=== PATIENT | male | born 1960 | race Caucasian/White ===

== ENCOUNTER → 2017-02-14 | Outpatient (CLI) | payer BC ==
[~2017-02-14] MED LIST: CLON0.5T3 PO; FLUT220A INH; PRVHFAIN INH
== END | disposition home or self-care (01) ==
LOC: C.LABBFT 12:13
PROVIDERS: ATTEND Physician Assistant
DX: R59.0 Localized enlarged lymph nodes (principal)

== ENCOUNTER → 2017-03-09 | Outpatient (CLI) | payer BC ==
--- NOTE | 2017-03-10 17:58 | Procedure Note ---
Procedure Note Date of Service Mar 10, 2017. Procedure Note Spirometry: Within normal limits Lung volumes: Within normal limits Diffusion: Moderately decreased DLCO with DLCO/VA ratio 69% Interpretation: Airflow capacity within normal limits but moderately decreased oxygen diffusing capacity
== END | disposition home or self-care (01) ==
LOC: C.RC 08:54
PROVIDERS: ATTEND Physician Assistant
DX: J84.9 Interstitial pulmonary disease, unspecified (principal)

== ENCOUNTER → 2017-04-27 | Outpatient (CLI) | payer BC ==
--- NOTE | 2017-04-27 15:21 | DIAGNOSTIC IMAGING REPORT ---
TWO VIEW CHEST CLINICAL HISTORY: Bronchiectasis. Cough. FINDINGS: PA and lateral chest radiographs are compared to study dated 02/13/2009 and correlated with chest CT dated 01/26/2017. The heart is top normal for projection. The pulmonary vasculature is noncongested. There is diffuse interstitial thickening and subpleural reticulation. This is similar to 01/26/[address] scan and typical appearance for interstitial lung disease. Prominence of the israel likely corresponds to adenopathy when correlated with the recent chest CT. Foci of bronchiectasis are identified at the lung bases. There is no evidence of superimposed airspace consolidation or pleural effusion. There is no pneumothorax. The bony thorax appears intact. IMPRESSION: Findings of interstitial lung disease are similar to previous. There is no evidence of superimposed airspace consolidation or pleural effusion. Electronically signed by: Sam Harris M.D. 04/27/2017 3:20 PM Dictated Date/Time: 04/27/2017 3:18 PM
== END | disposition home or self-care (01) ==
LOC: C.LAB1850 12:46
PROVIDERS: ATTEND Physician Assistant
DX: J47.9 Bronchiectasis, uncomplicated (principal); R05 Cough

== ENCOUNTER → 2017-05-18 | Outpatient (CLI) | payer BC ==
[2017-05-22 11:03] LABS: QUANTIF TB AG-NIL <0.00 IU/ML; QUANTIFERON NIL 0.05 IU/ML
== END | disposition home or self-care (01) ==
LOC: C.LAB1850 17:10
PROVIDERS: ATTEND Internal Medicine Pulmonary Disease
DX: J84.9 Interstitial pulmonary disease, unspecified (principal); J30.9 Allergic rhinitis, unspecified

== ENCOUNTER 2017-12-19 16:10 | Inpatient (IN) | payer BC ==
[~2017-12-19] VITALS: Ht 175.3 cm; Wt 109.6 kg
[2017-12-19] MEDS ORDERED: DILTIAZEM BOLUS / DRIP IV STA (16:24)
[2017-12-19] MEDS ORDERED: SODIUM CHLORIDE 0.9% 1000ML 250 ML IV STA (16:24)
--- NOTE | 2017-12-19 16:43 | DIAGNOSTIC IMAGING REPORT ---
CHEST ONE VIEW PORTABLE HISTORY: 57 years-old Male CHEST PAIN acute atypical chest pain COMPARISON: Chest radiograph 04/27/2017, CT chest 01/26/2017 TECHNIQUE: Portable AP view the chest FINDINGS: Cardiac silhouette is again mildly enlarged. There is no pneumothorax or pleural effusion. Emphysema with chronic bilateral multilobar reticular opacities are redemonstrated. Cystic changes of the lungs and bronchiectasis are better aligned when on comparison chest CT. Additionally, there are new superimposed patchy alveolar opacities which are most pronounced within a perihilar and bibasilar predominant distribution. Bones of the chest appear grossly intact. IMPRESSION: 1. Emphysema with interstitial lung disease. 2. New patchy alveolar opacities, most pronounced within a perihilar and bibasilar predominant distribution suggest atelectasis or pneumonitis. 3. Cardiomegaly. The above report was generated using voice recognition software. It may contain grammatical, syntax or spelling errors. Electronically signed by: Macho Anne M.D. 12/19/2017 4:41 PM Dictated Date/Time: 12/19/2017 4:39 PM
[2017-12-19] MEDS ORDERED: DILTIAZEM HCL INJ 125 MG in DEXTROSE 5% 100ML IV PRN (16:45)
[2017-12-19] MEDS ORDERED: DILTIAZEM BOLUS FROM BAG IV ONE (16:45)
[2017-12-19 16:53] LABS: HEMATOCRIT 45.9 % (42-52); HEMOGLOBIN 16.2 g/dL (14.0-18.0); MEAN CELL VOLUME 91.6 fL (80-100); MEAN CORPUSCULAR HEMOGLOBIN 32.3 pg (25-34); MEAN CORPUSCULAR HGB CONC 35.3 g/dl (32-36); MEAN PLATELET VOLUME 8.8 fL (7.4-10.4); PLATELET COUNT 231 K/uL (130-400); RED CELL DISTRIBUTION WIDTH CV 13.8 % (11.5-14.5); RED CELL DISTRIBUTION WIDTH SD 46.1 fL (36.4-46.3); WHITE BLOOD COUNT 6.82 K/uL (4.8-10.8)
[2017-12-19 17:05] LABS: PTT PATIENT 24.6 SECONDS (21.0-31.0)
[2017-12-19] MEDS ORDERED: MULT-513 PO (17:08)
[2017-12-19] MEDS ORDERED: RANI150T85 PO (17:08)
[2017-12-19] MEDS ORDERED: [UNRECOGNIZED DRUG - OTHER] INJ (17:08)
[2017-12-19] MEDS ORDERED: ASPI81TA28 PO (17:08)
[2017-12-19] MEDS ORDERED: CLIN300C2 PO (17:08)
[2017-12-19 17:13] LABS: ALBUMIN 3.4 gm/dl (3.4-5.0); ALT/SGPT 32 U/L (12-78); AST/SGOT 26 U/L (15-37); BLOOD UREA NITROGEN 13 mg/dl (7-18); CARBON DIOXIDE 25 mmol/L (21-32); CREATININE 1.29 mg/dl (0.60-1.40); GLUCOSE 85 mg/dl (70-99); POTASSIUM 4.6 mmol/L (3.5-5.1); SODIUM 137 mmol/L (136-145)
[2017-12-19 17:24] LABS: ALKALINE PHOSPHATASE 156 U/L (45-117); TOTAL PROTEIN 7.6 gm/dl (6.4-8.2)
--- NOTE | 2017-12-19 18:51 | EMERGENCY ROOM VISIT NOTE ---
History Report prepared by Hilario: Isidoro Dick Under the Supervision of: Dr. Sam Hodgson M.D. First contact with patient: 16:18 Chief Complaint: CHEST PAIN Stated Complaint: CHEST PAIN History of Present Illness The patient is a 57 year old male who presents to the Emergency Room with complaints of resolved chest pressure that began at 0630. The patient states that he gets injections once a week by a nurse for his history of pulmonary fibrosis. He reports that last night his nurse checked his heart rate at 0100 and found that it was 66 bpm and irregular. The patient states that the nurse advised him to come to the ER, but he reports he went to bed instead. He reports that he woke up at 0630 and developed chest pressure and palpitations. The patient states he has had similar chest pressure in the past and he describes it like "gas or heart burn". He reports his pulse ox showed a rate of 137 later that day at 1300. He states that he has noticed his heart rate has been fluctuating like this for the past month and a half. The patient states the nurse told his doctor and his doctor called him. He reports his doctor told him he has atrial flutter and told him to report to the ER. He reports he drove to his doctors office and EMS took him to the ER from there. The patient reports that as soon as EMS arrived, his chest pressure was alleviated. The patient states he was then given 4 Aspirin and 20 mg of IV Cardizem. He reports he is not currently experiencing chest pressure but states he does have a headache. The patient states he is typically short of breath--this has not changed lately. He denies a history of irregular heart beats. The patient states that he had a stress test sixth months ago and reports there were no significant abnormalities. Source of History: patient Onset: 0630 Position: chest Quality: pressure Timing: resolved Modifying Factors (Relieving): other (Aspirin, Cardizem) Associated Symptoms: + headache, + SOB Note: Associated symptoms: palpitations Review of Systems See HPI for pertinent positives & negatives. A total of 10 systems reviewed and were otherwise negative. Past Medical & Surgical Medical Problems: (1) Pzupa-3-[id number] deficiency (2) Anxiety (3) Asthma (4) Back pain (5) Bronchitis (6) Cholelithiases (7) Collapsed lung (8) Degenerative joint disease (9) Depression (10) Dyslipidemia (11) Emphysema of lung (12) TIA (transient ischemic attack) Surgical Problems: (1) History of left hip replacement (2) History of left hip replacement (3) Hx of hernia repair Family History Diabetes mellitus Heart disease Social History Smoking Status: Former Smoker Alcohol Use: occasionally Marital Status: in relationship Occupation Status: employed Current/Historical Medications Scheduled Alpha1-Proteinase Inhibitor (H (Prolastin-C), 60 MG.per.KG IV WK Aspirin (Aspirin Ec), 81 MG PO DAILY Clindamycin Hcl (Cleocin), 300 MG PO BID Home O2 Therapy (Oxygen), 2 LITERS NA PRN Multivitamins/Minerals (Mvi With Minerals), 1 TAB PO DAILY Scheduled PRN Albuterol (Ventolin Hfa), 2 PUFFS INH Q4H PRN for SOB/Wheezing Allergies Coded Allergies: Amoxicillin (Unverified Allergy, Intermediate, itchy, 01/09/16) Physical Exam Vital Signs Date Time Temp Pulse Resp B/P (MAP) Pulse Ox O2 Delivery O2 Flow Rate FiO2 12/19/17 18:41 88 18 119/88 98 Nasal Cannula 2.0 12/19/17 17:47 85 16 125/94 97 Nasal Cannula 2.0 12/19/17 17:20 75 12/19/17 16:55 80 18 123/88 96 Nasal Cannula 2.0 12/19/17 16:29 99 Nasal Cannula 2.0 12/19/17 16:16 99 Nasal Cannula 2.0 12/19/17 16:16 99 Nasal Cannula 2.0 12/19/17 16:16 93 12 114/92 99 Nasal Cannula 2.0 Physical Exam GENERAL: Patient is in no acute distress. HEENT: No acute trauma, normocephalic atraumatic, mucous membranes moist, no nasal congestion, no scleral icterus. NECK: No stridor, no adenopathy, no meningismus, trachea is midline. LUNGS: Diffuse crackles throughout all lung leonard. Equal breath sounds. No respiratory distress. HEART: Irregular without any murmurs. There is a normal rate. ABDOMEN: Soft, nontender, bowel sounds positive, no hernias, no peritonitis. EXTREMITIES: No cyanosis or edema, full range of motion of all the joints without pain or difficulty, no signs for acute trauma. NEUROLOGIC: Oriented x 3, no acute motor or sensory deficits, no focal weakness. SKIN: No rash, no jaundice, no diaphoresis. Medical Decision & Procedures ER Provider Diagnostic Interpretation: X-ray results as stated below per interpretation by me and the radiologist: CHEST ONE VIEW PORTABLE HISTORY: 57 years-old Male CHEST PAIN acute atypical chest pain COMPARISON: Chest radiograph 04/27/2017, CT chest 01/26/2017 TECHNIQUE: Portable AP view the chest FINDINGS: Cardiac silhouette is again mildly enlarged. There is no pneumothorax or pleural effusion. Emphysema with chronic bilateral multilobar reticular opacities are redemonstrated. Cystic changes of the lungs and bronchiectasis are better aligned when on comparison chest CT. Additionally, there are new superimposed patchy alveolar opacities which are most pronounced within a perihilar and bibasilar predominant distribution. Bones of the chest appear grossly intact. IMPRESSION: 1. Emphysema with interstitial lung disease. 2. New patchy alveolar opacities, most pronounced within a perihilar and bibasilar predominant distribution suggest atelectasis or pneumonitis. 3. Cardiomegaly. The above report was generated using voice recognition software. It may contain grammatical, syntax or spelling errors. Electronically signed by: Macho Anne M.D. 12/19/2017 4:41 PM Dictated Date/Time: 12/19/2017 4:39 PM Laboratory Results 12/19/17 16:40 12/19/17 16:40 Test 12/19/17 16:40 Red Blood Count 5.01 M/uL (4.7-6.1) Mean Corpuscular Volume 91.6 fL (80-100) Mean Corpuscular Hemoglobin 32.3 pg (25-34) Mean Corpuscular Hemoglobin Concent 35.3 g/dl (32-36) RDW Standard Deviation 46.1 fL (36.4-46.3) RDW Coefficient of Variation 13.8 % (11.5-14.5) Mean Platelet Volume 8.8 fL (7.4-10.4) Prothrombin Time 11.0 SECONDS (9.0-12.0) Prothromb Time International Ratio 1.0 (0.9-1.1) Activated Partial Thromboplast Time 24.6 SECONDS (21.0-31.0) Partial Thromboplastin Ratio 0.9 Anion Gap 5.0 mmol/L (3-11) Est Creatinine Clear Calc Drug Dose 79.5 ml/min Estimated GFR () 70.9 Estimated GFR (Non- 61.1 BUN/Creatinine Ratio 10.3 (10-20) Calcium Level 10.0 mg/dl (8.5-10.1) Magnesium Level 2.5 mg/dl (1.8-2.4) Total Bilirubin 1.4 mg/dl (0.2-1) Aspartate Amino Transf (AST/SGOT) 26 U/L (15-37) Alanine Aminotransferase (ALT/SGPT) 32 U/L (12-78) Alkaline Phosphatase 156 U/L (45-117) Total Protein 7.6 gm/dl (6.4-8.2) Albumin 3.4 gm/dl (3.4-5.0) Globulin 4.2 gm/dl (2.5-4.0) Albumin/Globulin Ratio 0.8 (0.9-2) Thyroid Stimulating Hormone (TSH) 1.720 uIu/ml (0.300-4.500) Laboratory results reviewed by me. Medications Administered Medications (Trade) Dose Ordered Sig/Murtaza Route Start Time Stop Time Status Last Admin Dose Admin Sodium Chloride 250 ml @ 999 mls/hr Q16M STAT IV 12/19/17 16:24 12/19/17 16:39 DC 12/19/17 16:24 999 MLS/HR Diltiazem HCl (Cardizem Bolus From Bag) 5 mg ONE ONCE IV 12/19/17 16:45 12/19/17 16:46 DC 12/19/17 17:00 5 MG Diltiazem HCl 125 mg/Dextrose 125 ml @ 0 mls/hr Q0M PRN IV 12/19/17 16:45 01/18/18 16:44 12/19/17 16:59 5 MLS/HR ECG Per My Interpretation Indication: chest pain Rate (beats per minute): 90 Rhythm: atrial flutter Findings: nonspecific-ST abn, other (No ST elevation, No PVCs) ED Course 1622: The patient was evaluated in room C12. A complete history and physical exam was performed. 1624: Ordered Sodium Chloride 250 ml @ 999 mls/hr IV. 1645: Ordered Diltiazem HCl 125 mg/Dextrose 125 ml IV, Diltiazem HCl 5 mg IV. 1738: I reevaluated the patient and discussed the results. I discussed the treatment plan, which he agrees to. The patient will be further evaluated by a hospitalist. 1744: I discussed the patient's case with Demi Fragoso PA-C Hospitalist. She understands the patient's condition and agrees to accept the patient. The patient will be further evaluated. Medical Decision The patient is a 57 year old male who presents to the Emergency Room with complaints of resolved chest pressure that began at 0630. Differential diagnoses considered include atrial fibrillation or flutter, TN, electrolyte Imbalance, anemia, thyroid disorder, and SVT. There is no leukocytosis or concerning anemia. No significant electrolyte abnormality, kidney failure or hepatitis. The patient appears to be in a euthyroid state. EKG shows atrial flutter with a rate of 90, no acute ischemic change. Cardiac enzyme testing 1 is not consistent with acute cardiac injury. Chest x-ray does show pulmonary fibrosis and possibly atelectasis or pneumonia --I favor atelectasis as he has not had cough or increased shortness of breath or fever. The patient presents with chest pressure and palpitations. His heart rate was around 130 prior to receiving IV Cardizem in the ambulance in route to the hospital. The patient was given IV saline, he received an IV Cardizem bolus and then was placed on a Cardizem drip. His heart rate is now nicely controlled. A hospital stay is warranted, further workup is required. I did speak to the patient and case management. The on-call hospitalist was consulted. Medication Reconcilliation Current Medication List: was personally reviewed by me Blood Pressure Screening Patient's blood pressure: Normal blood pressure Consults Time Called: 1744 Consulting Physician: Demi Fragoso PA-C Hospitalist Returned Call: 1744 I discussed the patient's case with Demi Fragoso PA-C Hospitalist. She understands the patient's condition and agrees to accept the patient. The patient will be further evaluated. Impression Primary Impression: Precordial chest pain Additional Impression: Atrial flutter with rapid ventricular response Critical Care I have personally spent greater than 30 minutes of critical care time in the direct management of this patient. This includes bedside care, interpretation of diagnostic studies and testing, discussion with consultants, the patient, and family members, and other required patient management activities. This 30 minutes is in excess of all separately billable procedures. Scribe Attestation The scribe's documentation has been prepared under my direction and personally reviewed by me in its entirety. I confirm that the note above accurately reflects all work, treatment, procedures, and medical decision making performed by me. Departure Information Dispostion Being Evaluated By Hospitalist Referrals Daly Brasher M.D. (PCP) Patient Instructions My [facility] Problem Qualifiers
[2017-12-19] MEDS ORDERED: NITROGLYCERIN 0.4 MG SL PER TAB CHARGE SL PRN (19:45)
[2017-12-19] MEDS ORDERED: ACETAMINOPHEN 325 MG TAB PO PRN (19:45)
[2017-12-19] MEDS ORDERED: ONDANSETRON INJ 2 MG/ML 2 ML VIAL IV PRN (19:45)
[2017-12-19] MEDS ORDERED: MAGNESIUM HYDROXIDE SUSP 30 ML UDC PO PRN (19:45)
[2017-12-19] MEDS ORDERED: DILTIAZEM BOLUS / DRIP IV SCH (19:48)
[2017-12-19] MEDS ORDERED: [UNRECOGNIZED DRUG - CODE] IV (19:59)
[2017-12-19] MEDS ORDERED: OXGN (19:59)
[2017-12-19] MEDS ORDERED: LEVALBUTEROL 0.63MG/3 ML NEB INH PRN (20:00)
[2017-12-19] MEDS ORDERED: HEPARIN 25000 UNIT/500 ML D5W ONE (20:27)
--- NOTE | 2017-12-19 20:32 | History and Physical ---
History & Physical Date & Time of Service: Dec 19, 2017 at 20:02 Chief Complaint: Chest Pain Primary Care Physician: Daly Brasher M.D. History of Present Illness Source: patient, clinic records, hospital records Pt is 57 y/o M with PMH alpha-1 antitrypsin deficiency, pulmonary fibrosis, TIA , dyslipidemia-diet controlled, spontaneous pneumothorax presented to ER from PCP office for rapid heart rate chest pain. Patient was found to be in atrial flutter RVR. Patient reports yesterday was receiving his weekly Prolastin and reports that the nurse took his pulse and reported it was in the 60s however felt irregular and patient was urged to seek medical treatment at that point in time however patient denied. Patient states this morning he woke up he felt some midsternal chest pressure and increased shortness of breath and noticed that his pulse was 165 using his pulse oximeter. Patient reports that he noticed in the past that he would develop what he would describe as heartburn sensation of increased gas and increased burping and at that time he would use his pulse ox to check his pulse and rates it be as high as 160s. Patient states symptoms will last 1-8 hours and then resolved. He denies any associated dizziness or syncope with these episodes. He would sometimes use Pepto-Bismol. Patient reports has noticed when drinking milk he gets diarrhea and since discharge to be reporting that. Has been eating and drinking normally. Denies melena, hematochezia. Reports approximately 3 years ago was having some hematochezia and melena and had colonoscopy and he reports diverticular bleeding. Denies any symptoms since. Denies any abdominal pain, epistaxis. Patient denies any increase shortness of breath from baseline, uses O2 2 L with ambulation and at bedtime and as needed. Reports chronic cough productive clear sputum denies any increased cough or increased sputum production. Patient reports is [place] 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 denies any recent fevers or chills, diaphoresis, N/V, ALONZO, dizziness, syncope, vision changes, neck pain, orthopnea, palpitations, hemoptysis, sore throat, choking, otalgia, abdominal pain, paresthesias, extremity weakness, extremity edema, rashes, urinary symptoms, weight loss. History echo 02/2017: EF: 56% In route patient reported given aspirin and diltiazem. In ER EKG a flutter rate 90. Patient given Cardizem 5 mg bolus and now on Cardizem drip and rate controlled in the 80s-90s. Patient denies any current chest pain. Negative initial troponin Past Medical/Surgical History Medical Problems: (1) Nsoix-8-jitdluevywh deficiency Status: Chronic (2) Anxiety Status: Chronic (3) Asthma Status: Chronic (4) Back pain Status: Chronic (5) Bronchitis Status: Chronic (6) Cholelithiases Status: Resolved (7) Collapsed lung Status: Resolved (8) Degenerative joint disease Status: Chronic (9) Depression Status: Chronic (10) Dyslipidemia Status: Chronic (11) Emphysema of lung Status: Chronic (12) TIA (transient ischemic attack) Status: Resolved Surgical Problems: (1) History of left hip replacement Status: Resolved (2) History of left hip replacement Status: Resolved (3) Hx of hernia repair Status: Resolved Family History Diabetes mellitus Heart disease Social History Smoking Status: Former Smoker (amoked 1ppd x 30years) Smokeless Tobacco Use: No Alcohol Use: occasionally Drug Use: none Marital Status: in relationship Occupational Status: employed Immunizations History of Influenza Vaccine: No History of Tetanus Vaccine?: Yes History of Pneumococcal: No History of Hepatitis B Vaccine: No Allergies Coded Allergies: Amoxicillin (Unverified Allergy, Intermediate, itchy, 01/09/16) Home Medications Scheduled Alpha1-Proteinase Inhibitor (H (Prolastin-C), 60 MG.per.KG IV WK Aspirin (Aspirin Ec), 81 MG PO DAILY Clindamycin Hcl (Cleocin), 300 MG PO BID Home O2 Therapy (Oxygen), 2 LITERS NA PRN Multivitamins/Minerals (Mvi With Minerals), 1 TAB PO DAILY Scheduled PRN Albuterol (Ventolin Hfa), 2 PUFFS INH Q4H PRN for SOB/Wheezing Review of Systems See HPI for pertinent positives & negatives. All other systems reviewed and were otherwise negative Physical Exam Vital Signs Date Time Temp Pulse Resp B/P (MAP) Pulse Ox O2 Delivery O2 Flow Rate FiO2 12/19/17 19:41 85 18 117/93 98 Nasal Cannula 2.0 12/19/17 18:41 88 18 119/88 98 Nasal Cannula 2.0 12/19/17 17:47 85 16 125/94 97 Nasal Cannula 2.0 12/19/17 17:20 75 12/19/17 16:55 80 18 123/88 96 Nasal Cannula 2.0 12/19/17 16:29 99 Nasal Cannula 2.0 12/19/17 16:16 99 Nasal Cannula 2.0 12/19/17 16:16 99 Nasal Cannula 2.0 12/19/17 16:16 93 12 114/92 99 Nasal Cannula 2.0 General Appearance: WD/WN, no apparent distress Head: normocephalic, atraumatic Eyes: normal inspection, sclerae normal ENT: hearing grossly normal, pharynx normal, + pertinent finding (Mucous membranes moist) Neck: supple, trachea midline Respiratory/Chest: no respiratory distress, no accessory muscle use, + decreased breath sounds, + crackles (At bases bilaterally), + pertinent finding (Patient on 2 L O2 NC) Cardiovascular: no murmur, + irregularly irregular Abdomen/GI: normal bowel sounds, non tender, soft Extremities/Musculoskelatal: normal inspection, normal capillary refill, no pedal edema, non-tender Neurologic/Psych: alert, normal mood/affect, oriented x 3 Skin: normal color, warm/dry Diagnostics Laboratory Results Results Past 24 Hours Test 12/19/17 16:40 Range/Units White Blood Count 6.82 4.8-10.8 K/uL Red Blood Count 5.01 4.7-6.1 M/uL Hemoglobin 16.2 14.0-18.0 g/dL Hematocrit 45.9 42-52 % Mean Corpuscular Volume 91.6 80-100 fL Mean Corpuscular Hemoglobin 32.3 25-34 pg Mean Corpuscular Hemoglobin Concent 35.3 32-36 g/dl RDW Standard Deviation 46.1 36.4-46.3 fL RDW Coefficient of Variation 13.8 11.5-14.5 % Platelet Count 231 130-400 K/uL Mean Platelet Volume 8.8 7.4-10.4 fL Prothrombin Time 11.0 9.0-12.0 SECONDS Prothromb Time International Ratio 1.0 0.9-1.1 Activated Partial Thromboplast Time 24.6 21.0-31.0 SECONDS Partial Thromboplastin Ratio 0.9 Sodium Level 137 136-145 mmol/L Potassium Level 4.6 3.5-5.1 mmol/L Chloride Level 107 98-107 mmol/L Carbon Dioxide Level 25 21-32 mmol/L Anion Gap 5.0 3-11 mmol/L Blood Urea Nitrogen 13 7-18 mg/dl Creatinine 1.29 0.60-1.40 mg/dl Est Creatinine Clear Calc Drug Dose 79.5 ml/min Estimated GFR () 70.9 Estimated GFR (Non- 61.1 BUN/Creatinine Ratio 10.3 10-20 Random Glucose 85 70-99 mg/dl Calcium Level 10.0 8.5-10.1 mg/dl Magnesium Level 2.5 1.8-2.4 mg/dl Total Bilirubin 1.4 0.2-1 mg/dl Aspartate Amino Transf (AST/SGOT) 26 15-37 U/L Alanine Aminotransferase (ALT/SGPT) 32 12-78 U/L Alkaline Phosphatase 156 45-117 U/L Troponin I < 0.015 0-0.045 ng/ml Total Protein 7.6 6.4-8.2 gm/dl Albumin 3.4 3.4-5.0 gm/dl Globulin 4.2 2.5-4.0 gm/dl Albumin/Globulin Ratio 0.8 0.9-2 Thyroid Stimulating Hormone (TSH) 1.720 0.300-4.500 uIu/ml Diagnostic Radiology CXR: IMPRESSION: 1. Emphysema with interstitial lung disease. 2. New patchy alveolar opacities, most pronounced within a perihilar and bibasilar predominant distribution suggest atelectasis or pneumonitis. 3. Cardiomegaly. EKG EKG: Rate 90, atrial flutter Impression Assessment and Plan A FLUTTER RVR New-onset EKG a flutter. Initial troponin negative in ER. Patient received diltiazem and on diltiazem drip with heart rate controlled in the 80s-90s. No further chest pain. Patient received aspirin. Afebrile, no leukocytosis, TSH: 1.7. -Monitor Vitals -Repeat EKG in am -Will trend troponin -diltiazem drip -heparin IV -ASA -Echo -Cardiology consult - spoke with Dr Carranza -lipid panel, CBC, PRP, magnesium lab in am HISTORY OF PULMONARY FIBROSIS/ALPHA 1 ANTITRYPSIN DEFICIENCY Patient without increased cough or increased sputum production or fever. No leukocytosis. No fever. CXR: Emphysema with interstitial lung disease. New patchy alveolar opacities, most pronounced within a perihilar and bibasilar predominant distribution suggest atelectasis or pneumonitis. -We will hold on antibiotics at this time and continue to monitor -Continue supplemental oxygen -Xopenex neb as needed HISTORY DENTAL INFECTION Left upper tooth, patient started on clindamycin on 12/17/17 for 10 day course -We will continue clindamycin to complete 10 day course DYSLIPIDEMIA Diet-controlled -Lipid panel in a.m. DVT Prophylaxis -Heparin IV Disposition admit telemetry Full code Follows with Dr Brasher for routine care Pt was seen with Dr Gill. See addendum ADDENDUM: I have seen and examined the patient and agree with the assessment and plan as stated above. DO Jairo Resuscitation Status Full code VTE Prophylaxis Will order VTE Prophylaxis: Yes Additional Copies To Daly Brasher M.D.
[2017-12-19] MEDS ORDERED: HEPARIN SOD (PORCINE) 1000 UNIT/ML 10 ML VIAL ONE (20:36)
[2017-12-19] MEDS ORDERED: HEPARIN 25,000 UNIT/500ML D5W 500 ML IV SCH (21:15)
[2017-12-19] MEDS ORDERED: CLONAZEPAM 0.5 MG TAB PO ONE (21:20)
[2017-12-19 21:28] VITALS: BP 132/91; PULSE 96; TEMP 36.4; O2SAT 95; Ht 175.3 cm; Wt 109.6 kg
[2017-12-19] MEDS ORDERED: CLONAZEPAM 0.5 MG TAB PO PRN (21:30)
[2017-12-19] MEDS: CLINDAMYCIN HCL 150 MG CAP PO SCH (22:10)
[2017-12-19 23:38] VITALS: BP 117/81; PULSE 97; TEMP 36.7; O2SAT 93
[2017-12-20] VITALS (9 sets, daily range): BP systolic 93–145; BP diastolic 65–89; PULSE 85–105; TEMP 36.3–37; O2SAT 93–97
[2017-12-20 02:39] LABS: HEMATOCRIT 44.3 % (42-52); HEMOGLOBIN 15.2 g/dL (14.0-18.0); MEAN CELL VOLUME 91.7 fL (80-100); MEAN CORPUSCULAR HEMOGLOBIN 31.5 pg (25-34); MEAN CORPUSCULAR HGB CONC 34.3 g/dl (32-36); MEAN PLATELET VOLUME 8.7 fL (7.4-10.4); PLATELET COUNT 211 K/uL (130-400); RED CELL DISTRIBUTION WIDTH CV 13.6 % (11.5-14.5); RED CELL DISTRIBUTION WIDTH SD 45.2 fL (36.4-46.3); WHITE BLOOD COUNT 7.18 K/uL (4.8-10.8)
[2017-12-20 03:10] LABS: PTT PATIENT 54.4 SECONDS (21.0-31.0)
[2017-12-20 03:18] LABS: BLOOD UREA NITROGEN 14 mg/dl (7-18); CALCIUM 9.4 mg/dl (8.5-10.1); CARBON DIOXIDE 27 mmol/L (21-32); CHOLESTEROL 152 mg/dl (0-200); CREATININE 1.14 mg/dl (0.60-1.40); GLUCOSE 85 mg/dl (70-99); LDL CHOLESTEROL CALCULATED 93 mg/dl; POTASSIUM 3.8 mmol/L (3.5-5.1); SODIUM 137 mmol/L (136-145)
[2017-12-20] MEDS: ASPIRIN 81 MG ECTAB PO SCH (07:43)
[2017-12-20] MEDS: CEROVITE ADV FORMULA TAB PO SCH (07:43)
[2017-12-20] MEDS: CLINDAMYCIN HCL 150 MG CAP PO SCH ×2 (07:43→20:04)
[2017-12-20] MEDS ORDERED: RIVAROXABAN 20 MG TAB PO ONE (11:00)
[2017-12-20] MEDS ORDERED: METOPROLOL SUCC 25MG EXT REL TAB PO ONE (11:00)
--- NOTE | 2017-12-20 11:05 | ECHOCARDIOGRAM REPORT ---
*NOTICE TO RECEIVING LIBERTARIAN AGENCY This information is strictly Confidential and protected under [place] law. [place] law prohibits you from making any further disclosure of this information unless further disclosure is expressly permitted by the written consent of the person to whom it pertains or is authorized by law. A general authorization for the release of medical or other information is not sufficient for this purpose. Hospital accepts no responsibility if the information is made available to any other person, INCLUDING THE PATIENT. Interpretation Summary * Name: CHERELLE GOLDMAN Study Date: 12/20/2017 06:54 AM BP: 104/69 mmHg * Patient Location: C.2T\S\S240\S\2 HR: 100 * : 1960 (M/d/yyyy) Gender: Male Height: 69 in * Age: 57 yrs Ethnicity: [place] Weight: 256 lb * Ordering Physician: Majo Valadez * Referring Physician: Daly Brasher * Performed By: Alicia Lovell [facility] * * Reason For Study: A-FLUTTER * BSA: 2.3 m2 * -- Conclusions -- * 1. Normal LV size. Mild concentric LVH. * 2. Normal LV systolic function. LVEF 50-55 %. Abnormal septal motion consistent with conduction abnormality. * 3. Normal RV size and function. * 4. No significant valvular pathology. * 5. Normal estimated PA and RA pressures. * 6. No prior studies for comparison. Procedure Details * A complete two-dimensional transthoracic echocardiogram was performed (2D, M-mode, Doppler and color flow Doppler). Left Ventricle * The left ventricle is grossly normal size. * There is mild concentric left ventricular hypertrophy. * Ejection Fraction = 50-55%. * Septal motion is consistent with conduction abnormality. Right Ventricle * The right ventricle is grossly normal size. * The right ventricular systolic function is normal as assessed by tricuspid annular plane systolic excursion (TAPSE) (normal >1.5 cm). Atria * The left atrial size is normal. * The right atrium is borderline dilated. * No ASD detected; PFO is not assessed. Mitral Valve * The mitral valve is grossly normal. * There is no mitral valve stenosis. * Significant mitral regurgitation is absent. Tricuspid Valve * There is trace tricuspid regurgitation. Aortic Valve * The aortic valve opens well. * The aortic valve is trileaflet. * No hemodynamically significant valvular aortic stenosis. * Trace aortic regurgitation. Pulmonic Valve * The pulmonary valve is inadequately visualized, but the Doppler data is adequate for interpretation. * Pulmonic stenosis is absent. * There is no significant pulmonary regurgitation. Great Vessels * The aortic root and proximal ascending aorta are normal sized. Pericardium/Pleural * There is no pericardial effusion. Great Vessels * Normal inferior vena cava size and collapsability with sniff indicates a normal right atrial pressure of 3 mmHg MMode 2D Measurements and Calculations IVSd 1.3 cm IVSs 1.4 cm LVIDd 5.1 cm LVIDs 4.0 cm LVPWd 1.1 cm LVPWs 1.4 cm IVS/LVPW 1.2 FS 21.3 % EDV(Teich) 121.7 ml ESV(Teich) 69.4 ml EF(Teich) 43.0 % EDV(cubed) 129.7 ml ESV(cubed) 63.3 ml EF(cubed) 51.2 % % IVS thick 10.3 % % LVPW thick 33.3 % LV mass(C)d 235.1 grams LV mass(C)dI 102.5 grams/m\S\2 LV mass(C)s 216.0 grams LV mass(C)sI 94.1 grams/m\S\2 SV(Teich) 52.3 ml SI(Teich) 22.8 ml/m\S\2 SV(cubed) 66.4 ml SI(cubed) 28.9 ml/m\S\2 Ao root diam 3.5 cm Ao root area 9.9 cm\S\2 ACS 2.2 cm LA dimension 4.4 cm LA/Ao 1.2 LVOT diam 2.0 cm LVOT area 3.3 cm\S\2 LVAd ap4 39.3 cm\S\2 LVLd ap4 8.4 cm EDV(MOD-sp4) 150.8 ml EDV(sp4-el) 156.3 ml LVAs ap4 29.1 cm\S\2 LVLs ap4 7.4 cm ESV(MOD-sp4) 95.6 ml ESV(sp4-el) 96.9 ml EF(MOD-sp4) 36.6 % EF(sp4-el) 38.0 % LVAd ap2 31.9 cm\S\2 LVLd ap2 7.8 cm EDV(MOD-sp2) 111.1 ml EDV(sp2-el) 111.2 ml LVAs ap2 24.5 cm\S\2 LVLs ap2 7.2 cm ESV(MOD-sp2) 70.1 ml ESV(sp2-el) 71.0 ml EF(MOD-sp2) 36.9 % EF(sp2-el) 36.2 % LVLd %diff -8.07 % EDV(MOD-bp) 135.0 ml LVLs %diff -3.53 % ESV(MOD-bp) 84.1 ml EF(MOD-bp) 37.7 % SV(MOD-sp4) 55.2 ml SI(MOD-sp4) 24.1 ml/m\S\2 SV(MOD-sp2) 41.0 ml SI(MOD-sp2) 17.9 ml/m\S\2 SV(MOD-bp) 50.9 ml SI(MOD-bp) 22.2 ml/m\S\2 SV(sp4-el) 59.4 ml SI(sp4-el) 25.9 ml/m\S\2 SV(sp2-el) 40.2 ml SI(sp2-el) 17.5 ml/m\S\2 Doppler Measurements and Calculations MV E max donna 67.9 cm/sec MV P1/2t max donna 95.8 cm/sec MV P1/2t 88.4 msec MVA(P1/2t) 2.5 cm\S\2 MV dec slope 317.4 cm/sec\S\2 MV dec time 0.22 sec Ao V2 max 106.1 cm/sec Ao max PG 4.5 mmHg Ao max PG (full) 2.0 mmHg HONEY(V,A) 2.5 cm\S\2 HONEY(V,D) 2.5 cm\S\2 LV V1 max PG 2.5 mmHg LV V1 max 79.8 cm/sec PA V2 max 82.8 cm/sec PA max PG 2.7 mmHg
--- NOTE | 2017-12-20 12:03 | Progress Note ---
Subjective Date of Service: Dec 20, 2017. Subjective Pt evaluation today including: conversation w/ patient, physical exam, lab review, review of studies, review of inpatient medication list Saw/examined the patient in room 240 He's doing well; no palpitations no shortness of breath/breathing status at baseline had one episode of diarrhea this AM Problem List Medical Problems: (1) Atrial flutter with rapid ventricular response Status: Acute (2) Back pain Status: Acute (3) Precordial chest pain Status: Acute Review of Systems Constitutional: No fever, No chills Respiratory: No cough, No sputum, No shortness of breath (at baseline) Cardiac: No chest pain, No edema, No palpitations Medications Current Inpatient Medications Medications (Trade) Dose Ordered Sig/Murtaza Route Start Time Stop Time Status Last Admin Dose Admin Acetaminophen (Tylenol Tab) 650 mg Q4H PRN PO 12/19/17 19:45 01/18/18 19:44 12/20/17 06:18 650 MG Magnesium Hydroxide (Milk Of Magnesia Susp) 30 ml Q12H PRN PO 12/19/17 19:45 01/18/18 19:44 Ondansetron HCl (Zofran Inj) 4 mg Q6H PRN IV 12/19/17 19:45 01/18/18 19:44 Nitroglycerin (Nitrostat Tab) 0.4 mg UD PRN SL 12/19/17 19:45 01/18/18 19:44 Aspirin (Ecotrin Tab) 81 mg DAILY PO 12/20/17 09:00 01/19/18 08:59 12/20/17 07:43 81 MG Clindamycin HCl (Cleocin Cap) 300 mg BID PO 12/19/17 21:00 12/26/17 21:00 12/20/17 07:43 300 MG Multivitamins/ Minerals (Multivitamin W/ Minerals Tab) 1 tab DAILY PO 12/20/17 09:00 01/19/18 08:59 12/20/17 07:43 1 TAB Levalbuterol (Xopenex 0.63 Mg/ 3 Ml Neb) 0.63 mg Q6R PRN INH 12/19/17 20:00 01/18/18 19:59 Clonazepam (Klonopin Tab) 0.5 mg HS PRN PO 12/19/17 21:30 01/18/18 21:29 Rivaroxaban (Xarelto Tab) 20 mg QDD PO 12/21/17 16:45 01/20/18 16:44 Metoprolol Succinate (Toprol Xl Tab) 25 mg BID PO 12/20/17 21:00 01/19/18 20:59 Objective Vital Signs Date Time Temp Pulse Resp B/P (MAP) Pulse Ox O2 Delivery O2 Flow Rate FiO2 12/20/17 11:31 36.5 85 19 93/65 (74) 95 Nasal Cannula 2.0 12/20/17 08:10 36.5 96 19 115/78 (90) 96 Nasal Cannula 2.0 12/20/17 08:00 Nasal Cannula 2.0 12/20/17 04:00 93 Nasal Cannula 2.0 12/20/17 04:00 37.0 97 104/69 (81) 93 Nasal Cannula 2.0 12/20/17 00:00 93 Nasal Cannula 2.0 12/19/17 23:38 36.7 97 18 117/81 (93) 93 Nasal Cannula 2.0 12/19/17 21:28 36.4 96 20 132/91 95 Nasal Cannula 2.0 12/19/17 20:50 91 18 122/91 98 12/19/17 19:41 36.8 85 18 117/93 98 Nasal Cannula 2.0 12/19/17 18:41 88 18 119/88 98 Nasal Cannula 2.0 12/19/17 17:47 85 16 125/94 97 Nasal Cannula 2.0 12/19/17 17:20 75 12/19/17 16:55 80 18 123/88 96 Nasal Cannula 2.0 12/19/17 16:29 99 Nasal Cannula 2.0 12/19/17 16:16 99 Nasal Cannula 2.0 12/19/17 16:16 99 Nasal Cannula 2.0 12/19/17 16:16 93 12 114/92 99 Nasal Cannula 2.0 Physical Exam General Appearance: no apparent distress Respiratory/Chest: no respiratory distress, no accessory muscle use, + decreased breath sounds Cardiovascular: no edema, no murmur, + irregularly irregular Extremities: normal inspection, no pedal edema Neurologic/Psychiatric: no motor/sensory deficits, alert, normal mood/affect Laboratory Results Last 24 Hours Test 12/19/17 16:40 12/19/17 22:09 12/20/17 02:24 White Blood Count 6.82 K/uL 7.18 K/uL Red Blood Count 5.01 M/uL 4.83 M/uL Hemoglobin 16.2 g/dL 15.2 g/dL Hematocrit 45.9 % 44.3 % Mean Corpuscular Volume 91.6 fL 91.7 fL Mean Corpuscular Hemoglobin 32.3 pg 31.5 pg Mean Corpuscular Hemoglobin Concent 35.3 g/dl 34.3 g/dl RDW Standard Deviation 46.1 fL 45.2 fL RDW Coefficient of Variation 13.8 % 13.6 % Platelet Count 231 K/uL 211 K/uL Mean Platelet Volume 8.8 fL 8.7 fL Prothrombin Time 11.0 SECONDS Prothromb Time International Ratio 1.0 Activated Partial Thromboplast Time 24.6 SECONDS 54.4 SECONDS Partial Thromboplastin Ratio 0.9 2.1 Sodium Level 137 mmol/L 137 mmol/L Potassium Level 4.6 mmol/L 3.8 mmol/L Chloride Level 107 mmol/L 107 mmol/L Carbon Dioxide Level 25 mmol/L 27 mmol/L Anion Gap 5.0 mmol/L 3.0 mmol/L Blood Urea Nitrogen 13 mg/dl 14 mg/dl Creatinine 1.29 mg/dl 1.14 mg/dl Est Creatinine Clear Calc Drug Dose 79.5 ml/min 88.1 ml/min Estimated GFR () 70.9 82.3 Estimated GFR (Non- 61.1 71.0 BUN/Creatinine Ratio 10.3 12.7 Random Glucose 85 mg/dl 85 mg/dl Calcium Level 10.0 mg/dl 9.4 mg/dl Magnesium Level 2.5 mg/dl 2.4 mg/dl Total Bilirubin 1.4 mg/dl Aspartate Amino Transf (AST/SGOT) 26 U/L Alanine Aminotransferase (ALT/SGPT) 32 U/L Alkaline Phosphatase 156 U/L Troponin I < 0.015 ng/ml < 0.015 ng/ml < 0.015 ng/ml Total Protein 7.6 gm/dl Albumin 3.4 gm/dl Globulin 4.2 gm/dl Albumin/Globulin Ratio 0.8 Thyroid Stimulating Hormone (TSH) 1.720 uIu/ml Triglycerides Level 152 mg/dl Cholesterol Level 152 mg/dl HDL Cholesterol 29 mg/dl LDL Cholesterol, Calculated 93 mg/dl VLDL Cholesterol, Calculated 30 mg/dl Cholesterol/HDL Ratio 5.2 Hepatitis C Antibody Screen NEG Assessment and Plan This is a 57 year old male with a PMH of [id number] deficiency on weekly Prolastin injections, interstitial lung disease/pulmonary fibrosis on 2L of O2 with exertion, HLD - presents with elevated heart rates and found to have atrial fibrillation New Onset Atrial Fibrillation/Atrial Flutter with RVR - patient presented with atrial flutter on admission - currently on IV heparin and Cardizem drip - appreciate cardiology input - plan to start Xarelto; stop IV heparin - will give metoprolol, as patient wants to be off of all IV medications; will try to wean off Cardizem drip - echo - no valvular disease - cardiology - plan for cardioversion in AM Hx. of Pulmonary Fibrosis Alpha-1 Antitrypsin Deficiency - receives weekly Prolastin injections - continue O2 as needed (uses 2L with ambulation/exertion at baseline) - continue nebs as needed Dental Infection - currently on clindamycin for a dental infection - monitor for diarrhea episodes; follow-up with dentist as outpatient (will need to speak with them regarding anticoagulation as patient is now on Xarelto) DVT ppx - Eliquis FULL CODE
--- NOTE | 2017-12-20 13:42 | Cardiology Consultation ---
Cardiology Consultation Date of Consultation: Dec 20, 2017. Requesting Physician: Ar Reason for Consultation: Atrial flutter Pt evaluation today including: conversation w/ patient, conversation w/ family , physical exam, chart review, lab review, review of studies, review of inpatient medication list, conversation w/ attending History of Present Illness The patient is a 57-year-old gentleman without a known history of cardiac arrhythmia who has been reporting symptoms of palpitations for a few weeks. Patient states that he has noticed an irregularity in his pulse over the past few weeks. Occasionally he will notice some sense of palpitation or a strong heartbeat. He undergoes periodic infusions which requires a nurse evaluation. He has been noted on different occasions to have higher heart rates. Yesterday he was noticed to have a heart rate there was quite elevated in the contact his primary care physician who referred him to the emergency room. He was discovered to have atrial flutter. He has had chronic dyspnea. This is not appear to have worsened recently. He is severely limited in his activity due to dyspnea and can only perform mild and short periods of exertion before having to stop. He has not noticed any orthopnea or paroxysmal nocturnal dyspnea. He has had some mild chest pressure over the past few days as well. He has not had significant dizziness or lightheadedness. He has not suffered a syncopal episode. 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 No recent fevers or chills. Chronic cough. No lower extremity edema. No increasing abdominal girth. All Other Systems: Reviewed and Negative Allergies Coded Allergies: Amoxicillin (Unverified Allergy, Intermediate, itchy, 01/09/16) Medications Current Inpatient Medications Medications (Trade) Dose Ordered Sig/Murtaza Route Start Time Stop Time Status Last Admin Dose Admin Acetaminophen (Tylenol Tab) 650 mg Q4H PRN PO 12/19/17 19:45 01/18/18 19:44 12/20/17 06:18 650 MG Magnesium Hydroxide (Milk Of Magnesia Susp) 30 ml Q12H PRN PO 12/19/17 19:45 01/18/18 19:44 Ondansetron HCl (Zofran Inj) 4 mg Q6H PRN IV 12/19/17 19:45 01/18/18 19:44 Nitroglycerin (Nitrostat Tab) 0.4 mg UD PRN SL 12/19/17 19:45 01/18/18 19:44 Aspirin (Ecotrin Tab) 81 mg DAILY PO 12/20/17 09:00 01/19/18 08:59 12/20/17 07:43 81 MG Clindamycin HCl (Cleocin Cap) 300 mg BID PO 12/19/17 21:00 12/26/17 21:00 12/20/17 07:43 300 MG Multivitamins/ Minerals (Multivitamin W/ Minerals Tab) 1 tab DAILY PO 12/20/17 09:00 01/19/18 08:59 12/20/17 07:43 1 TAB Levalbuterol (Xopenex 0.63 Mg/ 3 Ml Neb) 0.63 mg Q6R PRN INH 12/19/17 20:00 01/18/18 19:59 Clonazepam (Klonopin Tab) 0.5 mg HS PRN PO 12/19/17 21:30 01/18/18 21:29 Rivaroxaban (Xarelto Tab) 20 mg QDD PO 12/21/17 16:45 01/20/18 16:44 Metoprolol Succinate (Toprol Xl Tab) 25 mg BID PO 12/20/17 21:00 01/19/18 20:59 Physical Exam Vital Signs Past 12 Hours Date Time Temp Pulse Resp B/P (MAP) Pulse Ox O2 Delivery O2 Flow Rate FiO2 12/20/17 12:10 Nasal Cannula 2.0 12/20/17 11:31 36.5 85 19 93/65 (74) 95 Nasal Cannula 2.0 12/20/17 08:10 36.5 96 19 115/78 (90) 96 Nasal Cannula 2.0 12/20/17 08:00 Nasal Cannula 2.0 12/20/17 04:00 93 Nasal Cannula 2.0 12/20/17 04:00 37.0 97 104/69 (81) 93 Nasal Cannula 2.0 The patient is alert and oriented. Mood and affect appeared normal. He answered all questions appropriately. HEENT: Pupils are equal and reactive to light and accommodation. Extraocular movements are intact. The sclerae are anicteric. Neuro: Cranial nerves intact Neck: Patient's neck is supple. He has palpable carotid pulses bilaterally without bruits on auscultation. There is no evidence of jugular venous distention. The thyroid is not enlarged. Lungs: Diffuse crackles throughout all lung leonard. He has good air movement without use of accessory muscles. Cardiac: Heart demonstrates an irregular rate and rhythm. Normal S1 and S2. No murmurs on examination. Pulses: The patient has palpable radial pulses bilaterally that are equal in intensity Extremities: There was no evidence of hypoperfusion. Positive clubbing bilaterally. There is no edema. Skin: I did not appreciate any rashes on examination today. Data Laboratory Results: Last 24 Hours Test 12/19/17 16:40 12/19/17 22:09 12/20/17 02:24 White Blood Count 6.82 K/uL 7.18 K/uL Red Blood Count 5.01 M/uL 4.83 M/uL Hemoglobin 16.2 g/dL 15.2 g/dL Hematocrit 45.9 % 44.3 % Mean Corpuscular Volume 91.6 fL 91.7 fL Mean Corpuscular Hemoglobin 32.3 pg 31.5 pg Mean Corpuscular Hemoglobin Concent 35.3 g/dl 34.3 g/dl RDW Standard Deviation 46.1 fL 45.2 fL RDW Coefficient of Variation 13.8 % 13.6 % Platelet Count 231 K/uL 211 K/uL Mean Platelet Volume 8.8 fL 8.7 fL Prothrombin Time 11.0 SECONDS Prothromb Time International Ratio 1.0 Activated Partial Thromboplast Time 24.6 SECONDS 54.4 SECONDS Partial Thromboplastin Ratio 0.9 2.1 Sodium Level 137 mmol/L 137 mmol/L Potassium Level 4.6 mmol/L 3.8 mmol/L Chloride Level 107 mmol/L 107 mmol/L Carbon Dioxide Level 25 mmol/L 27 mmol/L Anion Gap 5.0 mmol/L 3.0 mmol/L Blood Urea Nitrogen 13 mg/dl 14 mg/dl Creatinine 1.29 mg/dl 1.14 mg/dl Est Creatinine Clear Calc Drug Dose 79.5 ml/min 88.1 ml/min Estimated GFR () 70.9 82.3 Estimated GFR (Non- 61.1 71.0 BUN/Creatinine Ratio 10.3 12.7 Random Glucose 85 mg/dl 85 mg/dl Calcium Level 10.0 mg/dl 9.4 mg/dl Magnesium Level 2.5 mg/dl 2.4 mg/dl Total Bilirubin 1.4 mg/dl Aspartate Amino Transf (AST/SGOT) 26 U/L Alanine Aminotransferase (ALT/SGPT) 32 U/L Alkaline Phosphatase 156 U/L Troponin I < 0.015 ng/ml < 0.015 ng/ml < 0.015 ng/ml Total Protein 7.6 gm/dl Albumin 3.4 gm/dl Globulin 4.2 gm/dl Albumin/Globulin Ratio 0.8 Thyroid Stimulating Hormone (TSH) 1.720 uIu/ml Triglycerides Level 152 mg/dl Cholesterol Level 152 mg/dl HDL Cholesterol 29 mg/dl LDL Cholesterol, Calculated 93 mg/dl VLDL Cholesterol, Calculated 30 mg/dl Cholesterol/HDL Ratio 5.2 Hepatitis C Antibody Screen NEG Imaging: Chest x-ray demonstrated chronic interstitial changes EKG: Atrial flutter with variable ventricular response Telemetry reviewed: Reasonably controlled heart rates on diltiazem infusion Stress echocardiogram performed July 2017: Preserved LV systolic function without evidence of inducible ischemia Assessment & Plan 1. Atrial flutter: The patient's primary lung disease likely predispose him to this particular arrhythmia. He has been minimally symptomatic. He is severely limited with his primary lung disease but has not noticed any worsening dyspnea in the recent past. It is very likely that he has had this arrhythmia for several days if not several weeks. He has been appropriately anticoagulated. His rate control appears to be adequate. I think the most immediate intervention which would be a benefit is a cardioversion. Given the unknown duration of the arrhythmia will need to perform a AUGUSTIN 1st. My hope is this can be arranged for tomorrow morning. Afterwards there are several options. He will need to be on oral anticoagulation for several weeks after the cardioversion. At that time we could either continue a strategy of rate control and anticoagulation or perform catheter based ablation. I think the latter is favored given the success rate. This would also obviate the need for ongoing anticoagulation. In the absence of ablation he will undoubtedly have a recurrence and we may find ourselves in a similar circumstance. I discussed these options with the patient will plan on proceeding with cardioversion and AUGUSTIN tomorrow. I think he can be switched from heparin to oral anticoagulation tonight either with a novel oral anticoagulants or warfarin. We can continue his diltiazem infusion for now and monitor his heart rate after cardioversion tomorrow.
--- NOTE | 2017-12-20 17:24 | Anesthesiology Progress Note ---
Anesthesia Progress Note Date of Service Dec 20, 2017. Progress Notes Pt seen and evaluated. Acceptable risk for anesthesia tomorrow. consent signed.
[2017-12-20] MEDS ORDERED: ALBUTEROL HFA 8 GM INHALER INH PRN (19:30)
[2017-12-20] MEDS: METOPROLOL SUCC 25MG EXT REL TAB PO SCH (20:04)
[2017-12-20] MEDS ORDERED: FAMOTIDINE 20 MG TAB PO PRN (20:15)
[2017-12-21] VITALS (11 sets, daily range): BP systolic 76–127; BP diastolic 52–94; PULSE 84–131; TEMP 36.5–36.6; O2SAT 91–97
[2017-12-21 06:54] LABS: HEMATOCRIT 47.1 % (42-52); HEMOGLOBIN 16.5 g/dL (14.0-18.0); MEAN CELL VOLUME 91.6 fL (80-100); MEAN CORPUSCULAR HEMOGLOBIN 32.1 pg (25-34); MEAN PLATELET VOLUME 8.6 fL (7.4-10.4); PLATELET COUNT 220 K/uL (130-400); RED CELL DISTRIBUTION WIDTH CV 13.6 % (11.5-14.5); RED CELL DISTRIBUTION WIDTH SD 45.5 fL (36.4-46.3); WHITE BLOOD COUNT 8.13 K/uL (4.8-10.8)
[2017-12-21 07:03] LABS: PTT PATIENT 28.3 SECONDS (21.0-31.0)
[2017-12-21 07:23] LABS: BLOOD UREA NITROGEN 15 mg/dl (7-18); CALCIUM 9.9 mg/dl (8.5-10.1); CARBON DIOXIDE 23 mmol/L (21-32); CREATININE 1.17 mg/dl (0.60-1.40); GLUCOSE 99 mg/dl (70-99); SODIUM 137 mmol/L (136-145)
[2017-12-21] MEDS: CLINDAMYCIN HCL 150 MG CAP PO SCH (09:00)
[2017-12-21] MEDS: ASPIRIN 81 MG ECTAB PO SCH (09:00)
[2017-12-21] MEDS: METOPROLOL SUCC 25MG EXT REL TAB PO SCH (09:00)
[2017-12-21] MEDS: CEROVITE ADV FORMULA TAB PO SCH (09:00)
[2017-12-21] MEDS ORDERED: PROPOFOL IV EMULSION 10 MG/ML 20 ML VIAL IV ONE (09:18)
--- NOTE | 2017-12-21 09:51 | Cardiology Procedure Brief Nt ---
Preliminary Cardiology Note Procedure Date Dec 21, 2017. Pre-Procedure Diagnosis AFL Post-Procedure Diagnosis Same Procedure(s) Performed AUGUSTIN, cardioversion Drug Enforcement Administration Agent Amber Frame Stripper And Crusher(s) none Estimated Blood Loss none Medication(s) Propofol Preliminary Findings No LA thrombus. Successful return to sinus rhythm Recommendations continue Xarelto Specimens none Anesthesia propofol Complication(s) None Disposition PCU
--- NOTE | 2017-12-21 10:23 | Anesthesiology Progress Note ---
Anesthesia Post Op Note Date & Time Dec 21, 2017 at 10:22 Vital Signs Pain Intensity: 0.0 Vital Signs Past 12 Hours Date Time Temp Pulse Resp B/P (MAP) Pulse Ox O2 Delivery O2 Flow Rate FiO2 12/21/17 10:10 88 18 91/65 (74) 98 Room Air 12/21/17 10:00 85 16 83/60 (68) 90 Room Air 12/21/17 09:50 86 16 85/62 (70) 90 Room Air 12/21/17 09:50 86 18 76/56 97 Nasal Cannula 4 12/21/17 09:45 88 18 79/52 97 Nasal Cannula 6 12/21/17 09:40 126 18 85/56 97 Nasal Cannula 6 12/21/17 09:35 131 18 121/94 97 Nasal Cannula 6 12/21/17 09:30 104 18 118/88 97 Nasal Cannula 6 12/21/17 08:30 Nasal Cannula 2.0 12/21/17 07:23 36.6 104 20 127/92 (104) 94 Room Air 12/21/17 04:00 95 Nasal Cannula 2.0 12/21/17 03:30 36.5 97 20 116/84 (95) 93 Nasal Cannula 2.0 12/20/17 23:59 95 Nasal Cannula 2.0 12/20/17 23:43 36.4 105 20 145/89 (107) 95 Nasal Cannula 2.0 Notes Mental Status: alert / awake / arousable, participated in evaluation Pt Amnestic to Procedure: Yes Nausea / Vomiting: adequately controlled Pain: adequately controlled Airway Patency, RR, SpO2: stable & adequate BP & HR: stable & adequate Hydration State: stable & adequate Anesthetic Complications: no major complications apparent
[2017-12-21] MEDS ORDERED: ATROPINE SULFATE 0.1 MG/ML 5ML SYR IV PRN (10:30)
[2017-12-21] MEDS ORDERED: EpHEDrine SULFATE INJ 50 MG/ML AMP IV PRN (10:30)
--- NOTE | 2017-12-21 10:36 | [facility] Operative Report ---
Operative Report Date of Service Dec 21, 2017. Operative Report Procedure performed: Cardioversion Indication: Atrial flutter Staff plate molder: Moreno Clark MD Procedure in detail: The patient was informed of the risks benefits and alternatives to the intended procedure. He understood such which proceed. He was taken to the cardiac catheterization suite holding area. A general anesthetic was administered by the Anesthesiology Service. Once appropriately anesthetized, an initial attempt cardioversion at 30 joules failed. A 2nd attempt was performed and the patient was cardioverted using 360 joules delivered in a biphasic fashion. This returned the patient to sinus rhythm. The patient tolerated procedure well , there were no immediate complications. Patient was neurologically intact subsequent to the procedure. Impression: Successful cardioversion from atrial flutter to normal sinus rhythm I attest to the content of the Intraoperative Record and any orders documented therein. Any exceptions are noted below.
--- NOTE | 2017-12-21 12:30 | TEE ---
*NOTICE TO RECEIVING CONSTITUTION PARTY AGENCY This information is strictly Confidential and protected under [place] law. [place] law prohibits you from making any further disclosure of this information unless further disclosure is expressly permitted by the written consent of the person to whom it pertains or is authorized by law. A general authorization for the release of medical or other information is not sufficient for this purpose. Hospital accepts no responsibility if the information is made available to any other person, INCLUDING THE PATIENT. Interpretation Summary * Name: CHERELLE GOLDMAN Study Date: 12/21/2017 09:15 AM BP: 118/71 mmHg * Patient Location: C.2T\S\S240\S\2 HR: 108 * : 1960 (M/d/yyyy) Gender: Male Height: 69 in * Age: 57 yrs Ethnicity: CA Weight: 241 lb * Ordering Physician: Moreno Clark * Referring Physician: Daly Brasher * Performed By: Reina Ordoñez RDCS * * Reason For Study: AFLUTTER, CARDIOVERSION R/O CLOT * BSA: 2.2 m2 * TIME IN 9:35AM * TIME OUT 9:39AM * -- Conclusions -- * The right atrium is mildly dilated. * No thrombus is detected in the left atrial appendage. Procedure Details * AUGUSTIN Probe #1 utilized for procedure. * The study was performed in Cardiac Catheterization Lab. * Time out was conducted by the physician, nurse, and traffic analysis technician with positive identification of patient and procedure. * Informed consent for Transesophageal Echocardiogram was obtained prior to the procedure. * An intravenous line was placed. A topical anesthetic agent was used for oropharangeal anesthesia. A bite block was inserted. * Sedation performed by the anesthesia department. * The patient's vital signs, including blood pressure, heart rate, pulse oximetry and cardiac rhythm were monitored throughout the procedure . * A multifrequency, multiplane transesopheageal echocardiographic endoscope was inserted and manipulated in the standard fashion to achieve multiplane views. * The patient tolerated the procedure well without evidence of orophangeal or esophageal trauma. * 120 Propofol * There were no complications. * A 2D transesophageal echocardiogram with color flow Doppler was performed. Left Ventricle * The left ventricular ejection fraction is grossly normal. Atria * The left atrial size is normal. * No thrombus is detected in the left atrial appendage. * The right atrium is mildly dilated. Mitral Valve * The mitral valve is normal. * There is no mitral regurgitation noted. Tricuspid Valve * The tricuspid valve is not well visualized. Aortic Valve * The aortic valve is normal in structure and function. * The aortic valve is trileaflet. * There is no significant aortic regurgitation. Great Vessels * Ascending aorta of normal dimension Pericardium * There is no pericardial effusion.
--- NOTE | 2017-12-21 12:47 | Cardiology Follow-Up ---
Subjective Date of Service: Dec 21, 2017. Pt evaluation today including: conversation w/ patient, physical exam, chart review, lab review, review of studies, review of inpatient medication list, conversation w/ attending History of Present Illness Patient continues to have his baseline breathing difficulty. He is not reporting any symptoms of pain. He is anxious to his cardioversion today. No other specific complaints.. Social History Smoking Status: Former Smoker History of Alcohol Use: No Review of Systems Respiratory: No cough, No sputum, No shortness of breath (at baseline) Cardiac: No chest pain, No edema, No palpitations Per HPI. No recent fevers or chills. Chronic cough. No lower extremity edema. No increasing abdominal girth. Objective Vital Signs Past 12 Hours Date Time Temp Pulse Resp B/P (MAP) Pulse Ox O2 Delivery O2 Flow Rate FiO2 12/21/17 12:10 89 18 120/83 (95) 97 Nasal Cannula 2.0 12/21/17 12:00 Nasal Cannula 2.0 12/21/17 11:26 36.5 84 16 101/71 (81) 91 Room Air 12/21/17 10:10 88 18 91/65 (74) 98 Room Air 12/21/17 10:00 85 16 83/60 (68) 90 Room Air 12/21/17 09:50 86 16 85/62 (70) 90 Room Air 12/21/17 09:50 86 18 76/56 97 Nasal Cannula 4 12/21/17 09:45 88 18 79/52 97 Nasal Cannula 6 12/21/17 09:40 126 18 85/56 97 Nasal Cannula 6 12/21/17 09:35 131 18 121/94 97 Nasal Cannula 6 12/21/17 09:30 104 18 118/88 97 Nasal Cannula 6 12/21/17 08:30 Nasal Cannula 2.0 12/21/17 07:23 36.6 104 20 127/92 (104) 94 Room Air 12/21/17 04:00 95 Nasal Cannula 2.0 12/21/17 03:30 36.5 97 20 116/84 (95) 93 Nasal Cannula 2.0 Last Recorded Weight-Kilograms: 109.600 Physical Exam The patient is alert and oriented. Mood and affect appeared normal. He answered all questions appropriately. HEENT: Pupils are equal and reactive to light and accommodation. Extraocular movements are intact. The sclerae are anicteric. Neuro: Cranial nerves intact Neck: Patient's neck is supple. He has palpable carotid pulses bilaterally without bruits on auscultation. There is no evidence of jugular venous distention. The thyroid is not enlarged. Lungs: Diffuse crackles throughout all lung leonard. He has good air movement without use of accessory muscles. Cardiac: Heart demonstrates an irregular rate and rhythm. Normal S1 and S2. No murmurs on examination. Pulses: The patient has palpable radial pulses bilaterally that are equal in intensity Extremities: There was no evidence of hypoperfusion. Positive clubbing bilaterally. There is no edema. Skin: I did not appreciate any rashes on examination today. Data Laboratory Results: Last 24 Hours Test 12/21/17 06:37 White Blood Count 8.13 K/uL Red Blood Count 5.14 M/uL Hemoglobin 16.5 g/dL Hematocrit 47.1 % Mean Corpuscular Volume 91.6 fL Mean Corpuscular Hemoglobin 32.1 pg Mean Corpuscular Hemoglobin Concent 35.0 g/dl RDW Standard Deviation 45.5 fL RDW Coefficient of Variation 13.6 % Platelet Count 220 K/uL Mean Platelet Volume 8.6 fL Activated Partial Thromboplast Time 28.3 SECONDS Partial Thromboplastin Ratio 1.1 Sodium Level 137 mmol/L Potassium Level 4.0 mmol/L Chloride Level 108 mmol/L Carbon Dioxide Level 23 mmol/L Anion Gap 6.0 mmol/L Blood Urea Nitrogen 15 mg/dl Creatinine 1.17 mg/dl Est Creatinine Clear Calc Drug Dose 85.0 ml/min Estimated GFR () 79.7 Estimated GFR (Non- 68.8 BUN/Creatinine Ratio 12.6 Random Glucose 99 mg/dl Calcium Level 9.9 mg/dl Troponin I < 0.015 ng/ml Telemetry reviewed: Persistent atrial flutter Assessment and Plan 1. Atrial flutter: Patient underwent successful cardioversion earlier today. A transesophageal echocardiogram did not demonstrate any thrombus in left atrial appendage. He appeared to recover well. At this point I think would be reasonable to discharge him on oral anticoagulation with follow-up in our clinic in 2-3 weeks. At that time we can have discussion regarding more definitive therapy for was likely a typical right atrial flutter. I do not think he benefits from rate control at this point. He is likely to have recurrence although the time frame which is is likely to occur is unclear. Rate control not prevent such an episode. He did not have significantly elevated rates even at the time of admission.
--- NOTE | 2017-12-21 14:13 | Progress Note ---
Subjective Date of Service: Dec 21, 2017. Subjective Pt evaluation today including: conversation w/ patient, physical exam, lab review, review of studies, review of inpatient medication list Saw/examined the patient in room 240 No problems/issues after the cardioversion He feels well - baseline chronic respiratory issues Denies diarrhea, no fevers/chills, no chest pain/palpitations Problem List Medical Problems: (1) Atrial flutter with rapid ventricular response Status: Acute (2) Back pain Status: Acute (3) Precordial chest pain Status: Acute Review of Systems Constitutional: No fever, No chills, No weakness Respiratory: + shortness of breath (baseline, chronic), No cough, No sputum, No wheezing, No dyspnea on exertion Cardiac: No chest pain, No edema, No palpitations Medications Current Inpatient Medications Medications (Trade) Dose Ordered Sig/Murtaza Route Start Time Stop Time Status Last Admin Dose Admin Acetaminophen (Tylenol Tab) 650 mg Q4H PRN PO 12/19/17 19:45 01/18/18 19:44 12/20/17 06:18 650 MG Magnesium Hydroxide (Milk Of Magnesia Susp) 30 ml Q12H PRN PO 12/19/17 19:45 01/18/18 19:44 Nitroglycerin (Nitrostat Tab) 0.4 mg UD PRN SL 12/19/17 19:45 01/18/18 19:44 Aspirin (Ecotrin Tab) 81 mg DAILY PO 12/20/17 09:00 01/19/18 08:59 12/20/17 07:43 81 MG Clindamycin HCl (Cleocin Cap) 300 mg BID PO 12/19/17 21:00 12/26/17 21:00 12/20/17 20:04 300 MG Multivitamins/ Minerals (Multivitamin W/ Minerals Tab) 1 tab DAILY PO 12/20/17 09:00 01/19/18 08:59 12/20/17 07:43 1 TAB Levalbuterol (Xopenex 0.63 Mg/ 3 Ml Neb) 0.63 mg Q6R PRN INH 12/19/17 20:00 01/18/18 19:59 Clonazepam (Klonopin Tab) 0.5 mg HS PRN PO 12/19/17 21:30 01/18/18 21:29 Rivaroxaban (Xarelto Tab) 20 mg QDD PO 12/21/17 16:45 01/20/18 16:44 Metoprolol Succinate (Toprol Xl Tab) 25 mg BID PO 12/20/17 21:00 01/19/18 20:59 12/20/17 20:04 25 MG Albuterol (Ventolin Hfa Inhaler) 2 puffs Q4H PRN INH 12/20/17 19:30 01/19/18 19:29 12/20/17 20:05 2 PUFFS Famotidine (Pepcid Tab) 20 mg BID PRN PO 12/20/17 20:15 01/19/18 20:14 12/20/17 20:53 20 MG Ephedrine Sulfate (EpHEDrine SULFATE INJ) 5 mg Q5M PRN IV 12/21/17 10:30 12/21/17 17:00 Atropine Sulfate (Atropine Sulfate 0.1mg/ml Inj) 0.5 mg Q1M PRN IV 12/21/17 10:30 12/21/17 17:00 Objective Vital Signs Date Time Temp Pulse Resp B/P (MAP) Pulse Ox O2 Delivery O2 Flow Rate FiO2 12/21/17 12:10 89 18 120/83 (95) 97 Nasal Cannula 2.0 12/21/17 12:00 Nasal Cannula 2.0 12/21/17 11:26 36.5 84 16 101/71 (81) 91 Room Air 12/21/17 10:10 88 18 91/65 (74) 98 Room Air 12/21/17 10:00 85 16 83/60 (68) 90 Room Air 12/21/17 09:50 86 16 85/62 (70) 90 Room Air 12/21/17 09:50 86 18 76/56 97 Nasal Cannula 4 12/21/17 09:45 88 18 79/52 97 Nasal Cannula 6 12/21/17 09:40 126 18 85/56 97 Nasal Cannula 6 12/21/17 09:35 131 18 121/94 97 Nasal Cannula 6 12/21/17 09:30 104 18 118/88 97 Nasal Cannula 6 12/21/17 08:30 Nasal Cannula 2.0 12/21/17 07:23 36.6 104 20 127/92 (104) 94 Room Air 12/21/17 04:00 95 Nasal Cannula 2.0 12/21/17 03:30 36.5 97 20 116/84 (95) 93 Nasal Cannula 2.0 12/20/17 23:59 95 Nasal Cannula 2.0 12/20/17 23:43 36.4 105 20 145/89 (107) 95 Nasal Cannula 2.0 12/20/17 20:26 36.3 105 16 133/81 (98) 94 Room Air 12/20/17 20:04 Nasal Cannula 2.0 12/20/17 16:05 36.6 97 18 118/78 (91) 97 12/20/17 16:00 95 Nasal Cannula 2.0 Physical Exam General Appearance: no apparent distress Respiratory/Chest: chest non-tender, lungs clear, normal breath sounds, no respiratory distress, no accessory muscle use Cardiovascular: regular rate, rhythm, no edema, no murmur Extremities: normal range of motion, non-tender, normal inspection, no pedal edema, no calf tenderness Neurologic/Psychiatric: no motor/sensory deficits, alert, normal mood/affect Laboratory Results Last 24 Hours Test 12/21/17 06:37 White Blood Count 8.13 K/uL Red Blood Count 5.14 M/uL Hemoglobin 16.5 g/dL Hematocrit 47.1 % Mean Corpuscular Volume 91.6 fL Mean Corpuscular Hemoglobin 32.1 pg Mean Corpuscular Hemoglobin Concent 35.0 g/dl RDW Standard Deviation 45.5 fL RDW Coefficient of Variation 13.6 % Platelet Count 220 K/uL Mean Platelet Volume 8.6 fL Activated Partial Thromboplast Time 28.3 SECONDS Partial Thromboplastin Ratio 1.1 Sodium Level 137 mmol/L Potassium Level 4.0 mmol/L Chloride Level 108 mmol/L Carbon Dioxide Level 23 mmol/L Anion Gap 6.0 mmol/L Blood Urea Nitrogen 15 mg/dl Creatinine 1.17 mg/dl Est Creatinine Clear Calc Drug Dose 85.0 ml/min Estimated GFR () 79.7 Estimated GFR (Non- 68.8 BUN/Creatinine Ratio 12.6 Random Glucose 99 mg/dl Calcium Level 9.9 mg/dl Troponin I < 0.015 ng/ml Assessment and Plan This is a 57 year old male with a PMH of [id number] deficiency on weekly Prolastin injections, interstitial lung disease/pulmonary fibrosis on 2L of O2 with exertion, HLD - presents with elevated heart rates and found to have atrial fibrillation New Onset Atrial Fibrillation/Atrial Flutter with RVR 12/21 - s/p cardioversion - successful - now in NSR - no rate control needed, appreciate cardiology input - will d/c with Xarelto 20mg daily x 30 days - follow-up with cardiology in 2-3 weeks - follow-up with PCP on December 26 at 11:05AM 12/20 - patient presented with atrial flutter on admission - currently on IV heparin and Cardizem drip - appreciate cardiology input - plan to start Xarelto; stop IV heparin - will give metoprolol, as patient wants to be off of all IV medications; will try to wean off Cardizem drip - echo - no valvular disease - cardiology - plan for cardioversion in AM Hx. of Pulmonary Fibrosis Alpha-1 Antitrypsin Deficiency - receives weekly Prolastin injections - continue O2 as needed (uses 2L with ambulation/exertion at baseline) - continue nebs as needed Dental Infection - currently on clindamycin for a dental infection - monitor for diarrhea episodes; follow-up with dentist as outpatient (will need to speak with them regarding anticoagulation as patient is now on Xarelto) DVT ppx - Eliquis FULL CODE
[2017-12-21] MEDS ORDERED: XRL20 PO ×2 (14:15→14:32)
--- NOTE | 2017-12-21 14:17 | Discharge Instructions ---
Discharge Instructions Date of Service Dec 21, 2017. Admission Reason for Admission: Atrial Flutter With Rvr Discharge Discharge Diagnosis / Problem: Atrial flutter (irregular heart rate) - resolved after cardioversion Discharge Goals Goal(s): Decrease discomfort, Improve function, Diagnostic testing, Therapeutic intervention Activity Recommendations Activity Limitations: resume your previous activity . Instructions / Follow-Up Instructions / Follow-Up Please follow-up with Dr. Daly Brasher on December 26 at 11:05AM Please follow-up with cardiology, Dr. Clark, in 2-3 weeks * You will be on Xarelto (blood thinner) for one month Current Hospital Diet Patient's current hospital diet: AHA Diet (Heart Healthy) Discharge Diet Recommended Diet: Regular Diet Pending Studies Studies pending at discharge: no Laboratory Results Lipid Panel Test 12/20/17 02:24 Range/Units Triglycerides Level 152 H 0-150 mg/dl Cholesterol Level 152 0-200 mg/dl HDL Cholesterol 29 mg/dl Cholesterol/HDL Ratio 5.2 LDL Cholesterol, Calculated 93 mg/dl Medical Emergencies . Who to Call and When: Medical Emergencies: If at any time you feel your situation is an emergency, please call 911 immediately. . Non-Emergent Contact Non-Emergency issues call your: Primary Care Provider, Traveling Operator . . "Provider Documentation" section prepared by Daria Joyner. .
--- NOTE | 2017-12-21 14:18 | Discharge Summary ---
Discharge Summary Date of Service Dec 21, 2017. Discharge Summary Admission Date: Dec 19, 2017 at 19:37 Discharge Date: Dec 21, 2017 Discharge Disposition: Home Principal Diagnosis: Atrial Flutter with RVR - s/p cardioversion Alpha-1 antitrypsin deficiency Medication Reconciliation New Medications: Rivaroxaban (Xarelto) 20 Mg Tab 20 MG PO QDD for 30 Days, #30 TAB Continued Medications: Albuterol (Ventolin Hfa) 60 Puffs/5400 Mcg Aers 2 PUFFS INH Q4H PRN for SOB/Wheezing Alpha1-Proteinase Inhibitor (H (Prolastin-C) 1,000 Mg Inj 60 MG.per.KG IV WK Aspirin (Aspirin Ec) 81 Mg Tab 81 MG PO DAILY Home O2 Therapy (Oxygen) Gas 2 LITERS NA PRN for Shortness of Breath uses with ambulation and HS and prn hypoxia/sob Multivitamins/Minerals (Mvi With Minerals) Tab 1 TAB PO DAILY, TAB Discontinued Medications: Clindamycin Hcl (Cleocin) 300 Mg Cap 300 MG PO BID for 10 Days, #20 CAP Admission Information HPI (per Admitting provider): Pt is 57 y/o M with PMH alpha-1 antitrypsin deficiency, pulmonary fibrosis, TIA , dyslipidemia-diet controlled, spontaneous pneumothorax presented to ER from PCP office for rapid heart rate chest pain. Patient was found to be in atrial flutter RVR. Patient reports yesterday was receiving his weekly Prolastin and reports that the nurse took his pulse and reported it was in the 60s however felt irregular and patient was urged to seek medical treatment at that point in time however patient denied. Patient states this morning he woke up he felt some midsternal chest pressure and increased shortness of breath and noticed that his pulse was 165 using his pulse oximeter. Patient reports that he noticed in the past that he would develop what he would describe as heartburn sensation of increased gas and increased burping and at that time he would use his pulse ox to check his pulse and rates it be as high as 160s. Patient states symptoms will last 1-8 hours and then resolved. He denies any associated dizziness or syncope with these episodes. He would sometimes use Pepto-Bismol. Patient reports has noticed when drinking milk he gets diarrhea and since discharge to be reporting that. Has been eating and drinking normally. Denies melena, hematochezia. Reports approximately 3 years ago was having some hematochezia and melena and had colonoscopy and he reports diverticular bleeding. Denies any symptoms since. Denies any abdominal pain, epistaxis. Patient denies any increase shortness of breath from baseline, uses O2 2 L with ambulation and at bedtime and as needed. Reports chronic cough productive clear sputum denies any increased cough or increased sputum production. Patient reports is followed with [facility] cardiology 5 months ago secondary to recommendation from his logistics lead and he reports normal stress test. denies any recent fevers or chills, diaphoresis, N/V, ALONZO, dizziness, syncope, vision changes, neck pain, orthopnea, palpitations, hemoptysis, sore throat, choking, otalgia, abdominal pain, paresthesias, extremity weakness, extremity edema, rashes, urinary symptoms, weight loss. History echo 02/2017: EF: 56% In route patient reported given aspirin and diltiazem. In ER EKG a flutter rate 90. Patient given Cardizem 5 mg bolus and now on Cardizem drip and rate controlled in the 80s-90s. Patient denies any current chest pain. Negative initial troponin Physical Exam (per Admitting): General Appearance: WD/WN, no apparent distress Head: normocephalic, atraumatic Eyes: normal inspection, sclerae normal ENT: hearing grossly normal, pharynx normal, + pertinent finding (Mucous membranes moist) Neck: supple, trachea midline Respiratory/Chest: no respiratory distress, no accessory muscle use, + decreased breath sounds, + crackles (At bases bilaterally), + pertinent finding (Patient on 2 L O2 NC) Cardiovascular: no murmur, + irregularly irregular Abdomen/GI: normal bowel sounds, non tender, soft Extremities/Musculoskelatal: normal inspection, normal capillary refill, no pedal edema, non-tender Neurologic/Psych: alert, normal mood/affect, oriented x 3 Skin: normal color, warm/dry Hospital Course This is a 57 year old male with a PMH of [id number] deficiency on weekly Prolastin injections, interstitial lung disease/pulmonary fibrosis on 2L of O2 with exertion, HLD - presents with elevated heart rates and found to have atrial fibrillation New Onset Atrial Fibrillation/Atrial Flutter with RVR 12/21 - s/p cardioversion - successful - now in NSR - no rate control needed, appreciate cardiology input - will d/c with Xarelto 20mg daily x 30 days - follow-up with cardiology in 2-3 weeks - follow-up with PCP on December 26 at 11:05AM 12/20 - patient presented with atrial flutter on admission - currently on IV heparin and Cardizem drip - appreciate cardiology input - plan to start Xarelto; stop IV heparin - will give metoprolol, as patient wants to be off of all IV medications; will try to wean off Cardizem drip - echo - no valvular disease - cardiology - plan for cardioversion in AM Hx. of Pulmonary Fibrosis Alpha-1 Antitrypsin Deficiency - receives weekly Prolastin injections - continue O2 as needed (uses 2L with ambulation/exertion at baseline) - continue nebs as needed Dental Infection - currently on clindamycin for a dental infection - monitor for diarrhea episodes; follow-up with dentist as outpatient (will need to speak with them regarding anticoagulation as patient is now on Xarelto) DVT ppx - Eliquis FULL CODE Total time spent on discharge = 40 minutes This includes examination of the patient, discharge planning, medication reconciliation, and communication with other providers. Discharge Instructions Please follow-up with Dr. Daly Brasher on December 26 at 11:05AM Please follow-up with cardiology, Dr. Clark, in 2-3 weeks * You will be on Xarelto (blood thinner) for one month
[2017-12-21] MEDS ORDERED: RIVAROXABAN 20 MG TAB PO SCH (16:45)
== END 2017-12-21 14:50 | disposition home health service (06) | DRG 310 ==
LOC: EDBD 16:10 → C.EDC 16:11 → C.2T 19:37 → ENRESERV 20:05
PROVIDERS: ADMIT Hospitalist; ATTEND Family Medicine
PROC: 5A2204Z Restoration of Cardiac Rhythm, Single (ICD-10-PCS; principal; 2017-12-21 07:30)
DX: I48.92 Unspecified atrial flutter (principal); I48.91 Unspecified atrial fibrillation; E78.5 Hyperlipidemia, unspecified; E88.01 Alpha-1-antitrypsin deficiency; K04.7 Periapical abscess without sinus; J84.10 Pulmonary fibrosis, unspecified; J45.909 Unspecified asthma, uncomplicated; Z79.2 Long term (current) use of antibiotics; Z79.82 Long term (current) use of aspirin; Z79.899 Other long term (current) drug therapy; Z86.73 Personal history of transient ischemic attack (TIA), and cerebral infarction without residual deficits; Z87.891 Personal history of nicotine dependence; Z88.1 Allergy status to other antibiotic agents

== ENCOUNTER → 2018-01-17 | Outpatient (CLI) | payer BC ==
[~2018-01-17] MED LIST changes: +ASPI81TA28 PO; -CLON0.5T3 PO; -FLUT220A INH; +MULT-513 PO; +OXGN; +RIVA1TAB4 PO; +[UNRECOGNIZED DRUG - CODE] IV
[2018-01-17 16:52] LABS: HEMATOCRIT 45.9 % (42-52); HEMOGLOBIN 15.9 g/dL (14.0-18.0); MEAN CORPUSCULAR HEMOGLOBIN 31.9 pg (25-34); MEAN CORPUSCULAR HGB CONC 34.6 g/dl (32-36); MEAN PLATELET VOLUME 8.9 fL (7.4-10.4); PLATELET COUNT 251 K/uL (130-400); RED CELL DISTRIBUTION WIDTH CV 14.2 % (11.5-14.5); RED CELL DISTRIBUTION WIDTH SD 47.3 fL (36.4-46.3); WHITE BLOOD COUNT 8.14 K/uL (4.8-10.8)
[2018-01-17 17:00] LABS: INR 1.1 (0.9-1.1); PTT PATIENT 29.4 SECONDS (21.0-31.0)
[2018-01-17 17:20] LABS: BLOOD UREA NITROGEN 15 mg/dl (7-18); CALCIUM 9.7 mg/dl (8.5-10.1); CARBON DIOXIDE 24 mmol/L (21-32); CREATININE 1.14 mg/dl (0.60-1.40); GLUCOSE 78 mg/dl (70-99); POTASSIUM 4.2 mmol/L (3.5-5.1); SODIUM 138 mmol/L (136-145)
== END | disposition home or self-care (01) ==
LOC: C.LAB1850 14:50
PROVIDERS: ATTEND Internal Medicine Clinical Cardiac Electrophysiology
DX: Z01.818 Encounter for other preprocedural examination (principal)

== ENCOUNTER 2018-01-18 07:52 | Observation (INO) | payer BC ==
[2018-01-16 12:53] VITALS: BMI 37.0
[2018-01-18] VITALS (8 sets, daily range): BP systolic 108–137; BP diastolic 71–84; PULSE 82–95; TEMP 36.6–37.2; O2SAT 91–96; Ht 175.3 cm; Wt 113.6 kg
[~2018-01-18] VITALS: Ht 175.3 cm; Wt 113.6 kg
[~2018-01-18 07:52] MED LIST changes: +FENTANYL CITRATE INJ 50 MCG/1 ML 2 ML VIAL ONE; +LACTATED RINGER'S 1000ML 1,000 ML IV SCH; +MIDAZOLAM HCL 1 MG/ML 2ML VIAL ONE
--- NOTE | 2018-01-18 09:00 | History & Physical Bridge Note ---
H&P Re-Evaluation Bridge Note: I have examined the patient, reviewed the History & Physical and in the interval since the performance of the History & Physical I have noted the following changes of clinical significance:Pulse irregular. EKG pending.
[2018-01-18] MEDS ORDERED: PROPOFOL IV EMULSION 10 MG/ML 100 ML VIAL ONE (09:24)
[2018-01-18] MEDS ORDERED: PROPOFOL IV EMULSION 10 MG/ML 20 ML VIAL ONE (11:06)
[2018-01-18] MEDS ORDERED: LIDOCAINE HCL 2% 2 ML VIAL (20MG/ML) ONE (11:06)
[2018-01-18] MEDS ORDERED: HEPARIN SOD (PORCINE) 1000 UNIT/ML 10 ML VIAL ONE (11:12)
[2018-01-18] MEDS ORDERED: MIDAZOLAM HCL 1 MG/ML 2ML VIAL ONE (11:13)
[2018-01-18] MEDS ORDERED: FENTANYL CITRATE INJ 50 MCG/1 ML 2 ML VIAL ONE (11:40)
[2018-01-18] MEDS ORDERED: ISOPROTERENOL 200 MCG / 50ML D5W ONE (11:59)
--- NOTE | 2018-01-18 12:29 | Cardiology Procedure Brief Nt ---
Preliminary Cardiology Note Procedure Date January 18, 2018. Pre-Procedure Diagnosis Atrial flutter Post-Procedure Diagnosis Typical right atrial flutter Procedure(s) Performed Electrophysiologic testing and caval tricuspid isthmus ablation with termination of atrial flutter Computer Analyst Amber Banana Ripening Room Supervisor(s) None Estimated Blood Loss 10 cc Medication(s) Per anesthesia Preliminary Findings Typical right atrial flutter with successful creation of bidirectional block through the caval tricuspid isthmus rendering tachycardia noninducible Normal baseline intracardiac intervals subsequent to ablation Recommendations Patient will remain flat with right leg straight for 4 hours at which point he can sit up and later ambulate Specimens None Complication(s) None Disposition PCU
[2018-01-18] MEDS ORDERED: OXYCODONE HCL IR 5 MG TAB (IMMEDIATE RELEASE) PO PRN (12:45)
--- NOTE | 2018-01-18 13:38 | Anesthesiology Progress Note ---
Anesthesia Post Op Note Date & Time January 18, 2018 at 13:37 Vital Signs Pain Intensity: 0 Vital Signs Past 12 Hours Date Time Temp Pulse Resp B/P (MAP) Pulse Ox O2 Delivery O2 Flow Rate FiO2 01/18/18 13:05 36.6 82 20 111/71 (84) 91 Nasal Cannula 2.0 01/18/18 12:55 81 14 119/78 (92) 92 Nasal Cannula 2 01/18/18 12:45 82 16 121/81 (94) 93 Nasal Cannula 2 01/18/18 12:35 80 16 139/99 (112) 92 Nasal Cannula 2 01/18/18 08:22 37.1 84 20 131/84 (100) 94 Nasal Cannula 2 Notes Mental Status: alert / awake / arousable, participated in evaluation Pt Amnestic to Procedure: Yes Nausea / Vomiting: adequately controlled Pain: adequately controlled Airway Patency, RR, SpO2: stable & adequate BP & HR: stable & adequate Hydration State: stable & adequate Anesthetic Complications: no major complications apparent
[2018-01-18] MEDS ORDERED: ATROPINE SULFATE 0.1 MG/ML 5ML SYR IV PRN (13:45)
[2018-01-18] MEDS ORDERED: IV FLUIDS COMPLETED PRN (13:45)
[2018-01-18] MEDS ORDERED: EpHEDrine SULFATE INJ 50 MG/ML AMP IV PRN (13:45)
[2018-01-18] MEDS ORDERED: ALBUT/IPRATROP 3MG/0.5MG NEB 3 ML VIAL INH PRN (14:00)
[2018-01-18] MEDS: ALBUT/IPRATROP 3MG/0.5MG NEB 3 ML VIAL INH SCH ×2 (15:31→18:44)
[2018-01-18] MEDS ORDERED: ZOLPIDEM TARTRATE 5 MG TAB PO PRN (20:45)
[2018-01-19 03:40] VITALS: BP 125/82; PULSE 76; TEMP 36.5; O2SAT 96
[2018-01-19 06:32] VITALS: BP 124/83; PULSE 78; TEMP 36.9; O2SAT 95
[2018-01-19 07:08] VITALS: PULSE 87; O2SAT 80
[2018-01-19] MEDS: ALBUT/IPRATROP 3MG/0.5MG NEB 3 ML VIAL INH SCH ×2 (07:08→11:10)
--- NOTE | 2018-01-19 07:35 | Anesthesiology Progress Note ---
Anesthesia Post Op Note Date & Time January 19, 2018 at 07:34 Vital Signs Pain Intensity: 0.0 Vital Signs Past 12 Hours Date Time Temp Pulse Resp B/P (MAP) Pulse Ox O2 Delivery O2 Flow Rate FiO2 01/19/18 07:08 87 16 80 Room Air 01/19/18 06:32 36.9 78 20 124/83 (97) 95 01/19/18 03:40 36.5 76 20 125/82 (96) 96 Nasal Cannula 2.0 01/19/18 00:00 Nasal Cannula 2.0 01/18/18 23:45 37.2 85 20 108/73 (85) 94 Nasal Cannula 2.0 01/18/18 20:00 Room Air 01/18/18 19:41 37.1 95 20 137/80 (99) 96 Nasal Cannula 2.0 Notes Mental Status: alert / awake / arousable, participated in evaluation Pt Amnestic to Procedure: Yes Nausea / Vomiting: adequately controlled Pain: adequately controlled Airway Patency, RR, SpO2: stable & adequate BP & HR: stable & adequate Hydration State: stable & adequate Anesthetic Complications: no major complications apparent
[2018-01-19 08:00] VITALS: BP 124/83; PULSE 78; TEMP 36.9; O2SAT 80
--- NOTE | 2018-01-19 10:23 | Discharge Instructions ---
Discharge Instructions Date of Service January 19, 2018. Admission Reason for Admission: Atrial Flutter Discharge Discharge Diagnosis / Problem: Atrial flutter Discharge Goals Goal(s): Improve disease control, Therapeutic intervention Activity Recommendations Activity Limitations: as noted below Lifting Limitations: no more than 10 pounds Exercise/Sports Limitations: until after follow-up appointment May Resume Sexual Activity: after one week Shower/Bathe: no limitations Driving or Machine Use: no limitations No lifting greater than 10# or straining for 7 days . Instructions / Follow-Up Instructions / Follow-Up f/u [facility] cardiology 1 month Current Hospital Diet Patient's current hospital diet: Regular Diet Discharge Diet Recommended Diet: Regular Diet Procedures Procedures Performed: EPS/ablation of atrial flutter Pending Studies Studies pending at discharge: no Laboratory Results Lipid Panel Test 12/20/17 02:24 Range/Units Triglycerides Level 152 H 0-150 mg/dl Cholesterol Level 152 0-200 mg/dl HDL Cholesterol 29 mg/dl Cholesterol/HDL Ratio 5.2 LDL Cholesterol, Calculated 93 mg/dl Medical Emergencies . Who to Call and When: Medical Emergencies: If at any time you feel your situation is an emergency, please call 911 immediately. . Non-Emergent Contact Non-Emergency issues call your: Decision Unit Rn . . "Provider Documentation" section prepared by Gui Clark. .
[2018-01-19 11:10] VITALS: PULSE 78; O2SAT 94
[2018-01-19 11:43] VITALS: BP 111/71; PULSE 84; TEMP 36.8; O2SAT 99
--- NOTE | 2018-01-19 18:02 | Discharge Summary ---
Discharge Summary Admission Date: January 18, 2018 at 13:03 Discharge Date: January 19, 2018 Discharge Disposition: Home Primary Diagnosis: Atrial flutter Secondary Diagnoses/Problems: Medical Problems: (1) Atrial flutter with rapid ventricular response Status: Acute (2) Back pain Status: Acute (3) Precordial chest pain Status: Acute Surgical Problems: (1) History of left hip replacement Status: Resolved (2) History of left hip replacement Status: Resolved (3) Hx of hernia repair Status: Resolved Procedures: EPS and ablation typical right atrial isthmus dependent flutter Discharge Instructions Last Recorded Wt (Kilograms): 113.600 Activity Recommendations: limitations Return to School/Work: limitations Diet At Discharge: resume previous diet Allergies: Coded Allergies: Amoxicillin (Unverified Allergy, Intermediate, itchy, 01/18/18) Trazodone (Verified Allergy, Mild, RASH, 01/18/18) Home Health Services: none Referral Agency Additional Instructions: No lifting greater than 10 pounds or straining for 1 week Special Care: Call your doctor if: * Temperature above 101 degrees * Pain not relieved by pain medicine ordered * There is increased drainage or redness from any incision * You have any unanswered questions or concerns. Avoid all tobacco products. If you need help to stop smoking, call [place] FREE QUITLINE at . This is a free call. Admission HPI Patient has severe lung disease and presented to the clinic with recurrent atrial flutter and a rapid ventricular rate. He was scheduled for ablation. On the day of admission the patient underwent EPS and ablation of typical right atrial isthmus dependent flutter. He did well subsequent to the procedure. There were no immediate complications. He stayed overnight and was discharged without incident the following morning. Admission Physical Exam No hematoma at the access site. No bleeding. Hospital Course Per [facility] Total time spent on discharge = This includes examination of the patient, discharge planning, medication reconciliation, and communication with other providers.
== END 2018-01-19 11:59 | disposition home or self-care (01) ==
LOC: C.ACU 07:52 → ENRESERV 12:06 → C.2T 13:03
PROVIDERS: ADMIT Internal Medicine Clinical Cardiac Electrophysiology; ATTEND Internal Medicine Clinical Cardiac Electrophysiology
DX: I48.92 Unspecified atrial flutter (principal); E88.01 Alpha-1-antitrypsin deficiency; J44.9 Chronic obstructive pulmonary disease, unspecified; F32.9 Major depressive disorder, single episode, unspecified; E66.9 Obesity, unspecified; E78.5 Hyperlipidemia, unspecified; J84.112 Idiopathic pulmonary fibrosis; Z83.3 Family history of diabetes mellitus; Z82.49 Family history of ischemic heart disease and other diseases of the circulatory system; F17.200 Nicotine dependence, unspecified, uncomplicated; Z79.01 Long term (current) use of anticoagulants; Z79.82 Long term (current) use of aspirin; Z79.899 Other long term (current) drug therapy; Z99.81 Dependence on supplemental oxygen; Z86.73 Personal history of transient ischemic attack (TIA), and cerebral infarction without residual deficits

== ENCOUNTER → 2018-04-23 | Outpatient (CLI) | payer BC ==
[~2018-04-23] MED LIST changes: -ASPI81TA28 PO; -FENTANYL CITRATE INJ 50 MCG/1 ML 2 ML VIAL ONE; -LACTATED RINGER'S 1000ML 1,000 ML IV SCH; -MIDAZOLAM HCL 1 MG/ML 2ML VIAL ONE; +OPTIRAY 320 IV PRN; -PRVHFAIN INH
--- NOTE | 2018-04-23 09:05 | DIAGNOSTIC IMAGING REPORT ---
CT SCAN OF THE CHEST WITH IV CONTRAST CLINICAL HISTORY: Bronchiectasis. COPD. COMPARISON STUDY: Chest x-ray dated 12/19/2017. Chest CT dated 01/26/2017 and 08/06/2013. TECHNIQUE: Following the IV administration of 95 cc of Optiray 320, CT scan of the thorax was performed from the thoracic inlet to the upper abdomen. Images are reviewed in the axial, sagittal, and coronal planes. IV contrast was administered without complication. A dose lowering technique was utilized adhering to the principles of ALARA. CT DOSE: 718.04 mGy.cm FINDINGS: Thyroid: Imaged portions of the thyroid gland are normal in size and attenuation. Thoracic aorta: The thoracic aorta is normal in caliber and demonstrates standard 3-vessel arch anatomy. No dissection is seen. Pulmonary vasculature: The pulmonary trunk is dilated, measuring 3.8 cm in diameter. This indicates pulmonary artery hypertension. There are no filling defects identified in the central pulmonary vessels to indicate pulmonary embolus. Note that this examination was not protocoled for evaluation of the pulmonary arteries. Heart: There is mild right-sided cardiac enlargement. No pericardial effusion is identified. There are scattered coronary artery calcifications. Lungs and pleural spaces: Advanced emphysematous change is identified. Postoperative change is seen at the right apex. There is diffuse subpleural reticulation with a lower lobe predominance. Early changes of honeycombing are suggested the lung bases. Groundglass change is seen throughout. There is mild diffuse traction bronchiectasis as well as diffuse peribronchial thickening. There is no focal airspace consolidation or pleural effusion. The trachea and central airways are clear. Foci of pleural-based nodularity in the right lower lobe lung the major fissure have been present dating back to 2012 and are of doubtful significance. Mediastinum: There is mediastinal lymphadenopathy. A right paratracheal node on image #111 measures 2.9 x 1.6 cm. Prevascular nodes measure up to 1.3 cm in short axis. Gill: There is bilateral hilar adenopathy. Hilar nodes measure up to 1.8 cm in short axis. Axillae: There is no axillary lymphadenopathy. Upper abdomen: Diverticula are noted in the partially imaged left colon. Partially visualized upper abdominal viscera is otherwise within normal limits. Skeletal structures: There is anterior wedging of T12. No lytic or blastic bony lesions are seen. IMPRESSION: 1. There is advanced emphysema with evidence of superimposed chronic interstitial lung disease as detailed above. These findings appear modestly progressed from 01/26/2017. 2. There is no evidence of superimposed airspace consolidation or pleural effusion. 3. Mediastinal and hilar adenopathy are unchanged and likely related to chronic lung disease. 4. Right-sided cardiac enlargement with evidence of pulmonary artery hypertension. Electronically signed by: Sam Harris M.D. 04/23/2018 9:04 AM Dictated Date/Time: 04/23/2018 8:48 AM
== END | disposition home or self-care (01) ==
LOC: C.CTS 08:26
PROVIDERS: ATTEND Internal Medicine Pulmonary Disease
DX: J44.9 Chronic obstructive pulmonary disease, unspecified (principal); J47.9 Bronchiectasis, uncomplicated

== ENCOUNTER 2018-10-14 19:50 | Inpatient (IN) ==
[2018-10-14] MEDS ORDERED: SODIUM CHLORIDE 0.9% 1000ML 250 ML IV ONE (20:14)
[2018-10-14] MEDS ORDERED: SODIUM CHLORIDE 0.9% 1000ML 1,000 ML IV SCH (20:15)
[2018-10-14 20:18] LABS: Basophils # (auto) 0.03 K/uL (0-0.2); Basophils % (auto) 0.3 %; Eosinophils # (auto) 0.18 K/uL (0-0.5); Eosinophils % (auto) 1.6 %; Hematocrit (blood only) 49.8 % (42-52); Hemoglobin 16.8 g/dL (14.0-18.0); Immature Granulocytes # (auto) 0.04 K/uL (0.00-0.02); Immature Granulocytes % (auto) 0.4 %; Lymphocytes % (auto) 15.8 %; Mean Corpuscular Hgb Conc 33.7 g/dL (32-36); Mean Corpuscular Volume 95.4 fL (80-100); Mean Platelet Volume 8.9 fL (7.4-10.4); Monocytes # (auto) 1.33 K/uL (0.11-0.59); Monocytes % (auto) 11.7 %; Neutrophils # (auto) 8.03 K/uL (1.4-6.5); Neutrophils % (auto) 70.2 %; Platelet Count 243 K/uL (130-400); RDW Standard Deviation 48.8 fL (36.4-46.3); Red Blood Count 5.22 M/uL (4.7-6.1); White Blood Count 11.41 K/uL (4.8-10.8)
--- NOTE | 2018-10-14 20:28 | XRay Report ---
XR chest 1V portable CLINICAL HISTORY: a fib dyspnea COMPARISON STUDY: 09/05/2018 FINDINGS: Mild increase in cardiac size. Moderately progressive pulmonary vasculature and interstitia l lung change. The appearance consistent of congestive heart failure superimposed upon baseline inter stitial change. IMPRESSION: Congestive heart failure superimposed upon chronic interstitial change. The above report was generated using voice recognition software. It may contain grammatical, syntax or spelling errors. Electronically signed by: Matthew Chavarria M.D. 10/14/2018 8:27 PM
[2018-10-14 20:32] LABS: Albumin Level 2.9 gm/dl (3.4-5.0); BUN Creatinine Ratio 21.9 (10-20); Calcium 9.6 mg/dl (8.5-10.1); Creatinine Clr Calc Pharmacy 71.9 ml/min; Est GFR (African American) 66.6; Est GFR (Non-African American) 57.5; Magnesium 2.2 mg/dl (1.8-2.4); Potassium 4.1 mmol/L (3.5-5.1)
[2018-10-14 20:43] LABS: Albumin Globulin Ratio 0.7 (0.9-2); Bilirubin,Total 2.7 mg/dl (0.2-1); Total Protein 6.9 gm/dl (6.4-8.2); Troponin I 0.016 ng/ml (0-0.045)
[2018-10-14] MEDS: METOPROLOL TARTRATE 1 MG/ML VIAL IV, SCH ×2 (20:48→21:36)
[2018-10-14 21:16] LABS: Influenza A virus by PCR Neg for Influ A (Neg); Influenza B virus by PCR Neg for Influ B (Neg)
--- NOTE | 2018-10-14 21:48 | Emergency Department Note ---
Entered by Gilberto Adamson acting as a scribe for Gloria Carvajal MD History of Present Illness General Chief complaint: Shortness of Breath/Dyspnea Stated complaint: SOB, CHEST PAIN Time Seen by Provider: 10/14/18 19:51 Source: patient History of Present Illness Onset (ago): hour(s) (today) Location: chest Pain Consistency: + other (persistent) Quality: + other (palpitations, chest pain, shortness of breath) Associated symptoms: + cough (with blood), + loss of appetite (and decreased fluid intake) and + other (nausea) Treatments prior to arrival: other (Cardizem and four aspirin) The patient is a 58 year old male with a history of atrial fibrillation, COPD and IPF who presents to the Emergency Room with complaints of persistent palpitations and some chest pain beginning today. The patient reports that for the past five days he has been nauseous, staying in bed, and has had loss of appetite, decreased fluid intake, and diarrhea. He also reports chills and hot flashes but has not taken his temperature. He notes that his palpitations and chest pain did not start until today. He states that he also became short of breath today, and he currently feels dizzy and short of breath sitting up. He notes that he feels palpitations right now when lying down. He states that he has been coughing up blood with some clots every day, primarily in the mornings and worsening in the past week. He notes that four days ago, a nurse told him that his heart sounded irregular. He states that he received a cardiac ablation six months ago. He reports that he stopped taking his Xarelto and prednisone two days ago. He states that had been taking medication for about one month for rate control recently that he no longer takes. He notes that he was taking an antibiotic that was finished one month ago. The patient was given 324 mg aspirin and Cardizem 20 mg IV prior to arrival for afib RVR by my medic command. Pt states he is feeling better, but remains afib RVR. He states that he did not receive a flu shot. Home Medications Home Medications Medication Instructions Recorded Confirmed Type albuterol sulfate [Ventolin HFA] 2 puff INHALATION QID PRN 06/01/18 10/14/18 History alpha-1 proteinase inhib.(hum) 1 dose IV WK 06/01/18 10/14/18 History [Prolastin-C] fluticasone-vilanterol [Breo 1 inh INHALATION DAILY 06/01/18 10/14/18 History Ellipta] pirfenidone [Esbriet] 267 mg PO TID 06/01/18 10/14/18 History prednisone 10 mg PO UD 06/01/18 10/14/18 History rivaroxaban [Xarelto] 20 mg PO DAILY 06/01/18 10/14/18 History loperamide [Imodium A-D] 2 mg PO UD PRN 10/14/18 10/14/18 History tiotropium bromide [Spiriva 1 puff INHALATION DAILY 10/14/18 10/14/18 History Respimat] Allergies Allergy/AdvReac Type Severity Reaction Status Date / Time amoxicillin Allergy Intermediate itchy Unverified 10/14/18 20:40 trazodone Allergy Mild RASH Verified 10/14/18 20:40 Past Med/Surg History Medical History Atrial fibrillation COPD (chronic obstructive pulmonary disease) IPF (idiopathic pulmonary fibrosis) Family History Other Diabetes Heart disease Social History Current Living Situation: Alone current occupational status: employed Other Information That Helps Us Care for You: No Feels Safe at Home: Yes Safety Concerns: Feels Safe At This Time Smoking Status: Former smoker Hx Alcohol Use: Yes Alcohol type: beer, wine and hard liquor Alcohol Intake Frequency: a few times a month Hx Substance Use: No Beliefs That Will Affect Care: None Communication Ability: Effective Review of Systems See HPI for pertinent positives & negatives. and A total of 10 systems reviewed and were otherwise negative Physical Exam Vital Signs Vital Signs - 24 hr 10/17/18 07:00 10/17/18 07:49 10/17/18 11:30 Temperature 36.6 C 36.7 C Temperature Source Oral Oral Pulse Rate [Finger] 91 H 97 H 87 Respiratory Rate 18 24 Respiratory Effort / Characteristics Non-Labored Spontaneous Respiratory Depth Normal Respiratory Pattern Blood Pressure [Right Arm] 117/86 127/83 Blood Pressure Mean [Right Arm] 96 97 Blood Pressure Position [Right Arm] Sitting Sitting Pulse Oximetry 95 93 95 Pulse Oximetry [Forehead] Oxygen Delivery Method Oxymask Oxymask Oxymask Oxygen Delivery Method [Forehead] Oxygen Flow Rate 12 11 11.0 Oxygen Flow Rate [Forehead] 10/17/18 13:40 10/17/18 16:14 10/17/18 16:30 Temperature 36.6 C Temperature Source Oral Pulse Rate [Finger] 89 81 Respiratory Rate 18 18 Respiratory Effort / Characteristics Non-Labored Spontaneous Respiratory Depth Normal Respiratory Pattern Blood Pressure [Right Arm] 114/81 Blood Pressure Mean [Right Arm] 92 Blood Pressure Position [Right Arm] Lying Pulse Oximetry 97 92 Pulse Oximetry [Forehead] Oxygen Delivery Method Oxymask Oxymask Nasal Cannula Oxygen Delivery Method [Forehead] Oxygen Flow Rate 10 8 6 Oxygen Flow Rate [Forehead] 10/17/18 17:52 10/17/18 19:07 10/17/18 19:38 Temperature 36.5 C Temperature Source Oral Pulse Rate [Finger] 93 H 89 Respiratory Rate 22 22 Respiratory Effort / Characteristics Non-Labored Spontaneous Respiratory Depth Normal Respiratory Pattern Blood Pressure [Right Arm] 103/74 Blood Pressure Mean [Right Arm] 83 Blood Pressure Position [Right Arm] Sitting Pulse Oximetry 91 92 Pulse Oximetry [Forehead] 93 Oxygen Delivery Method Nasal Cannula Nasal Cannula Oxygen Delivery Method [Forehead] Nasal Cannula Oxygen Flow Rate 5 5 Oxygen Flow Rate [Forehead] 6 10/17/18 20:30 10/17/18 23:05 10/18/18 02:08 Temperature 36.5 C Temperature Source Oral Pulse Rate [Finger] 88 109 H Respiratory Rate 18 26 H Respiratory Effort / Characteristics Non-Labored Spontaneous SOB on Exertion Spontaneous Labored Respiratory Depth Normal Respiratory Pattern Regular Blood Pressure [Right Arm] 127/98 Blood Pressure Mean [Right Arm] 107 Blood Pressure Position [Right Arm] Pulse Oximetry 97 91 Pulse Oximetry [Forehead] 93 Oxygen Delivery Method Nasal Cannula Nasal Cannula Oxygen Delivery Method [Forehead] Nasal Cannula Oxygen Flow Rate 6 6 Oxygen Flow Rate [Forehead] 6 10/18/18 02:15 Temperature 36.5 C Temperature Source Oral Pulse Rate [Finger] 107 H Respiratory Rate 18 Respiratory Effort / Characteristics Respiratory Depth Respiratory Pattern Blood Pressure [Right Arm] 123/79 Blood Pressure Mean [Right Arm] 93 Blood Pressure Position [Right Arm] Pulse Oximetry 90 Pulse Oximetry [Forehead] Oxygen Delivery Method Oxygen Delivery Method [Forehead] Oxygen Flow Rate Oxygen Flow Rate [Forehead] Vital signs reviewed. General: Well-appearing male, in no significant distress, on nasal cannula O2. HEENT: No scleral icterus, PERRLA, neck supple. Atraumatic. Cardiovascular: Rapid rate and irregular rhythm, no extra sounds. Pulmonary: Coarse breath sounds bilaterally, slightly increased work of breathing. Abdomen: Soft, nontender, nondistended, positive bowel sounds. Musculoskeletal: Atraumatic, no peripheral edema. Neurologic: Patient awake alert and oriented x 3 Skin: Warm, dry, no rash Course 2005: Past medical records reviewed. The patient was evaluated in room C11B, and a complete history and physical examination were performed. Administered Medications Diltiazem HCl (Tiazac) 240 mg PO QAM ZARA Stop: 11/16/18 08:59 Last Admin: 10/17/18 10:15 Dose: 240 mg Docusate Sodium (Colace) 100 mg PO BID ZARA Stop: 11/16/18 11:59 Last Admin: 10/17/18 20:25 Dose: 100 mg Admin: 10/17/18 13:58 Dose: 100 mg Doxycycline Hyclate (Vibramycin) 100 mg PO BID ZARA Stop: 10/22/18 20:59 Last Admin: 10/17/18 20:25 Dose: 100 mg Admin: 10/17/18 10:12 Dose: 100 mg Admin: 10/16/18 20:56 Dose: 100 mg Admin: 10/16/18 08:31 Dose: 100 mg Admin: 10/15/18 22:30 Dose: 100 mg Fluticasone Propionate (Flonase) 1 sprays NA BID ZARA Stop: 11/15/18 11:59 Last Admin: 10/17/18 20:24 Dose: 1 sprays Admin: 10/17/18 10:15 Dose: 1 sprays Admin: 10/16/18 20:55 Dose: 1 sprays Admin: 10/16/18 14:36 Dose: 1 sprays Gabapentin (Neurontin) 100 mg PO HS ZARA Stop: 11/15/18 01:59 Last Admin: 10/17/18 20:25 Dose: 100 mg Admin: 10/16/18 20:56 Dose: 100 mg Admin: 10/16/18 02:19 Dose: 100 mg Ceftriaxone Sodium 1,000 mg/ (Dextrose) 60 mls @ 100 mls/hr IV Q24H ZARA Stop: 10/23/18 00:59 Last Infusion: 10/18/18 01:40 Dose: 0 mls/hr Admin: 10/18/18 00:34 Dose: 100 mls/hr Infusion: 10/17/18 02:30 Dose: 0 mls/hr Admin: 10/17/18 01:49 Dose: 100 mls/hr Infusion: 10/16/18 01:51 Dose: 0 mls/hr Admin: 10/16/18 01:15 Dose: 100 mls/hr Ipratropium [place] (Atrovent 0.02% 0.5mg/2.5ml) 0.5 mg INH Q6R ZARA Stop: 11/14/18 07:59 Last Admin: 10/18/18 02:07 Dose: 0.5 mg Admin: 10/17/18 19:36 Dose: 0.5 mg Admin: 10/17/18 13:40 Dose: 0.5 mg Admin: 10/17/18 06:58 Dose: 0.5 mg Admin: 10/17/18 01:34 Dose: 0.5 mg Admin: 10/16/18 19:31 Dose: 0.5 mg Admin: 10/16/18 14:19 Dose: 0.5 mg Admin: 10/16/18 07:00 Dose: 0.5 mg Admin: 10/16/18 01:56 Dose: 0.5 mg Admin: 10/15/18 19:08 Dose: 0.5 mg Admin: 10/15/18 13:54 Dose: 0.5 mg Admin: 10/15/18 07:01 Dose: 0.5 mg Levalbuterol HCl (Xopenex 1.25mg/0.5ml Neb) 1.25 mg INH Q6R ZARA Stop: 11/14/18 07:59 Last Admin: 10/18/18 02:06 Dose: 1.25 mg Admin: 10/17/18 19:37 Dose: 1.25 mg Admin: 10/17/18 13:40 Dose: 1.25 mg Admin: 10/17/18 06:59 Dose: 1.25 mg Admin: 10/17/18 01:34 Dose: 1.25 mg Admin: 10/16/18 19:31 Dose: 1.25 mg Admin: 10/16/18 14:20 Dose: 1.25 mg Admin: 10/16/18 07:00 Dose: 1.25 mg Admin: 10/16/18 01:58 Dose: 1.25 mg Admin: 10/15/18 19:08 Dose: 1.25 mg Admin: 10/15/18 13:54 Dose: 1.25 mg Admin: 10/15/18 07:02 Dose: 1.25 mg Rivaroxaban (Xarelto) 20 mg PO QDD [facility] [place] Stop: 11/16/18 11:59 Last Admin: 10/17/18 13:58 Dose: 20 mg Sennosides (Senokot) 8.6 mg PO QAM [facility] [place] Stop: 11/16/18 11:59 Last Admin: 10/17/18 13:58 Dose: 8.6 mg Discontinued Medications Digoxin (Lanoxin) Confirm Administered Dose 250 mcg IV .STK-MED ONE Stop: 10/14/18 22:40 Last Admin: 10/14/18 22:45 Dose: Not Given Diltiazem HCl (Cardizem Cd) 120 mg PO QAM [facility] [place] Stop: 11/14/18 00:44 Last Admin: 10/16/18 08:31 Dose: 120 mg Admin: 10/15/18 01:13 Dose: 120 mg Diltiazem HCl (Tiazac) 120 mg PO ONE ONE Stop: 10/17/18 13:30 Last Admin: 10/16/18 14:36 Dose: 120 mg Diphenhydramine HCl (Benadryl) 25 mg IV NOW STA Stop: 10/14/18 22:04 Last Admin: 10/14/18 22:10 Dose: 25 mg Sodium Chloride (Nss 1000ml) 250 mls @ 999 mls/hr IV .Q16M ONE Stop: 10/14/18 20:29 Last Infusion: 10/14/18 20:40 Dose: 0 mls/hr Admin: 10/14/18 20:34 Dose: 999 mls/hr Sodium Chloride (Nss 1000ml) 1,000 mls @ 125 mls/hr IV .Q8H ZARA Stop: 11/13/18 20:14 Last Infusion: 10/14/18 20:40 Dose: 0 mls/hr Admin: 10/14/18 20:35 Dose: 125 mls/hr Digoxin 250 mcg/ Syringe 10 mls @ 2 mls/min IV NOW STA Stop: 10/14/18 22:36 Last Admin: 10/14/18 22:45 Dose: 2 mls/min Sodium Chloride (Nss) 500 mls @ 500 mls/hr IV .Q1H ONE Stop: 10/15/18 00:05 Last Infusion: 10/15/18 00:10 Dose: 0 mls/hr Admin: 10/14/18 23:10 Dose: 500 mls/hr Methylprednisolone 40 mg/ (Syringe) 0.64 mls @ 1.5 mls/min IV Q12H ZARA Stop: 11/14/18 09:59 Last Admin: 10/17/18 10:13 Dose: 1.5 mls/min Admin: 10/16/18 20:56 Dose: 1.5 mls/min Admin: 10/16/18 08:32 Dose: 1.5 mls/min Admin: 10/15/18 22:31 Dose: 1.5 mls/min Admin: 10/15/18 11:23 Dose: 1.5 mls/min Potassium Chloride/Sodium Chloride (Normal Saline W/20 Meq Kcl) 20 meq in 1, 000 mls @ 60 mls/hr IV .[id number] ZARA Stop: 11/14/18 00:34 Last Admin: 10/15/18 18:44 Dose: Not Given Infusion: 10/15/18 18:43 Dose: 0 mls/hr Admin: 10/15/18 01:11 Dose: 60 mls/hr Ceftriaxone Sodium (Rocephin) 1,000 mg in 50 mls @ 100 mls/hr IV NOW STA Stop: 10/15/18 01:04 Last Infusion: 10/15/18 01:45 Dose: 0 mls/hr Admin: 10/15/18 01:12 Dose: 100 mls/hr Doxycycline Hyclate 100 mg/ (Dextrose) 110 mls @ 50 mls/hr IV NOW STA Stop: 10/15/18 02:46 Last Infusion: 10/15/18 03:25 Dose: 0 mls/hr Admin: 10/15/18 01:13 Dose: 50 mls/hr Digoxin 250 mcg/ Syringe 10 mls @ 2 mls/min IV NOW STA Stop: 10/15/18 00:39 Last Admin: 10/15/18 01:11 Dose: 2 mls/min Digoxin 250 mcg/ Syringe 10 mls @ 2 mls/min IV NOW STA Stop: 10/15/18 04:55 Last Admin: 10/15/18 05:05 Dose: 2 mls/min Ioversol (Optiray 320 125ml) 125 ml IV ONCE PRN PRN Reason: Interaction Checking Stop: 10/18/18 23:25 Last Admin: 10/14/18 23:26 Dose: 119 ml Ipratropium [place] (Atrovent 0.02% 0.5mg/2.5ml) 0.5 mg INH NOW STA Stop: 10/15/18 00:44 Last Admin: 10/15/18 01:07 Dose: Not Given Levalbuterol HCl (Xopenex 1.25mg/0.5ml Neb) 1.25 mg INH NOW STA Stop: 10/15/18 00:43 Last Admin: 10/15/18 01:07 Dose: Not Given Methylprednisolone (Solumedrol) 40 mg IV NOW STA Stop: 10/14/18 22:44 Last Admin: 10/14/18 23:07 Dose: 40 mg Metoprolol Tartrate (Lopressor) 5 mg IV, Q5M ZARA Stop: 11/13/18 20:14 Last Admin: 10/16/18 08:25 Dose: Not Given Admin: 10/16/18 08:25 Dose: Not Given Admin: 10/16/18 08:25 Dose: Not Given Admin: 10/16/18 08:25 Dose: Not Given Admin: 10/16/18 08:25 Dose: Not Given Admin: 10/16/18 08:25 Dose: Not Given Admin: 10/16/18 08:25 Dose: Not Given Admin: 10/16/18 08:25 Dose: Not Given Admin: 10/16/18 08:24 Dose: Not Given Admin: 10/16/18 08:24 Dose: Not Given Admin: 10/16/18 08:24 Dose: Not Given Admin: 10/16/18 08:24 Dose: Not Given Admin: 10/16/18 08:24 Dose: Not Given Admin: 10/16/18 08:24 Dose: Not Given Admin: 10/16/18 08:23 Dose: Not Given Admin: 10/16/18 08:23 Dose: Not Given Admin: 10/16/18 08:23 Dose: Not Given Admin: 10/16/18 08:23 Dose: Not Given Admin: 10/16/18 08:23 Dose: Not Given Admin: 10/16/18 08:23 Dose: Not Given Admin: 10/16/18 08:23 Dose: Not Given Admin: 10/16/18 08:23 Dose: Not Given Admin: 10/16/18 08:23 Dose: Not Given Admin: 10/16/18 08:22 Dose: Not Given Admin: 10/16/18 08:22 Dose: Not Given Admin: 10/16/18 08:22 Dose: Not Given Admin: 10/14/18 21:36 Dose: 5 mg Admin: 10/14/18 20:48 Dose: 5 mg Ondansetron HCl (Zofran) 4 mg IV NOW STA Stop: 10/14/18 22:04 Last Admin: 10/14/18 22:10 Dose: 4 mg Polyethylene Glycol (Miralax Powder Packet) 17 gm PO ONE ONE Stop: 10/16/18 17:46 Last Admin: 10/16/18 20:57 Dose: 17 gm Polyethylene Glycol (Miralax Powder Packet) Confirm Administered Dose 17 gm .ROUTE .STK-MED ONE Stop: 10/16/18 20:54 Last Admin: 10/16/18 20:57 Dose: Not Given Medical Decision Making Differential Diagnosis Differential diagnosis: Etiologies such as premature contractions, electrolyte abnormality, cardiac dysrhythmia, thyroid dysfunction, pulmonary embolism, infection, gastrointestinal, as well as others were entertained. Medical Records Attestation: I reviewed the patient's medical records. Home Medications Current Medication List: was personally reviewed by me Laboratory Data Attestation: I reviewed the patient's lab results. Result diagrams: 10/17/18 06:03 10/17/18 06:03 Lab Results 10/14/18 10/14/18 10/14/18 Range/Units 20:05 20:05 20:05 WBC 11.41 H (4.8-10.8) K/uL RBC 5.22 (4.7-6.1) M/uL Hgb 16.8 (14.0-18.0) g/dL Hct 49.8 (42-52) % MCV 95.4 (80-100) fL MCH 32.2 (25-34) pg MCHC 33.7 (32-36) g/dL RDW Std Deviation 48.8 H (36.4-46.3) fL RDW Coeff of Melinda 14.0 (11.5-14.5) % Plt Count 243 (130-400) K/uL MPV 8.9 (7.4-10.4) fL Immature Gran % (Auto) 0.4 % Neut % (Auto) 70.2 % Lymph % (Auto) 15.8 % [place] % (Auto) 11.7 % Eos % (Auto) 1.6 % Baso % (Auto) 0.3 % Immature Gran # (Auto) 0.04 H (0.00-0.02) K/uL Neut # (Auto) 8.03 H (1.4-6.5) K/uL Lymph # (Auto) 1.80 (1.2-3.4) K/uL [place] # (Auto) 1.33 H (0.11-0.59) K/uL Eos # (Auto) 0.18 (0-0.5) K/uL Baso # (Auto) 0.03 (0-0.2) K/uL APTT 27.0 (21.0-31.0) Seconds PTT Ratio 1.0 ABG pH (7.35-7.45) ABG pCO2 (35-46) mmHg ABG pO2 (80-95) mm/Hg ABG HCO3 (19-24) mmol/L ABG O2 Saturation (90-95) % ABG Base Excess (-9-1.8) mEq/L Ricco Test (Pos) Barometric Pressure mm/Hg Oxygen Given Sodium 136 (136-145) mmol/L Potassium 4.1 (3.5-5.1) mmol/L Chloride 104 (98-107) mmol/L Carbon Dioxide 18 L (21-32) mmol/L Anion Gap 13.0 H (3-11) BUN 30 H (7-18) mg/dl Creatinine 1.35 (0.6-1.4) mg/dl Est Cr Clr Drug Dosing 71.9 ml/min Est GFR ( Amer) 66.6 Est GFR (Non-Af Amer) 57.5 BUN/Creatinine Ratio 21.9 H (10-20) Glucose 82 (70-99) mg/dl Estimat Average Glucose mg/dl Hemoglobin A1c (4.5-5.6) % Lactate (0.4-2.0) mmol/L Calcium 9.6 (8.5-10.1) mg/dl Magnesium 2.2 (1.8-2.4) mg/dl Total Bilirubin 2.7 H (0.2-1) mg/dl AST 28 (15-37) U/L ALT 20 (12-78) U/L Alkaline Phosphatase 148 H (45-117) U/L Troponin I 0.016 (0-0.045) ng/ml NT-Pro-B Natriuret Pep 323 (0-900) pg/ml Total Protein 6.9 (6.4-8.2) gm/dl Albumin 2.9 L (3.4-5.0) gm/dl Globulin 4.0 (2.5-4.0) gm/dl Albumin/Globulin Ratio 0.7 L (0.9-2) Procalcitonin (0-0.5) ng/ml TSH 1.880 (0.300-4.500) uIu/ml Influenza Type A (PCR) (Neg) Influenza Type B (PCR) (Neg) Blood Type Antibody Screen 10/14/18 10/14/18 10/14/18 Range/Units 20:39 22:41 22:55 WBC (4.8-10.8) K/uL RBC (4.7-6.1) M/uL Hgb (14.0-18.0) g/dL Hct (42-52) % MCV (80-100) fL MCH (25-34) pg MCHC (32-36) g/dL RDW Std Deviation (36.4-46.3) fL RDW Coeff of Melinda (11.5-14.5) % Plt Count (130-400) K/uL MPV (7.4-10.4) fL Immature Gran % (Auto) % Neut % (Auto) % Lymph % (Auto) % [place] % (Auto) % Eos % (Auto) % Baso % (Auto) % Immature Gran # (Auto) (0.00-0.02) K/uL Neut # (Auto) (1.4-6.5) K/uL Lymph # (Auto) (1.2-3.4) K/uL [place] # (Auto) (0.11-0.59) K/uL Eos # (Auto) (0-0.5) K/uL Baso # (Auto) (0-0.2) K/uL APTT (21.0-31.0) Seconds PTT Ratio ABG pH (7.35-7.45) ABG pCO2 (35-46) mmHg ABG pO2 (80-95) mm/Hg ABG HCO3 (19-24) mmol/L ABG O2 Saturation (90-95) % ABG Base Excess (-9-1.8) mEq/L Ricco Test (Pos) Barometric Pressure mm/Hg Oxygen Given Sodium (136-145) mmol/L Potassium (3.5-5.1) mmol/L Chloride (98-107) mmol/L Carbon Dioxide (21-32) mmol/L Anion Gap (3-11) BUN (7-18) mg/dl Creatinine (0.6-1.4) mg/dl Est Cr Clr Drug Dosing ml/min Est GFR ( Amer) Est GFR (Non-Af Amer) BUN/Creatinine Ratio (10-20) Glucose (70-99) mg/dl Estimat Average Glucose mg/dl Hemoglobin A1c (4.5-5.6) % Lactate 1.3 (0.4-2.0) mmol/L Calcium (8.5-10.1) mg/dl Magnesium (1.8-2.4) mg/dl Total Bilirubin (0.2-1) mg/dl AST (15-37) U/L ALT (12-78) U/L Alkaline Phosphatase (45-117) U/L Troponin I (0-0.045) ng/ml NT-Pro-B Natriuret Pep (0-900) pg/ml Total Protein (6.4-8.2) gm/dl Albumin (3.4-5.0) gm/dl Globulin (2.5-4.0) gm/dl Albumin/Globulin Ratio (0.9-2) Procalcitonin (0-0.5) ng/ml TSH (0.300-4.500) uIu/ml Influenza Type A (PCR) Neg for Influ A (Neg) Influenza Type B (PCR) Neg for Influ B (Neg) Blood Type A Positive Antibody Screen NEGATIVE 10/14/18 10/15/18 10/15/18 Range/Units 22:55 00:06 05:31 WBC 6.33 (4.8-10.8) K/uL RBC 5.17 (4.7-6.1) M/uL Hgb 16.7 (14.0-18.0) g/dL Hct 49.3 (42-52) % MCV 95.4 (80-100) fL MCH 32.3 (25-34) pg MCHC 33.9 (32-36) g/dL RDW Std Deviation 49.5 H (36.4-46.3) fL RDW Coeff of Melinda 14.2 (11.5-14.5) % Plt Count 249 (130-400) K/uL MPV 8.7 (7.4-10.4) fL Immature Gran % (Auto) 0.3 % Neut % (Auto) 85.1 % Lymph % (Auto) 11.1 % [place] % (Auto) 3.0 % Eos % (Auto) 0.2 % Baso % (Auto) 0.3 % Immature Gran # (Auto) 0.02 (0.00-0.02) K/uL Neut # (Auto) 5.39 (1.4-6.5) K/uL Lymph # (Auto) 0.70 L (1.2-3.4) K/uL [place] # (Auto) 0.19 (0.11-0.59) K/uL Eos # (Auto) 0.01 (0-0.5) K/uL Baso # (Auto) 0.02 (0-0.2) K/uL APTT (21.0-31.0) Seconds PTT Ratio ABG pH 7.40 (7.35-7.45) ABG pCO2 34 L (35-46) mmHg ABG pO2 69 L (80-95) mm/Hg ABG HCO3 20 (19-24) mmol/L ABG O2 Saturation 94.0 (90-95) % ABG Base Excess -3.4 (-9-1.8) mEq/L Ricco Test POS (Pos) Barometric Pressure 733.3 mm/Hg Oxygen Given 5 L Sodium (136-145) mmol/L Potassium (3.5-5.1) mmol/L Chloride (98-107) mmol/L Carbon Dioxide (21-32) mmol/L Anion Gap (3-11) BUN (7-18) mg/dl Creatinine (0.6-1.4) mg/dl Est Cr Clr Drug Dosing ml/min Est GFR ( Amer) Est GFR (Non-Af Amer) BUN/Creatinine Ratio (10-20) Glucose (70-99) mg/dl Estimat Average Glucose mg/dl Hemoglobin A1c (4.5-5.6) % Lactate (0.4-2.0) mmol/L Calcium (8.5-10.1) mg/dl Magnesium (1.8-2.4) mg/dl Total Bilirubin (0.2-1) mg/dl AST (15-37) U/L ALT (12-78) U/L Alkaline Phosphatase (45-117) U/L Troponin I (0-0.045) ng/ml NT-Pro-B Natriuret Pep (0-900) pg/ml Total Protein (6.4-8.2) gm/dl Albumin (3.4-5.0) gm/dl Globulin (2.5-4.0) gm/dl Albumin/Globulin Ratio (0.9-2) Procalcitonin 0.22 (0-0.5) ng/ml TSH (0.300-4.500) uIu/ml Influenza Type A (PCR) (Neg) Influenza Type B (PCR) (Neg) Blood Type Antibody Screen 10/15/18 10/15/18 10/15/18 Range/Units 05:31 05:31 05:31 WBC (4.8-10.8) K/uL RBC (4.7-6.1) M/uL Hgb (14.0-18.0) g/dL Hct (42-52) % MCV (80-100) fL MCH (25-34) pg MCHC (32-36) g/dL RDW Std Deviation (36.4-46.3) fL RDW Coeff of Melinda (11.5-14.5) % Plt Count (130-400) K/uL MPV (7.4-10.4) fL Immature Gran % (Auto) % Neut % (Auto) % Lymph % (Auto) % [place] % (Auto) % Eos % (Auto) % Baso % (Auto) % Immature Gran # (Auto) (0.00-0.02) K/uL Neut # (Auto) (1.4-6.5) K/uL Lymph # (Auto) (1.2-3.4) K/uL [place] # (Auto) (0.11-0.59) K/uL Eos # (Auto) (0-0.5) K/uL Baso # (Auto) (0-0.2) K/uL APTT 27.9 (21.0-31.0) Seconds PTT Ratio 1.1 ABG pH (7.35-7.45) ABG pCO2 (35-46) mmHg ABG pO2 (80-95) mm/Hg ABG HCO3 (19-24) mmol/L ABG O2 Saturation (90-95) % ABG Base Excess (-9-1.8) mEq/L Ricco Test (Pos) Barometric Pressure mm/Hg Oxygen Given Sodium 136 (136-145) mmol/L Potassium 4.8 D (3.5-5.1) mmol/L Chloride 105 (98-107) mmol/L Carbon Dioxide 20 L (21-32) mmol/L Anion Gap 11.0 (3-11) BUN 37 H (7-18) mg/dl Creatinine 1.34 (0.6-1.4) mg/dl Est Cr Clr Drug Dosing 72.6 ml/min Est GFR ( Amer) 67.2 Est GFR (Non-Af Amer) 58.0 BUN/Creatinine Ratio 27.2 H (10-20) Glucose 111 H (70-99) mg/dl Estimat Average Glucose 114 mg/dl Hemoglobin A1c 5.6 (4.5-5.6) % Lactate (0.4-2.0) mmol/L Calcium 9.4 (8.5-10.1) mg/dl Magnesium (1.8-2.4) mg/dl Total Bilirubin (0.2-1) mg/dl AST (15-37) U/L ALT (12-78) U/L Alkaline Phosphatase (45-117) U/L Troponin I (0-0.045) ng/ml NT-Pro-B Natriuret Pep (0-900) pg/ml Total Protein (6.4-8.2) gm/dl Albumin (3.4-5.0) gm/dl Globulin (2.5-4.0) gm/dl Albumin/Globulin Ratio (0.9-2) Procalcitonin (0-0.5) ng/ml TSH (0.300-4.500) uIu/ml Influenza Type A (PCR) (Neg) Influenza Type B (PCR) (Neg) Blood Type Antibody Screen 10/16/18 10/17/18 10/17/18 Range/Units 07:52 06:03 06:03 WBC 11.38 H 13.35 H (4.8-10.8) K/uL RBC 4.91 4.65 L (4.7-6.1) M/uL Hgb 15.8 15.2 (14.0-18.0) g/dL Hct 46.5 44.6 (42-52) % MCV 94.7 95.9 (80-100) fL MCH 32.2 32.7 (25-34) pg MCHC 34.0 34.1 (32-36) g/dL RDW Std Deviation 47.2 H 48.1 H (36.4-46.3) fL RDW Coeff of Melinda 13.7 13.8 (11.5-14.5) % Plt Count 258 256 (130-400) K/uL MPV 8.9 8.6 (7.4-10.4) fL Immature Gran % (Auto) % Neut % (Auto) % Lymph % (Auto) % [place] % (Auto) % Eos % (Auto) % Baso % (Auto) % Immature Gran # (Auto) (0.00-0.02) K/uL Neut # (Auto) (1.4-6.5) K/uL Lymph # (Auto) (1.2-3.4) K/uL [place] # (Auto) (0.11-0.59) K/uL Eos # (Auto) (0-0.5) K/uL Baso # (Auto) (0-0.2) K/uL APTT (21.0-31.0) Seconds PTT Ratio ABG pH (7.35-7.45) ABG pCO2 (35-46) mmHg ABG pO2 (80-95) mm/Hg ABG HCO3 (19-24) mmol/L ABG O2 Saturation (90-95) % ABG Base Excess (-9-1.8) mEq/L Ricco Test (Pos) Barometric Pressure mm/Hg Oxygen Given Sodium 139 (136-145) mmol/L Potassium 4.3 (3.5-5.1) mmol/L Chloride 106 (98-107) mmol/L Carbon Dioxide 26 (21-32) mmol/L Anion Gap 7.0 (3-11) BUN 23 H (7-18) mg/dl Creatinine 1.12 (0.6-1.4) mg/dl Est Cr Clr Drug Dosing 86.8 ml/min Est GFR ( Amer) 83.5 Est GFR (Non-Af Amer) 72.0 BUN/Creatinine Ratio 20.6 H (10-20) Glucose 128 H (70-99) mg/dl Estimat Average Glucose mg/dl Hemoglobin A1c (4.5-5.6) % Lactate (0.4-2.0) mmol/L Calcium 9.6 (8.5-10.1) mg/dl Magnesium (1.8-2.4) mg/dl Total Bilirubin (0.2-1) mg/dl AST (15-37) U/L ALT (12-78) U/L Alkaline Phosphatase (45-117) U/L Troponin I (0-0.045) ng/ml NT-Pro-B Natriuret Pep (0-900) pg/ml Total Protein (6.4-8.2) gm/dl Albumin (3.4-5.0) gm/dl Globulin (2.5-4.0) gm/dl Albumin/Globulin Ratio (0.9-2) Procalcitonin (0-0.5) ng/ml TSH (0.300-4.500) uIu/ml Influenza Type A (PCR) (Neg) Influenza Type B (PCR) (Neg) Blood Type Antibody Screen Imaging Data Radiologist's Impression: Radiology results as stated below per my review and the radiologist's interpretation: XR chest 1V portable CLINICAL HISTORY: a fib dyspnea COMPARISON STUDY: 09/05/2018 FINDINGS: Mild increase in cardiac size. Moderately progressive pulmonary vasculature and interstitial lung change. The appearance consistent of congestive heart failure superimposed upon baseline interstitial change. IMPRESSION: Congestive heart failure superimposed upon chronic interstitial change. The above report was generated using voice recognition software. It may contain grammatical, syntax or spelling errors. Electronically signed by: Matthew Chavarria M.D. 10/14/2018 8:27 PM ECG Data Attestation: I personally reviewed and interpreted this ECG as follows: Indication: palpitations Rate (beats per minute): 127 Rhythm: atrial fibrillation (rapid) Findings: + other (QTc is 459); no PAC, no PVC, no ST depression and no ST elevation Blood Pressure Blood Pressure Findings: Low blood pressure Blood Pressure Disposition: further management by hospitalist MDM Narrative This pt was evaluated and appeared to be in no distress. IV access was obtained by EMS, pt placed on cardiac rehab nurse and found to be in rapid atrial fibrillation. EKG confirms the findings. Pt was administered IV cardizem in route by my medical command, but little benefit seen. IV metoprolol 5 mg IV x 3 doses was given in the ED. Lab work reveals normal troponin, K of 4.1 and WBC of 11.4. CXR reveals congestive changes. Pt remained on n/c O2. Hypotension is noted and r/t rapid atrial fibrillation and medications administered. He did receive IVF boluses of 250 mL en route and in ED to assist. PE is felt unlikley d/t Xaralto therapy. Pt case was d/w the hospitalist, Dr Manzano for further management. Impression & Plan Atrial fibrillation with rapid ventricular response Critical Care Time The high probability of a clinically significant, sudden or life threatening deterioration of the cardiovascular system required my full and direct attention , intervention and personal management. The aggregate critical care time was 35 minutes. This time is in addition to time spent performing reported procedures but includes the following: [x] Data Review and interpretation [x] Patient assessment and monitoring of vital signs [x] Documentation [x] Medication orders and management Critical Care Time: Yes Total Critical Care Time: 35 Discharge Plan Visit Data *Final* Discharge Date/Time: 10/15/18 00:00 Chief Complaint: Shortness of Breath/Dyspnea Stated Complaint: SOB, CHEST PAIN ED Provider: Gloria Carvajal Discharge Problem: Atrial fibrillation with rapid ventricular response Patient Disposition: Admitted As Inpatient Discharge Instructions Interventions: ED Discharge Assessment Last Done: 10/15/18 00:00 The scribe's documentation has been prepared under my direction and personally reviewed by me in its entirety. I confirm that the note above accurately reflects all work, treatment, procedures, and medical decision making performed by me.
[2018-10-14] MEDS ORDERED: DiphenhydrAMINE HCL 50 MG/ML VIAL IV STA (22:03)
[2018-10-14] MEDS ORDERED: ONDANSETRON INJ 2 MG/ML 2 ML VIAL IV STA (22:03)
[2018-10-14] MEDS ORDERED: DIGOXIN 250 MCG in SYRINGE 9 ML IV STA (22:32)
[2018-10-14] MEDS ORDERED: DIGOXIN 500 MCG/2 ML AMP IV ONE (22:39)
[2018-10-14] MEDS ORDERED: SODIUM CHLORIDE 0.9% 500 ML IV ONE (23:06)
--- NOTE | 2018-10-14 23:09 | History & Physical Report ---
Date of Service October 14, 2018 Assessment & Plan (1) Respiratory failure, acute and chronic: Secondary to COPD/interstitial lung disease exacerbation, ongoing steroid Rx hx alpha 1 antitrypsin deficiency on weekly Prolastin infusion therapy Possible sepsis Hemoptysis secondary to above hemoglobin stable at baseline Recurrent A. fib secondary to respiratory illness hx A. fib status post cardioversion / hx SVT status post ablation Patient stopped Xarelto 3 days ago due to concerns about hemoptysis. 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 difficile past tobacco abuse. PCU Continue supplemental O2, may need BiPAP Baseline ABG CS, check lactic acid IV Ceftriaxone, Doxycycline for now Solu-Medrol, [facility] RTC Pulmonary consult in a.m. RE respiratory failure, hemoptysis Antitussives as needed for hemoptysis N.p.o. after midnight for potential need for bronchoscopy Cardizem for rate control, Digoxin as needed given borderline BP TTE, Cardiology consult RE recurrent A. fib Appropriate to continue to hold home Xarelto for now given hemoptysis Stool C. difficile DVT prophylaxis. SCDs RE hemoptysis Total critical care time was 50 minutes. History of Present Illness Chief Complaint: Hemoptysis, SOB Primary Care Provider: Daly Brasher MD History obtained from patient and records. Medical history significant for chronic respiratory failure secondary to COPD/ interstitial lung disease ongoing steroid Rx, alpha 1 antitrypsin deficiency on weekly Prolastin infusion therapy, A. fib status post cardioversion /SVT status post ablation, hyperlipidemia, history of TIA as per records, history of TB exposure status post rifampin, past tobacco abuse. Recent confinement last December 2017 for atrial flutter with RVR status post cardioversion. Patient discharged on Xarelto. Patient subsequently had outpatient ablation of SVT last January 2018. Patient has had chronic cough for months which he attributes chronic lung disease with occasional specks of blood. The last 2 weeks patient noted tahmina hemoptysis. No chest pain. No consultations done. 5 days ago patient noted nausea and nonbloody diarrhea symptoms without abdominal pain. No recent travel/antibiotic Rx/sick contacts. No fever, no chills. Patient decided to stop his Xarelto 3 days ago due to continued hemoptysis. Intermittent achy headaches and dizziness. Patient noted intermittent palpitations. Patient denies weight gain/fluid retention. Patient consulted ER for worsening symptoms. At the ER, patient was noted to be in rapid A. fib, cardiac rate 120s at the highest. IV Lopressor, IVF given in the ER. Medical History as above Surgical History : Hip surgery, repair, back surgery, lung surgery Family History : Diabetes, heart disease Personal/Social history : Past tobacco abuse, no EtOH intake, disabled Allergies Allergy/AdvReac Type Severity Reaction Status Date / Time amoxicillin Allergy Intermediate itchy Unverified 10/14/18 20:40 trazodone Allergy Mild RASH Verified 10/14/18 20:40 Home Medications Home Medications Medication Instructions Recorded Confirmed Type albuterol sulfate [Ventolin HFA] 2 puff INHALATION QID PRN 06/01/18 10/14/18 History alpha-1 proteinase inhib.(hum) 1 dose IV WK 06/01/18 10/14/18 History [Prolastin-C] fluticasone-vilanterol [Breo 1 inh INHALATION DAILY 06/01/18 10/14/18 History Ellipta] pirfenidone [Esbriet] 267 mg PO TID 06/01/18 10/14/18 History prednisone 10 mg PO UD 06/01/18 10/14/18 History rivaroxaban [Xarelto] 20 mg PO DAILY 06/01/18 10/14/18 History loperamide [Imodium A-D] 2 mg PO UD PRN 10/14/18 10/14/18 History tiotropium bromide [Spiriva 1 puff INHALATION DAILY 10/14/18 10/14/18 History Respimat] Past Med/Surg History Medical History Atrial fibrillation COPD (chronic obstructive pulmonary disease) IPF (idiopathic pulmonary fibrosis) Family History Other Diabetes Heart disease Social History Current Living Situation: Alone current occupational status: employed Other Information That Helps Us Care for You: No Feels Safe at Home: Yes Safety Concerns: Feels Safe At This Time Smoking Status: Former smoker Hx Alcohol Use: Yes Alcohol type: beer, wine and hard liquor Alcohol Intake Frequency: a few times a month Hx Substance Use: No Beliefs That Will Affect Care: None Preferred Language: Hebrew Communication Ability: Effective Client Partner Required: No Review of Systems As per HPI, all 10 systems reviewed, all other ROS negative Physical Exam 2 Vital Signs (Past 24 Hours): Last Vital Signs Temp 36.7 C 10/14/18 20:10 Pulse 122 H 10/14/18 22:58 Resp 18 10/14/18 22:58 BP 106/86 10/14/18 22:58 Pulse Ox 90 10/14/18 22:58 Physical Exam: GENERAL: Slightly uncomfortable, minimal respiratory distress, obese SKIN: Normal color, warm HEENT: Alopecia, pink palpebral conjunctivae, no ptosis, dry buccal mucosa, O2 mask in place NECK : Supple, short, no tenderness CHEST : Decreased breath sounds , no tenderness HEART : Tachycardic, irregular , no obvious murmurs ABDOMEN: Some distention, nontender EXTREMITIES : No LE swelling/tenderness, no other conspicuous deformities noted NEUROLOGIC : Coherent, no facial asymmetry, no other gross focality Results & Data Laboratory Results Laboratory Results WBC 11.41 K/uL (4.8-10.8) H 10/14/18 20:05 RBC 5.22 M/uL (4.7-6.1) 10/14/18 20:05 Hgb 16.8 g/dL (14.0-18.0) 10/14/18 20:05 Hct 49.8 % (42-52) 10/14/18 20:05 MCV 95.4 fL (80-100) 10/14/18 20:05 MCH 32.2 pg (25-34) 10/14/18 20:05 MCHC 33.7 g/dL (32-36) 10/14/18 20:05 RDW Std Deviation 48.8 fL (36.4-46.3) H 10/14/18 20:05 RDW Coeff of Melinda 14.0 % (11.5-14.5) 10/14/18 20:05 Plt Count 243 K/uL (130-400) 10/14/18 20:05 MPV 8.9 fL (7.4-10.4) 10/14/18 20:05 Immature Gran % (Auto) 0.4 % 10/14/18 20:05 Neut % (Auto) 70.2 % 10/14/18 20:05 Lymph % (Auto) 15.8 % 10/14/18 20:05 [place] % (Auto) 11.7 % 10/14/18 20:05 Eos % (Auto) 1.6 % 10/14/18 20:05 Baso % (Auto) 0.3 % 10/14/18 20:05 Immature Gran # (Auto) 0.04 K/uL (0.00-0.02) H 10/14/18 20:05 Neut # (Auto) 8.03 K/uL (1.4-6.5) H 10/14/18 20:05 Lymph # (Auto) 1.80 K/uL (1.2-3.4) 10/14/18 20:05 [place] # (Auto) 1.33 K/uL (0.11-0.59) H 10/14/18 20:05 Eos # (Auto) 0.18 K/uL (0-0.5) 10/14/18 20:05 Baso # (Auto) 0.03 K/uL (0-0.2) 10/14/18 20:05 APTT 27.0 Seconds (21.0-31.0) 10/14/18 20:05 PTT Ratio 1.0 10/14/18 20:05 Sodium 136 mmol/L (136-145) 10/14/18 20:05 Potassium 4.1 mmol/L (3.5-5.1) 10/14/18 20:05 Chloride 104 mmol/L (98-107) 10/14/18 20:05 Carbon Dioxide 18 mmol/L (21-32) L 10/14/18 20:05 Anion Gap 13.0 (3-11) H 10/14/18 20:05 BUN 30 mg/dl (7-18) H 10/14/18 20:05 Creatinine 1.35 mg/dl (0.6-1.4) 10/14/18 20:05 Est Cr Clr Drug Dosing 71.9 ml/min 10/14/18 20:05 Est GFR ( Amer) 66.6 10/14/18 20:05 Est GFR (Non-Af Amer) 57.5 10/14/18 20:05 BUN/Creatinine Ratio 21.9 (10-20) H 10/14/18 20:05 Glucose 82 mg/dl (70-99) 10/14/18 20:05 Calcium 9.6 mg/dl (8.5-10.1) 10/14/18 20:05 Magnesium 2.2 mg/dl (1.8-2.4) 10/14/18 20:05 Total Bilirubin 2.7 mg/dl (0.2-1) H 10/14/18 20:05 AST 28 U/L (15-37) 10/14/18 20:05 ALT 20 U/L (12-78) 10/14/18 20:05 Alkaline Phosphatase 148 U/L (45-117) H 10/14/18 20:05 Troponin I 0.016 ng/ml (0-0.045) 10/14/18 20:05 NT-Pro-B Natriuret Pep 323 pg/ml (0-900) 10/14/18 20:05 Total Protein 6.9 gm/dl (6.4-8.2) 10/14/18 20:05 Albumin 2.9 gm/dl (3.4-5.0) L 10/14/18 20:05 Globulin 4.0 gm/dl (2.5-4.0) 10/14/18 20:05 Albumin/Globulin Ratio 0.7 (0.9-2) L 10/14/18 20:05 TSH 1.880 uIu/ml (0.300-4.500) 10/14/18 20:05 Influenza Type A (PCR) Neg for Influ A (Neg) 10/14/18 20:39 Influenza Type B (PCR) Neg for Influ B (Neg) 10/14/18 20:[address] head initial read no acute pathology CT chest initial read: No PE. Bilateral hilar adenopathy. Cholelithiasis. Widespread groundglass opacity throughout the lungs not present on the prior scan possibly indicating alveolar edema or atypical infection hemorrhage or inflammation. Chronic cystic lung disease. EKG as per my interpretation: Rate 120, A. fib, incomplete right bundle branch block no ischemia
[2018-10-14 23:13] LABS: HCO3 ABG 20 mmol/L (19-24); PCO2 ABG 34 mmHg (35-46); PO2 ABG 69 mm/Hg (80-95)
[2018-10-14] MEDS ORDERED: OPTIRAY 320 125ml IV PRN (23:26)
[2018-10-14 23:32] LABS: Allen Test POS (Pos)
[2018-10-15] MEDS ORDERED: BENZONATATE 100 MG CAPSULE PO PRN (00:24)
[2018-10-15] MEDS ORDERED: cefTRIAXone SODIUM 1,000 MG/50 ML BAG IV STA (00:35)
[2018-10-15] MEDS ORDERED: ACETAMINOPHEN 325 MG TAB PO PRN (00:35)
[2018-10-15] MEDS ORDERED: TRAMADOL HCL 50 MG TABLET PO PRN (00:35)
[2018-10-15] MEDS ORDERED: PROCHLORPERAZINE 5 MG in SYRINGE 4 ML IV PRN (00:35)
[2018-10-15] MEDS ORDERED: DIGOXIN 250 MCG in SYRINGE 9 ML IV STA ×2 (00:35→04:51)
[2018-10-15] MEDS ORDERED: DOXYCYCLINE HYCLATE 100 MG in DEXTROSE 5% 100 ML IV STA (00:35)
[2018-10-15] MEDS ORDERED: MoRPHine SULFATE 4 MG/ML 1 ML CARP\\VIAL IV PRN (00:35)
[2018-10-15] MEDS ORDERED: LORazepam 0.25 MG/0.5 ML VIAL IV PRN (00:35)
[2018-10-15] MEDS ORDERED: XOPENEX/ATROVENT 1.25mg/0.5MG NEB COMBO NEB STA (00:36)
[2018-10-15] MEDS ORDERED: LEVALBUTEROL 1.25MG/0.5ML NEB INH STA (00:42)
[2018-10-15] MEDS ORDERED: IPRATROPIUM BROMIDE NEB SOLN 0.02% 2.5 ML VIAL INH STA (00:43)
[2018-10-15] MEDS: NSS + 20MEQ KCL 20 MEQ/1,000 ML BAG IV SCH ×2 (01:11→18:44)
[2018-10-15] MEDS: dilTIAZem HCL 120 MG CAPCR PO SCH (01:13)
[2018-10-15] MEDS ORDERED: XOPENEX/ATROVENT 1.25mg/0.5MG NEB COMBO NEB SCH (02:00)
[2018-10-15 05:50] LABS: Basophils # (auto) 0.02 K/uL (0-0.2); Basophils % (auto) 0.3 %; Eosinophils # (auto) 0.01 K/uL (0-0.5); Eosinophils % (auto) 0.2 %; Hematocrit (blood only) 49.3 % (42-52); Hemoglobin 16.7 g/dL (14.0-18.0); Immature Granulocytes # (auto) 0.02 K/uL (0.00-0.02); Immature Granulocytes % (auto) 0.3 %; Lymphocytes % (auto) 11.1 %; Mean Corpuscular Hgb Conc 33.9 g/dL (32-36); Mean Corpuscular Volume 95.4 fL (80-100); Mean Platelet Volume 8.7 fL (7.4-10.4); Monocytes # (auto) 0.19 K/uL (0.11-0.59); Neutrophils # (auto) 5.39 K/uL (1.4-6.5); Neutrophils % (auto) 85.1 %; Platelet Count 249 K/uL (130-400); RDW Coefficient of Variation 14.2 % (11.5-14.5); RDW Standard Deviation 49.5 fL (36.4-46.3); Red Blood Count 5.17 M/uL (4.7-6.1); White Blood Count 6.33 K/uL (4.8-10.8)
[2018-10-15 06:32] LABS: Partial Thromboplastin Ratio 1.1; Partial Thromboplastin Time 27.9 Seconds (21.0-31.0)
[2018-10-15 06:38] LABS: BUN Creatinine Ratio 27.2 (10-20); Calcium 9.4 mg/dl (8.5-10.1); Creatinine Clr Calc Pharmacy 72.6 ml/min; Est GFR (African American) 67.2; Potassium 4.8 mmol/L (3.5-5.1)
[2018-10-15] MEDS: IPRATROPIUM BROMIDE NEB SOLN 0.02% 2.5 ML VIAL INH SCH ×3 (07:01→19:08)
[2018-10-15] MEDS: LEVALBUTEROL 1.25MG/0.5ML NEB INH SCH ×3 (07:02→19:08)
--- NOTE | 2018-10-15 07:09 | CT Scan Report ---
CT head/brain wo con CLINICAL HISTORY: 58 years-old Male presenting with walker. TECHNIQUE: Multidetector CT imaging of the head was performed without the use of intravenous contrast . IV contrast: None. One or more dose lowering techniques were used consistent with the principles of ALARA (as low as reasonably achievable), including automatic exposure control, mA or kV adjustment t o individual patient size, and/or use of iterative reconstruction. COMPARISON: None. CT DOSE (mGy.cm): The estimated cumulative dose is 1219.10 mGy.cm. FINDINGS: Water Analyst topogram: Diffuse added density of the lungs with reticular lung markings and mildly low lung v olumes. Ventricles and sulci normal in size. No hemorrhage. Brain parenchyma normal in appearance with preser marcelo webb-white differentiation. No acute territorial infarct. No mass effect or midline shift. No ext ra-axial fluid collection. Paranasal sinuses and mastoid air cells clear. Calvarium intact. IMPRESSION: 1. No acute intracranial abnormality. Electronically signed by: Regan Winslow M.D. 10/15/2018 7:08 AM
--- NOTE | 2018-10-15 07:30 | CT Scan Report ---
CT ANGIOGRAPHY OF THE CHEST, PULMONARY EMBOLUS PROTOCOL CLINICAL HISTORY: PE, hemoptysis COMPARISON STUDY: Chest CT April 23, 2018 and chest radiograph October 14, 2018. TECHNIQUE: Following IV administration of 119 mL of Optiray-320, helical axial images of the chest we re obtained utilizing the pulmonary embolus protocol. Maximal intensity projections and sagittal and coronal reformats were viewed on an independent 3D workstation. IV contrast was administered withou t complication. Automated exposure control was utilized for the study. A dose lowering technique wa s utilized adhering to the principles of ALARA. FINDINGS: No pulmonary emboli are identified. Mild cardiomegaly is noted. Numerous mildly enlarged m ediastinal and bilateral hilar lymph nodes are similar to exam of April 23, 2018. Central airways ar e patent. Moderate emphysema is noted. There is also suspected superimposed interstitial lung disease which was shown on prior chest CT. Note is made of interval development of groundglass opacities wit hin the lungs since prior exam. There is no lobar consolidation. No suspicious osseous lesions are no josephine. Colonic diverticulosis is noted within visualized portions of the colon. There is cholelithiasis . IMPRESSION: 1. No pulmonary emboli identified. 2. Emphysema with superimposed interstitial lung disease which was shown on prior chest CT. 3. Interval development of groundglass opacities within the lungs which may reflect pneumonia, pulmon abi edema, hemorrhage or active alveolitis. 4. No change in mediastinal and bilateral hilar lymphadenopathy which is likely related to interstiti al lung disease. Electronically signed by: Delmar Miramontes M.D. 10/15/2018 7:29 AM
[2018-10-15] MEDS ORDERED: dilTIAZem HCL 120 MG CAPCR PO SCH (09:00)
[2018-10-15 10:01] LABS: Estimated Average Glucose 114 mg/dl
--- NOTE | 2018-10-15 10:26 | Cardiology Consultation ---
Date of Consultation October 15, 2018 Assessment & Plan (1) Atrial fibrillation with rapid ventricular response: His current rhythm appears most consistent with atrial fibrillation and associated high ventricular rates. In the past he had what appeared to be in atrial flutter and actually underwent catheter based therapy for typical right atrial flutter. Patients with atrial flutter are known to have a high incidence of atrial fibrillation as well, and I think this is characteristic of his current arrhythmia. The duration of this arrhythmia is unclear. He was reported to have an irregular heart rate previously on an outpatient basis. He was not noted to have high heart rates. He may have more chronic atrial fibrillation with high heart rates recently due to an exacerbation of his underlying lung disease or even dehydration. Currently his rates are better. He did receive both digoxin and a dose of diltiazem. I think going forward use of diltiazem will be our primary therapy. I think a rate control strategy is optimal. I think the long-term likelihood of maintaining sinus rhythm is poor and he will likely tolerate the arrhythmia quite well. He has been on systemic anticoagulation for some time and should continue on the Xarelto once any concerns regarding pulmonary hemorrhage have been addressed. I do not think there is a current role for cardioversion or return to sinus rhythm. We will monitor his hemodynamics closely and we can continue to administer diltiazem as tolerated. Alternatively, we could employ digoxin or possibly even beta- blockade. Present on Admission?: Yes History of Present Illness Reason for Consultation: Atrial fibrillation Requesting Physician: Neeraj Attending Physician: Mal Pickard MD History of Present Illness The patient is a 58-year-old gentleman with a history of alpha-1 antitrypsin deficiency and associated pulmonary disease who has a history of atrial flutter. The patient presented last year with atrial flutter and underwent cardioversion. He subsequently had a recurrence of the atrial flutter and underwent catheter based therapy in November 2017. Since that time, the patient is not known to have had any recurrence of atrial arrhythmia. He states that over the past week he has had some worsening breathing difficulty. He states that he was experiencing hypoxia as well as symptoms of gastrointestinal illness. The patient reports not eating or drinking well for several days leading up to his admission for worsening breathing trouble. He denied overt fevers or chills. He was aware of some irregularity in his pulse and is actually told by the nursing staff at his infusion center that he had an irregular pulse last week. Occasionally he is told that he has an irregular pulse but does not recall having high heart rates associated with this irregularity. He will describe some sense of palpitations that generally resolve with burping or deep breathing. He generally has an element of dizziness and lightheadedness associated with coughing. He has not suffered syncope recently. He has not had symptoms of chest pain. He has had some hemoptysis recently. This started as a very minimal hemoptysis but he felt that it was progressive and discontinued his Xarelto approximately 3 days ago as a result. In general he is very limited with respect to activity. He can ambulate around his house with an element of dyspnea but generally does not go outdoors in poor weather. He denies overt orthopnea or paroxysmal nocturnal dyspnea. He has not noticed any swelling in his lower extremities. Currently he is feeling better. He still has an element of dyspnea but this is improved from admission. Allergies Allergy/AdvReac Type Severity Reaction Status Date / Time amoxicillin Allergy Intermediate itchy Unverified 10/14/18 20:40 trazodone Allergy Mild RASH Verified 10/14/18 20:40 Home Medications Home Medications Medication Instructions Recorded Confirmed Type albuterol sulfate [Ventolin HFA] 2 puff INHALATION QID PRN 06/01/18 10/14/18 History alpha-1 proteinase inhib.(hum) 1 dose IV WK 06/01/18 10/14/18 History [Prolastin-C] fluticasone-vilanterol [Breo 1 inh INHALATION DAILY 06/01/18 10/14/18 History Ellipta] pirfenidone [Esbriet] 267 mg PO TID 06/01/18 10/14/18 History prednisone 10 mg PO UD 06/01/18 10/14/18 History rivaroxaban [Xarelto] 20 mg PO DAILY 06/01/18 10/14/18 History loperamide [Imodium A-D] 2 mg PO UD PRN 10/14/18 10/14/18 History tiotropium bromide [Spiriva 1 puff INHALATION DAILY 10/14/18 10/14/18 History Respimat] Patient History Medical History Atrial fibrillation COPD (chronic obstructive pulmonary disease) IPF (idiopathic pulmonary fibrosis) Family History Other Diabetes Heart disease Social History Current Living Situation: Alone current occupational status: employed Other Information That Helps Us Care for You: No Feels Safe at Home: Yes Safety Concerns: Feels Safe At This Time Smoking Status: Former smoker Hx Alcohol Use: Yes Alcohol type: beer, wine and hard liquor Alcohol Intake Frequency: a few times a month Hx Substance Use: No Beliefs That Will Affect Care: None Preferred Language: Georgian Communication Ability: Effective Crop Roller Required: No Review of Systems Complete. Pertinent positives none history of present illness. He did have both vomiting and diarrhea. Physical Exam 2 Vital Signs (Past 24 Hours): Last Vital Signs Temp 36.4 C L 10/15/18 08:08 Pulse 94 H 10/15/18 08:08 Resp 16 10/15/18 08:08 BP 107/74 10/15/18 08:08 Pulse Ox 91 10/15/18 08:08 Physical Exam: The patient is alert and oriented. Mood and affect appeared normal. He answered all questions appropriately. HEENT: Pupils are equal and reactive to light and accommodation. Extraocular movements are intact. The sclerae are anicteric. Neuro: Cranial nerves intact Neck: Patient's neck is supple. He has palpable carotid pulses bilaterally without bruits on auscultation. There is no evidence of jugular venous distention. The thyroid is not enlarged. Lungs: Clear to auscultation bilaterally. He has good air movement without use of accessory muscles. No rales wheezes or rhonchi. Cardiac: Heart demonstrates an irregular rate and rhythm. Normal S1 and S2. No murmurs on examination. Pulses: The patient has palpable radial pulses bilaterally that are equal in intensity Extremities: There was no evidence of hypoperfusion. There is no cyanosis but he does have prominent clubbing bilaterally. There is no edema. Skin: I did not appreciate any rashes on examination today. Results & Data Laboratory Results Abnormal Lab Results 10/14/18 10/14/18 10/14/18 20:05 20:05 20:05 WBC 11.41 H RBC 5.22 Hgb 16.8 Hct 49.8 MCV 95.4 MCH 32.2 MCHC 33.7 RDW Std Deviation 48.8 H RDW Coeff of Melinda 14.0 Plt Count 243 MPV 8.9 Immature Gran % (Auto) 0.4 Neut % (Auto) 70.2 Lymph % (Auto) 15.8 Smyth % (Auto) 11.7 Eos % (Auto) 1.6 Baso % (Auto) 0.3 Immature Gran # (Auto) 0.04 H Neut # (Auto) 8.03 H Lymph # (Auto) 1.80 Smyth # (Auto) 1.33 H Eos # (Auto) 0.18 Baso # (Auto) 0.03 APTT 27.0 PTT Ratio 1.0 ABG pH ABG pCO2 ABG pO2 ABG HCO3 ABG O2 Saturation ABG Base Excess Ricco Test Barometric Pressure Oxygen Given Sodium 136 Potassium 4.1 Chloride 104 Carbon Dioxide 18 L Anion Gap 13.0 H BUN 30 H Creatinine 1.35 Est Cr Clr Drug Dosing 71.9 Est GFR ( Amer) 66.6 Est GFR (Non-Af Amer) 57.5 BUN/Creatinine Ratio 21.9 H Glucose 82 Estimat Average Glucose Hemoglobin A1c Lactate Calcium 9.6 Magnesium 2.2 Total Bilirubin 2.7 H AST 28 ALT 20 Alkaline Phosphatase 148 H Troponin I 0.016 NT-Pro-B Natriuret Pep 323 Total Protein 6.9 Albumin 2.9 L Globulin 4.0 Albumin/Globulin Ratio 0.7 L Procalcitonin TSH 1.880 Influenza Type A (PCR) Influenza Type B (PCR) Blood Type Antibody Screen 10/14/18 10/14/18 10/14/18 20:39 22:41 22:55 WBC RBC Hgb Hct MCV MCH MCHC RDW Std Deviation RDW Coeff of Melinda Plt Count MPV Immature Gran % (Auto) Neut % (Auto) Lymph % (Auto) Smyth % (Auto) Eos % (Auto) Baso % (Auto) Immature Gran # (Auto) Neut # (Auto) Lymph # (Auto) Smyth # (Auto) Eos # (Auto) Baso # (Auto) APTT PTT Ratio ABG pH ABG pCO2 ABG pO2 ABG HCO3 ABG O2 Saturation ABG Base Excess Ricco Test Barometric Pressure Oxygen Given Sodium Potassium Chloride Carbon Dioxide Anion Gap BUN Creatinine Est Cr Clr Drug Dosing Est GFR ( Amer) Est GFR (Non-Af Amer) BUN/Creatinine Ratio Glucose Estimat Average Glucose Hemoglobin A1c Lactate 1.3 Calcium Magnesium Total Bilirubin AST ALT Alkaline Phosphatase Troponin I NT-Pro-B Natriuret Pep Total Protein Albumin Globulin Albumin/Globulin Ratio Procalcitonin TSH Influenza Type A (PCR) Neg for Influ A Influenza Type B (PCR) Neg for Influ B Blood Type A Positive Antibody Screen NEGATIVE 10/14/18 10/15/18 10/15/18 22:55 00:06 05:31 WBC 6.33 RBC 5.17 Hgb 16.7 Hct 49.3 MCV 95.4 MCH 32.3 MCHC 33.9 RDW Std Deviation 49.5 H RDW Coeff of Melinda 14.2 Plt Count 249 MPV 8.7 Immature Gran % (Auto) 0.3 Neut % (Auto) 85.1 Lymph % (Auto) 11.1 Smyth % (Auto) 3.0 Eos % (Auto) 0.2 Baso % (Auto) 0.3 Immature Gran # (Auto) 0.02 Neut # (Auto) 5.39 Lymph # (Auto) 0.70 L Smyth # (Auto) 0.19 Eos # (Auto) 0.01 Baso # (Auto) 0.02 APTT PTT Ratio ABG pH 7.40 ABG pCO2 34 L ABG pO2 69 L ABG HCO3 20 ABG O2 Saturation 94.0 ABG Base Excess -3.4 Ricco Test POS Barometric Pressure 733.3 Oxygen Given 5 L Sodium Potassium Chloride Carbon Dioxide Anion Gap BUN Creatinine Est Cr Clr Drug Dosing Est GFR ( Amer) Est GFR (Non-Af Amer) BUN/Creatinine Ratio Glucose Estimat Average Glucose Hemoglobin A1c Lactate Calcium Magnesium Total Bilirubin AST ALT Alkaline Phosphatase Troponin I NT-Pro-B Natriuret Pep Total Protein Albumin Globulin Albumin/Globulin Ratio Procalcitonin 0.22 TSH Influenza Type A (PCR) Influenza Type B (PCR) Blood Type Antibody Screen 10/15/18 10/15/18 10/15/18 05:31 05:31 05:31 WBC RBC Hgb Hct MCV MCH MCHC RDW Std Deviation RDW Coeff of Melinda Plt Count MPV Immature Gran % (Auto) Neut % (Auto) Lymph % (Auto) Smyth % (Auto) Eos % (Auto) Baso % (Auto) Immature Gran # (Auto) Neut # (Auto) Lymph # (Auto) Smyth # (Auto) Eos # (Auto) Baso # (Auto) APTT 27.9 PTT Ratio 1.1 ABG pH ABG pCO2 ABG pO2 ABG HCO3 ABG O2 Saturation ABG Base Excess Ricco Test Barometric Pressure Oxygen Given Sodium 136 Potassium 4.8 D Chloride 105 Carbon Dioxide 20 L Anion Gap 11.0 BUN 37 H Creatinine 1.34 Est Cr Clr Drug Dosing 72.6 Est GFR ( Amer) 67.2 Est GFR (Non-Af Amer) 58.0 BUN/Creatinine Ratio 27.2 H Glucose 111 H Estimat Average Glucose 114 Hemoglobin A1c 5.6 Lactate Calcium 9.4 Magnesium Total Bilirubin AST ALT Alkaline Phosphatase Troponin I NT-Pro-B Natriuret Pep Total Protein Albumin Globulin Albumin/Globulin Ratio Procalcitonin TSH Influenza Type A (PCR) Influenza Type B (PCR) Blood Type Antibody Screen Diagnostic Findings Chest CTA revealed chronic findings and suggestion of acute alveolitis. Chest x-ray obtained at the time of admission was suggestive of pulmonary edema superimposed upon his chronic lung disease. Head CT performed for headache did not reveal any acute intracranial abnormality ECG Additional Comments: Atrial fibrillation rapid ventricular response
--- NOTE | 2018-10-15 11:13 | Hospitalist Progress Note ---
Date of Service October 15, 2018 Assessment & Plan (1) Acute respiratory failure with hypoxia: (2) Hemoptysis: Present on admission with difficulty to breath associated with cough and hemoptysis Oxygen saturation on admission was below 88% CT chest on admission showed interval development of groundglass opacities within the lungs. No pulmonary emboli CXR showed Congestive heart failure superimposed upon chronic interstitial change. ON IV Rocephine, Doxycycline and solumedrol Continue oxygen supplement and neb treatment Sputum cx and blood cx pending Pulmonology on board recommended to continue hold the Xarelto for now No plan to bronch due to risk of bronch complication since pt had episodes hemoptysis Continue Benzonatate for the cough hemoglobin stable Continue monitor closely (3) Atrial fibrillation with rapid ventricular response: Present to the ER between the 120 -130's Hx Recurrence atrial flutter and underwent catheter based therapy in November 2017. Received IV cardizem and Digoxin Cardiology on board Case discussed with cardiology recommended medical management with cardizem oral for rate control No plan for cardioversion Hold Xarelto for now due to episode of hemoptysis Echo pending Continue monitor in tele (4) [id number] deficiency: On weekly Prolastin infusion therapy DVT px on SCDs due to hemoptysis CODE STATUS FULL CODE DISPOSITION Continue monitor in tele Subjective Pt was seen and examined Lying in bed with no distress Pt said that his breathing slightly improves he said that he is coughing less Denies any chest pain, palpitation, fever and dizziness Physical Exam 2 Vital Signs (Past 24 Hours): Last Vital Signs Temp 36.4 C L 10/15/18 08:08 Pulse 94 H 10/15/18 08:08 Resp 16 10/15/18 08:08 BP 107/74 10/15/18 08:08 Pulse Ox 91 10/15/18 08:08 Physical Exam: General- No acute distress Head- atraumatic Eyes- PERRL, EOMI, ENT- oropharynx clear Neck- supple, no JVD Lungs- Decrease BS Heart- irregular rhythm and tachycardia Abdomen- normal bowel sounds, soft, nontender Extremities- no calf tenderness Neuro- alert, oriented x 3; PERRL, EOMI; no facial palsy; no dysarthria Skin- warm & dry
[2018-10-15] MEDS: methylPREDNISolone 40 MG in SYRINGE 0 ML IV SCH ×2 (11:23→22:31)
[2018-10-15] MEDS: DOXYCYCLINE HYCLATE 100 MG CAP PO SCH (22:30)
--- NOTE | 2018-10-16 01:08 | Consultation Report ---
DATE OF CONSULTATION: 10/15/2018 TYPE OF CONSULTATION: Pulmonary. CONSULTATION REQUESTED BY: Dr. Angel Calzada. REASON FOR CONSULTATION: Increasing shortness of breath as well as hemoptysis. HISTORY OF PRESENT ILLNESS: This is a 58-year-old male who has extensive past medical history significant for idiopathic pulmonary fibrosis and follows with his pulmonary physician, Dr. Guevara Norman. The patient also has a history of alpha 1 antitrypsin deficiency, and he has been on weekly Prolastin infusion therapy. He was brought into the hospital with increasing shortness of breath, cough, and tightness in his chest as well as hemoptysis. Patient also has a history of atrial fibrillation, he was cardioverted in the past and also was ablated, and he was on Xarelto for anticoagulation, which he stopped about 3 days ago because of persistent hemoptysis. According to the patient, he has been having this cough for about a month, and he has been bringing up on and off maybe blood tinged sputum, but last week he had more blood when he was coughing quite a lot, and he stopped his Xarelto about 3 days ago, and he feels that his coughing seems to be stabilizing and his hemoptysis is also going down. Currently, he is also on BiPAP, and he is on OxyMask at about 10 L and oxygenating around 97%-98%. He is on home O2 of 2 L via nasal cannula. He denies having any fever, chills, or chest pain. He gets very short of breath with any kind of activities or exertion. 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 He had some nausea but did not have any abdominal pain, diarrhea, or blood in the stool. He also denies having any hematemesis. Patient denies any recent travel history or exposure to anybody who has tuberculosis or influenza. He did not take his flu shots or pneumonia shots. Currently, he is also followed by a car construction superintendent, and he is on IV Lopressor, and his heart rate seems to be under control. REVIEW OF SYSTEMS: As mentioned above. He denies having any headache, dizziness, or syncopal episode. He also denies having any neck pain or swollen glands. He does not have any chest pain or palpitations. Currently, he does not have any nausea, vomiting, or abdominal pain. He does not have any blood in the stool or urine or painful micturition. He also denies having any swollen extremities. ALLERGIES: HE IS ALLERGIC TO AMOXICILLIN WELL TRAZODONE. PAST MEDICAL HISTORY: Significant for COPD, interstitial lung disease, alpha 1 antitrypsin deficiency, he has been on weekly Prolastin infusion therapy, also atrial fibrillation, status post ablation as well as cardioversion in the past, history of hyperlipidemia, history of TIA, and tobacco abuse in the past. He was also admitted in the past with SVT, and ablation was performed in 01/2018. PAST SURGICAL HISTORY: Hip surgery repair, back surgery, and also lung surgery. FAMILY HISTORY: Consistent with diabetes as well as heart disease. PERSONAL/SOCIAL HISTORY: History of tobacco abuse in the past, at least 2 packs of cigarettes a day, which he quit a few years ago. Denies any alcohol abuse, and currently, he uses oxygen at home. CURRENT MEDICATIONS: As per the chart. He is also on ceftriaxone as well as doxycycline, and he is on IV Solu-Medrol since he is on prednisone 10 mg p.o. daily. He was also on Xarelto 20 mg p.o. daily, he has been on albuterol Ventolin HFA 2 puffs up to 4 times a day as needed, alpha 1 antitrypsin or Prolastin once a week IV, and also Spiriva 1 puff daily. PHYSICAL EXAMINATION: GENERAL: A middle-aged male, looks older than his age, not in any acute distress. VITAL SIGNS: His temperature is 36.4, blood pressure 107/74, pulse is 94, respiratory rate was 16, and his O2 saturation was 94% on his OxyMask. His input was 770, output was 400. HEENT: Pupils are reactive to light. There is no cervical or supraclavicular adenopathy, no jugular venous distention. Nasal passages are clear. Sinuses are nontender. CHEST: Bilateral air entry with fine crackles posteriorly, more so in the mid lungs and at the bases. No rhonchi heard. No wheezing heard. HEART: S1 and S2 heard, tachycardia, irregular at times. ABDOMEN: Soft, nontender, no hepatosplenomegaly. Bowel sounds are positive. EXTREMITIES: No clubbing, no edema. Nontender calf muscles. NEUROLOGIC: Limited study, which is grossly nonfocal. SKIN: No rash, no lesions. MUSCULOSKELETAL SYSTEM: Did not reveal any joint abnormalities. LABORATORY DATA: His WBC is 6.33, H and H 16.7/49, his platelets are 249, PTT 27.9. His ABG which was done yesterday revealed pH of 7.40, pCO2 of 34, pO2 of 69, bicarbonate is 20, O2 saturation was 94% that was on 5 L. His sodium is 136, potassium is 4.3, chloride 105, CO2 is 20, anion gap was 11, BUN 37, creatinine 1.34, glucose 111. Hemoglobin A1c was 5.6. Lactate was 1.3. Calcium was 9.4, magnesium 2.2, total bilirubin 2.7, AST 28, ALT 20, alkaline phosphatase 148. BNP was 323. Albumin 2.9. TSH 1.88. Influenza A and B were negative. IMAGING: CT of the chest revealed no pulmonary emboli identified, emphysema with superimposed interstitial lung disease, interval development of ground-glass opacities within the lungs, possibility of pneumonia, hemorrhage, or active alveolitis, no change in mediastinal or bilateral hilar lymphadenopathy, which is mostly related to interstitial lung disease. IMPRESSION AND PLAN: A 58-year-old male was admitted with hemoptysis and worsening shortness of breath. 1. Hemoptysis. At this stage, I feel that his hemoptysis could be related to his anticoagulation/Xarelto because of chronic cough which he has been having for 1 month. According to the patient, since he has stopped Xarelto about 3 days ago, his hemoptysis has significantly improved. CT scan also is consistent with possibility of some bleeding, which might be collected blood. He is still short of breath. At this stage, we are going to send the sputum for Gram stain and culture and sensitivity, but we are going to hold on bronchoscopy unless if he starts bleeding more, then will schedule him for bronchoscopy. We will discuss with the cardiology about starting him back on Xarelto. 2. Pneumonia/pulmonary infection. The CT scan also revealed some ground-glass opacities, which could be related to pulmonary infection, also could be related to alveolar bleeding. He is on ceftriaxone as well as doxycycline, which will be continued. We are also going to send the sputum for Gram stain as well as culture and sensitivity. I have discussed with the primary care physician and change his antibiotics accordingly. 3. Hypoxemia. He has been on home O2 secondary to his pulmonary fibrosis. Currently, he is on OxyMask, which will be continued. 4. Chronic obstructive pulmonary disease exacerbation. Patient is on inhalers, which will be continued. He is also going to be continued on antibiotics as well as nebulizer, and he is also on IV Solu-Medrol. He is on home prednisone from outpatient. The patient also has a history of exposure to tuberculosis in the past. At this stage, it is very unlikely that he has TB. He was treated with rifampin for prophylaxis. We are going to send the sputum for Gram stain, culture and sensitivity, and we will follow it up. He is also going to be followed with the car construction superintendent and will follow their recommendations. Will continue with all other management as prescribed. I have also discussed with Dr. Mal Pickard and discussed about the plan of care. I have spent greater than 55 minutes of the clinical time. Thank you very much for allowing me to participate in the care of your patient. If you have any further questions, please do not hesitate to contact me, and I will follow this case with you. LAURA
[2018-10-16] MEDS: cefTRIAXone SODIUM 1,000 MG in DEXTROSE 5% 50 ML IV SCH (01:15)
[2018-10-16] MEDS: IPRATROPIUM BROMIDE NEB SOLN 0.02% 2.5 ML VIAL INH SCH ×4 (01:56→19:31)
[2018-10-16] MEDS: LEVALBUTEROL 1.25MG/0.5ML NEB INH SCH ×4 (01:58→19:31)
--- NOTE | 2018-10-16 02:01 | Hospitalist Progress Note ---
Date of Service October 16, 2018 Subjective Patient requesting for medication for restless legs at night. Claims to take OTC herbal medication. Will initiate low-dose gabapentin at bedtime inpatient with hold parameters for sedation/confusion. Will relay to AM provider. Physical Exam 2 Vital Signs (Past 24 Hours): Last Vital Signs Temp 37.0 C 10/16/18 00:01 Pulse 107 H 10/16/18 01:58 Resp 20 10/16/18 01:58 BP 118/89 10/16/18 00:01 Pulse Ox 92 10/16/18 01:58
[2018-10-16] MEDS: GABAPENTIN 100 MG CAP PO SCH ×2 (02:19→20:56)
[2018-10-16 08:01] LABS: Hematocrit (blood only) 46.5 % (42-52); Hemoglobin 15.8 g/dL (14.0-18.0); Mean Corpuscular Volume 94.7 fL (80-100); Mean Platelet Volume 8.9 fL (7.4-10.4); Platelet Count 258 K/uL (130-400); RDW Coefficient of Variation 13.7 % (11.5-14.5); RDW Standard Deviation 47.2 fL (36.4-46.3); Red Blood Count 4.91 M/uL (4.7-6.1); White Blood Count 11.38 K/uL (4.8-10.8)
[2018-10-16] MEDS: METOPROLOL TARTRATE 1 MG/ML VIAL IV, SCH ×4 (08:22→08:25)
[2018-10-16] MEDS: dilTIAZem HCL 120 MG CAPCR PO SCH (08:31)
[2018-10-16] MEDS: DOXYCYCLINE HYCLATE 100 MG CAP PO SCH ×2 (08:31→20:56)
[2018-10-16] MEDS: methylPREDNISolone 40 MG in SYRINGE 0 ML IV SCH ×2 (08:32→20:56)
--- NOTE | 2018-10-16 13:32 | Cardiology Progress Note ---
Date of Service October 16, 2018 Assessment & Plan (1) Atrial fibrillation with rapid ventricular response: He continues to have slightly elevated ventricular rates. Yesterday overall rate control was adequate if not optimal. This morning his heart rates are slightly higher. I think he could tolerate more diltiazem. I will order him an extra dose this afternoon. Will continue titration of medication according to his heart rates and blood pressure. Once we are confident he is free of any pulmonary hemorrhage, I would advocate reinstitution of his Xarelto. Subjective This morning the patient claims to be feeling only mildly better. Still has an element of dyspnea even at rest. He has not noticed any hemoptysis. Physical Exam 2 Vital Signs (Past 24 Hours): Last Vital Signs Temp 36.5 C 10/16/18 10:47 Pulse 105 H 10/16/18 10:47 Resp 21 10/16/18 10:47 BP 126/82 10/16/18 10:47 Pulse Ox 94 10/16/18 10:47 Physical Exam: The patient is alert and oriented. Mood and affect appeared normal. He answered all questions appropriately. Using supplemental oxygen HEENT: Pupils are equal and reactive to light and accommodation. Extraocular movements are intact. The sclerae are anicteric. Neuro: Cranial nerves intact Neck: Patient's neck is supple. He has palpable carotid pulses bilaterally without bruits on auscultation. There is no evidence of jugular venous distention. The thyroid is not enlarged. Lungs: Tachypneic. Diffuse crackles throughout all lung leonard. Cardiac: Heart demonstrates an irregular rate and rhythm. Normal S1 and S2. No murmurs on examination. Pulses: The patient has palpable radial pulses bilaterally that are equal in intensity Extremities: There was no evidence of hypoperfusion. There is no cyanosis but he does have clubbing all digits. There is no edema. Skin: I did not appreciate any rashes on examination today. Results & Data Laboratory Results Abnormal Lab Results 10/16/18 07:52 WBC 11.38 H RBC 4.91 Hgb 15.8 Hct 46.5 MCV 94.7 MCH 32.2 MCHC 34.0 RDW Std Deviation 47.2 H RDW Coeff of Melinda 13.7 Plt Count 258 MPV 8.9
[2018-10-16] MEDS: FLUTICASONE PROPIONATE NA SPR 16 GM BTL SCH ×2 (14:36→20:55)
--- NOTE | 2018-10-16 16:51 | Hospitalist Progress Note ---
Date of Service October 16, 2018 Assessment & Plan (1) Acute respiratory failure with hypoxia: (2) Hemoptysis: Present on admission with difficulty to breath associated with cough and hemoptysis Oxygen saturation on admission was below 88% CT chest on admission showed interval development of groundglass opacities within the lungs. No pulmonary emboli CXR showed Congestive heart failure superimposed upon chronic interstitial change. Continue IV Rocephine, Doxycycline and solumedrol Continue oxygen supplement and neb treatment Pulmonology on board recommended to continue hold the Xarelto for now No plan to bronch due to risk of bronch complication since pt had episodes hemoptysis Continue Benzonatate for the cough hemoglobin stable Will restart xarelto in am if pt has no hemoptysis Sputum cx grow normal john Blood cx no growth and AFB pending Continue monitor closely (3) Atrial fibrillation with rapid ventricular response: Present to the ER between the 120 -130's Hx Recurrence atrial flutter and underwent catheter based therapy in November 2017. Received IV cardizem and Digoxin Cardiology on board Case discussed with cardiology recommended medical management with cardizem oral for rate control No plan for cardioversion Hold Xarelto for now due to episode of hemoptysis Echo showed LV systolic function is normal LV wall motion is normal with EF 55-60% Additional cardizem dose given today Resume Xarelto in am Continue monitor in tele (4) [id number] deficiency: On weekly Prolastin infusion therapy DVT px on SCDs due to hemoptysis Will resume xarelto in am CODE STATUS FULL CODE DISPOSITION Continue monitor in tele Subjective Pt was seen and examined Lying in bed with no distress Pt said that his breathing slightly improved He said that there is no blood from the sputum when coughing now He said that cough improves His heart rate was in the 130 this morning Denies any chest pain, palpitation dizziness and fever Physical Exam 2 Vital Signs (Past 24 Hours): Last Vital Signs Temp 36.5 C 10/16/18 14:58 Pulse 97 H 10/16/18 14:58 Resp 26 H 10/16/18 14:58 BP 117/89 10/16/18 14:58 Pulse Ox 94 10/16/18 14:58 Physical Exam: General- No acute distress Head- atraumatic Eyes- PERRL, EOMI, ENT- oropharynx clear Neck- supple, no JVD Lungs- Decrease BS Heart- irregular rhythm and tachycardia Abdomen- normal bowel sounds, soft, nontender Extremities- no calf tenderness Neuro- alert, oriented x 3; PERRL, EOMI; no facial palsy; no dysarthria Skin- warm & dry
[2018-10-16] MEDS ORDERED: POLYETHYLENE (MIRALAX) 17 GM PACK PO ONE (17:45)
--- NOTE | 2018-10-16 17:55 | Progress Note ---
DATE: 10/16/2018 PULMONARY PROGRESS NOTE SUBJECTIVE: A 58-year-old male who has past medical history significant for chronic atrial fibrillation, has been on Xarelto, was admitted with pneumonia as well as hemoptysis and Xarelto was stopped, and overall, he seems to be improving. He is still requiring some BiPAP. He is also having some nasal congestion as well as postnasal drip. The patient was started on Flonase with some improvement in his nasal congestion. His atrial fibrillation seems to be also rate controlled. He was started on diltiazem by cardiology. His hemoptysis seems to be under control. Denies having any chest pain or palpitations. PHYSICAL EXAMINATION: GENERAL: Middle-aged male, resting comfortably, not in any acute distress. VITAL SIGNS: His blood pressure is 117/89, pulse is 97, respiratory rate is 26. His temperature is 36.5 and oxygen saturation is 94% on 11 liters per minute OxyMask. His input was 1635, output was 1925. HEENT: Pupils are reactive to light. There is no cervical or supraclavicular adenopathy. No jugular venous distention. Nasal passages are filled with some mucoid secretions. Nontender sinuses. CHEST: Bilateral air entry with scattered rhonchi, also has some expiratory wheezes and crackles at the bases. HEART: S1, S2 heard, irregular at times, tachycardia, no murmur could be appreciated. ABDOMEN: Soft, nontender. Bowel sounds are positive. EXTREMITIES: No clubbing, no edema, nontender calf muscles. NEUROLOGIC: Limited study which is grossly nonfocal. He is moving all his extremities. SKIN: No rash, no lesions. Some ecchymotic changes. MUSCULOSKELETAL SYSTEM: Did not reveal any joint abnormalities. LABORATORY DATA: His WBC was 11.38, H and H 15.8/46.5, MCV is 94 and his platelets are 258. The patient had a CT of the head, which did not reveal any intracranial abnormalities. He also had a CT angiogram of the chest, which did not reveal any pulmonary emboli, emphysema with superimposed interstitial lung disease. Interval development of ground-glass opacities within the lungs which may reflect pneumonia/pulmonary edema/pulmonary hemorrhage or active alveolitis. No change in mediastinal and bilateral hilar lymphadenopathy, which is mostly related to his interstitial lung disease. IMPRESSION AND PLAN: A 58-year-old male admitted with hemoptysis/acute respiratory failure. 1. Hemoptysis. I believe it was mostly related to Xarelto and the patient is off the Xarelto. His hemoptysis seems to have improved and he is not bringing up any blood at this time. We will continue with current plan of care and follow the recommendation from the photo graphics librarian about starting him on Xarelto. 2. Respiratory failure secondary to hemoptysis as well as pneumonia, seems to be stabilizing. He is on broad spectrum antibiotics. The cultures are not yet back. We will continue with the current plan of care. 3. Acute respiratory failure. He is on and off on BiPAP, which will be also continued. 4. Chronic interstitial lung disease/chronic obstructive pulmonary disease with exacerbation. The patient is on steroids. The patient is on nebulizer treatment and he is also on oxygen with BIPAP at times intermittently with OxyMask and he seems to be tolerating it. We are going to continue with all other management as prescribed. The patient was also started on Flonase 1 squirt twice a day into each nostril. I have spent greater than 35 minutes of clinical time.
[2018-10-16] MEDS ORDERED: POLYETHYLENE (MIRALAX) 17 GM PACK ONE (20:53)
[2018-10-17] MEDS: LEVALBUTEROL 1.25MG/0.5ML NEB INH SCH ×4 (01:34→19:37)
[2018-10-17] MEDS: IPRATROPIUM BROMIDE NEB SOLN 0.02% 2.5 ML VIAL INH SCH ×4 (01:34→19:36)
[2018-10-17] MEDS: cefTRIAXone SODIUM 1,000 MG in DEXTROSE 5% 50 ML IV SCH (01:49)
[2018-10-17 06:27] LABS: Hematocrit (blood only) 44.6 % (42-52); Hemoglobin 15.2 g/dL (14.0-18.0); Mean Corpuscular Hgb Conc 34.1 g/dL (32-36); Mean Corpuscular Volume 95.9 fL (80-100); Mean Platelet Volume 8.6 fL (7.4-10.4); Platelet Count 256 K/uL (130-400); RDW Coefficient of Variation 13.8 % (11.5-14.5); RDW Standard Deviation 48.1 fL (36.4-46.3); Red Blood Count 4.65 M/uL (4.7-6.1); White Blood Count 13.35 K/uL (4.8-10.8)
[2018-10-17 07:15] LABS: BUN Creatinine Ratio 20.6 (10-20); Calcium 9.6 mg/dl (8.5-10.1); Creatinine Clr Calc Pharmacy 86.8 ml/min; Est GFR (African American) 83.5; Potassium 4.3 mmol/L (3.5-5.1)
--- NOTE | 2018-10-17 08:46 | Cardiology Progress Note ---
Date of Service October 17, 2018 Assessment & Plan (1) Atrial fibrillation with rapid ventricular response: His overall ventricular rates are relatively stable. I think we can increase his dose of long-acting diltiazem this morning 240 mg. We can watch his rates throughout the course of the day. His blood pressure is good and his heart rates remain elevated perhaps an additional dose of 120 mg this afternoon would be warranted. He seems to be tolerating therapy well. Overall I think we made some progress with respect to his heart rates. Without recent hemoptysis would seem reasonable to restart his Xarelto today. Subjective Overall his clinical condition appears to be stable. He denies any further hemoptysis. His breathing is minimally improved. He has had minimal ambulation around his room. Physical Exam 2 Vital Signs (Past 24 Hours): Last Vital Signs Temp 36.6 C 10/17/18 07:49 Pulse 97 H 10/17/18 07:49 Resp 18 10/17/18 07:00 BP 117/86 10/17/18 07:49 Pulse Ox 93 10/17/18 07:49 Physical Exam: The patient is alert and oriented. Mood and affect appeared normal. He answered all questions appropriately. HEENT: Pupils are equal and reactive to light and accommodation. Extraocular movements are intact. The sclerae are anicteric. Neuro: Cranial nerves intact Neck: Patient's neck is supple. He has palpable carotid pulses bilaterally without bruits on auscultation. There is no evidence of jugular venous distention. The thyroid is not enlarged. Lungs: Fine crackles throughout lung leonard. No expiratory wheezing. Cardiac: Heart demonstrates an irregular rate and rhythm. Normal S1 and S2. No murmurs on examination. Pulses: The patient has palpable radial pulses bilaterally that are equal in intensity Extremities: There was no evidence of hypoperfusion. There is no cyanosis but prominent clubbing all digits. There is no edema. Skin: I did not appreciate any rashes on examination today. Results & Data Laboratory Results Abnormal Lab Results 10/17/18 10/17/18 06:03 06:03 WBC 13.35 H RBC 4.65 L Hgb 15.2 Hct 44.6 MCV 95.9 MCH 32.7 MCHC 34.1 RDW Std Deviation 48.1 H RDW Coeff of Melinda 13.8 Plt Count 256 MPV 8.6 Sodium 139 Potassium 4.3 Chloride 106 Carbon Dioxide 26 Anion Gap 7.0 BUN 23 H Creatinine 1.12 Est Cr Clr Drug Dosing 86.8 Est GFR ( Amer) 83.5 Est GFR (Non-Af Amer) 72.0 BUN/Creatinine Ratio 20.6 H Glucose 128 H Calcium 9.6
[2018-10-17] MEDS: DOXYCYCLINE HYCLATE 100 MG CAP PO SCH ×2 (10:12→20:25)
[2018-10-17] MEDS: methylPREDNISolone 40 MG in SYRINGE 0 ML IV SCH (10:13)
[2018-10-17] MEDS: FLUTICASONE PROPIONATE NA SPR 16 GM BTL SCH ×2 (10:15→20:24)
[2018-10-17] MEDS: dilTIAZem ER 120 MG CAPCR PO SCH (10:15)
[2018-10-17] MEDS ORDERED: POLYETHYLENE (MIRALAX) 17 GM PACK PO PRN (11:53)
[2018-10-17] MEDS ORDERED: dilTIAZem ER 120 MG CAPCR PO ONE (13:29)
[2018-10-17] MEDS: SENNA 8.6 MG TAB PO SCH (13:58)
[2018-10-17] MEDS: DOCUSATE SODIUM 100 MG CAP PO SCH ×2 (13:58→20:25)
[2018-10-17] MEDS: RIVAROXABAN 20 MG TAB PO SCH (13:58)
--- NOTE | 2018-10-17 20:20 | Hospitalist Progress Note ---
Date of Service October 17, 2018 Assessment & Plan (1) Acute respiratory failure with hypoxia: (2) Hemoptysis: Present on admission with difficulty to breath associated with cough and hemoptysis Oxygen saturation on admission was below 88% CT chest on admission showed interval development of groundglass opacities within the lungs. No pulmonary emboli CXR showed Congestive heart failure superimposed upon chronic interstitial change. Continue IV Rocephine, Doxycycline down titrate solumedro from BID to dailyl Continue oxygen supplement and neb treatment Continue Benzonatate for the cough sputum cx grow normal john Blood cx no growth and AFB samples pending results hemoglobin stable resume Xarelto 20 mg daily as of 10/17/18 monitor for bleeding (3) Atrial fibrillation with rapid ventricular response: Present to the ER between the 120 -130's Hx Recurrence atrial flutter and underwent catheter based therapy in November 2017. Received IV cardizem and Digoxin Echo showed LV systolic function is normal LV wall motion is normal with EF 55-60% recently on oral cardizem alone and the dose has been increased to 240 mg daily starting 10/17/18 Resumed Xarelto heart rate is controlled, patient remains in atrial fibrillation Continue monitor in tele (4) [id number] deficiency: On weekly Prolastin infusion therapy DVT px resumed xarelto in am CODE STATUS FULL CODE DISPOSITION Continue monitor in tele Subjective Pt was seen and examined Denies hemoptysis Denies any chest pain, palpitation dizziness and fever Physical Exam 2 Vital Signs (Past 24 Hours): Last Vital Signs Temp 36.5 C 10/17/18 19:07 Pulse 89 10/17/18 19:38 Resp 22 10/17/18 19:38 BP 103/74 10/17/18 19:07 Pulse Ox 92 10/17/18 19:38 Physical Exam: General- No acute distress Head- atraumatic Eyes- PERRL, EOMI, ENT- oropharynx clear Neck- supple, no JVD Lungs- CTABL Heart- irregular rhythm Abdomen- normal bowel sounds, soft, nontender Extremities- no calf tenderness Neuro- alert, oriented x 3; PERRL, EOMI; no facial palsy; no dysarthria Skin- warm & dry
[2018-10-17] MEDS: GABAPENTIN 100 MG CAP PO SCH (20:25)
[2018-10-18] MEDS: cefTRIAXone SODIUM 1,000 MG in DEXTROSE 5% 50 ML IV SCH (00:34)
[2018-10-18] MEDS: LEVALBUTEROL 1.25MG/0.5ML NEB INH SCH ×2 (02:06→06:59)
[2018-10-18] MEDS: IPRATROPIUM BROMIDE NEB SOLN 0.02% 2.5 ML VIAL INH SCH ×2 (02:07→06:59)
[2018-10-18 05:59] LABS: Basophils # (auto) 0.01 K/uL (0-0.2); Basophils % (auto) 0.1 %; Eosinophils # (auto) 0.01 K/uL (0-0.5); Eosinophils % (auto) 0.1 %; Hematocrit (blood only) 46.4 % (42-52); Hemoglobin 15.4 g/dL (14.0-18.0); Immature Granulocytes # (auto) 0.06 K/uL (0.00-0.02); Immature Granulocytes % (auto) 0.4 %; Lymphocytes # (auto) 1.02 K/uL (1.2-3.4); Lymphocytes % (auto) 7.2 %; Mean Corpuscular Hgb Conc 33.2 g/dL (32-36); Mean Corpuscular Volume 95.7 fL (80-100); Mean Platelet Volume 9.2 fL (7.4-10.4); Monocytes # (auto) 0.68 K/uL (0.11-0.59); Monocytes % (auto) 4.8 %; Neutrophils % (auto) 87.4 %; Platelet Count 267 K/uL (130-400); RDW Standard Deviation 48.5 fL (36.4-46.3); Red Blood Count 4.85 M/uL (4.7-6.1); White Blood Count 14.08 K/uL (4.8-10.8)
[2018-10-18 06:28] LABS: BUN Creatinine Ratio 19.6 (10-20); Calcium 9.7 mg/dl (8.5-10.1); Creatinine Clr Calc Pharmacy 90.6 ml/min; Est GFR (African American) 87.2; Est GFR (Non-African American) 75.3
[2018-10-18] MEDS: FLUTICASONE PROPIONATE NA SPR 16 GM BTL SCH ×2 (07:31→21:08)
[2018-10-18] MEDS: DOCUSATE SODIUM 100 MG CAP PO SCH ×2 (07:32→21:09)
[2018-10-18] MEDS: SENNA 8.6 MG TAB PO SCH (07:32)
[2018-10-18] MEDS: dilTIAZem ER 120 MG CAPCR PO SCH (07:32)
[2018-10-18] MEDS: DOXYCYCLINE HYCLATE 100 MG CAP PO SCH ×2 (07:32→21:09)
[2018-10-18] MEDS ORDERED: IPRATROPIUM BROMIDE NEB SOLN 0.02% 2.5 ML VIAL INH PRN (08:59)
[2018-10-18] MEDS ORDERED: LEVALBUTEROL 1.25MG/0.5ML NEB INH PRN (08:59)
[2018-10-18] MEDS ORDERED: methylPREDNISolone 40 MG in SYRINGE 0 ML IV SCH (09:00)
--- NOTE | 2018-10-18 12:54 | Cardiology Progress Note ---
Date of Service October 18, 2018 Assessment & Plan (1) Atrial fibrillation with rapid ventricular response: I think he has fair rate control with respect to his atrial fibrillation. I do not believe he requires continued hospitalization simply to affect better rate control. I do not think he is very symptomatic from the associated high rates. His activity is limited primarily by his lung disease. His blood pressure appears to be quite good and I will give him another dose of diltiazem this afternoon. In the morning will increase his daily dose of 360 milligrams. If this appears to be in adequate we could try low-dose beta-sophie or digoxin. Digoxin may actually be a good choice given his relative inactivity. However, this could easily be titrated on an outpatient basis as well. I think if he is stable for discharge from a pulmonary standpoint, we can continue to monitor his rate control and affect medication changes in an outpatient setting. He has restarted Xarelto. He should continue Xarelto unless he has more significant hemoptysis. Subjective This morning the patient claims to be feeling okay. He states that his breathing has improved slightly since admission. He has not had any more hemoptysis. He continues to have an element of sputum production. He has ambulated very little but is dyspneic even getting up to the commode. No dizziness. Physical Exam 2 Vital Signs (Past 24 Hours): Last Vital Signs Temp 36.6 C 10/18/18 08:47 Pulse 112 H 10/18/18 08:47 Resp 18 10/18/18 08:47 BP 126/82 10/18/18 08:47 Pulse Ox 94 10/18/18 08:47 Physical Exam: The patient is alert and oriented. Mood and affect appeared normal. He answered all questions appropriately. Wearing supplemental oxygen HEENT: Pupils are equal and reactive to light and accommodation. Extraocular movements are intact. The sclerae are anicteric. Neuro: Cranial nerves intact Neck: Patient's neck is supple. Lungs: Fine crackles throughout all lung leonard. No expiratory wheezing. Cardiac: Heart demonstrates an irregular rate and rhythm. Normal S1 and S2. No murmurs on examination. Pulses: The patient has palpable radial pulses bilaterally that are equal in intensity Extremities: There was no evidence of hypoperfusion. There is no cyanosis or clubbing. There is no edema. Skin: I did not appreciate any rashes on examination today. Results & Data Laboratory Results Abnormal Lab Results 10/18/18 10/18/18 05:35 05:35 WBC 14.08 H RBC 4.85 Hgb 15.4 Hct 46.4 MCV 95.7 MCH 31.8 MCHC 33.2 RDW Std Deviation 48.5 H RDW Coeff of Melinda 14.0 Plt Count 267 MPV 9.2 Immature Gran % (Auto) 0.4 Neut % (Auto) 87.4 Lymph % (Auto) 7.2 [place] % (Auto) 4.8 Eos % (Auto) 0.1 Baso % (Auto) 0.1 Immature Gran # (Auto) 0.06 H Neut # (Auto) 12.30 H Lymph # (Auto) 1.02 L [place] # (Auto) 0.68 H Eos # (Auto) 0.01 Baso # (Auto) 0.01 Sodium 138 Potassium 4.0 Chloride 103 Carbon Dioxide 28 Anion Gap 7.0 BUN 21 H Creatinine 1.08 Est Cr Clr Drug Dosing 90.6 Est GFR ( Amer) 87.2 Est GFR (Non-Af Amer) 75.3 BUN/Creatinine Ratio 19.6 Glucose 110 H Calcium 9.7
[2018-10-18] MEDS ORDERED: dilTIAZem ER 120 MG CAPCR PO ONE (13:15)
[2018-10-18] MEDS: RIVAROXABAN 20 MG TAB PO SCH (16:41)
--- NOTE | 2018-10-18 17:15 | Hospitalist Progress Note ---
Date of Service October 18, 2018 Assessment & Plan (1) Acute respiratory failure with hypoxia: (2) Hemoptysis: Presented on admission with difficulty to breath associated with cough and hemoptysis Oxygen saturation on admission was below 88% CT chest on admission showed interval development of groundglass opacities within the lungs. No pulmonary emboli CXR showed Congestive heart failure superimposed upon chronic interstitial change. sputum cx grow normal john Blood cx no growth and AFB samples pending results Continue IV Rocephine, Doxycycline which were started on 10/15/18 Continue oxygen supplement nebulizer treatments changed to prn Continue Benzonatate prn for cough will transition from solumedrol to prednisone by 10/19/18 resume Xarelto 20 mg daily as of 10/17/18, continue hemoglobin stable (3) Atrial fibrillation with rapid ventricular response: Present to the ER between the 120 -130's Hx Recurrence atrial flutter and underwent catheter based therapy in November 2017. Received IV diltiazem and Digoxin Echo showed LV systolic function is normal LV wall motion is normal with EF 55-60% recently on oral diltiazem alone and the dose has been increased to 240 mg daily starting 10/17/18 as of 10/18/18 the patient received additional 120 mg diltiazem for total of 360 mg of diltiazem which has allowed better heart rate control will have diltiazem 360 mg daily starting on 10/19/18 Resumed Xarelto heart rate is controlled, patient remains in atrial fibrillation Continue monitor in tele (4) [id number] deficiency: On weekly Prolastin infusion therapy DVT px xarelto CODE STATUS FULL CODE DISPOSITION Continue monitor in telemetry Subjective Pt was seen and examined Denies hemoptysis Denies any chest pain, Heart rates are better controlled with increase diltiazem. Currently in atrial fibrillation denies palpitations denies dizziness Physical Exam 2 Vital Signs (Past 24 Hours): Last Vital Signs Temp 36.6 C 10/18/18 15:09 Pulse 91 H 10/18/18 15:09 Resp 18 10/18/18 15:09 BP 118/86 10/18/18 15:09 Pulse Ox 93 10/18/18 15:09 Constitutional: WD/WN, vitals as above Eyes: PERRL, conjunctivae normal, anicteric sclerae EOM intact bilaterally ENMT: external ear and nose normal, oropharynx normal Respiratory: normal respiratory effort (on oxymask) Cardiovascular: Rate/Rhythm: regular rate (atrial fibrillation) Gastrointestinal (Abdomen): normal bowel sounds, soft, nontender, no hepatosplenomegaly Musculoskeletal: no cyanosis or clubbing, extremities motor strength 5/5 Head/Neck/Chest: normocephalic and head atraumatic Neurologic: PERRL, EOMI, accommodation nl, no face palsy, no dysarthria CN' s II-XI intact bilaterally Psychiatric: A+Ox3, euthymic affect
[2018-10-18] MEDS: GABAPENTIN 100 MG CAP PO SCH (21:09)
[2018-10-19] MEDS: cefTRIAXone SODIUM 1,000 MG in DEXTROSE 5% 50 ML IV SCH (01:53)
[2018-10-19] MEDS: DOXYCYCLINE HYCLATE 100 MG CAP PO SCH (08:23)
[2018-10-19] MEDS: FLUTICASONE PROPIONATE NA SPR 16 GM BTL SCH (08:24)
[2018-10-19] MEDS: SENNA 8.6 MG TAB PO SCH (08:24)
[2018-10-19] MEDS: DOCUSATE SODIUM 100 MG CAP PO SCH (08:27)
[2018-10-19] MEDS ORDERED: predniSONE 20 MG TAB PO SCH (09:00)
[2018-10-19] MEDS ORDERED: dilTIAZem ER 180 MG CAPCR PO SCH (09:00)
[2018-10-19] MEDS ORDERED: ALBUTEROL 0.5% NEB SOLN 2.5 MG/0.5 ML VIAL NEB PRN (09:16)
--- NOTE | 2018-10-19 09:18 | Cardiology Progress Note ---
Date of Service October 19, 2018 Assessment & Plan (1) Atrial fibrillation with rapid ventricular response: I think his rate control is adequate. He does have some higher heart rates at times, likely with activity. I think this is reasonable control. He was started on a slightly higher dose of diltiazem this morning which he can continue on an outpatient basis. He will continue on his Xarelto. No evidence of my offices. He should follow-up in our clinic in a period of 1-2 weeks and I will arrange for this. Subjective This morning patient claims to be feeling well. He continues to have an element of dyspnea which appears to be at his baseline. He is ambulatory around the room with an element of dyspnea. He denies any sense of palpitation. He is not feeling dizzy. His appetite is good. He is coughing up some discolored sputum, but no definite blood. Physical Exam 2 Vital Signs (Past 24 Hours): Last Vital Signs Temp 36.6 C 10/19/18 06:49 Pulse 90 10/19/18 06:49 Resp 20 10/19/18 06:49 BP 130/79 10/19/18 06:49 Pulse Ox 95 10/19/18 06:49 Physical Exam: The patient is alert and oriented. Mood and affect appeared normal. He answered all questions appropriately. HEENT: Pupils are equal and reactive to light and accommodation. Extraocular movements are intact. The sclerae are anicteric. Neuro: Cranial nerves intact Lungs: Crackles in all lung leonard, no evidence of pulmonary edema. No expiratory wheeze Cardiac: Heart demonstrates an irregular rate and rhythm. Normal S1 and S2. No murmurs on examination. Pulses: The patient has palpable radial pulses bilaterally that are equal in intensity Extremities: There was no evidence of hypoperfusion. There is no cyanosis but he does have clubbing all digits. There is no edema. Skin: I did not appreciate any rashes on examination today.
--- NOTE | 2018-10-19 12:06 | Hospitalist Progress Note ---
Date of Service October 19, 2018 Assessment & Plan (1) Acute respiratory failure with hypoxia: Presented on admission with difficulty to breath associated with cough and hemoptysis Oxygen saturation on admission was below 88% CT chest on admission showed interval development of groundglass opacities within the lungs. No pulmonary emboli CXR showed Congestive heart failure superimposed upon chronic interstitial change. 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 Clark, cardiology reports that it is ok to continue Xarelto with Diltiazem despite drug interaction warnings on the electronic medical system patient will have outpatient follow up to primary care doctor for CBC recheck (3) Atrial fibrillation with rapid ventricular response: Present to the ER between the 120 -130's Hx Recurrence atrial flutter and underwent catheter based therapy in November 2017. Received IV diltiazem and Digoxin as inpatient Echo showed LV systolic function is normal LV wall motion is normal with EF 55-60% recently on oral diltiazem alone and the dose has been increased to 240 mg daily starting 10/17/18 as of 10/18/18 the patient received additional 120 mg diltiazem for total of 360 mg of diltiazem which has allowed better heart rate control will have diltiazem 360 mg daily starting on 10/19/18, continue diltiazem [address] Clark, cardiology reports that it is ok to continue Xarelto with Diltiazem despite drug interaction warnings on the electronic medical system resume Xarelto 20 mg daily as of 10/17/18, continue heart rate is controlled, patient remains in atrial fibrillation (4) [id number] deficiency: On weekly Prolastin infusion therapy DVT px xarelto CODE STATUS FULL CODE Discharge Diagnosis Acute respiratory failure with hypoxia, Atrial Fibrillation with Rapid Ventricular Response, Hemoptysis Discharge Instructions Oxygen prescription written for oxygen 4 liter/min at rest and 6 liters/min with activity Prescription written for nebulizer machine and patient can take nebulizer treatments every 6 hours as needed for shortness of breath or wheezing 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 Aparicio. [facility]. Patient should have CBC repeated when on combination with Xarelto and Diltizaem and with history of hemoptysis Follow up with strategic analyst in 1 to 2 weeks (patient to make appointment) Follow up with mechanical engineering technician in 2 to 4 weeks (patient to make appointment) Subjective Pt was seen and examined Denies any chest pain. denies palpitations. denies dizziness Heart rates are better controlled with increase diltiazem. Currently in atrial fibrillation reported some blood in sputum but no overt bleeding Dr. Clark, cardiology reports that it is ok to continue Xarelto with Diltiazem despite drug interaction warnings on the electronic medical system Patient had 2 step test that determined discharge oxygen requirements Physical Exam 2 Vital Signs (Past 24 Hours): Last Vital Signs Temp 36.5 C 10/19/18 10:58 Pulse 99 H 10/19/18 10:58 Resp 26 H 10/19/18 10:58 BP 143/97 H 10/19/18 10:58 Pulse Ox 91 10/19/18 10:58 Constitutional: WD/WN, vitals as above Eyes: PERRL, conjunctivae normal, anicteric sclerae EOM intact bilaterally ENMT: external ear and nose normal, oropharynx normal Respiratory: normal respiratory effort (on nasal cannula) and able to speak in complete sentences Auscultation: lungs clear to auscultation bilaterally Cardiovascular: Rate/Rhythm: regular rate (atrial fibrillation) Gastrointestinal (Abdomen): normal bowel sounds, soft, nontender, no hepatosplenomegaly Musculoskeletal: no cyanosis or clubbing, extremities motor strength 5/5 Head/Neck/Chest: normocephalic and head atraumatic Neurologic: PERRL, EOMI, accommodation nl, no face palsy, no dysarthria CN' s II-XI intact bilaterally Psychiatric: A+Ox3, euthymic affect
--- NOTE | 2018-10-19 12:21 | Discharge Summary ---
Date of Service October 19, 2018 Admission HPI Per Admitting Provider History obtained from patient and records. Medical history significant for chronic respiratory failure secondary to COPD/ interstitial lung disease ongoing steroid Rx, alpha 1 antitrypsin deficiency on weekly Prolastin infusion therapy, A. fib status post cardioversion /SVT status post ablation, hyperlipidemia, history of TIA as per records, history of TB exposure status post rifampin, past tobacco abuse. Recent confinement last December 2017 for atrial flutter with RVR status post cardioversion. Patient discharged on Xarelto. Patient subsequently had outpatient ablation of SVT last January 2018. Patient has had chronic cough for months which he attributes chronic lung disease with occasional specks of blood. The last 2 weeks patient noted tahmina hemoptysis. No chest pain. No consultations done. 5 days ago patient noted nausea and nonbloody diarrhea symptoms without abdominal pain. No recent travel/antibiotic Rx/sick contacts. No fever, no chills. Patient decided to stop his Xarelto 3 days ago due to continued hemoptysis. Intermittent achy headaches and dizziness. Patient noted intermittent palpitations. Patient denies weight gain/fluid retention. Patient consulted ER for worsening symptoms. At the ER, patient was noted to be in rapid A. fib, cardiac rate 120s at the highest. IV Lopressor, IVF given in the ER. Medical History as above Surgical History : Hip surgery, repair, back surgery, lung surgery Family History : Diabetes, heart disease Personal/Social history : Past tobacco abuse, no EtOH intake, disabled Admission Exam Per Admitting Provider GENERAL: Slightly uncomfortable, minimal respiratory distress, obese SKIN: Normal color, warm HEENT: Alopecia, pink palpebral conjunctivae, no ptosis, dry buccal mucosa, O2 mask in place NECK : Supple, short, no tenderness CHEST : Decreased breath sounds , no tenderness HEART : Tachycardic, irregular , no obvious murmurs ABDOMEN: Some distention, nontender EXTREMITIES : No LE swelling/tenderness, no other conspicuous deformities noted NEUROLOGIC : Coherent, no facial asymmetry, no other gross focality Principal Diagnosis Acute respiratory failure with hypoxia, Atrial Fibrillation with Rapid Ventricular Response, Hemoptysis Discharge Exam Constitutional WD/WN, vitals as above Eyes PERRL, conjunctivae normal, anicteric sclerae EOM intact bilaterally ENMT external ear and nose normal, oropharynx normal Respiratory normal respiratory effort (on nasal cannula) and able to speak in complete sentences Auscultation: lungs clear to auscultation bilaterally Cardiovascular Rate/Rhythm: regular rate (atrial fibrillation) Gastrointestinal (Abdomen) normal bowel sounds, soft, nontender, no hepatosplenomegaly Musculoskeletal no cyanosis or clubbing, extremities motor strength 5/5 Head/Neck/Chest: normocephalic and head atraumatic Neurologic PERRL, EOMI, accommodation nl, no face palsy, no dysarthria CN's II-XI intact bilaterally Psychiatric A+Ox3, euthymic affect Discharge Data Allergies Allergy/AdvReac Type Severity Reaction Status Date / Time amoxicillin Allergy Intermediate itchy Verified 10/18/18 07:31 trazodone Allergy Mild RASH Verified 10/14/18 20:40 Consultations 10/15/18 00:35 Consult Cardiology Routine Consult Pulmonology Routine Ordered Studies 10/14/18 23:03 CT angio chest PE protocol Urgent 10/14/18 23:04 CT head/brain wo con Urgent Hospital Course (1) Acute respiratory failure with hypoxia: Presented on admission with difficulty to breath associated with cough and hemoptysis Oxygen saturation on admission was below 88% CT chest on admission showed interval development of groundglass opacities within the lungs. No pulmonary emboli CXR showed Congestive heart failure superimposed upon chronic interstitial change. 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 Clark, cardiology reports that it is ok to continue Xarelto with Diltiazem despite drug interaction warnings on the electronic medical system patient will have outpatient follow up to primary care doctor for CBC recheck (3) Atrial fibrillation with rapid ventricular response: Present to the ER between the 120 -130's Hx Recurrence atrial flutter and underwent catheter based therapy in November 2017. Received IV diltiazem and Digoxin as inpatient Echo showed LV systolic function is normal LV wall motion is normal with EF 55-60% recently on oral diltiazem alone and the dose has been increased to 240 mg daily starting 10/17/18 as of 10/18/18 the patient received additional 120 mg diltiazem for total of 360 mg of diltiazem which has allowed better heart rate control will have diltiazem 360 mg daily starting on 10/19/18, continue diltiazem [address] Clark, cardiology reports that it is ok to continue Xarelto with Diltiazem despite drug interaction warnings on the electronic medical system resume Xarelto 20 mg daily as of 10/17/18, continue heart rate is controlled, patient remains in atrial fibrillation (4) [id number] deficiency: On weekly Prolastin infusion therapy DVT px xarelto CODE STATUS FULL CODE Discharge Diagnosis Acute respiratory failure with hypoxia, Atrial Fibrillation with Rapid Ventricular Response, Hemoptysis Discharge Instructions Oxygen prescription written for oxygen 4 liter/min at rest and 6 liters/min with activity Prescription written for nebulizer machine and patient can take nebulizer treatments every 6 hours as needed for shortness of breath or wheezing 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 Raj. Lizbeth Barrios. Patient should have CBC repeated when on combination with Xarelto and Diltizaem and with history of hemoptysis Follow up with supervisor pipe finishing in 1 to 2 weeks (patient to make appointment) Follow up with client care consultant in 2 to 4 weeks (patient to make appointment) Total Time Total Time Spent Total Time Spent (In Minutes): 40 minutes Total Time Includes: Examination of the Patient, Discharge Planning and Medication Reconciliation Discharge Plan Discharge Items Patient Disposition: Home - Self-Care Reason For Visit: RESP FAILURE Discharge Diagnosis: Acute respiratory failure with hypoxia, Atrial Fibrillation with Rapid Ventricular Response, Hemoptysis Condition: Good Discharge Goals: Improve disease control Activity: Resume your previous activity Non-emergency contact: Primary Care Provider and Photograph Printer Call non-emergency contact if: you have any medication questions Diet: Heart Healthy Addtl Provider Instructions: Discharge Instructions Oxygen prescription written for oxygen 4 liter/min at rest and 6 liters/min with activity Prescription written for nebulizer machine and patient can take nebulizer treatments every 6 hours as needed for shortness of breath or wheezing 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 Raj. Lizbeth Barrios. Patient should have CBC repeated when on combination with Xarelto and Diltizaem and with history of hemoptysis Follow up with supervisor pipe finishing in 1 to 2 weeks (patient to make appointment) Follow up with client care consultant in 2 to 4 weeks (patient to make appointment) Prescriptions: New doxycycline hyclate 100 mg Capsule 100 mg PO BID 3 Days Qty: 6 RF: 0 diltiazem HCl 360 mg tablet extended release 24 hr 360 mg PO DAILY 30 Days Qty: 30 RF: 0 prednisone 20 mg Tablet 40 mg PO DIRECTED 7 Days Qty: 14 RF: 0 albuterol sulfate 2.5 mg/0.5 mL Solution For Nebulization 2.5 mg NEB Q6R PRN (Reason: shortness of breath or wheezing) 30 Days Qty: 120 RF: 0 Continue albuterol sulfate [Ventolin HFA] 90 mcg/actuation HFA aerosol inhaler 2 puff Inhalation QID PRN (Reason: Shortness Of Breath Or Wheezing) RF: 0 alpha-1 proteinase inhib.(hum) [Prolastin-C] 1,000 mg Recon Soln 1 dose IV WK RF: 0 rivaroxaban [Xarelto] 20 mg tablet 20 mg PO DAILY RF: 0 fluticasone-vilanterol [Breo Ellipta] 200-25 mcg/dose Blister With Device 1 inh INHALATION DAILY RF: 0 pirfenidone [Esbriet] 267 mg tablet 267 mg PO TID RF: 0 tiotropium bromide [Spiriva Respimat] 2.5 mcg/actuation Mist 1 puff INHALATION DAILY RF: 0 loperamide [Imodium A-D] 2 mg Capsule 2 mg PO UD PRN (Reason: Diarrhea) RF: 0 Discontinued prednisone 10 mg tablet 10 mg PO UD RF: 0 Stand-Alone Forms: [facility] Discharge Orders: Discharge Order (Routine); Ordered 10/19/18 Ordered By: Eloy Lucas Admission Data Admit Date/Time: 10/14/18 23:36 Attending Provider: Eloy Lucas Admit Provider: Angel Drew Primary Care Provider: Daly Brasher Other Providers: Gui Clark ; Guevara Norman ; Robin Lovell ; Ailin Macedo ; Sam Awad Jessica L. ; Angel Anthony ; Naila Roman ; Beltran De La Torre ; Chantelle Wright ; Tammie Hernández ; Hnas Riggs ; Matthew Rodriguez Service: Telemetry
[2018-10-19] MEDS: RIVAROXABAN 20 MG TAB PO SCH (16:34)
--- NOTE | 2018-10-22 16:03 | Coding Query ---
CONGESTIVE HEART FAILURE To Promote full compliance with coding requirements relating to patient care, physician participation is requested in all cases of analytical technician uncertainty. Please assist us with the following questions. A diagnosis of Congestive Heart Failure is documented in the patient's medical record. To accurately code this diagnosis and to compare patient severity, we ask that you specify the type of heart failure by placing an X within the parenthesis (x).Thank you ! ROGE Naik [facility] SYSTOLIC HEART FAILURE ( ) Acute ( ) Chronic ( ) Acute on Chronic ( ) Rheumatic (x ) Unknown DIASTOLIC HEART FAILURE ( ) Acute ( ) Chronic ( ) Acute on Chronic ( ) Rheumatic ( x ) Unknown COMBINED SYSTOLIC AND DIASTOLIC HEART FAILURE ( ) Acute ( ) Chronic ( ) Acute on Chronic ( ) Rheumatic ( x ) Unknown Was the CHF Present On Admission? Please check the appropriate box: ( ) Present on Admission ( x) Not Present On Admission ( ) Clinically undetermined MTDD
--- NOTE | 2018-11-04 09:45 | Hospitalist Progress Note ---
Date of Service November 04, 2018 Subjective Update note: Was informed by microbiology lab that the sputum cultures from and 10/17/18 have speciated acid fast bacilli. Have called patient Matthew Douglas by telephone [phone] about these results. Have explained to patient that these results may reflect mycobacterium bacteria including mycobacterium tuberculosis but these results are not finalized yet. Patient reports that he has not seen primary care doctor since the 10/19/18 hospital discharge but he is scheduled to see [facility] pulmonary clinic soon on 11/07/18 as well as cardiology clinic at [facility] on the same day. Have inform the patient to follow up with pulmonary clinic to see with his lung doctors any further speciation from these abnormal test results and if needed any potential medication interventions Physical Exam 2 Vital Signs (Past 24 Hours): Last Vital Signs Temp 36.6 C 10/19/18 16:38 Pulse 87 10/19/18 16:38 Resp 22 10/19/18 16:38 BP 106/71 10/19/18 16:38 Pulse Ox 90 10/19/18 16:38
== END 2018-10-19 17:15 | disposition home health service (06) | DRG 189 ==
LOC: ED 19:50 → 2E 23:36 → SUATTDRO 23:36 → 2E 10-15

== ENCOUNTER 2018-11-30 05:37 | Inpatient (IN) ==
[2018-11-30] MEDS ORDERED: METOPROLOL TARTRATE 1 MG/ML VIAL IV PRN (06:25)
[2018-11-30] MEDS ORDERED: SODIUM CHLORIDE 0.9% 500 ML IV SCH (06:30)
[2018-11-30 06:35] LABS: Basophils # (auto) 0.01 K/uL (0-0.2); Basophils % (auto) 0.1 %; Eosinophils # (auto) 0.06 K/uL (0-0.5); Eosinophils % (auto) 0.5 %; Hematocrit (blood only) 41.1 % (42-52); Hemoglobin 13.9 g/dL (14.0-18.0); Immature Granulocytes # (auto) 0.04 K/uL (0.00-0.02); Immature Granulocytes % (auto) 0.3 %; Lymphocytes # (auto) 0.71 K/uL (1.2-3.4); Lymphocytes % (auto) 5.5 %; Mean Corpuscular Hgb Conc 33.8 g/dL (32-36); Mean Corpuscular Volume 94.3 fL (80-100); Mean Platelet Volume 8.8 fL (7.4-10.4); Monocytes # (auto) 1.01 K/uL (0.11-0.59); Monocytes % (auto) 7.8 %; Neutrophils # (auto) 11.13 K/uL (1.4-6.5); Neutrophils % (auto) 85.8 %; Platelet Count 218 K/uL (130-400); RDW Coefficient of Variation 14.8 % (11.5-14.5); RDW Standard Deviation 50.7 fL (36.4-46.3); Red Blood Count 4.36 M/uL (4.7-6.1); White Blood Count 12.96 K/uL (4.8-10.8)
--- NOTE | 2018-11-30 06:44 | XRay Report ---
XR chest 1V portable CLINICAL HISTORY: Dyspnea dyspnea COMPARISON STUDY: No previous studies for comparison. FINDINGS: Similar study compared to the prior exam. Mild cardiomegaly. Diffuse interstitial and alveo lar infiltrative changes bilaterally. This potentially is inflammatory versus pulmonary edema. It abdoul ws no change compared to the prior study. IMPRESSION: 1. Unchanged exam compared to the prior with evidence for either pulmonary edema versus mixed diffuse bilateral parenchymal infiltrative change. 2. Central catheter remains in the superior vena cava. The above report was generated using voice recognition software. It may contain grammatical, syntax or spelling errors. Electronically signed by: Matthew Chavarria M.D. 11/30/2018 6:43 AM
[2018-11-30 06:47] LABS: Albumin Level 2.7 gm/dl (3.4-5.0); BUN Creatinine Ratio 22.5 (10-20); Creatinine Clr Calc Pharmacy 80.4 ml/min; Est GFR (African American) 75.3; Est GFR (Non-African American) 64.9; Potassium 3.7 mmol/L (3.5-5.1)
[2018-11-30 06:48] LABS: INR 1.2 (0.9-1.1); Partial Thromboplastin Time 27.6 Seconds (21.0-31.0); Prothrombin Time 12.2 Seconds (9.0-12.0)
[2018-11-30] MEDS ORDERED: dilTIAZem HCl 5 MG/ML 5 ML VIAL IV STA (06:49)
[2018-11-30 06:50] LABS: Albumin Globulin Ratio 0.8 (0.9-2); Bilirubin,Total 3.3 mg/dl (0.2-1); Globulin 3.3 gm/dl (2.5-4.0)
[2018-11-30] MEDS ORDERED: DOXYCYCLINE HYCLATE 100 MG CAP PO STA (07:11)
[2018-11-30 07:38] LABS: Influenza A virus by PCR Neg for Influ A (Neg); Influenza B virus by PCR Neg for Influ B (Neg)
--- NOTE | 2018-11-30 07:40 | Emergency Department Note ---
Entered by [id number] acting as a scribe for Gloria Carvajal MD History of Present Illness General Chief complaint: Shortness of Breath/Dyspnea Time Seen by Provider: 11/30/18 06:12 Source: patient History of Present Illness Onset (ago): day(s) (a few days ago) Location: chest Pain Consistency: + intermittent Quality: + other (shortness of breath) Associated symptoms: + cough, + fever/chills (fever), + weakness and + other (diarrhea, rapid heart beat); no nausea/vomiting (vomiting) The patient is a 58 year old male who presents to the Emergency Room with compla ints of intermittent shortness of breath starting a few days ago. The patient states that he has had diarrhea for 3 days. He states that along with the diarrhea he has had weakness and intermittent shortness of breath. He states that it has been getting worse as he has been too weak to get out of bed to take nebulizer or any of his medications. The patient complains of cough, rapid heart rate, and a fever of 101.1. The patient denies vomiting. He notes that he is on 4L nasal cannula at all times. Pt was given IVF bolus en route and IV cardizem 20 mg for rapid atrial fib my my medical command. Home Medications Home Medications Medication Instructions Recorded Confirmed Type Breo Ellipta 1 inh INHALATION DAILY 06/01/18 11/30/18 History Esbriet 267 mg PO TID 06/01/18 11/30/18 History Prolastin-C 1 dose IV WK 06/01/18 11/30/18 History Xarelto 20 mg PO DAILY 06/01/18 11/30/18 History albuterol sulfate [Ventolin HFA] 2 puff INHALATION QID PRN 06/01/18 11/30/18 History Spiriva Respimat 1 puff INHALATION DAILY 10/14/18 11/30/18 History loperamide [Imodium A-D] 2 mg PO UD PRN 10/14/18 11/30/18 History diltiazem HCl [Cardizem CD] 360 mg PO HS 11/20/18 11/30/18 History fluticasone propionate [Flonase 1 spray INTRANASAL BID 11/20/18 11/30/18 History Allergy Relief] prednisone 10 mg PO QAM 11/20/18 11/30/18 History hydrocodone-acetaminophen [Luck] 1 - 2 tab PO Q4H PRN #7 tab 11/22/18 11/30/18 Rx albuterol sulfate 2.5 mg INHALATION QID PRN 11/30/18 11/30/18 History Allergies Allergy/AdvReac Type Severity Reaction Status Date / Time amoxicillin Allergy Intermediate itchy Verified 11/30/18 06:05 trazodone Allergy Mild RASH Verified 11/30/18 06:05 Past Med/Surg History Medical History Xjhhq-3-ozafadwhvpt deficiency Anxiety Asthma Atrial fibrillation ON XARELTO Atrial flutter COPD (chronic obstructive pulmonary disease) Chronic back pain Chronic neck pain Depression History of pneumothorax VATS WITH BLEB RESECTION S/P SPONTANEOUS PNEUMOTHORAX (2010) IPF (idiopathic pulmonary fibrosis) ON CHRONIC STEROIDS 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 and A total of 10 systems reviewed and were otherwise negative Physical Exam Vital Signs Vital Signs - 24 hr 12/02/18 08:00 12/02/18 10:58 12/02/18 11:28 Temperature 36.5 C Temperature Source Oral Pulse Rate - Sitting 114 H Pulse Rate Pulse Rate [Finger] Pulse Rate [Radial] 104 H Respiratory Rate 18 Respiratory Effort / Characteristics Spontaneous Labored Short of Breath Respiratory Depth Shallow Respiratory Pattern Regular Blood Pressure [Left Arm] 120/77 Blood Pressure [Right Arm] Blood Pressure Mean [Left Arm] 91 Blood Pressure Mean [Right Arm] Blood Pressure Position [Left Arm] Lying Blood Pressure Position [Right Arm] Pulse Oximetry 96 Pulse Oximetry [Middle Finger] Oxygen Delivery Method Oxymask Oxymask Oxygen Delivery Method [Middle Finger] Oxygen Flow Rate 13 13 Oxygen Flow Rate [Middle Finger] 12/02/18 13:07 12/02/18 13:53 12/02/18 15:18 Temperature 36.4 C L Temperature Source Oral Pulse Rate - Sitting Pulse Rate Pulse Rate [Finger] 101 H Pulse Rate [Radial] 106 H Respiratory Rate 20 23 Respiratory Effort / Characteristics Spontaneous Short of Breath Respiratory Depth Respiratory Pattern Blood Pressure [Left Arm] 127/80 Blood Pressure [Right Arm] Blood Pressure Mean [Left Arm] 95 Blood Pressure Mean [Right Arm] Blood Pressure Position [Left Arm] Sitting Blood Pressure Position [Right Arm] Pulse Oximetry 93 97 Pulse Oximetry [Middle Finger] 96 Oxygen Delivery Method Oxymask Oxymask Oxygen Delivery Method [Middle Finger] Oxymask Oxygen Flow Rate 13 13.0 Oxygen Flow Rate [Middle Finger] 13 12/02/18 15:53 12/02/18 19:07 12/02/18 19:28 Temperature 36.5 C Temperature Source Oral Pulse Rate - Sitting Pulse Rate Pulse Rate [Finger] 111 H 109 H Pulse Rate [Radial] Respiratory Rate 24 23 Respiratory Effort / Characteristics Short of Breath Respiratory Depth Respiratory Pattern Blood Pressure [Left Arm] 130/79 Blood Pressure [Right Arm] Blood Pressure Mean [Left Arm] 96 Blood Pressure Mean [Right Arm] Blood Pressure Position [Left Arm] Lying Blood Pressure Position [Right Arm] Pulse Oximetry 95 90 Pulse Oximetry [Middle Finger] Oxygen Delivery Method Oxymask Oxymask Oxymask Oxygen Delivery Method [Middle Finger] Oxygen Flow Rate 11 11 11.0 Oxygen Flow Rate [Middle Finger] 12/02/18 20:00 12/02/18 23:25 12/03/18 00:44 Temperature 36.6 C Temperature Source Oral Pulse Rate - Sitting Pulse Rate 117 H Pulse Rate [Finger] 94 H Pulse Rate [Radial] Respiratory Rate 20 Respiratory Effort / Characteristics Spontaneous Labored SOB on Exertion Respiratory Depth Normal Respiratory Pattern Regular Blood Pressure [Left Arm] Blood Pressure [Right Arm] 116/79 Blood Pressure Mean [Left Arm] Blood Pressure Mean [Right Arm] 91 Blood Pressure Position [Left Arm] Blood Pressure Position [Right Arm] Lying Pulse Oximetry 92 Pulse Oximetry [Middle Finger] Oxygen Delivery Method Oxymask Oxymask Oxygen Delivery Method [Middle Finger] Oxygen Flow Rate 11 11 Oxygen Flow Rate [Middle Finger] 12/03/18 03:24 12/03/18 04:13 12/03/18 07:01 Temperature 36.5 C Temperature Source Oral Pulse Rate - Sitting Pulse Rate Pulse Rate [Finger] 120 H 104 H 98 H Pulse Rate [Radial] Respiratory Rate 20 24 16 Respiratory Effort / Characteristics Spontaneous Short of Breath Spontaneous Respiratory Depth Respiratory Pattern Blood Pressure [Left Arm] 111/68 Blood Pressure [Right Arm] Blood Pressure Mean [Left Arm] 82 Blood Pressure Mean [Right Arm] Blood Pressure Position [Left Arm] Lying Blood Pressure Position [Right Arm] Pulse Oximetry 93 92 97 Pulse Oximetry [Middle Finger] Oxygen Delivery Method Oxymask Oxymask Oxymask Oxygen Delivery Method [Middle Finger] Oxygen Flow Rate 11 11 11 Oxygen Flow Rate [Middle Finger] Vital signs reviewed. General: Chronically ill-appearing, in no significant distress. On a nonrebreather. HEENT: No scleral icterus, PERRLA, neck supple. Pale conjunctiva. Atraumatic. Cardiovascular: Rapid rate and irregular rhythm, no extra sounds. Pulmonary: Crackles diffusely throughout, increased work of breathing. Desaturates when switched to n/c at 6 L Abdomen: Soft, nontender, nondistended, positive bowel sounds. Musculoskeletal: Atraumatic, no peripheral edema. Neurologic: Patient awake alert and oriented x 3, full strength in all 4 extremities. Cranial nerves 2 through 12 grossly intact. Skin: Warm, dry, no rash Course 0621: Past medical records reviewed. The patient was evaluated in room C10, and a complete history and physical examination were performed. 0706: I reviewed the patient's case with Dr. Dimas Hospitalist. He will evaluate the patient for further management. 0716: I reevaluated the patient and updated him on his test results. I discussed the treatment plan with him. He verbally agrees and understands. Consultations Consultation #1: I [facility] the [facility] He will evaluate the patient for further management. Time: 07:06 Administered Medications Benzonatate (Tessalon Perle) 100 mg PO TID PRN PRN Reason: Cough Stop: 12/30/18 12:05 Last Admin: 12/01/18 13:35 Dose: 100 mg Documented by: [id number] Admin: 12/01/18 10:22 Dose: 100 mg Documented by: [id number] Admin: 12/01/18 04:26 Dose: 100 mg Documented by: [id number] Gabapentin (Neurontin) 300 mg PO QAM [facility] Stop: 12/31/18 20:59 Last Admin: 12/02/18 09:24 Dose: 300 mg Documented by: [id number] Admin: 12/01/18 20:26 Dose: 300 mg Documented by: [id number] Guaifenesin/Codeine Phosphate (Robitussin-Ac Sugar Free) 5 ml PO Q6H PRN PRN Reason: Cough Stop: 12/30/18 12:05 Last Admin: 12/01/18 12:42 Dose: 5 ml Documented by: [id number] Admin: 12/01/18 04:28 Dose: 5 ml Documented by: [id number] Admin: 11/30/18 19:59 Dose: 5 ml Documented by: [id number] Admin: 11/30/18 12:55 Dose: 5 ml Documented by: [id number] Levalbuterol HCl (Xopenex 1.25mg/3ml Neb) 1.25 mg NEB Q6R [facility] Stop: 12/30/18 09:29 Last Admin: 12/03/18 07:01 Dose: 1.25 mg Documented by: [id number] Admin: 12/03/18 02:15 Dose: 1.25 mg Documented by: [id number] Lorazepam (Ativan) 0.5 mg PO Q6H PRN PRN Reason: Anxiety Stop: 12/31/18 17:00 Last Admin: 12/01/18 19:58 Dose: 0.5 mg Documented by: [id number] Metoprolol Tartrate (Lopressor) 25 mg PO TID [facility] Stop: 12/31/18 20:59 Last Admin: 12/02/18 21:04 Dose: 25 mg Documented by: [id number] Admin: 12/02/18 12:42 Dose: 25 mg Documented by: [id number] Admin: 12/02/18 09:23 Dose: 25 mg Documented by: [id number] Admin: 12/01/18 20:27 Dose: 25 mg Documented by: [id number] Miscellaneous (Order Awaiting Action) 1 ea N/A QS [facility] Stop: 12/30/18 15:59 Last Admin: 12/03/18 06:55 Dose: Not Given Documented by: [id number] Admin: 12/03/18 06:55 Dose: Not Given Documented by: [id number] Admin: 12/03/18 06:53 Dose: Not Given Documented by: [id number] Admin: 12/02/18 00:23 Dose: Not Given Documented by: [id number] Admin: 12/01/18 18:24 Dose: Not Given Documented by: [id number] Admin: 12/01/18 08:19 Dose: Not Given Documented by: [id number] Admin: 11/30/18 23:10 Dose: Not Given Documented by: [id number] Admin: 11/30/18 19:54 Dose: Not Given Documented by: [id number] Rivaroxaban (Xarelto) 20 mg PO DAILY [facility] Stop: 12/30/18 09:29 Last Admin: 12/02/18 09:23 Dose: 20 mg Documented by: [id number] Admin: 12/01/18 08:20 Dose: 20 mg Documented by: [id number] Admin: 11/30/18 11:14 Dose: 20 mg Documented by: [id number] Discontinued Medications Diltiazem HCl (Cardizem) 20 mg IV NOW STA Stop: 11/30/18 06:50 Last Admin: 11/30/18 07:27 Dose: 20 mg Documented by: [id number] Cosigned by: [id number] Diltiazem HCl (Dilacor Xr) 180 mg PO QAM [facility] Stop: 12/31/18 08:59 Last Admin: 12/01/18 08:22 Dose: 180 mg Documented by: [id number] Diltiazem HCl (Dilacor Xr) 180 mg PO NOW ONE Stop: 11/30/18 08:16 Last Admin: 11/30/18 08:44 Dose: 180 mg Documented by: [id number] Diphenhydramine HCl (Benadryl) 50 mg IV NOW STA Stop: 12/02/18 20:21 Last Admin: 12/02/18 20:20 Dose: Not Given Documented by: [id number] Doxycycline Hyclate (Vibramycin) 100 mg PO NOW STA Stop: 11/30/18 07:12 Last Admin: 11/30/18 07:31 Dose: 100 mg Documented by: [id number] Doxycycline Hyclate (Vibramycin) 100 mg PO BID [facility]; Protocol Stop: 12/02/18 20:59 Last Admin: 12/02/18 09:23 Dose: 100 mg Documented by: [id number] Admin: 12/01/18 20:27 Dose: 100 mg Documented by: [id number] Admin: 12/01/18 08:22 Dose: 100 mg Documented by: [id number] Admin: 11/30/18 19:59 Dose: 100 mg Documented by: [id number] Sodium Chloride (Nss) 500 mls @ 999 mls/hr IV .Q31M [facility] Stop: 11/30/18 07:00 Last Infusion: 11/30/18 08:49 Dose: 0 mls/hr Documented by: [id number] Admin: 11/30/18 07:32 Dose: 999 mls/hr Documented by: [id number] Ceftriaxone Sodium (Rocephin) 1,000 mg in 50 mls @ 100 mls/hr IV NOW STA Stop: 11/30/18 09:05 Last Infusion: 12/01/18 09:43 Dose: 0 mls/hr Documented by: [id number] Admin: 11/30/18 08:45 Dose: 100 mls/hr Documented by: [id number] Sodium Chloride (Nss 1000ml) 1,000 mls @ 80 mls/hr IV .[id number] [facility] Stop: 12/30/18 09:44 Last Admin: 12/03/18 06:54 Dose: Not Given Documented by: [id number] Infusion: 12/03/18 06:54 Dose: 0 mls/hr Documented by: [id number] Admin: 12/02/18 05:14 Dose: 80 mls/hr Documented by: [id number] Infusion: 12/02/18 05:14 Dose: 80 mls/hr Documented by: [id number] Admin: 12/01/18 16:54 Dose: 80 mls/hr Documented by: [id number] Infusion: 12/01/18 16:54 Dose: 80 mls/hr Documented by: [id number] Admin: 12/01/18 04:25 Dose: 80 mls/hr Documented by: [id number] Infusion: 12/01/18 04:25 Dose: 80 mls/hr Documented by: [id number] Admin: 11/30/18 15:55 Dose: 80 mls/hr Documented by: [id number] Infusion: 11/30/18 15:55 Dose: 80 mls/hr Documented by: [id number] Admin: 11/30/18 11:15 Dose: 80 mls/hr Documented by: [id number] Methylprednisolone 40 mg/ (Syringe) 0.64 mls @ 1.5 mls/min IV Q8H [facility] Stop: 12/02/18 23:59 Last Admin: 12/02/18 16:31 Dose: 1.5 mls/min Documented by: [id number] Admin: 12/02/18 09:21 Dose: 1.5 mls/min Documented by: [id number] Admin: 12/02/18 02:24 Dose: 1.5 mls/min Documented by: [id number] Admin: 12/01/18 18:23 Dose: 1.5 mls/min Documented by: [id number] Admin: 12/01/18 10:11 Dose: 1.5 mls/min Documented by: [id number] Admin: 12/01/18 01:54 Dose: 1.5 mls/min Documented by: [id number] Admin: 11/30/18 17:22 Dose: 1.5 mls/min Documented by: [id number] Admin: 11/30/18 11:16 Dose: 1.5 mls/min Documented by: [id number] Ceftriaxone Sodium 1,000 mg/ (Dextrose) 60 mls @ 100 mls/hr IV DAILY [facility]; Protocol Stop: 12/02/18 08:59 Last Infusion: 12/01/18 09:41 Dose: 0 mls/hr Documented by: [id number] Admin: 12/01/18 08:24 Dose: 100 mls/hr Documented by: [id number] Furosemide 40 mg/ Syringe 4 mls @ 4 mls/min IV ONE ONE Stop: 12/02/18 12:16 Last Admin: 12/02/18 12:41 Dose: 4 mls/min Documented by: [id number] Levalbuterol HCl (Xopenex 1.25mg/0.5ml Neb) 1.25 mg NEB Q6R [facility] Stop: 12/30/18 09:29 Last Admin: 12/02/18 19:06 Dose: 1.25 mg Documented by: [id number] Admin: 12/02/18 13:49 Dose: 1.25 mg Documented by: [id number] Admin: 12/02/18 06:54 Dose: 1.25 mg Documented by: [id number] Admin: 12/02/18 02:03 Dose: Not Given Documented by: [id number] Admin: 12/01/18 20:57 Dose: 1.25 mg Documented by: [id number] Admin: 12/01/18 14:01 Dose: 1.25 mg Documented by: [id number] Admin: 12/01/18 07:02 Dose: 1.25 mg Documented by: [id number] Admin: 12/01/18 01:45 Dose: 1.25 mg Documented by: [id number] Admin: 11/30/18 19:16 Dose: 1.25 mg Documented by: [id number] Admin: 11/30/18 14:29 Dose: 1.25 mg Documented by: [id number] Admin: 11/30/18 14:29 Dose: 1.25 mg Documented by: [id number] Methylprednisolone (Solumedrol) 40 mg IV NOW STA Stop: 11/30/18 09:08 Last Admin: 12/01/18 09:44 Dose: Not Given Documented by: [id number] Metoprolol Tartrate (Lopressor) 12.5 mg PO TID [facility] Stop: 12/30/18 09:29 Last Admin: 12/01/18 13:34 Dose: 12.5 mg Documented by: [id number] Admin: 12/01/18 08:20 Dose: 12.5 mg Documented by: [id number] Admin: 11/30/18 19:59 Dose: 12.5 mg Documented by: [id number] Admin: 11/30/18 14:21 Dose: 12.5 mg Documented by: [id number] Admin: 11/30/18 11:13 Dose: 12.5 mg Documented by: [id number] Medical Decision Making Differential Diagnosis Differential diagnosis: Etiologies such as infections, reactive airway disease, COPD, pneumonia, pleural effusion, pulmonary edema, ARDS, pneumothorax, CHF, cardiac ischemia, cardiac tamponade, dysrhythmia, anemia, pulmonary embolism, musculoskeletal, gastrointestinal process, as well as others were entertained. Medical Records Attestation: I reviewed the patient's medical records. Home Medications Current Medication List: was personally reviewed by me Laboratory Data Attestation: I reviewed the patient's lab results. Result diagrams: 12/03/18 05:18 12/03/18 05:18 Lab Results 11/30/18 11/30/18 11/30/18 Range/Units 05:58 05:58 05:58 WBC 12.96 H (4.8-10.8) K/uL RBC 4.36 L (4.7-6.1) M/uL Hgb 13.9 L (14.0-18.0) g/dL Hct 41.1 L (42-52) % MCV 94.3 (80-100) fL MCH 31.9 (25-34) pg MCHC 33.8 (32-36) g/dL RDW Std Deviation 50.7 H (36.4-46.3) fL RDW Coeff of Melinda 14.8 H (11.5-14.5) % Plt Count 218 (130-400) K/uL MPV 8.8 (7.4-10.4) fL Immature Gran % (Auto) 0.3 % Neut % (Auto) 85.8 % Lymph % (Auto) 5.5 % [place] % (Auto) 7.8 % Eos % (Auto) 0.5 % Baso % (Auto) 0.1 % Immature Gran # (Auto) 0.04 H (0.00-0.02) K/uL Neut # (Auto) 11.13 H (1.4-6.5) K/uL Lymph # (Auto) 0.71 L (1.2-3.4) K/uL [place] # (Auto) 1.01 H (0.11-0.59) K/uL Eos # (Auto) 0.06 (0-0.5) K/uL Baso # (Auto) 0.01 (0-0.2) K/uL PT 12.2 H (9.0-12.0) Seconds INR 1.2 H (0.9-1.1) APTT 27.6 (21.0-31.0) Seconds PTT Ratio 1.0 ABG pH (7.35-7.45) ABG pCO2 (35-46) mmHg ABG pO2 (80-95) mm/Hg ABG HCO3 (19-24) mmol/L ABG O2 Saturation (90-95) % ABG Base Excess (-9-1.8) mEq/L Ricco Test (Pos) Barometric Pressure mm/Hg Oxygen Given Sodium 136 (136-145) mmol/L Potassium 3.7 (3.5-5.1) mmol/L Chloride 106 (98-107) mmol/L Carbon Dioxide 22 (21-32) mmol/L Anion Gap 8.0 (3-11) BUN 27 H (7-18) mg/dl Creatinine 1.22 (0.6-1.4) mg/dl Est Cr Clr Drug Dosing 80.4 ml/min Est GFR ( Amer) 75.3 Est GFR (Non-Af Amer) 64.9 BUN/Creatinine Ratio 22.5 H (10-20) Glucose 83 (70-99) mg/dl Calcium 9.0 (8.5-10.1) mg/dl Magnesium 2.0 (1.8-2.4) mg/dl Total Bilirubin 3.3 H (0.2-1) mg/dl AST 26 (15-37) U/L ALT 19 (12-78) U/L Alkaline Phosphatase 130 H (45-117) U/L Total Protein 6.0 L (6.4-8.2) gm/dl Albumin 2.7 L (3.4-5.0) gm/dl Globulin 3.3 (2.5-4.0) gm/dl Albumin/Globulin Ratio 0.8 L (0.9-2) Procalcitonin (0-0.5) ng/ml TSH (0.300-4.500) uIu/ml Urine Color Urine Appearance (Clear) Urine pH (4.5-7.5) Ur Specific [place] (1.000-1.030) Urine Protein (Negative) Urine Glucose (UA) (Negative) Urine Ketones (Negative) Urine Blood (Negative) Urine Nitrite (Negative) Urine Bilirubin (Negative) Urine Urobilinogen (Negative) Ur Leukocyte Esterase (Negative) Urine WBC (Auto) (0-5) /hpf Urine RBC (Auto) (0-4) /hpf U Hyaline Cast (Auto) (0-5) /lpf U Epithel Cells (Auto) (0-5) /lpf Urine Bacteria (Auto) (Negative) Stl C. diff Tox B Gene (Neg) Influenza Type A (PCR) (Neg) Influenza Type B (PCR) (Neg) Bld Cult Staph aureus PCR (Negative) Blood Culture MRSA PCR (Negative) 11/30/18 11/30/18 11/30/18 Range/Units 05:58 05:58 05:58 WBC (4.8-10.8) K/uL RBC (4.7-6.1) M/uL Hgb (14.0-18.0) g/dL Hct (42-52) % MCV (80-100) fL MCH (25-34) pg MCHC (32-36) g/dL RDW Std Deviation (36.4-46.3) fL RDW Coeff of Melinda (11.5-14.5) % Plt Count (130-400) K/uL MPV (7.4-10.4) fL Immature Gran % (Auto) % Neut % (Auto) % Lymph % (Auto) % [place] % (Auto) % Eos % (Auto) % Baso % (Auto) % Immature Gran # (Auto) (0.00-0.02) K/uL Neut # (Auto) (1.4-6.5) K/uL Lymph # (Auto) (1.2-3.4) K/uL [place] # (Auto) (0.11-0.59) K/uL Eos # (Auto) (0-0.5) K/uL Baso # (Auto) (0-0.2) K/uL PT (9.0-12.0) Seconds INR (0.9-1.1) APTT (21.0-31.0) Seconds PTT Ratio ABG pH (7.35-7.45) ABG pCO2 (35-46) mmHg ABG pO2 (80-95) mm/Hg ABG HCO3 (19-24) mmol/L ABG O2 Saturation (90-95) % ABG Base Excess (-9-1.8) mEq/L Ricco Test (Pos) Barometric Pressure mm/Hg Oxygen Given Sodium (136-145) mmol/L Potassium (3.5-5.1) mmol/L Chloride (98-107) mmol/L Carbon Dioxide (21-32) mmol/L Anion Gap (3-11) BUN (7-18) mg/dl Creatinine (0.6-1.4) mg/dl Est Cr Clr Drug Dosing ml/min Est GFR ( Amer) Est GFR (Non-Af Amer) BUN/Creatinine Ratio (10-20) Glucose (70-99) mg/dl Calcium (8.5-10.1) mg/dl Magnesium (1.8-2.4) mg/dl Total Bilirubin (0.2-1) mg/dl AST (15-37) U/L ALT (12-78) U/L Alkaline Phosphatase (45-117) U/L Total Protein (6.4-8.2) gm/dl Albumin (3.4-5.0) gm/dl Globulin (2.5-4.0) gm/dl Albumin/Globulin Ratio (0.9-2) Procalcitonin 0.36 (0-0.5) ng/ml TSH 1.400 (0.300-4.500) uIu/ml Urine Color Urine Appearance (Clear) Urine pH (4.5-7.5) Ur Specific [place] (1.000-1.030) Urine Protein (Negative) Urine Glucose (UA) (Negative) Urine Ketones (Negative) Urine Blood (Negative) Urine Nitrite (Negative) Urine Bilirubin (Negative) Urine Urobilinogen (Negative) Ur Leukocyte Esterase (Negative) Urine WBC (Auto) (0-5) /hpf Urine RBC (Auto) (0-4) /hpf U Hyaline Cast (Auto) (0-5) /lpf U Epithel Cells (Auto) (0-5) /lpf Urine Bacteria (Auto) (Negative) Stl C. diff Tox B Gene (Neg) Influenza Type A (PCR) (Neg) Influenza Type B (PCR) (Neg) Bld Cult Staph aureus PCR Negative (Negative) Blood Culture MRSA PCR Negative (Negative) 11/30/18 11/30/18 11/30/18 Range/Units 06:37 14:05 17:36 WBC (4.8-10.8) K/uL RBC (4.7-6.1) M/uL Hgb (14.0-18.0) g/dL Hct (42-52) % MCV (80-100) fL MCH (25-34) pg MCHC (32-36) g/dL RDW Std Deviation (36.4-46.3) fL RDW Coeff of Melinda (11.5-14.5) % Plt Count (130-400) K/uL MPV (7.4-10.4) fL Immature Gran % (Auto) % Neut % (Auto) % Lymph % (Auto) % [place] % (Auto) % Eos % (Auto) % Baso % (Auto) % Immature Gran # (Auto) (0.00-0.02) K/uL Neut # (Auto) (1.4-6.5) K/uL Lymph # (Auto) (1.2-3.4) K/uL [place] # (Auto) (0.11-0.59) K/uL Eos # (Auto) (0-0.5) K/uL Baso # (Auto) (0-0.2) K/uL PT (9.0-12.0) Seconds INR (0.9-1.1) APTT (21.0-31.0) Seconds PTT Ratio ABG pH 7.44 (7.35-7.45) ABG pCO2 31 L (35-46) mmHg ABG pO2 84 (80-95) mm/Hg ABG HCO3 21 (19-24) mmol/L ABG O2 Saturation 96.6 H (90-95) % ABG Base Excess -2.5 (-9-1.8) mEq/L Ricco Test Pos (Pos) Barometric Pressure 722.2 mm/Hg Oxygen Given 15L Sodium (136-145) mmol/L Potassium (3.5-5.1) mmol/L Chloride (98-107) mmol/L Carbon Dioxide (21-32) mmol/L Anion Gap (3-11) BUN (7-18) mg/dl Creatinine (0.6-1.4) mg/dl Est Cr Clr Drug Dosing ml/min Est GFR ( Amer) Est GFR (Non-Af Amer) BUN/Creatinine Ratio (10-20) Glucose (70-99) mg/dl Calcium (8.5-10.1) mg/dl Magnesium (1.8-2.4) mg/dl Total Bilirubin (0.2-1) mg/dl AST (15-37) U/L ALT (12-78) U/L Alkaline Phosphatase (45-117) U/L Total Protein (6.4-8.2) gm/dl Albumin (3.4-5.0) gm/dl Globulin (2.5-4.0) gm/dl Albumin/Globulin Ratio (0.9-2) Procalcitonin (0-0.5) ng/ml TSH (0.300-4.500) uIu/ml Urine Color [place] Urine Appearance Clear (Clear) Urine pH 5.0 (4.5-7.5) Ur Specific [place] 1.028 (1.000-1.030) Urine Protein Negative (Negative) Urine Glucose (UA) Negative (Negative) Urine Ketones Trace H (Negative) Urine Blood Negative (Negative) Urine Nitrite Positive H (Negative) Urine Bilirubin Negative (Negative) Urine Urobilinogen Negative (Negative) Ur Leukocyte Esterase Negative (Negative) Urine WBC (Auto) 1-5 (0-5) /hpf Urine RBC (Auto) 0-4 (0-4) /hpf U Hyaline Cast (Auto) 0 (0-5) /lpf U Epithel Cells (Auto) 0-5 (0-5) /lpf Urine Bacteria (Auto) Negative (Negative) Stl C. diff Tox B Gene (Neg) Influenza Type A (PCR) Neg for Influ A (Neg) Influenza Type B (PCR) Neg for Influ B (Neg) Bld Cult Staph aureus PCR (Negative) Blood Culture MRSA PCR (Negative) 12/01/18 12/01/18 12/02/18 Range/Units 08:55 08:55 08:05 WBC 6.58 (4.8-10.8) K/uL RBC 4.44 L (4.7-6.1) M/uL Hgb 14.1 (14.0-18.0) g/dL Hct 41.9 L (42-52) % MCV 94.4 (80-100) fL MCH 31.8 (25-34) pg MCHC 33.7 (32-36) g/dL RDW Std Deviation 50.0 H (36.4-46.3) fL RDW Coeff of Melinda 14.5 (11.5-14.5) % Plt Count 202 (130-400) K/uL MPV 8.8 (7.4-10.4) fL Immature Gran % (Auto) 0.3 % Neut % (Auto) 89.4 % Lymph % (Auto) 5.3 % [place] % (Auto) 5.0 % Eos % (Auto) 0.0 % Baso % (Auto) 0.0 % Immature Gran # (Auto) 0.02 (0.00-0.02) K/uL Neut # (Auto) 5.88 (1.4-6.5) K/uL Lymph # (Auto) 0.35 L (1.2-3.4) K/uL [place] # (Auto) 0.33 (0.11-0.59) K/uL Eos # (Auto) 0.00 (0-0.5) K/uL Baso # (Auto) 0.00 (0-0.2) K/uL PT (9.0-12.0) Seconds INR (0.9-1.1) APTT (21.0-31.0) Seconds PTT Ratio ABG pH (7.35-7.45) ABG pCO2 (35-46) mmHg ABG pO2 (80-95) mm/Hg ABG HCO3 (19-24) mmol/L ABG O2 Saturation (90-95) % ABG Base Excess (-9-1.8) mEq/L [place] Test (Pos) Barometric Pressure mm/Hg Oxygen Given Sodium 139 (136-145) mmol/L Potassium 3.7 (3.5-5.1) mmol/L Chloride 110 H (98-107) mmol/L Carbon Dioxide 23 (21-32) mmol/L Anion Gap 6.0 (3-11) BUN 21 H (7-18) mg/dl Creatinine 0.95 (0.6-1.4) mg/dl Est Cr Clr Drug Dosing 101.6 ml/min Est GFR ( Amer) 101.9 Est GFR (Non-Af Amer) 87.9 BUN/Creatinine Ratio 22.3 H (10-20) Glucose 169 H (70-99) mg/dl Calcium 9.3 (8.5-10.1) mg/dl Magnesium (1.8-2.4) mg/dl Total Bilirubin 1.6 H D (0.2-1) mg/dl AST 27 (15-37) U/L ALT 24 (12-78) U/L Alkaline Phosphatase 136 H (45-117) U/L Total Protein 6.4 (6.4-8.2) gm/dl Albumin 2.8 L (3.4-5.0) gm/dl Globulin 3.6 (2.5-4.0) gm/dl Albumin/Globulin Ratio 0.8 L (0.9-2) Procalcitonin (0-0.5) ng/ml TSH (0.300-4.500) uIu/ml Urine Color Urine Appearance (Clear) Urine pH (4.5-7.5) Ur Specific [place] (1.000-1.030) Urine Protein (Negative) Urine Glucose (UA) (Negative) Urine Ketones (Negative) Urine Blood (Negative) Urine Nitrite (Negative) Urine Bilirubin (Negative) Urine Urobilinogen (Negative) Ur Leukocyte Esterase (Negative) Urine WBC (Auto) (0-5) /hpf Urine RBC (Auto) (0-4) /hpf U Hyaline Cast (Auto) (0-5) /lpf U Epithel Cells (Auto) (0-5) /lpf Urine Bacteria (Auto) (Negative) Stl C. diff Tox B Gene (Neg) Influenza Type A (PCR) (Neg) Influenza Type B (PCR) (Neg) Bld Cult Staph aureus PCR (Negative) Blood Culture MRSA PCR (Negative) 12/02/18 12/03/18 12/03/18 Range/Units 08:20 05:18 05:18 WBC 12.26 H (4.8-10.8) K/uL RBC 4.01 L (4.7-6.1) M/uL Hgb 12.6 L (14.0-18.0) g/dL Hct 38.2 L (42-52) % MCV 95.3 (80-100) fL MCH 31.4 (25-34) pg MCHC 33.0 (32-36) g/dL RDW Std Deviation 50.0 H (36.4-46.3) fL RDW Coeff of Melinda 14.4 (11.5-14.5) % Plt Count 215 (130-400) K/uL MPV 9.0 (7.4-10.4) fL Immature Gran % (Auto) % Neut % (Auto) % Lymph % (Auto) % [place] % (Auto) % Eos % (Auto) % Baso % (Auto) % Immature Gran # (Auto) (0.00-0.02) K/uL Neut # (Auto) (1.4-6.5) K/uL Lymph # (Auto) (1.2-3.4) K/uL [place] # (Auto) (0.11-0.59) K/uL Eos # (Auto) (0-0.5) K/uL Baso # (Auto) (0-0.2) K/uL PT (9.0-12.0) Seconds INR (0.9-1.1) APTT (21.0-31.0) Seconds PTT Ratio ABG pH (7.35-7.45) ABG pCO2 (35-46) mmHg ABG pO2 (80-95) mm/Hg ABG HCO3 (19-24) mmol/L ABG O2 Saturation (90-95) % ABG Base Excess (-9-1.8) mEq/L Ricco Test (Pos) Barometric Pressure mm/Hg Oxygen Given Sodium 141 140 (136-145) mmol/L Potassium 4.0 3.6 (3.5-5.1) mmol/L Chloride 111 H 107 (98-107) mmol/L Carbon Dioxide 25 28 (21-32) mmol/L Anion Gap 5.0 5.0 (3-11) BUN 17 20 H (7-18) mg/dl Creatinine 0.93 1.02 (0.6-1.4) mg/dl Est Cr Clr Drug Dosing 105.3 96.0 ml/min Est GFR ( Amer) 104.5 93.5 Est GFR (Non-Af Amer) 90.2 80.6 BUN/Creatinine Ratio 18.7 19.3 (10-20) Glucose 109 H 116 H (70-99) mg/dl Calcium 9.4 9.3 (8.5-10.1) mg/dl Magnesium (1.8-2.4) mg/dl Total Bilirubin 0.8 D (0.2-1) mg/dl AST 34 (15-37) U/L ALT 34 (12-78) U/L Alkaline Phosphatase 130 H (45-117) U/L Total Protein 6.2 L (6.4-8.2) gm/dl Albumin 2.9 L (3.4-5.0) gm/dl Globulin 3.3 (2.5-4.0) gm/dl Albumin/Globulin Ratio 0.9 (0.9-2) Procalcitonin (0-0.5) ng/ml TSH (0.300-4.500) uIu/ml Urine Color Urine Appearance (Clear) Urine pH (4.5-7.5) Ur Specific [place] (1.000-1.030) Urine Protein (Negative) Urine Glucose (UA) (Negative) Urine Ketones (Negative) Urine Blood (Negative) Urine Nitrite (Negative) Urine Bilirubin (Negative) Urine Urobilinogen (Negative) Ur Leukocyte Esterase (Negative) Urine WBC (Auto) (0-5) /hpf Urine RBC (Auto) (0-4) /hpf U Hyaline Cast (Auto) (0-5) /lpf U Epithel Cells (Auto) (0-5) /lpf Urine Bacteria (Auto) (Negative) Stl C. diff Tox B Gene (Neg) Influenza Type A (PCR) (Neg) Influenza Type B (PCR) (Neg) Bld Cult Staph aureus PCR (Negative) Blood Culture MRSA PCR (Negative) Imaging Data Radiologist's Impression: Radiology results as stated below per my review and the radiologist's interpretation: XR chest 1V portable CLINICAL HISTORY: Dyspnea dyspnea COMPARISON STUDY: No previous studies for comparison. FINDINGS: Similar study compared to the prior exam. Mild cardiomegaly. Diffuse interstitial and alveolar infiltrative changes bilaterally. This potentially is inflammatory versus pulmonary edema. It shows no change compared to the prior study. IMPRESSION: 1. Unchanged exam compared to the prior with evidence for either pulmonary edema versus mixed diffuse bilateral parenchymal infiltrative change. 2. Central catheter remains in the superior vena cava. The above report was generated using voice recognition software. It may contain grammatical, syntax or spelling errors. Electronically signed by: Matthew Chavarria M.D. 11/30/2018 6:43 AM ECG Data Attestation: I personally reviewed and interpreted this ECG as follows: Indication: SOB/dyspnea Rate (beats per minute): 131 Rhythm: atrial fibrillation Findings: + other (QT-c 463) and + nonspecific-ST abn; no acute ischemic change Blood Pressure Blood Pressure Findings: Normal blood pressure Blood Pressure Disposition: did not require urgent referral MDM Narrative This pt was evaluated and appeared to be in some discomfort. He was taken off of NRB and placed on n/c at 6 L. Pt quickly desaturated. He was then placed on oximask at 10 L with good results. CXR was performed and reveals chronic changes with superimposed infiltrate. EKG is a fib with RVR. Pt was given card izem IV for a fib rate control. This was pt's second dose as he was given one en route by EMS (my medical command). Blood cultures were obtained and pt was medicated with po doxycycline. Pt has been noncompliant with meds. He does have significant lung disease at baseline, rapid atrial fib has likely exacerbated the process. Pt remained fairly stable with above interventions. I did speak with Dr Lucas regarding ATBx coverage. He will decide on ordered doxy vs any changes after evaluation. Pt is aware of the plan and agrees. Impression & Plan Atrial fibrillation with RVR, Wskwj-[id number] deficiency, Respiratory failure with hypoxia, Diarrhea Critical Care Time I have personally spent greater than 35 minutes of critical care time in the direct management of this patient. This includes bedside care, interpretation of diagnostic studies, and testing, discussion with consultants, patient, and family members, and other required patient management activities. This 35 minutes is in excess of all separately billable procedures. Critical Care Time: Yes Total Critical Care Time: 35 Discharge Plan Visit Data *Final* Discharge Date/Time: 11/30/18 09:04 Chief Complaint: Shortness of Breath/Dyspnea ED Provider: Gloria Carvajal Discharge Problem: Atrial fibrillation with RVR, Dfzbu-[id number] deficiency, Respiratory failure with hypoxia, Diarrhea Patient Disposition: Admitted As Inpatient Discharge Instructions Interventions: ED Discharge Assessment Last Done: 11/30/18 09:04 The scribe's documentation has been prepared under my direction and personally reviewed by me in its entirety. I confirm that the note above accurately reflects all work, treatment, procedures, and medical decision making performed by me.
[2018-11-30] MEDS ORDERED: cefTRIAXone SODIUM 1,000 MG/50 ML BAG IV STA (08:36)
--- NOTE | 2018-11-30 09:02 | History & Physical Report ---
Date of Service November 30, 2018 Assessment & Plan (1) Atrial fibrillation with RVR: -atrial fibrillation with rapid ventricular response likely due to medication nonadherence -patient reported that he ran out of diltiazem 360 mg daily and did not get refills from outpatient providers; patient also noted that he felt the diltiazem correlated with feet swelling and he wanted to transition to some other rate control medications but that was not started -patient was given IV diltiazem in the ambulance, also got IV diltiazem in the ED -hospitalist provider ordered 180 mg diltiazem orally to give in the ED before patient comes up to telemetry [place] -will place patient on metoprolol 12.5 mg TID and also prn metoprolol 5 mg q6 hours IV for heart rate above 110 bpm -continue with patient's home dose Xarelto for anticoagulation -have discussed these plans with [facility] cardiology service -other contributions to atrial fibrillation with RVR may be dehydration as patient reports poor oral appetite and diarrhea in the past 2 to 3 days; continue IV fluids Diarrhea -denies recent atibiotic use -send Cdifficile studies Chronic respiratory failure with hypoxia -at home patient is on 4 liter/min of oxygen -continue oxygen supplementation COPD/interstitial lungs disease, subjective fever -place on Xopenex scheduled treatments -was treated with antibiotics of IV ceftriaxone and Doxycycline on October 2018 admission -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 but has not been started yet on antibiotics by outpatient [facility] Pulmonary clinic -because a full treatment of Mycobaterium pulmonary disease requires weeks to months of azithromycin, rifampin, ethambutol of therapy and requires outpatient compliance, I would not start this treatment for now and commit patient to this therapy at this time -will empirically continue antibiotics as ceftriaxone and doxycycline for now, await this admission blood cultures -start solumedrol Ixpzu-2-sapaelldpii deficiency on weekly prolastin infusion therapy has chest port placed recently in November 2018 for IV access for infusions DVT ppx: continue home dose Xarelto Code Status: DNR/DNI as per my discussion with patient in the ED next of kin is sister Darleen [phone] History of Present Illness Primary Care Provider: Daly Brasher MD This is a patient with COPD/interstitial lungs disease and Hqdef-2-kscohhqyygk deficiency on prolastin, with chronic respiratory failure with hypoxia, with atrial fibrillation on anticaogulation with Xarelto, who called ambulance on 11/30/18 presentation to emergency room for worsening shortness of breath and had increased home oxygen from 4 liter/min to 5 liters/min at home. Patient was found to be in atrial fibrillation with rapid ventricular response. Patient denies feeling palpitations or chest pains. He reports he has been off diltiazem medication for 3 days. Also noted in the past 2 to 3 days or poor oral intake and multiple episodes of diarrhea. Patient also reported subjective fevers at home. Patient denies abdominal pain or vomiting. Patient denies headache or lightheadedness. denies other symptoms on review of systems. Family history: patient reports mother and father had history of heart failure Allergies Allergy/AdvReac Type Severity Reaction Status Date / Time amoxicillin Allergy Intermediate itchy Verified 11/30/18 06:05 trazodone Allergy Mild RASH Verified 11/30/18 06:05 Home Medications Home Medications Medication Instructions Recorded Confirmed Type Breo Ellipta 1 inh INHALATION DAILY 06/01/18 11/30/18 History Esbriet 267 mg PO TID 06/01/18 11/30/18 History Prolastin-C 1 dose IV WK 06/01/18 11/30/18 History Xarelto 20 mg PO DAILY 06/01/18 11/30/18 History albuterol sulfate [Ventolin HFA] 2 puff INHALATION QID PRN 06/01/18 11/30/18 History Spiriva Respimat 1 puff INHALATION DAILY 10/14/18 11/30/18 History loperamide [Imodium A-D] 2 mg PO UD PRN 10/14/18 11/30/18 History diltiazem HCl [Cardizem CD] 360 mg PO HS 11/20/18 11/30/18 History fluticasone propionate [Flonase 1 spray INTRANASAL BID 11/20/18 11/30/18 History Allergy Relief] prednisone 10 mg PO QAM 11/20/18 11/30/18 History hydrocodone-acetaminophen [[place]] 1 - 2 tab PO Q4H PRN #7 tab 11/22/18 11/30/18 Rx albuterol sulfate 2.5 mg INHALATION QID PRN 11/30/18 11/30/18 History Past Med/Surg History Medical History Chkyk-[id number] deficiency Anxiety Asthma Atrial fibrillation ON XARELTO Atrial flutter COPD (chronic obstructive pulmonary disease) Chronic back pain Chronic neck pain Depression History of pneumothorax VATS WITH BLEB RESECTION S/P SPONTANEOUS PNEUMOTHORAX (2010) IPF (idiopathic pulmonary fibrosis) ON CHRONIC STEROIDS 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 Beliefs That Will Affect Care: None Current Living Situation: Alone current occupational status: employed Other Information That Helps Us Care for You: No Feels Safe at Home: Yes Safety Concerns: Feels Safe At This Time Smoking Status: Former smoker Hx Alcohol Use: Yes Hx Substance Use: No Review of Systems All systems reviewed & are unremarkable except as noted in HPI & below Respiratory: + dyspnea Gastrointestinal: + diarrhea/loose stools decreased oral intake Physical Exam Vital Signs (Past 24 Hours): Last Vital Signs Temp 37.1 C 11/30/18 05:45 Pulse 135 H 11/30/18 07:31 Resp 45 H 11/30/18 07:31 BP 107/73 11/30/18 07:31 Pulse Ox 86 L 11/30/18 07:31 Constitutional: + ill appearing Eyes: PERRL, conjunctivae normal, anicteric sclerae EOM intact bilaterally ENMT: external ear and nose normal, oropharynx normal Neck: trachea midline, no thyromegaly Respiratory: + labored breathing and + tachypneic Auscultation: + crackles Cardiovascular: Rate/Rhythm: + tachycardic (atrial fibrillation) Gastrointestinal (Abdomen): normal bowel sounds, soft, nontender, no hepatosplenomegaly Musculoskeletal: Head/Neck/Chest: normocephalic and head atraumatic Neurologic: PERRL, EOMI, accommodation nl, no face palsy, no dysarthria CN's II-XI intact bilaterally Psychiatric: A+Ox3, euthymic affect
[2018-11-30] MEDS: METOPROLOL TARTRATE 25 MG TAB PO SCH ×3 (11:13→19:59)
[2018-11-30] MEDS: RIVAROXABAN 20 MG TAB PO SCH (11:14)
[2018-11-30] MEDS: SODIUM CHLORIDE 0.9% 1000ML 1,000 ML IV SCH ×2 (11:15→15:55)
[2018-11-30] MEDS: methylPREDNISolone 40 MG in SYRINGE 0 ML IV SCH ×2 (11:16→17:22)
[2018-11-30] MEDS: GUAIFENESIN/CODEINE 100MG/10MG 5ML UDC PO PRN ×2 (12:55→19:59)
[2018-11-30] MEDS: LEVALBUTEROL 1.25MG/0.5ML NEB NEB SCH ×2 (14:29→19:16)
[2018-11-30 15:30] LABS: Appearance Urine Clear (Clear); Bacteria Urine Automated Negative (Negative); Blood Urine Negative (Negative); Cast Urine Automated 0 /lpf (0-5); Color Urine Orange; Epithelial Cell Urine Auto 0-5 /lpf (0-5); Glucose Urine UA Negative (Negative); Ketones Urine Trace (Negative); Leukocyte Esterase Urine Negative (Negative); Nitrite Urine Positive (Negative); Protein Urine Negative (Negative); RBC Urine Automated 0-4 /hpf (0-4); Specific Gravity Urine 1.028 (1.000-1.030); Urobilinogen Urine Negative (Negative)
[2018-11-30 15:44] LABS: Bilirubin Urine Negative (Negative); Ictotest Urine Negative (Negative)
--- NOTE | 2018-11-30 16:53 | Cardiology Consultation ---
Date of Consultation November 30, 2018 Assessment & Plan (1) Atrial fibrillation with RVR: Patient has permanent atrial fibrillation. In the past he also had atrial flutter but did undergo catheter based therapy for that arrhythmia. In the outpatient setting he has been maintained on diltiazem for rate control. There has always been some debate as to the adequacy of his rate control and medication. There has also been some discussion recently regarding a change in medication due to perceived lower extremity edema. I suspect the high ventricular rates we are seeing currently are multifactorial. Clearly he has not been taking his medicines for few days. He also has an element of dehy dration and hyperadrenergic state possibly secondary to a viral infection. I would agree with rehydration and attempts at rate control. Diltiazem infusion would be reasonable. Currently he is also scheduled for metoprolol on a t.i.d. basis. This can be titrated according to heart rates and eventually transition to a long-acting agent. In the outpatient setting he was maintained on Xarelto for stroke prophylaxis. This can be continued in the inpatient setting. History of Present Illness Reason for Consultation: Atrial fibrillation Requesting Physician: Lance Attending Physician: Eloy Lucas MD History of Present Illness The patient is a 50-year-old gentleman with a history of significant lung disease to include interstitial lung disease, alpha 1 antitrypsin deficiency and mycobacterium avium complex. He also has a history of atrial fibrillation and treatment with rate control. Patient states that for the past several days he has been experiencing severe diarrhea. Patient states that he feels as if he is dehydrated because he has had frequent watery stools and has difficulty keeping up with hydration. His appetite has been poor. He has felt weak as result. At the time of his initial evaluation today by a visiting nurse and subsequently EMS he was also noted to be febrile. It seems that the patient also ran out of some medications including diltiazem recently. He has not been able to refill those prescriptions due to his current illness. When he is feeling at his baseline he is severely short of breath. He uses supplemental oxygen at 4 liters/minute daily. He has difficulty in performing routine activities without significant shortness of breath. He generally is not aware of rapid heartbeats. He has not been describing dizziness or l ightheadedness. He has had some lower extremity edema which she feels may be related to diltiazem. Currently his lower extremity edema is nearly resolved. Allergies Allergy/AdvReac Type Severity Reaction Status Date / Time amoxicillin Allergy Intermediate itchy Verified 11/30/18 06:05 trazodone Allergy Mild RASH Verified 11/30/18 06:05 Home Medications Home Medications Medication Instructions Recorded Confirmed Type Breo Ellipta 1 inh INHALATION DAILY 06/01/18 11/30/18 History Esbriet 267 mg PO TID 06/01/18 11/30/18 History Prolastin-C 1 dose IV WK 06/01/18 11/30/18 History Xarelto 20 mg PO DAILY 06/01/18 11/30/18 History albuterol sulfate [Ventolin HFA] 2 puff INHALATION QID PRN 06/01/18 11/30/18 History Spiriva Respimat 1 puff INHALATION DAILY 10/14/18 11/30/18 History loperamide [Imodium A-D] 2 mg PO UD PRN 10/14/18 11/30/18 History diltiazem HCl [Cardizem CD] 360 mg PO HS 11/20/18 11/30/18 History fluticasone propionate [Flonase 1 spray INTRANASAL BID 11/20/18 11/30/18 History Allergy Relief] prednisone 10 mg PO QAM 11/20/18 11/30/18 History hydrocodone-acetaminophen [[place]] 1 - 2 tab PO Q4H PRN #7 tab 11/22/18 11/30/18 Rx albuterol sulfate 2.5 mg INHALATION QID PRN 11/30/18 11/30/18 History Patient History Medical History Ttqlz-[id number]-[id number] deficiency Anxiety Asthma Atrial fibrillation ON XARELTO Atrial flutter COPD (chronic obstructive pulmonary disease) Chronic back pain Chronic neck pain Depression History of pneumothorax VATS WITH BLEB RESECTION S/P SPONTANEOUS PNEUMOTHORAX (2010) IPF (idiopathic pulmonary fibrosis) ON CHRONIC STEROIDS 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 6LPM VIA N/C WITH ACTIVITY AND PRN Transient ischemic attack (TIA) 6 YEARS AGO Surgical History History of cardiac radiofrequency ablation History of colonoscopy History of discectomy LUMBAR History of herniorrhaphy BILATERAL INGUINAL HERNIA REPAIRS History of lung surgery VATS WITH BLEB RESECTION S/P SPONTANEOUS PNEUMOTHORAX (2010) History of total hip arthroplasty LEFT Family History Mother Diabetes Grandmother (Maternal) Diabetes Grandfather (Maternal) Diabetes Aunt Diabetes Uncle Diabetes Other Heart disease Social History Preferred Language: [place] Communication Ability: Effective 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 Pertinent positives known history of present illness. No reports of chest discomfort. Physical Exam Vital Signs (Past 24 Hours): Last Vital Signs Temp 36.5 C 11/30/18 15:28 Pulse 97 H 11/30/18 15:28 Resp 23 11/30/18 15:28 BP 95/63 L 11/30/18 15:28 Pulse Ox 90 11/30/18 15:28 Physical Exam: The patient is alert and oriented. Mood and affect appeared normal. He answered all questions appropriately. Tachypneic, using supplemental oxygen HEENT: Pupils are equal and reactive to light and accommodation. Extraocular movements are intact. The sclerae are anicteric. Neuro: Cranial nerves intact Neck: Patient's neck is supple. He has palpable carotid pulses bilaterally without bruits on auscultation. There is no evidence of jugular venous distention. The thyroid is not enlarged. Lungs: Crackles throughout all lung leonard. Increased respiratory effort. Poor excursion. Some expiratory wheezing. Cardiac: Heart demonstrates an irregular rate and rhythm. Normal S1 and S2. No murmurs on examination. Pulses: The patient has palpable radial pulses bilaterally that are equal in intensity Extremities: There was no evidence of hypoperfusion. There is no cyanosis or clubbing. Minimal lower extremity edema. Skin: I did not appreciate any rashes on examination today. Results & Data Laboratory Results Abnormal Lab Results 11/30/18 11/30/18 11/30/18 05:58 05:58 05:58 WBC 12.96 H RBC 4.36 L Hgb 13.9 L Hct 41.1 L MCV 94.3 MCH 31.9 MCHC 33.8 RDW Std Deviation 50.7 H RDW Coeff of Melinda 14.8 H Plt Count 218 MPV 8.8 Immature Gran % (Auto) 0.3 Neut % (Auto) 85.8 Lymph % (Auto) 5.5 [place] % (Auto) 7.8 Eos % (Auto) 0.5 Baso % (Auto) 0.1 Immature Gran # (Auto) 0.04 H Neut # (Auto) 11.13 H Lymph # (Auto) 0.71 L [place] # (Auto) 1.01 H Eos # (Auto) 0.06 Baso # (Auto) 0.01 PT 12.2 H INR 1.2 H APTT 27.6 PTT Ratio 1.0 Sodium 136 Potassium 3.7 Chloride 106 Carbon Dioxide 22 Anion Gap 8.0 BUN 27 H Creatinine 1.22 Est Cr Clr Drug Dosing 80.4 Est GFR ( Amer) 75.3 Est GFR (Non-Af Amer) 64.9 BUN/Creatinine Ratio 22.5 H Glucose 83 Calcium 9.0 Magnesium 2.0 Total Bilirubin 3.3 H AST 26 ALT 19 Alkaline Phosphatase 130 H Total Protein 6.0 L Albumin 2.7 L Globulin 3.3 Albumin/Globulin Ratio 0.8 L Procalcitonin TSH Urine Color Urine Appearance Urine pH Ur Specific [place] Urine Protein Urine Glucose (UA) Urine Ketones Urine Blood Urine Nitrite Urine Bilirubin Urine Urobilinogen Ur Leukocyte Esterase Urine WBC (Auto) Urine RBC (Auto) U Hyaline Cast (Auto) U Epithel Cells (Auto) Urine Bacteria (Auto) Influenza Type A (PCR) Influenza Type B (PCR) 11/30/18 11/30/18 11/30/18 05:58 05:58 06:37 WBC RBC Hgb Hct MCV MCH MCHC RDW Std Deviation RDW Coeff of Melinda Plt Count MPV Immature Gran % (Auto) Neut % (Auto) Lymph % (Auto) [place] % (Auto) Eos % (Auto) Baso % (Auto) Immature Gran # (Auto) Neut # (Auto) Lymph # (Auto) [place] # (Auto) Eos # (Auto) Baso # (Auto) PT INR APTT PTT Ratio Sodium Potassium Chloride Carbon Dioxide Anion Gap BUN Creatinine Est Cr Clr Drug Dosing Est GFR ( Amer) Est GFR (Non-Af Amer) BUN/Creatinine Ratio Glucose Calcium Magnesium Total Bilirubin AST ALT Alkaline Phosphatase Total Protein Albumin Globulin Albumin/Globulin Ratio Procalcitonin 0.36 TSH 1.400 Urine Color Urine Appearance Urine pH Ur Specific [place] Urine Protein Urine Glucose (UA) Urine Ketones Urine Blood Urine Nitrite Urine Bilirubin Urine Urobilinogen Ur Leukocyte Esterase Urine WBC (Auto) Urine RBC (Auto) U Hyaline Cast (Auto) U Epithel Cells (Auto) Urine Bacteria (Auto) Influenza Type A (PCR) Neg for Influ A Influenza Type B (PCR) Neg for Influ B 11/30/18 14:05 WBC RBC Hgb Hct MCV MCH MCHC RDW Std Deviation RDW Coeff of Melinda Plt Count MPV Immature Gran % (Auto) Neut % (Auto) Lymph % (Auto) [place] % (Auto) Eos % (Auto) Baso % (Auto) Immature Gran # (Auto) Neut # (Auto) Lymph # (Auto) [place] # (Auto) Eos # (Auto) Baso # (Auto) PT INR APTT PTT Ratio Sodium Potassium Chloride Carbon Dioxide Anion Gap BUN Creatinine Est Cr Clr Drug Dosing Est GFR ( Amer) Est GFR (Non-Af Amer) BUN/Creatinine Ratio Glucose Calcium Magnesium Total Bilirubin AST ALT Alkaline Phosphatase Total Protein Albumin Globulin Albumin/Globulin Ratio Procalcitonin TSH Urine Color [place] Urine Appearance Clear Urine pH 5.0 Ur Specific [place] 1.028 Urine Protein Negative Urine Glucose (UA) Negative Urine Ketones Trace H Urine Blood Negative Urine Nitrite Positive H Urine Bilirubin Negative Urine Urobilinogen Negative Ur Leukocyte Esterase Negative Urine WBC (Auto) 1-5 Urine RBC (Auto) 0-4 U Hyaline Cast (Auto) 0 U Epithel Cells (Auto) 0-5 Urine Bacteria (Auto) Negative Influenza Type A (PCR) Influenza Type B (PCR) Diagnostic Findings Chest x-ray obtained the time admission suggest either interstitial lung disease or pulmonary edema Echocardiogram obtained 10/2018 revealed preserved LV systolic function. There was evidence of right ventricular enlargement ECG Additional Comments: Atrial fibrillation rapid ventricular response
[2018-11-30 17:48] LABS: Allen Test Pos (Pos); HCO3 ABG 21 mmol/L (19-24); Oxygen Saturation ABG 96.6 % (90-95); PCO2 ABG 31 mmHg (35-46); PO2 ABG 84 mm/Hg (80-95); pH ABG 7.44 (7.35-7.45)
[2018-11-30] MEDS: DOXYCYCLINE HYCLATE 100 MG CAP PO SCH (19:59)
[2018-12-01] MEDS: LEVALBUTEROL 1.25MG/0.5ML NEB NEB SCH ×4 (01:45→20:57)
[2018-12-01] MEDS: methylPREDNISolone 40 MG in SYRINGE 0 ML IV SCH ×3 (01:54→18:23)
[2018-12-01] MEDS: SODIUM CHLORIDE 0.9% 1000ML 1,000 ML IV SCH ×2 (04:25→16:54)
[2018-12-01] MEDS: BENZONATATE 100 MG CAPSULE PO PRN ×3 (04:26→13:35)
[2018-12-01] MEDS: GUAIFENESIN/CODEINE 100MG/10MG 5ML UDC PO PRN ×2 (04:28→12:42)
[2018-12-01] MEDS: METOPROLOL TARTRATE 25 MG TAB PO SCH ×3 (08:20→20:27)
[2018-12-01] MEDS: RIVAROXABAN 20 MG TAB PO SCH (08:20)
[2018-12-01] MEDS: DOXYCYCLINE HYCLATE 100 MG CAP PO SCH ×2 (08:22→20:27)
[2018-12-01] MEDS ORDERED: cefTRIAXone SODIUM 1,000 MG in DEXTROSE 5% 50 ML IV SCH (09:00)
[2018-12-01 09:15] LABS: Hematocrit (blood only) 41.9 % (42-52); Hemoglobin 14.1 g/dL (14.0-18.0); Immature Granulocytes # (auto) 0.02 K/uL (0.00-0.02); Immature Granulocytes % (auto) 0.3 %; Lymphocytes # (auto) 0.35 K/uL (1.2-3.4); Lymphocytes % (auto) 5.3 %; Mean Corpuscular Hgb Conc 33.7 g/dL (32-36); Mean Corpuscular Volume 94.4 fL (80-100); Mean Platelet Volume 8.8 fL (7.4-10.4); Monocytes # (auto) 0.33 K/uL (0.11-0.59); Neutrophils # (auto) 5.88 K/uL (1.4-6.5); Neutrophils % (auto) 89.4 %; Platelet Count 202 K/uL (130-400); RDW Coefficient of Variation 14.5 % (11.5-14.5); Red Blood Count 4.44 M/uL (4.7-6.1); White Blood Count 6.58 K/uL (4.8-10.8)
[2018-12-01 09:33] LABS: Albumin Level 2.8 gm/dl (3.4-5.0); BUN Creatinine Ratio 22.3 (10-20); Calcium 9.3 mg/dl (8.5-10.1); Creatinine Clr Calc Pharmacy 101.6 ml/min; Est GFR (African American) 101.9; Est GFR (Non-African American) 87.9; Potassium 3.7 mmol/L (3.5-5.1)
[2018-12-01 09:36] LABS: Albumin Globulin Ratio 0.8 (0.9-2); Bilirubin,Total 1.6 mg/dl (0.2-1); Globulin 3.6 gm/dl (2.5-4.0); Total Protein 6.4 gm/dl (6.4-8.2)
--- NOTE | 2018-12-01 13:57 | Hospitalist Progress Note ---
Date of Service December 01, 2018 Assessment & Plan (1) Atrial fibrillation with RVR: 11/30/18 -atrial fibrillation with rapid ventricular response likely due to medication nonadherence -patient reported that he ran out of diltiazem 360 mg daily and did not get refills from outpatient providers; patient also noted that he felt the diltiazem correlated with feet swelling and he wanted to transition to some other rate control medications but that was not started -patient was given IV diltiazem in the ambulance, also got IV diltiazem in the ED -hospitalist provider ordered 180 mg diltiazem orally to give in the ED before patient comes up to telemetry [place] -will place patient on metoprolol 12.5 mg TID and also prn metoprolol 5 mg q6 hours IV for heart rate above 110 bpm -continue with patient's home dose Xarelto for anticoagulation -have discussed these plans with [facility] cardiology service -other contributions to atrial fibrillation with RVR may be dehydration as patient reports poor oral appetite and diarrhea in the past 2 to 3 days; continue IV fluids 12/01/18; continues to have atrial fibrillation but it is in low 100s to high 90s which is better than admission day while on diltiazem 180 mg daily and metoprolol 12.5mg TID Diarrhea -denies recent atibiotic use -Cdifficile studies pending Chronic respiratory failure with hypoxia -at home patient is on 4 liter/min of oxygen -continue oxygen supplementation -currently on 8 liters/min COPD/interstitial lungs disease, subjective fever -place on Xopenex scheduled treatments -was treated with antibiotics of IV ceftriaxone and Doxycycline on October 2018 admission -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 but has not been started yet on antibiotics by outpatient [facility] Pulmonary clinic -because a full treatment of Mycobaterium pulmonary disease requires weeks to months of azithromycin, rifampin, ethambutol of therapy and requires outpatient compliance, I would not start this treatment for now and commit patient to this therapy at this time -will empirically continue antibiotics as ceftriaxone and doxycycline for now, await this admission blood cultures -start solumedrol 12/01/18; continuing antibiotics and solumedrol 40 mg IV q8 hours Wsctp-5-uaiymqfrstt deficiency on weekly prolastin infusion therapy has chest port placed recently in November 2018 for IV access for infusions DVT ppx: continue home dose Xarelto Code Status: DNR/DNI as per my discussion with patient in the ED next of kin is sister Darleen [phone] Disposition 12/01/18: Patient discussed that he would like to have [facility] to take over his care because his specialist doctors such as pulmonary service and cardiology service are from [facility] Subjective Today patient's respiratory effort appears improved. He continues to have atrial fibrillation but it is in low 100s to high 90s which is better than admission day. Continues to have oxygen requirements. Patient had desaturation when attempting to take a bath while on. Patient denies chest pain or lightheadedness. Patient discussed that he would like to have [facility] to take over his care because his specialist doctors such as pulmonary service and cardiology service are from [facility] These [facility]. Dr. Singleton reports that a [facility] physician will be assigned to the patient's care Physical Exam Vital Signs (Past 24 Hours): Last Vital Signs Temp 36.5 C 12/01/18 11:22 Pulse 94 H 12/01/18 11:22 Resp 16 12/01/18 11:22 BP 111/67 12/01/18 11:22 Pulse Ox 94 12/01/18 11:22 Constitutional: + ill appearing Eyes: PERRL, conjunctivae normal, anicteric sclerae EOM intact bilaterally ENMT: external ear and nose normal, oropharynx normal Neck: trachea midline, no thyromegaly Respiratory: normal respiratory effort Auscultation: + crackles Cardiovascular: Rate/Rhythm: + tachycardic (atrial fibrillation) Gastrointestinal (Abdomen): normal bowel sounds, soft, nontender, no hepatosplenomegaly Musculoskeletal: Head/Neck/Chest: normocephalic and head atraumatic Neurologic: PERRL, EOMI, accommodation nl, no face palsy, no dysarthria CN's II-XI intact bilaterally Psychiatric: A+Ox3, euthymic affect
--- NOTE | 2018-12-01 14:32 | Cardiology Progress Note ---
Date of Service December 01, 2018 Assessment & Plan (1) Atrial fibrillation with RVR: Patient has permanent atrial fibrillation. With hydration reinstitution of medical therapy his heart rates appear to be improved. He is not overtly aware of the arrhythmia. I do not believe most of his pulmonary symptoms are related to the high ventricular rates, in fact, the opposite is likely. He has been concerned about lower extremity edema on diltiazem. I think we can discontinue his diltiazem altogether and titrate his beta-blockers upward. We can continue with short-acting tartrate switching to a long-acting preparation of the time of discharge. He will continue on rivaroxaban. Subjective Shortly before my interview the patient had a presyncopal episode. This was in the setting of a coughing spell. He was returned to bed and is currently feeling better. He continues to have significant shortness of breath especially with activity. He denies a sense of palpitation. No symptoms of chest discomfort. Physical Exam Vital Signs (Past 24 Hours): Last Vital Signs Temp 36.5 C 12/01/18 11:22 Pulse 96 H 12/01/18 14:01 Resp 20 12/01/18 14:01 BP 111/67 12/01/18 11:22 Pulse Ox 88 L 12/01/18 14:01 Physical Exam: The patient is alert and oriented. Mood and affect appeared normal. He answered all questions appropriately. Using supplemental oxygen HEENT: Pupils are equal and reactive to light and accommodation. Extraocular movements are intact. The sclerae are anicteric. Neuro: Cranial nerves intact Neck: Patient's neck is supple. He has palpable carotid pulses bilaterally without bruits on auscultation. There is no evidence of jugular venous distention. The thyroid is not enlarged. Lungs: Diffuse crackles throughout both lung leonard. Normal respiratory effort. No expiratory wheezing. Cardiac: Heart demonstrates an irregular rate and rhythm. Normal S1 and S2. No murmurs on examination. Pulses: The patient has palpable radial pulses bilaterally that are equal in intensity Extremities: There was no evidence of hypoperfusion. There is no cyanosis or clubbing. Trace lower extremity edema. Skin: I did not appreciate any rashes on examination today. Results & Data Laboratory Results Abnormal Lab Results 11/30/18 11/30/18 11/30/18 05:58 14:05 17:36 WBC RBC Hgb Hct MCV MCH MCHC RDW Std Deviation RDW Coeff of Melinda Plt Count MPV Immature Gran % (Auto) Neut % (Auto) Lymph % (Auto) [place] % (Auto) Eos % (Auto) Baso % (Auto) Immature Gran # (Auto) Neut # (Auto) Lymph # (Auto) [place] # (Auto) Eos # (Auto) Baso # (Auto) ABG pH 7.44 ABG pCO2 31 L ABG pO2 84 ABG HCO3 21 ABG O2 Saturation 96.6 H ABG Base Excess -2.5 Ricco Test Pos Barometric Pressure 722.2 Oxygen Given 15L Sodium Potassium Chloride Carbon Dioxide Anion Gap BUN Creatinine Est Cr Clr Drug Dosing Est GFR ( Amer) Est GFR (Non-Af Amer) BUN/Creatinine Ratio Glucose Calcium Total Bilirubin AST ALT Alkaline Phosphatase Total Protein Albumin Globulin Albumin/Globulin Ratio Urine Color [place] Urine Appearance Clear Urine pH 5.0 Ur Specific [place] 1.028 Urine Protein Negative Urine Glucose (UA) Negative Urine Ketones Trace H Urine Blood Negative Urine Nitrite Positive H Urine Bilirubin Negative Urine Urobilinogen Negative Ur Leukocyte Esterase Negative Urine WBC (Auto) 1-5 Urine RBC (Auto) 0-4 U Hyaline Cast (Auto) 0 U Epithel Cells (Auto) 0-5 Urine Bacteria (Auto) Negative Bld Cult Staph aureus PCR Negative Blood Culture MRSA PCR Negative 12/01/18 12/01/18 08:55 08:55 WBC 6.58 RBC 4.44 L Hgb 14.1 Hct 41.9 L MCV 94.4 MCH 31.8 MCHC 33.7 RDW Std Deviation 50.0 H RDW Coeff of Melinda 14.5 Plt Count 202 MPV 8.8 Immature Gran % (Auto) 0.3 Neut % (Auto) 89.4 Lymph % (Auto) 5.3 [place] % (Auto) 5.0 Eos % (Auto) 0.0 Baso % (Auto) 0.0 Immature Gran # (Auto) 0.02 Neut # (Auto) 5.88 Lymph # (Auto) 0.35 L [place] # (Auto) 0.33 Eos # (Auto) 0.00 Baso # (Auto) 0.00 ABG pH ABG pCO2 ABG pO2 ABG HCO3 ABG O2 Saturation ABG Base Excess Ricco Test Barometric Pressure Oxygen Given Sodium 139 Potassium 3.7 Chloride 110 H Carbon Dioxide 23 Anion Gap 6.0 BUN 21 H Creatinine 0.95 Est Cr Clr Drug Dosing 101.6 Est GFR ( Amer) 101.9 Est GFR (Non-Af Amer) 87.9 BUN/Creatinine Ratio 22.3 H Glucose 169 H Calcium 9.3 Total Bilirubin 1.6 H D AST 27 ALT 24 Alkaline Phosphatase 136 H Total Protein 6.4 Albumin 2.8 L Globulin 3.6 Albumin/Globulin Ratio 0.8 L Urine Color Urine Appearance Urine pH Ur Specific [place] Urine Protein Urine Glucose (UA) Urine Ketones Urine Blood Urine Nitrite Urine Bilirubin Urine Urobilinogen Ur Leukocyte Esterase Urine WBC (Auto) Urine RBC (Auto) U Hyaline Cast (Auto) U Epithel Cells (Auto) Urine Bacteria (Auto) Bld Cult Staph aureus PCR Blood Culture MRSA PCR ECG Additional Comments: Permanent atrial fibrillation with borderline control of his ventricular rates
--- NOTE | 2018-12-01 16:30 | History & Physical Report ---
Date of Service December 01, 2018 Assessment & Plan (1) Atrial fibrillation with RVR: atrial fibrillation with rapid ventricular response likely due to medication nonadherence - Per cardiology - discontinue his diltiazem altogether due to patient's leg swelling and titrate his beta-blockers upward. -continue with patient's home dose Xarelto for anticoagulation -other contributions to atrial fibrillation with RVR may be dehydration as patient reports poor oral appetite and diarrhea in the past 2 to 3 days; continue NSS 80 ml/hr - consult cardiology (2) Eypjb-6-dgtpljboent deficiency: on weekly prolastin infusion therapy has chest port placed recently in November 2018 for IV access for infusions (3) Respiratory failure, acute and chronic: secondary to COPD, interstitial lung disease, MAC infection - continue doxycycline, ceftriaxone until BC resulted - currently one vial growing gram positive cocci - titrate oxygen per protocol - chronic wears 4L NC - Solumedrol 40 mg IV q8h - nebs, guafenisin/codeine, tessalon pearls - patient does have a port but has not start MAC treatments - will defer to pulmonology on starting these here vs outpatient - history of positive PPD 1993 with 6 months INH - 2017 negative quantiferon gold negative - consult pulmonology (4) Dehydration: secondary to diarrhea and poor po intake which has now resolved. continue IVF (5) Hx-TIA (transient ischemic attack): 2011 (6) Restless leg syndrome: 300 mg hs gabapentin (7) DVT prophylaxis: Xeralto History of Present Illness Chief Complaint: Dyspnea Primary Care Provider: Daly Brasher MD Mr Douglas's main complaint is worsening sob. He arrived on 11/30/18 having had to increase his chronic O2 from 4L to 5L. He has a history of COPD/interstitial lungs disease and Exzkl-6-tgbfmxvrnde deficiency on prolastin, , who called ambulance on 11/30/18 presentation to emergency room for worsening shortness of breath and had increased home oxygen from 4 liter/min to 5 liters/min at home. Patient was found to be in atrial fibrillation with rapid ventricular response at that time but did not have any palpitations or chest pain though he says normally he can feel it if he goes into A. fib . He had been off diltiazem for 3 days. Also noted in the past 2 to 3 days or poor oral intake and multiple episodes of diarrhea which have resolved at this point. Patient also reported subjective fevers at home. He requests to change service from [facility] to [facility] and gave me permission to take over his care. Other Pmhx: chronic respiratory failure with hypoxia, atrial fibrillation on anticaogulation with Xarelto, restless leg, Family history: patient reports mother and father had history of heart failure Allergies Allergy/AdvReac Type Severity Reaction Status Date / Time amoxicillin Allergy Intermediate itchy Verified 11/30/18 06:05 trazodone Allergy Mild RASH Verified 11/30/18 06:05 Home Medications Home Medications Medication Instructions Recorded Confirmed Type Breo Ellipta 1 inh INHALATION DAILY 06/01/18 11/30/18 History Esbriet 267 mg PO TID 06/01/18 11/30/18 History Prolastin-C 1 dose IV WK 06/01/18 11/30/18 History Xarelto 20 mg PO DAILY 06/01/18 11/30/18 History albuterol sulfate [Ventolin HFA] 2 puff INHALATION QID PRN 06/01/18 11/30/18 History Spiriva Respimat 1 puff INHALATION DAILY 10/14/18 11/30/18 History loperamide [Imodium A-D] 2 mg PO UD PRN 10/14/18 11/30/18 History diltiazem HCl [Cardizem CD] 360 mg PO HS 11/20/18 11/30/18 History fluticasone propionate [Flonase 1 spray INTRANASAL BID 11/20/18 11/30/18 History Allergy Relief] prednisone 10 mg PO QAM 11/20/18 11/30/18 History hydrocodone-acetaminophen [[place]] 1 - 2 tab PO Q4H PRN #7 tab 11/22/18 11/30/18 Rx albuterol sulfate 2.5 mg INHALATION QID PRN 11/30/18 11/30/18 History Past Med/Surg History Medical History Shttc-3-svsiiqnkxig deficiency Anxiety Asthma Atrial fibrillation ON XARELTO Atrial flutter COPD (chronic obstructive pulmonary disease) Chronic back pain Chronic neck pain Depression History of pneumothorax VATS WITH BLEB RESECTION S/P SPONTANEOUS PNEUMOTHORAX (2010) IPF (idiopathic pulmonary fibrosis) ON CHRONIC STEROIDS 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 Beliefs That Will Affect Care: None Current Living Situation: Alone current occupational status: employed Other Information That Helps Us Care for You: No Feels Safe at Home: Yes Safety Concerns: Feels Safe At This Time Smoking Status: Former smoker Hx Alcohol Use: Yes Hx Substance Use: No Physical Exam Vital Signs (Past 24 Hours): Last Vital Signs Temp 36.4 C L 12/01/18 15:53 Pulse 92 H 12/01/18 15:53 Resp 23 12/01/18 15:53 BP 113/64 12/01/18 15:53 Pulse Ox 92 12/01/18 15:53 Physical Exam: General: no distress Eyes: normal inspection, PERLL Respiratory: chest non tender, diminished lung sounds, mild labored breathing Cardiac: irregular rate and rhythm, no rub or gallop, no murmur, +2 pitting edema lower extremities GI/: active bowel sounds, no abd pain or tenderness, soft, non distended Extremities: normal range of motion, normal strength, non tender Neuro/Psych: alert and oriented x 3, normal mood and affect Skin: normal color, dry Results & Data Laboratory Results Abnormal lab results 11/30/18 12/01/18 12/01/18 Range/Units 17:36 08:55 08:55 RBC 4.44 L (4.7-6.1) M/uL Hct 41.9 L (42-52) % RDW Std Deviation 50.0 H (36.4-46.3) fL Lymph # (Auto) 0.35 L (1.2-3.4) K/uL ABG pCO2 31 L (35-46) mmHg ABG O2 Saturation 96.6 H (90-95) % Chloride 110 H (98-107) mmol/L BUN 21 H (7-18) mg/dl BUN/Creatinine Ratio 22.3 H (10-20) Glucose 169 H (70-99) mg/dl Total Bilirubin 1.6 H D (0.2-1) mg/dl Alkaline Phosphatase 136 H (45-117) U/L Albumin 2.8 L (3.4-5.0) gm/dl Albumin/Globulin Ratio 0.8 L (0.9-2)
--- NOTE | 2018-12-01 18:29 | Pulmonary Consultation ---
Date of Consultation December 01, 2018 Assessment & Plan (1) Jtxhd-6-ccsndudxevq deficiency: Impression: 1. MEGAN by sputum, no growth yet, likely colonization not an infection. 2. 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 He was active smoker as well. He does have also heartburn that has not been treated for GERD. 3. Alpha-1 antitrypsin deficiency, currently on weekly infusion, I do not have information about his phenotype such as PIZZ or PIMZ. 4. COPD, with emphysematous changes. 5. Hemoptysis, secondary to anticoagulation. 6. Progressive acute on chronic hypoxic respiratory failure, Related to A. fib with poor RVR. 7.Undiagnosed GERD. Plan: 1. No urgency to start treatment for MEGAN, treatment should be with triple therapy and 3 times a week for at least 2-5 years. Part of the treatment is rifampin, concerns for patient with alpha-1 antitrypsin deficiency and progression of liver cirrhosis. 2. No evidence of active hemoptysis, continue with Xarelto. 3. The patient declined lung biopsy for confirmatory diagnosis given his diffuse airspace disease, however, it is risky at this point. 4. Continue bronchodilators and systemic steroids. 5. Continue Prolastin infusion per schedule, last dose was given yesterday on 11/30/2018. 6. Evaluation for the bacteremia, awaiting identification. 7. Titrate oxygen to O2 sat 85-90% only. 8.Consider evaluation for lungs and liver transplant as an outpatient. Thank you History of Present Illness Reason for Consultation: MEGAN infection and MEGAN infection Requesting Physician: Jaylene Robles Attending Physician: Eloy Lucas MD History of Present Illness Dear Jaylene: Thank you for the kind referral of Mr. Rachel pulmonary service. This is 58-year-old gentleman with a history of pulmonary fibrosis diagnosed 18 months ago, has been treated with pirfenidone as an outpatient, which he had to stop the medication due to loss of insurance for a month, history of alpha-1 antitrypsin, which I do not have thePhenotype for it. The patient was started on Prolastin treatment for the past 17 months as well. He received weekly infusion. The patient recently presented to the hospital with the need for Port-A-Cath which was placed, and returned back again to the hospital with increasing shortness of breath accompanied with cough and blood-tinged sputum. Previous workup showed that his hemoptysis is related to Xarelto. He does have also history of A. fib and he takes diltiazem for rate control. The patient has shortness of breath with walking less than a block. He did not have any chest pain. He has been using 5 L of oxygen on a regular basis using nasal cannula and alternating with oxygen mask. He did not have any orthopnea no nocturnal symptoms. He had a history of heartburn that has been persistent but not treated. No abdominal pain, in fact he had significant diarrhea that has presented for the past 24 hours. He had his last infusion of Prolastin 24 hours ago. The patient did not have any similar symptoms in the past. This is the first time he has been having diarrhea, shortness of breath has been progressing for the past 18 months. Allergies Allergy/AdvReac Type Severity Reaction Status Date / Time amoxicillin Allergy Intermediate itchy Verified 11/30/18 06:05 trazodone Allergy Mild RASH Verified 11/30/18 06:05 Home Medications Home Medications Medication Instructions Recorded Confirmed Type Breo Ellipta 1 inh INHALATION DAILY 06/01/18 11/30/18 History Esbriet 267 mg PO TID 06/01/18 11/30/18 History Prolastin-C 1 dose IV WK 06/01/18 11/30/18 History Xarelto 20 mg PO DAILY 06/01/18 11/30/18 History albuterol sulfate [Ventolin HFA] 2 puff INHALATION QID PRN 06/01/18 11/30/18 History Spiriva Respimat 1 puff INHALATION DAILY 10/14/18 11/30/18 History loperamide [Imodium A-D] 2 mg PO UD PRN 10/14/18 11/30/18 History diltiazem HCl [Cardizem CD] 360 mg PO HS 11/20/18 11/30/18 History fluticasone propionate [Flonase 1 spray INTRANASAL BID 11/20/18 11/30/18 History Allergy Relief] prednisone 10 mg PO QAM 11/20/18 11/30/18 History hydrocodone-acetaminophen [[place]] 1 - 2 tab PO Q4H PRN #7 tab 11/22/18 11/30/18 Rx albuterol sulfate 2.5 mg INHALATION QID PRN 11/30/18 11/30/18 History Patient History Medical History Prrxc-7-hblimkxdcpe deficiency Anxiety Asthma Atrial fibrillation ON XARELTO Atrial flutter COPD (chronic obstructive pulmonary disease) Chronic back pain Chronic neck pain Depression History of pneumothorax VATS WITH BLEB RESECTION S/P SPONTANEOUS PNEUMOTHORAX (2010) IPF (idiopathic pulmonary fibrosis) ON CHRONIC STEROIDS 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 Physical Exam Vital Signs (Past 24 Hours): Last Vital Signs Temp 36.4 C L 12/01/18 15:53 Pulse 92 H 12/01/18 15:53 Resp 23 12/01/18 15:53 BP 113/64 12/01/18 15:53 Pulse Ox 92 12/01/18 15:53 Physical Exam: Vital signs are stable, S1-S2 regular rate and rhythm, A. fib, rate controlled, lungs with distant but clear to my exam except for scattered crackles, abdomen is benign, he had edema in the periphery, significant clubbing with cyanosis in the hands. Neurologically he is nonfocal. No skin changes. No oral lesion. Results & Data Laboratory Results Labs were reviewed,Negative for influenza A, and MRSA also was negative on this admission, blood cultures were positive with gram-positive cocci. Growth is pending. Diagnostic Findings I have reviewed his CAT scan of the chest which showed significant interstitial changes with diffuse groundglass opacities, multiple areas of if his mental changes consistent with a diagnosis of alpha-1 antitrypsin. Elevated liver enzymes including bilirubin also consistent with it. The patient does not have liver cirrhosis.
[2018-12-01] MEDS: LORazepam 0.5 MG TAB PO PRN (19:58)
[2018-12-01] MEDS: GABAPENTIN 300 MG CAP PO SCH (20:26)
[2018-12-02] MEDS: LEVALBUTEROL 1.25MG/0.5ML NEB NEB SCH ×4 (02:03→19:06)
[2018-12-02] MEDS: methylPREDNISolone 40 MG in SYRINGE 0 ML IV SCH ×3 (02:24→16:31)
[2018-12-02] MEDS: SODIUM CHLORIDE 0.9% 1000ML 1,000 ML IV SCH (05:14)
[2018-12-02 09:22] LABS: Albumin Level 2.9 gm/dl (3.4-5.0); BUN Creatinine Ratio 18.7 (10-20); Calcium 9.4 mg/dl (8.5-10.1); Creatinine Clr Calc Pharmacy 105.3 ml/min; Est GFR (African American) 104.5; Est GFR (Non-African American) 90.2
[2018-12-02] MEDS: METOPROLOL TARTRATE 25 MG TAB PO SCH ×3 (09:23→21:04)
[2018-12-02] MEDS: DOXYCYCLINE HYCLATE 100 MG CAP PO SCH (09:23)
[2018-12-02] MEDS: RIVAROXABAN 20 MG TAB PO SCH (09:23)
[2018-12-02] MEDS: GABAPENTIN 300 MG CAP PO SCH (09:24)
[2018-12-02 09:32] LABS: Albumin Globulin Ratio 0.9 (0.9-2); Bilirubin,Total 0.8 mg/dl (0.2-1); Globulin 3.3 gm/dl (2.5-4.0); Total Protein 6.2 gm/dl (6.4-8.2)
--- NOTE | 2018-12-02 11:56 | Hospitalist Progress Note ---
Date of Service December 02, 2018 Assessment & Plan (1) Atrial fibrillation with RVR: - Per cardiology - discontinue his diltiazem altogether due to patient's leg swelling and titrate his beta-blockers upward. -continue with patient's home dose Xarelto for anticoagulation - may have been partially due dehydration as patient reports poor oral appetite and diarrhea in the past 2 to 3 days before admission; discontinue NSS 80 ml/hr at this time for possible fluid overload given edema and increased O2 needs - consulted cardiology (2) Mlenk-1-dyrrtognmrf deficiency: on weekly prolastin infusion therapy has chest port placed recently in November 2018 for IV access for infusions (3) Respiratory failure, acute and chronic: secondary to COPD, interstitial lung disease, MAC infection - continue doxycycline, ceftriaxone until BC resulted - currently one vial growing gram positive cocci which may represent contaminant - titrate oxygen per protocol - chronic wears 4L NC - now requiring 13L - Continue Solumedrol 40 mg IV q8h - nebs, guafenisin/codeine, tessalon pearls - patient does have a port but has not start MAC treatments - will defer to pulmonology on starting these here vs outpatient - history of positive PPD 1993 with 6 months INH - 2017 negative quantiferon gold negative - consulted pulmonology - consulted palliative care for goals of care (4) Dehydration: secondary to diarrhea and poor po intake which has now resolved. discontinue IVF as above (5) Hx-TIA (transient ischemic attack): 2011 (6) Restless leg syndrome: 300 mg hs gabapentin , lorazepam prn (7) DVT prophylaxis: Xeralto Subjective Patient reports continued sob. Requiring 13L oxygen mask to support O2. Any coughing drops his saturations. No chest pain or palpitations. Heart rate 100- 150 on monitor. Review of Systems All systems reviewed & are unremarkable except as noted in HPI & below Physical Exam Vital Signs (Past 24 Hours): Last Vital Signs Temp 36.5 C 12/02/18 11:28 Pulse 104 H 12/02/18 11:28 Resp 18 12/02/18 11:28 BP 120/77 12/02/18 11:28 Pulse Ox 96 12/02/18 11:28 Physical Exam: General: no distress Eyes: normal inspection, PERLL Respiratory: chest non tender, clear to auscultation, normal breath sounds, no respiratory distress, no accessory muscle use Cardiac: regular rate and rhythm, no rub or gallop, no murmur, lower extremity edema GI/: active bowel sounds, no abd pain or tenderness, soft, non distended Extremities: normal range of motion, normal strength, non tender Neuro/Psych: alert and oriented x 3, normal mood and affect Skin: normal color, dry, clubbing of fingers Results & Data Laboratory Results Abnormal lab results 12/02/18 Range/Units 08:20 Chloride 111 H (98-107) mmol/L Glucose 109 H (70-99) mg/dl Alkaline Phosphatase 130 H (45-117) U/L Total Protein 6.2 L (6.4-8.2) gm/dl Albumin 2.9 L (3.4-5.0) gm/dl
[2018-12-02] MEDS ORDERED: FUROSEMIDE 40 MG/4 ML VIAL IV ONE (11:57)
[2018-12-02] MEDS ORDERED: FUROSEMIDE 40 MG in SYRINGE 0 ML IV ONE (12:15)
--- NOTE | 2018-12-02 12:27 | Pulmonology Progress Note ---
Date of Service December 02, 2018 Assessment & Plan (1) Bwtyl-9-kauzwtkeucn deficiency: Impression: 1. MEGAN by sputum, no growth yet, likely colonization not an infection. 2. 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 He was active smoker as well. He does have also heartburn that has not been treated for GERD. 3. Alpha-1 antitrypsin deficiency, currently on weekly infusion, I do not have information about his phenotype such as PIZZ or PIMZ. 4. COPD, with emphysematous changes. 5. Hemoptysis, secondary to anticoagulation. 6. Progressive acute on chronic hypoxic respiratory failure, Related to A. fib with poor RVR. 7.Undiagnosed GERD. Plan: 1. No urgency to start treatment for MEGAN, treatment should be with triple therapy and 3 times a week for at least 2-5 years. Part of the treatment is rifampin, concerns for patient with alpha-1 antitrypsin deficiency and progression of liver cirrhosis. 2. Continue Xarelto for A. fib. Patient is rate controlled. 3. The patient declined lung biopsy for confirmatory diagnosis given his diffuse airspace disease, however, it is risky at this point. 4. Continue bronchodilators and systemic steroids. 5. Continue Prolastin infusion per schedule, last dose was given yesterday on 11/30/2018. 6. Bacteremia is likely contaminant. 7. Titrate oxygen to O2 sat 85-90% only. 8.consider adding Oxymizer. Not available in our institution. 9. Evaluation for liver and lung transplant. 10. Continue with the steroids, may change to prednisone 60 mg p.o. daily starting in the morning. Thank you, will follow. Subjective The patient had one episode of increasing shortness of breath requiring increasing his oxygen to 13 L. The patient denies any chest pain, he does have occasional cough with difficulty raising his sputum. He denies any abdominal pain, no hemoptysis and no nausea or vomiting. No aspiration or dysphagia. No fever. Physical Exam Vital Signs (Past 24 Hours): Last Vital Signs Temp 36.5 C 12/02/18 11:28 Pulse 104 H 12/02/18 11:28 Resp 18 12/02/18 11:28 BP 120/77 12/02/18 11:28 Pulse Ox 96 12/02/18 11:28 Physical Exam: Vital signs are stable, S1-S2 regular rate and rhythm, lungs with distant Velcro type crackles, abdomen is benign, trace edema in the periphery. Neurologically he is intact. Skin rash was noted. Results & Data Laboratory Results Labs were reviewed which showed normal BMP and CBC has been maintained. Diagnostic Findings No new imaging.
--- NOTE | 2018-12-02 13:04 | Cardiology Progress Note ---
Date of Service December 02, 2018 Assessment & Plan (1) Atrial fibrillation with RVR: Patient has permanent atrial fibrillation. Overall rate control is suboptimal. We did discontinue his diltiazem over concerns of lower extremity swelling. I think he will do fine on beta-blockade once we have adequate titration of the dose. At rest his heart rate seemed to be fair, but certainly with respiratory decompensation or activity his rates are much higher. We will need to monitor this as his hospitalization progresses. Will continue rivaroxaban He does have continued dyspnea as well. While he was likely dehydrated at the time of admission due to diarrhea, he may have an element of volume overload currently. Maintenance fluids were discontinued and he has been administered a dose of diuretic. Will monitor the this response. Subjective Patient continues to have significant dyspnea even with minimal activity. He reported an episode restless legs yesterday which involved shaking of his whole body and some respiratory decompensation. Episodes of this nature generally result in higher heart rates. He does have coughing after breathing treatments which temporarily make him feel worse but overall improved his breathing. Physical Exam Vital Signs (Past 24 Hours): Last Vital Signs Temp 36.5 C 12/02/18 11:28 Pulse 104 H 12/02/18 11:28 Resp 18 12/02/18 11:28 BP 120/77 12/02/18 11:28 Pulse Ox 96 12/02/18 11:28 Physical Exam: The patient is alert and oriented. Mood and affect appeared normal. He answered all questions appropriately. HEENT: Pupils are equal and reactive to light and accommodation. Extraocular movements are intact. The sclerae are anicteric. Neuro: Cranial nerves intact Lungs: Crackles throughout both lung leonard. No expiratory wheezing. Normal respiratory effort. Cardiac: Heart demonstrates a regular rate and rhythm. Normal S1 and S2. No murmurs on examination. Pulses: The patient has palpable radial pulses bilaterally that are equal in intensity Extremities: There was no evidence of hypoperfusion. There is no cyanosis but he does have prominent clubbing. Moderate lower extremity edema. Skin: I did not appreciate any rashes on examination today. Results & Data Laboratory Results Abnormal Lab Results 12/02/18 12/02/18 08:05 08:20 Sodium 141 Potassium 4.0 Chloride 111 H Carbon Dioxide 25 Anion Gap 5.0 BUN 17 Creatinine 0.93 Est Cr Clr Drug Dosing 105.3 Est GFR ( Amer) 104.5 Est GFR (Non-Af Amer) 90.2 BUN/Creatinine Ratio 18.7 Glucose 109 H Calcium 9.4 Total Bilirubin 0.8 D AST 34 ALT 34 Alkaline Phosphatase 130 H Total Protein 6.2 L Albumin 2.9 L Globulin 3.3 Albumin/Globulin Ratio 0.9 Stl C. diff Tox B Gene ECG Additional Comments: Persistent atrial fibrillation with variable ventricular rates
[2018-12-02] MEDS ORDERED: DiphenhydrAMINE HCL 50 MG/ML VIAL IV STA (20:20)
[2018-12-03] MEDS: LEVALBUTEROL HCL 1.25 MG/3 ML NEB NEB SCH ×4 (02:15→19:01)
[2018-12-03 05:39] LABS: Hematocrit (blood only) 38.2 % (42-52); Hemoglobin 12.6 g/dL (14.0-18.0); Mean Corpuscular Volume 95.3 fL (80-100); Platelet Count 215 K/uL (130-400); RDW Coefficient of Variation 14.4 % (11.5-14.5); Red Blood Count 4.01 M/uL (4.7-6.1); White Blood Count 12.26 K/uL (4.8-10.8)
[2018-12-03 06:07] LABS: BUN Creatinine Ratio 19.3 (10-20); Calcium 9.3 mg/dl (8.5-10.1); Est GFR (African American) 93.5; Est GFR (Non-African American) 80.6; Potassium 3.6 mmol/L (3.5-5.1)
[2018-12-03] MEDS: SODIUM CHLORIDE 0.9% 1000ML 1,000 ML IV SCH (06:54)
[2018-12-03] MEDS: RIVAROXABAN 20 MG TAB PO SCH (07:27)
[2018-12-03] MEDS: predniSONE 20 MG TAB PO SCH (07:27)
[2018-12-03] MEDS: METOPROLOL TARTRATE 25 MG TAB PO SCH ×2 (07:27→13:08)
[2018-12-03] MEDS ORDERED: Nursing to Pharmacy Communication ONE (11:04)
[2018-12-03] MEDS: GABAPENTIN 300 MG CAP PO SCH ×2 (11:39→21:15)
[2018-12-03] MEDS: METOPROLOL TARTRATE 1 MG/ML VIAL IV PRN ×2 (13:08→17:09)
--- NOTE | 2018-12-03 13:26 | Palliative Care Consultation ---
Date of Consultation December 03, 2018 Assessment & Plan (1) Goals of care, counseling/discussion: -58 year old male with PMH presumed idiopathic pulmonary fibrosis diagnosed Spring 2016, zhfyb-0-asyaqycbqhp deficiency, mycobacterium avium, afib on Xarelto, chronic respiratory failure on home oxygen, and others, presented to the hospital with increased SOB. In the ED he was found to be in afib with RVR, his script for diltiazem ran out three days prior so he was unable to take it. Also had three days of diarrhea. Patient stated he has had increased LE edema which he attributed to the diltiazem. Pulmonary is consulted who recommends outpatient workup for lung and liver transplant, as well as starting outpatient therapy for the mycobacterium. Cardiology following who started patient on beta sophie and is titrating. Patient has continued to have increased oxygen requirements since hospitalization. Uncertain if he is canddiate for transplant. Palliative care consulted for goals of care. -Met with patient in room 219. He is awake, alert and oreinted x4. No distress. On oxymask sitting at edge of bed. -patient states that he is very overwhelmed with not only his medical problems, but life in general. Finances in particular. He is from his last whom he does not have children with. Patient does have three sons and one daughter from his first marriage. His children live in [place] and are rather removed from his personal affairs. Patient would want his sister, Darleen, to be his medical POA if needed. -Patient is interested in at least pursuing the option of organ transplant. -He states that someone brought up the word "hospice" to him, and he was discouraged by this. He is not ready for hospice or to discuss any sort of end of life issues. Patient states he has had multiple experiences with family members on hospice and knows that it's an option for the future. -Goal is to continue to live at home in his house. He receives weekly Prolastin injections, has [facility] home health. -Patient is interested in completing durable POA/living will paperwork. I con sulted patient international representative to complete this with him. He is a DNR, but wants full treatment otherwise. -Patient does have anxiety. He has been on clonazepam in the past, but his PCP did not want to continue this medication. I explained the issue of respiratory depression and patient verbalized understanding. He states that he is mostly stressed about financial things related to his house, disability, bills, etc. We talked about making to-do lists and starting with small goals of things to check off. He does have lorazepam 0.5mg PO Q6h PRN anxiety ordered here. -Thank you kindly for this consult. I will follow as needed. (2) Respiratory failure, acute and chronic: (3) Ukedh-3-mlavsvpezcf deficiency: (4) Atrial fibrillation with RVR: (5) IPF (idiopathic pulmonary fibrosis): Supervising Physician Co-Signing Physician Notes Chart reviewed, patient seen and examined-no friends or family at bedside. Collaborated with LEANNE Rubi Patient awake and alert, sitting up on the side of the bed on O2 via oxygen mask at 11 L/min-with mild shortness of breath. PE: Patient appears comfortable, denies distress HEENT: EOMI, normal hearing Respirations: Coarse breath sounds on right, diminished breath sounds bilaterally right greater than left CV: Tachycardic, 1+ lower extremity edema left greater than right Abdomen: Soft, nontender Neuro: Alert and oriented x4 Discussed at length with patient advance care planning-patient states he would want his Sister Darleen to be his POA if he was on able to speak for himself. Patient international representative brought paperwork to patient to fill out regarding naming of POA and his wishes. Reviewed important aspects of the paperwork at bedside. Agree with above note, assessment and plan as per LEANNE Rubi. Will continue to follow and assist with medical decision making as needed History of Present Illness Attending Physician: Shawn Zarate MD History of Present Illness This 58 year old male with PMH presumed idiopathic pulmonary fibrosis diagnosed Spring 2016, oepth-5-edtzygvjxwo deficiency, mycobacterium avium, afib on Xarelto, chronic respiratory failure on home oxygen, and others, presented to the hospital with increased SOB. In the ED he was found to be in afib with RVR, his script for diltiazem ran out three days prior so he was unable to take it. Also had three days of diarrhea. Patient stated he has had increased LE edema which he attributed to the diltiazem. Pulmonary is consulted who recommends outpatient workup for lung and liver transplant, as well as starting outpatient therapy for the mycobacterium. Cardiology following who started patient on beta sophie and is titrating. Patient has continued to have increased oxygen requirements since hospitalization. Uncertain if he is canddiate for transplant. Palliative care consulted for goals of care. Thank you kindly for this consult. I will follow as needed. Allergies Allergy/AdvReac Type Severity Reaction Status Date / Time amoxicillin Allergy Intermediate itchy Verified 11/30/18 06:05 trazodone Allergy Mild RASH Verified 11/30/18 06:05 Home Medications Home Medications Medication Instructions Recorded Confirmed Type Breo Ellipta 1 inh INHALATION DAILY 06/01/18 11/30/18 History Esbriet 267 mg PO TID 06/01/18 11/30/18 History Prolastin-C 1 dose IV WK 06/01/18 11/30/18 History Xarelto 20 mg PO DAILY 06/01/18 11/30/18 History albuterol sulfate [Ventolin HFA] 2 puff INHALATION QID PRN 06/01/18 11/30/18 History Spiriva Respimat 1 puff INHALATION DAILY 10/14/18 11/30/18 History loperamide [Imodium A-D] 2 mg PO UD PRN 10/14/18 11/30/18 History diltiazem HCl [Cardizem CD] 360 mg PO HS 11/20/18 11/30/18 History fluticasone propionate [Flonase 1 spray INTRANASAL BID 11/20/18 11/30/18 History Allergy Relief] prednisone 10 mg PO QAM 11/20/18 11/30/18 History hydrocodone-acetaminophen [[place]] 1 - 2 tab PO Q4H PRN #7 tab 11/22/18 11/30/18 Rx albuterol sulfate 2.5 mg INHALATION QID PRN 11/30/18 11/30/18 History Patient History Medical History Bsxrk-2-hlerlcuyicb deficiency Anxiety Asthma Atrial fibrillation ON XARELTO Atrial flutter COPD (chronic obstructive pulmonary disease) Chronic back pain Chronic neck pain Depression History of pneumothorax VATS WITH BLEB RESECTION S/P SPONTANEOUS PNEUMOTHORAX (2010) IPF (idiopathic pulmonary fibrosis) ON CHRONIC STEROIDS 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 6LPM VIA N/C WITH ACTIVITY AND PRN Transient ischemic attack (TIA) 6 YEARS AGO Surgical History History of cardiac radiofrequency ablation History of colonoscopy History of discectomy LUMBAR History of herniorrhaphy BILATERAL INGUINAL HERNIA REPAIRS History of lung surgery VATS WITH BLEB RESECTION S/P SPONTANEOUS PNEUMOTHORAX (2010) History of total hip arthroplasty LEFT Family History Mother Diabetes Grandmother (Maternal) Diabetes Grandfather (Maternal) Diabetes Aunt Diabetes Uncle Diabetes Other Heart disease Social History Communication Ability: Effective Beliefs That Will Affect Care: None Current Living Situation: Alone current occupational status: employed Other Information That Helps Us Care for You: No Feels Safe at Home: Yes Safety Concerns: Feels Safe At This Time Smoking Status: Former smoker Hx Alcohol Use: Yes Hx Substance Use: No Review of Systems Constitutional: no weakness Ear, Nose, Mouth, Throat: no dysphagia Respiratory: + cough and + dyspnea Cardiovascular: + edema; no chest pain Gastrointestinal: no abdominal pain and no nausea Neurologic: no confusion Psychiatric: + anxiety Physical Exam Vital Signs (Past 24 Hours): Last Vital Signs Temp 36.5 C 12/03/18 13:10 Pulse 115 H 12/03/18 13:10 Resp 20 12/03/18 13:10 BP 126/74 12/03/18 13:10 Pulse Ox 91 12/03/18 13:10 Constitutional: well developed; no acute distress ENMT: external ear and nose normal, oropharynx normal Neck: normal visual inspection Respiratory: + labored breathing (mildly labored breathing); + not able to speak in complete sentence Auscultation: + diminished lung sounds and + crackles (bases) Cardiovascular: RRR, no murmur, no edema Gastrointestinal (Abdomen): Inspection/Auscultation: abdomen normal to inspection and normal bowel sounds; abdomen not distended Percussion/Palpation: abdomen soft Skin: no rashes, warm and dry Neurologic: awake; not confused Psychiatric: A+Ox3, euthymic affect Affect: + anxious affect (at times) Time Spent Midlevel 70 minutes with >50% of time spent at bedside with patient discussing condition and GOC. Attending Spent 20 minutes in addition to the 70 minutes spent by LEANNE Rubi for a total of 90 minutes with greater than 50% of the time spent at bedside discussing goals of care, advanced care planning and coordinating care.
--- NOTE | 2018-12-03 15:12 | Hospitalist Progress Note ---
Date of Service December 03, 2018 Assessment & Plan (1) Atrial fibrillation with RVR: - Per cardiology -we have discontinued his diltiazem altogether due to patient's leg swelling and will titrate his beta-blockers upward. -continue with patient's home dose Xarelto for anticoagulation - (2) Spjjx-0-wpgowosqnpt deficiency: on weekly prolastin infusion therapy has chest port placed recently in November 2018 for IV access for infusions (3) Respiratory failure, acute and chronic: secondary to COPD, interstitial lung disease, MAC infection interstitial lung disease likely playing the biggest role. -Blood cultures, one vial growing gram positive cocci likely representing contaminant we will de-escalate antibiotics to oral doxycycline - titrate oxygen per protocol - chronic wears 4L NC - now requiring 13L - Continue Solumedrol 40 mg IV q8h - nebs, guafenisin/codeine, tessalon pearls - patient does have a port but has not start MAC treatments - will defer to pulmonology on starting these here vs outpatient - history of positive PPD 1993 with 6 months INH - 2017 negative quantiferon gold negative - consulted pulmonology - consulted palliative care for goals of care discussion 325 (4) Dehydration: secondary to diarrhea and poor po intake which has now resolved. discontinue IVF as above (5) Hx-TIA (transient ischemic attack): 2011 (6) Restless leg syndrome: 300 mg hs gabapentin , lorazepam prn (7) DVT prophylaxis: Xarelto Subjective Patient is emotional today is all over the placement when asked with goals of care and will be to improve to have him return to home. He is markedly short of breath even with small distances and his pulmonary fibrosis is significant. He is having a meeting with palliative care today. He is got occasional productive cough Review of Systems ROS: well nourished well developed. No double vision blurry vision No problems with speech or swallowing No palpitations, chest pain or pressure Dyspnea with moving about the room No abdominal pain nausea vomiting diarrhea changes in appetite or weight No burning urine urine frequency or changes in color No focal joint pain or muscle pain No skin rashes or oral lesions No unusual bruising or bleeding No focused back pain or numbness or loss of strength No changes in memory or confusion he is emotionally labile and depressed at times Physical Exam Vital Signs (Past 24 Hours): Last Vital Signs Temp 36.5 C 12/03/18 13:10 Pulse 115 H 03/25/19 13:10 Resp 20 12/03/18 13:10 BP 126/74 12/03/18 13:10 Pulse Ox 91 12/03/18 13:10 The patient appeared well nourished and normally developed. He is easily dyspneic with even speaking Vital signs as documented. Head exam is unremarkable. normocephalic, atraumatic Neck is without jugular venous distension, thyromegaly, or lymphademopathy Lungs are decreased breath sounds bilaterally with rales Cardiac exam reveals Rhythm is regular. First and second heart sounds normal. Abdominal exam reveals normal bowel sounds, no masses, no organomegaly Extremities are nonedematous and both pedal pulses are present marked clubbing of his digits is seen Neurologic exam is A&Ox3, no focal deficits, strength is equal bilateral Psychologically seems depressed Skin is warm Dry without bruises or lesions
--- NOTE | 2018-12-03 17:29 | Progress Note ---
DATE: 12/03/2018 TIME: 04:30 p.m. SUBJECTIVE: The patient remains extremely short of breath with any exertion. He is winded with just walking to the bathroom. Nursing has had issues trying to keep his pulse oximetry adequate. He is still coughing a little blood, which is usually in the morning. He has no pain. The patient has had a lot of anxiety today over his illness. He does not feel too much better than he did when he came in. As noted by other providers, he has 1 sputum culture showing Mycobacterium avium. It would be unlikely that this is the problem accounting for all of his disease, however. It seems more likely that he has progressive usual interstitial pneumonitis. He has been on Esbriet for this, but not at the full dosage. He has been unable to tolerate it. There also have been skip times because of insurance not paying. The patient did have an overnight pulse oximetry study done recently. There were significant areas of desaturations, which upon my review suggested that he might be having sleep apnea with REM sleep desaturations. The patient states he does not know if he snores because he lives alone. He admits to urinating 10 times per night at times. I explained to him this would be compatible with sleep apnea, but he did not really want to address the issue because he was tried on BiPAP when he was here last time and he absolutely hated it. OBJECTIVE: GENERAL: The patient is fairly comfortable at rest. VITAL SIGNS: Temperature is 36.2. He has had no significant fevers. HEENT: Pupils were reactive to light. He is wearing an OxyMask. Because of his hypoxia, I did not remove the OxyMask to evaluate the nasopharynx and oropharynx. CARDIAC: Rate was 110 per minute. The rhythm was irregularly irregular. Blood pressure is 122/85. LUNGS: Lung leonard reveal rales bilaterally, both anteriorly and posteriorly. This is most compatible with interstitial lung disease. Respiratory rate 24 per minute at the time of my exam. EXTREMITIES: Reveals +1 to +2 edema of the lower extremities. He has marked finger clubbing. LABORATORY DATA: White count is 12.26. Hemoglobin 12.6. Platelets 215,000. Blood gas done on admission showed a pH of 7.44, pCO2 31 and pO2 84 done on 15 liters of oxygen. This was an arterial blood gas. Electrolytes show sodium 140, potassium 3.6, chloride 107, bicarb 28. BUN 20 with a creatinine of 1.02. I did review the patient's chest x-ray, which shows diffuse interstitial and alveolar infiltrates bilaterally. I also reviewed his CAT scan done 10/14/2018 that showed severe interstitial lung disease with areas of blebs, likely related to emphysema. There was marked increased ground-glass opacities. IMPRESSIONS: 1. Acute on chronic respiratory failure with severe hypoxia. 2. UIP. 3. Hemoptysis. 4. Alpha 1 antitrypsin deficiency. 5. Sputum culture positive for MAC. COMMENTS AND RECOMMENDATIONS: The patient is on prednisone 60 mg daily. He is not getting the Esbriet here in the hospital. He is on neb treatments. The patient is hoping to be able to be evaluated for transplant. I am not sure if he is a candidate or not. For now, our hope needs to be that we can improve his oxygenation somehow or other. Prognosis appears to be poor. I will order a sputum for AFB to see if the Mycobacterium avium is again cultured.
[2018-12-03] MEDS: LORazepam 0.5 MG TAB PO PRN (21:16)
[2018-12-03] MEDS: METOPROLOL TARTRATE 50 MG TAB PO SCH (21:16)
--- NOTE | 2018-12-03 21:27 | Cardiology Progress Note ---
Date of Service December 03, 2018 Assessment & Plan (1) Atrial fibrillation with RVR: Some higher rates recently. Likely related to our transition to metoprolol. Will continue titration. Hemodynamically stable. Continue rivaroxiban. He had a slight diuresis yesterday. Fluids discontinued. Will monitor output and fluid balance closely. Still some peripheral edema. Present on Admission?: Yes Subjective Continues to be very short of breath. Coughing after breathing treatments. Fairly close to baseline. Physical Exam Vital Signs (Past 24 Hours): Last Vital Signs Temp 36.9 C 12/03/18 19:29 Pulse 114 H 12/03/18 19:29 Resp 18 12/03/18 19:29 BP 130/86 12/03/18 19:29 Pulse Ox 88 L 12/03/18 19:29 Physical Exam: Alert. Oriented. Answered questions appropriately. Tachypneic. Diffuse crackles in all lung leonard Cardiac: Irregular rhythm. Extremities: Moderate peripheral edema. Results & Data Laboratory Results Abnormal Lab Results 12/03/18 12/03/18 05:18 05:18 WBC 12.26 H RBC 4.01 L Hgb 12.6 L Hct 38.2 L MCV 95.3 MCH 31.4 MCHC 33.0 RDW Std Deviation 50.0 H RDW Coeff of Melinda 14.4 Plt Count 215 MPV 9.0 Sodium 140 Potassium 3.6 Chloride 107 Carbon Dioxide 28 Anion Gap 5.0 BUN 20 H Creatinine 1.02 Est Cr Clr Drug Dosing 96.0 Est GFR ( Amer) 93.5 Est GFR (Non-Af Amer) 80.6 BUN/Creatinine Ratio 19.3 Glucose 116 H Calcium 9.3 ECG Additional Comments: Atrial fibrillation with rapid ventricular rates
[2018-12-04] MEDS: LEVALBUTEROL HCL 1.25 MG/3 ML NEB NEB SCH ×5 (01:47→23:50)
[2018-12-04 06:42] LABS: Hematocrit (blood only) 39.2 % (42-52); Hemoglobin 12.8 g/dL (14.0-18.0); Mean Corpuscular Hgb Conc 32.7 g/dL (32-36); Mean Corpuscular Volume 96.1 fL (80-100); Mean Platelet Volume 8.5 fL (7.4-10.4); Platelet Count 210 K/uL (130-400); RDW Coefficient of Variation 14.6 % (11.5-14.5); RDW Standard Deviation 50.9 fL (36.4-46.3); Red Blood Count 4.08 M/uL (4.7-6.1); White Blood Count 11.53 K/uL (4.8-10.8)
[2018-12-04 07:11] LABS: BUN Creatinine Ratio 21.7 (10-20); Creatinine Clr Calc Pharmacy 91.8 ml/min; Est GFR (African American) 89.2; Potassium 3.5 mmol/L (3.5-5.1)
[2018-12-04] MEDS: predniSONE 20 MG TAB PO SCH (09:03)
[2018-12-04] MEDS: RIVAROXABAN 20 MG TAB PO SCH (09:03)
[2018-12-04] MEDS: METOPROLOL TARTRATE 50 MG TAB PO SCH ×2 (10:55→20:00)
--- NOTE | 2018-12-04 12:13 | Progress Note ---
DATE: 12/04/2018 TIME: 11:10 a.m. SUBJECTIVE: The patient is somewhat more comfortable and settled down today. Last evening, his saturations were lower. He was put on high flow oxygen. This seemingly has been more comfortable for him. He also relates that he had some sleeping medication given to him last night, but he did not know exactly what it was. It may have been lorazepam. He definitely seems less anxious today. OBJECTIVE: GENERAL: The patient was comfortable. VITAL SIGNS: Temperature 36.9. Weight today 107.6 kg. HEART: Heart rate 103 per minute. Rhythm regular. Blood pressure 110/69. LUNGS: Lung leonard revealed rales posteriorly and anteriorly bilaterally. Respiratory rate today 18 breaths per minute and not labored. Saturation 97% on high flow nasal. The respiratory therapist just decreased his FIO2 down to 65%. They have started at 95 and have been able to cut down now to 65%. EXTREMITIES: Revealed +1 to +2 edema of both lower extremities. LABORATORY DATA: White count today 11.53, hemoglobin 12.8, platelets 210,000. Electrolytes normal. BUN 23, creatinine 1.06. Sputum for AFB was sent this morning. The results are still pending. IMPRESSION: 1. Acute on chronic respiratory failure with severe hypoxia. 2. UIP. 3. Hemoptysis. 4. Alpha 1 antitrypsin deficiency. 5. Sputum culture positive for MAC. COMMENTS AND RECOMMENDATIONS: The patient is more comfortable with high-flow oxygen. This of course does not give us a long-term solution. There may not be any long-term solutions. The patient was inquiring as to when he might go home. I explained to him we would need to have his oxygen needs such that it could be satisfied at home, which at the present time it is not. Would continue with current therapy.
--- NOTE | 2018-12-04 17:53 | Cardiology Progress Note ---
Date of Service December 04, 2018 Assessment & Plan (1) Atrial fibrillation with RVR: He continues to have some higher ventricular rates. Will continue the titration of his metoprolol. Addition of digoxin would also be an option. He is very sedentary and this may provide better rate control than in most active individuals. I do not believe the higher heart rates are likely contributing to his symptoms. Higher heart rates are likely response to his significant dyspnea and deconditioning when active. He can continue on his [employer] band. Subjective Patient reports sleeping better over the course of the evening. He also slept m ost of the day. He thinks this may be related to better oxygenation given the high flow nasal cannula he is currently using. He also received some benzodiazepines yesterday evening. His appetite is good. His breathing is about normal. He continues to cough up blood tinged sputum. He has done little ambulation around the room. When he does ambulate he has severely tired and dyspneic. Physical Exam Vital Signs (Past 24 Hours): Last Vital Signs Temp 36.6 C 12/04/18 15:00 Pulse 98 H 12/04/18 15:00 Resp 18 12/04/18 15:00 BP 114/70 12/04/18 15:00 Pulse Ox 92 12/04/18 15:00 Physical Exam: The patient is alert and oriented. Mood and affect appeared normal. He answered all questions appropriately. Wearing nasal cannula HEENT: Pupils are equal and reactive to light and accommodation. Extraocular movements are intact. The sclerae are anicteric. Neuro: Cranial nerves intact Neck: Patient's neck is supple. He has palpable carotid pulses bilaterally without bruits on auscultation. There is no evidence of jugular venous distention. The thyroid is not enlarged. Lungs: Diffuse crackles throughout all lung leonard. Increased effort of breathing. No expiratory wheezing. Cardiac: Heart demonstrates an irregular rate and rhythm. Normal S1 and S2. No murmurs on examination. Pulses: The patient has palpable radial pulses bilaterally that are equal in intensity Extremities: There was no evidence of hypoperfusion. Severe clubbing of both upper extremities. There is no edema. Skin: I did not appreciate any rashes on examination today. Results & Data Laboratory Results Abnormal Lab Results 12/04/18 12/04/18 06:24 06:24 WBC 11.53 H RBC 4.08 L Hgb 12.8 L Hct 39.2 L MCV 96.1 MCH 31.4 MCHC 32.7 RDW Std Deviation 50.9 H RDW Coeff of Melinda 14.6 H Plt Count 210 MPV 8.5 Sodium 142 Potassium 3.5 Chloride 107 Carbon Dioxide 29 Anion Gap 6.0 BUN 23 H Creatinine 1.06 Est Cr Clr Drug Dosing 91.8 Est GFR ( Amer) 89.2 Est GFR (Non-Af Amer) 77.0 BUN/Creatinine Ratio 21.7 H Glucose 75 Calcium 9.0 ECG Additional Comments: Telemetry demonstrates permanent atrial fibrillation with suboptimal rate control
[2018-12-04] MEDS: GABAPENTIN 300 MG CAP PO SCH (20:00)
[2018-12-05] MEDS: GUAIFENESIN/CODEINE 100MG/10MG 5ML UDC PO PRN (03:56)
[2018-12-05] MEDS: LEVALBUTEROL HCL 1.25 MG/3 ML NEB NEB SCH ×4 (07:06→22:51)
[2018-12-05 07:20] LABS: Hematocrit (blood only) 37.9 % (42-52); Hemoglobin 12.2 g/dL (14.0-18.0); Mean Corpuscular Hgb Conc 32.2 g/dL (32-36); Mean Corpuscular Volume 96.4 fL (80-100); Mean Platelet Volume 9.2 fL (7.4-10.4); Platelet Count 223 K/uL (130-400); RDW Coefficient of Variation 14.7 % (11.5-14.5); RDW Standard Deviation 51.7 fL (36.4-46.3); Red Blood Count 3.93 M/uL (4.7-6.1); White Blood Count 9.38 K/uL (4.8-10.8)
[2018-12-05 08:01] LABS: BUN Creatinine Ratio 20.2 (10-20); Calcium 8.9 mg/dl (8.5-10.1); Creatinine Clr Calc Pharmacy 113.6 ml/min; Est GFR (African American) 110.8; Est GFR (Non-African American) 95.6; Potassium 3.7 mmol/L (3.5-5.1)
--- NOTE | 2018-12-05 08:08 | Hospitalist Progress Note ---
Date of Service December 04, 2018 Assessment & Plan (1) Atrial fibrillation with RVR: - Per cardiology -we have discontinued his diltiazem altogether due to patient's leg swelling -Will continue metoprolol 50 mg PO BID. - continue with patient's home dose Xarelto for anticoagulation (2) Ptfxh-1-zrtntfzrkob deficiency: on weekly prolastin infusion therapy has chest port placed recently in November 2018 for IV access for infusions (3) Respiratory failure, acute and chronic: secondary to COPD, interstitial lung disease, MAC infection interstitial lung disease likely playing the biggest role. -Blood cultures, one vial growing gram positive cocci likely representing contaminant we will de-escalate antibiotics to oral doxycycline - titrate oxygen per protocol - chronic wears 4L NC - now requiring 13L - Continue Solumedrol 40 mg IV q8h - nebs, guafenisin/codeine, tessalon pearls - patient does have a port but has not start MAC treatments - will defer to pulmonology on starting these here vs outpatient - history of positive PPD 1993 with 6 months INH - 2017 negative quantiferon gold negative - consulted pulmonology - consulted palliative care for goals of care discussion 325-Patient currently not interested in hopsice. Concern though is patient continues to require high flow oxygen which makes discharge difficult. Will continue to monitor (4) Dehydration: secondary to diarrhea and poor po intake which has now resolved. discontinue IVF as above (5) Hx-TIA (transient ischemic attack): 2011 (6) Restless leg syndrome: 300 mg hs gabapentin , lorazepam prn (7) DVT prophylaxis: Stephani Spent 35 minute in management of patient. This included chart review. Subjective Patient appears to be more calm today. He understands he continues to require high amount of high flow oxygen. He is asking when he can be discharged. Patient reports feeling somwhat better today in regards to his breathing. Physical Exam Vital Signs (Past 24 Hours): Last Vital Signs Temp 36.6 C 12/04/18 15:00 Pulse 98 12/04/18 15:00 Resp 18 12/04/18 15:00 BP 114/70 12/04/18 15:00 Pulse Ox 92 12/04/18 15:00 Physical Exam: The patient appeared well nourished and normally developed. Vital signs as documented. Head exam is unremarkable. normocephalic, atraumatic Neck is without jugular venous distension, thyromegaly, or lymphademopathy Lungs are decreased breath sounds bilaterally with rales Cardiac exam reveals Rhythm is regular. First and second heart sounds normal. Abdominal exam reveals normal bowel sounds, no masses, no organomegaly Extremities are nonedematous and both pedal pulses are present marked clubbing of his digits is seen Neurologic exam is A&Ox3, no focal deficits, strength is equal bilateral Psychologically seems depressed Skin is warm Dry without bruises or lesions
[2018-12-05] MEDS: predniSONE 20 MG TAB PO SCH (08:12)
[2018-12-05] MEDS: RIVAROXABAN 20 MG TAB PO SCH (08:14)
[2018-12-05] MEDS: METOPROLOL TARTRATE 50 MG TAB PO SCH ×3 (08:14→21:27)
--- NOTE | 2018-12-05 15:50 | Palliative Care Progress Note ---
Date of Service December 05, 2018 Assessment & Plan (1) Goals of care, counseling/discussion: -Concern that patient is now on high-flow nasal cannula at 50LPM and 65% FiO2. Oxygen requirements continue to increase. Patient looked a little worse to me today as far as the dusky coloration of his face and dyspnea at rest. -High-flow nasal cannula cannot be done outside of the hospital setting. Can be done at LTACH, but uncertain if this is an option or if it the recommended treatment at this point. -Pulmonology is following. Dr. Hernández previously mentioned possibility of pursuing lung/liver transplant. Patient is interested as he wants to continue to pursue full treatment. -Questing whether or not at this point patient may need transfer to tertiary care if we are unable to make any headway with his respiratory status. I do not think patient grasps the severity of his disease. I will defer to hospitalist and cloth bin packer at this point on whether or not transfer is indicated or recommended. I do understand that the pulmonary fibrosis is not curable, but uncertain of any other options for this very sick, young gentleman. I did speak with Dr. Anne. -Will continue to follow. (2) Respiratory failure, acute and chronic: (3) Gzech-2-ugvxfsfjbsp deficiency: (4) Atrial fibrillation with RVR: (5) IPF (idiopathic pulmonary fibrosis): Subjective Patient now on high-flow nasal cannula at 65% FiO2 and 50LPM. Continues to look dyspneic and has some dusky discoloration of nose and cheeks. Constitutional: no weakness Ear, Nose, Mouth, Throat: no dysphagia Respiratory: + cough and + dyspnea Cardiovascular: + edema; no chest pain Gastrointestinal: no abdominal pain and no nausea Neurologic: no confusion Psychiatric: + anxiety Physical Exam Vital Signs (Past 24 Hours): Last Vital Signs Temp 36.3 C L 12/05/18 11:41 Pulse 119 H 12/05/18 15:03 Resp 19 12/05/18 15:03 BP 123/78 12/05/18 15:03 Pulse Ox 91 12/05/18 15:03 Constitutional: well developed; no acute distress ENMT: external ear and nose normal, oropharynx normal Neck: normal visual inspection Respiratory: + labored breathing (mildly labored breathing); + not able to speak in complete sentence Auscultation: + diminished lung sounds and + crackles (bases) Cardiovascular: RRR, no murmur, no edema Gastrointestinal (Abdomen): Inspection/Auscultation: abdomen normal to inspection and normal bowel sounds; abdomen not distended Percussion/Palpation: abdomen soft Musculoskeletal: Extremities: + clubbing (fingers) Skin: no rashes, warm and dry Neurologic: awake; not confused Psychiatric: A+Ox3, euthymic affect Affect: + anxious affect (at times) Time Spent Midlevel 25 minutes with >50% of time spent at bedside with patient discussing condition as well as collaborating with physician to discuss case.
[2018-12-05] MEDS: HEPARIN 100 UNIT/ML 5ML FLUSH FLUSH PRN (16:22)
--- NOTE | 2018-12-05 16:48 | Cardiology Progress Note ---
Date of Service December 05, 2018 Assessment & Plan (1) Atrial fibrillation with RVR: He continues to have some higher ventricular rates. I will increase his metoprolol. Continue on anticoagulation.. Subjective This afternoon he reports feeling about the same. He was ambulatory to some degree around his room. He obviously has significant dyspnea but this appears to be improved on the high-flow nasal cannula. He thinks his swelling of lower extremities is better. He has been sleeping well. No sense of dizziness or palpitation. Physical Exam Vital Signs (Past 24 Hours): Last Vital Signs Temp 36.3 C L 12/05/18 11:41 Pulse 119 H 12/05/18 15:03 Resp 19 12/05/18 15:03 BP 123/78 12/05/18 15:03 Pulse Ox 91 12/05/18 15:03 Physical Exam: The patient is alert and oriented. Mood and affect appeared normal. He answered all questions appropriately. Wearing high flow nasal cannula. HEENT: Pupils are equal and reactive to light and accommodation. Extraocular movements are intact. The sclerae are anicteric. Neuro: Cranial nerves intact Lungs: Crackles throughout both lung leonard. No expiratory wheezing. Cardiac: Heart demonstrates an irregular rate and rhythm. Normal S1 and S2. No murmurs on examination. Pulses: The patient has palpable radial pulses bilaterally that are equal in intensity Extremities: There was no evidence of hypoperfusion. He has significant clubbing all digits. Mild lower extremity edema. Skin: I did not appreciate any rashes on examination today. Results & Data Laboratory Results Abnormal Lab Results 12/05/18 12/05/18 06:10 06:10 WBC 9.38 RBC 3.93 L Hgb 12.2 L Hct 37.9 L MCV 96.4 MCH 31.0 MCHC 32.2 RDW Std Deviation 51.7 H RDW Coeff of Melinda 14.7 H Plt Count 223 MPV 9.2 Sodium 141 Potassium 3.7 Chloride 107 Carbon Dioxide 32 Anion Gap 2.0 L BUN 17 Creatinine 0.86 Est Cr Clr Drug Dosing 113.6 Est GFR ( Amer) 110.8 Est GFR (Non-Af Amer) 95.6 BUN/Creatinine Ratio 20.2 H Glucose 77 Calcium 8.9 ECG Additional Comments: Telemetry demonstrates persistent atrial fibrillation with high ventricular rates
[2018-12-05] MEDS: GABAPENTIN 300 MG CAP PO SCH (21:27)
--- NOTE | 2018-12-05 23:33 | Hospitalist Progress Note ---
Date of Service December 05, 2018 Assessment & Plan (1) Atrial fibrillation with RVR: - Per cardiology -we have discontinued his diltiazem altogether due to patient's leg swelling -Will continue metoprolol 50 mg PO BID. - continue with patient's home dose Xarelto for anticoagulation. (2) Akogy-6-pyplzuabdpp deficiency: on weekly prolastin infusion therapy has chest port placed recently in November 2018 for IV access for infusions. Patient continues to require high flow oxygen: was able to decrease from 50 liters to 45 liters. Will continue to monitor. Discharge is difficult as patient is on high flow oxygen. (3) Respiratory failure, acute and chronic: secondary to COPD, interstitial lung disease, MAC infection interstitial lung disease likely playing the biggest role. -Blood cultures, one vial growing gram positive cocci likely representing contaminant we will de-escalate antibiotics to oral doxycycline - titrate oxygen per protocol - chronic wears 4L NC - Continue Solumedrol 40 mg IV q8h - nebs, guafenisin/codeine, tessalon pearls - patient does have a port but has not start MAC treatments - will defer to pulmonology on starting these here vs outpatient - history of positive PPD 1993 with 6 months INH - 2017 negative quantiferon gold negative - consulted pulmonology - consulted palliative care for goals of care discussion 325-Patient currently not interested in hopsice. Concern though is patient continues to require high flow oxygen which makes discharge difficult. Will continue to monitor (4) Dehydration: secondary to diarrhea and poor po intake which has now resolved. discontinue IVF as above (5) Hx-TIA (transient ischemic attack): 2011 (6) Restless leg syndrome: 300 mg hs gabapentin , lorazepam prn (7) DVT prophylaxis: Stephani Spent 25 minute in management of patient. Subjective Patient appears to be more calm today. He understands he continues to require high amount of high flow oxygen. He is asking when he can be discharged. Patient reports feeling somewhat better today in regards to his breathing. Physical Exam Vital Signs (Past 24 Hours): Last Vital Signs Temp 36.4 C L 12/05/18 20:19 Pulse 86 12/05/18 22:52 Resp 18 12/05/18 22:52 BP 130/86 12/05/18 21:28 Pulse Ox 93 12/05/18 22:52 Physical Exam: The patient appeared well nourished and normally developed. Vital signs as documented. Head exam is unremarkable. normocephalic, atraumatic Neck is without jugular venous distension, thyromegaly, or lymphademopathy Lungs are decreased breath sounds bilaterally with rales Cardiac exam reveals Rhythm is regular. First and second heart sounds normal. Abdominal exam reveals normal bowel sounds, no masses, no organomegaly Extremities are nonedematous and both pedal pulses are present marked clubbing of his digits is seen Neurologic exam is A&Ox3, no focal deficits, strength is equal bilateral Psychologically seems depressed Skin is warm Dry without bruises or lesions
[2018-12-05] MEDS: LORazepam 0.5 MG TAB PO PRN (23:40)
[2018-12-06 04:48] LABS: Hematocrit (blood only) 38.9 % (42-52); Hemoglobin 12.5 g/dL (14.0-18.0); Mean Corpuscular Hgb Conc 32.1 g/dL (32-36); Mean Corpuscular Volume 97.5 fL (80-100); Mean Platelet Volume 8.6 fL (7.4-10.4); Platelet Count 225 K/uL (130-400); RDW Coefficient of Variation 14.6 % (11.5-14.5); RDW Standard Deviation 51.5 fL (36.4-46.3); Red Blood Count 3.99 M/uL (4.7-6.1); White Blood Count 11.15 K/uL (4.8-10.8)
[2018-12-06] MEDS: LEVALBUTEROL HCL 1.25 MG/3 ML NEB NEB SCH ×4 (07:22→23:59)
[2018-12-06] MEDS: METOPROLOL TARTRATE 50 MG TAB PO SCH ×3 (09:44→20:42)
[2018-12-06] MEDS: predniSONE 20 MG TAB PO SCH (09:44)
[2018-12-06] MEDS: RIVAROXABAN 20 MG TAB PO SCH (09:44)
--- NOTE | 2018-12-06 14:50 | Progress Note ---
DATE: 12/06/2018 PULMONARY PROGRESS NOTE TIME: 2:30 p.m. SUBJECTIVE: The patient is doing about the same. He is reasonably comfortable at rest. With any exertion at all, he desaturates. Physical therapy has been working with the patient. Reportedly, when he did PT, his saturations went into the mid 70s. He has been getting to the restroom with nursing assistance. The patient's sister was with him during this evaluation. He is not coughing very much. OBJECTIVE: GENERAL: The patient was comfortable at rest. VITAL SIGNS: Temperature is 36.4. There have been no fevers. Cardiac rate is 107. Rhythm regular. Blood pressure 118/82. LUNGS: Lung leonard revealed rales posteriorly, greater on the right than the left. Respiratory rate 18. Saturation 91% on 65% high-flow nasal cannula. EXTREMITIES: Reveals +1 to +2 edema bilaterally. LABORATORY DATA: White count is 11.15. Hemoglobin 12.5. Platelets 225,000. Electrolytes show sodium 141, potassium 3.7, chloride 107, bicarbonate 32. BUN 17 with creatinine 0.86. Sputum for acid fast was negative. Culture of course will take weeks. IMPRESSION: 1. Acute on chronic respiratory failure with hypoxia. 2. Usual interstitial pneumonitis. 3. Hemoptysis - small amounts. 4. Alpha-1 antitrypsin deficiency. 5. MAC cultured out of 1 sputum. COMMENTS AND RECOMMENDATIONS: The patient is relatively stable. Unfortunately, he is still requiring high oxygen concentrations. He is still at 65% from high-flow nasal cannula. He remains on prednisone 60 mg daily along with his Xarelto that he has been on and the neb treatments. He does think he might feel slightly better. It remains unclear if he can return to his baseline from where he was prior to this admission. At some point in time, we may need to explore any other oxygen alternatives for him to get out of the hospital.
--- NOTE | 2018-12-06 15:32 | Palliative Care Progress Note ---
Date of Service December 06, 2018 Assessment & Plan (1) Goals of care, counseling/discussion: Pt still wants aggressive care. Discussed with pt and sister to talk about his wishes in the event he did not get better, or got worse FULL CODE (2) Respiratory failure, acute and chronic: Was on oxymask for the first 3 days of this admission , now on HFNC - just starting to wean flow rate (3) Iohwn-1-hvxptqylexm deficiency: On Prolostin -C (4) Atrial fibrillation with RVR: rate controlled on Metoprolol, cont Xarelto for AC (5) IPF (idiopathic pulmonary fibrosis): Plans per Pulm Subjective Pt seen and examined, pt's sister, Darleen, at bedside Collaborated with Dr Anthony Pt continues on HFNC - starting to wean O2 level Pt reports he was able to recover more quickly following exertion Review of Systems Pt denies fever, chills, CP, increased SOB or GI sx. Physical Exam Vital Signs (Past 24 Hours): Last Vital Signs Temp 36.4 C L 12/06/18 11:00 Pulse 107 H 12/06/18 14:02 Resp 18 12/06/18 14:02 BP 118/82 12/06/18 11:00 Pulse Ox 91 12/06/18 14:02 Physical Exam: PE: appears comfortable sitting in chair on HFNC, pt able to converse - able to say 1/2 sentence between breaths HEENT: EOMI, hearing WNL Resp: mildly labored with conversation, good air movement, decreased BS both bases CV: tachycardic, no edema ABD: not distended EXT: FROM Neuro: A&O X 4 Time Spent Attending time spent 35 with > 50% of time at bedside discussing role of POA and need for her to know pt's wishes as well as coordinating care
[2018-12-06] MEDS ORDERED: Nursing to Pharmacy Communication ONE ×2 (15:52→17:40)
[2018-12-06] MEDS: GABAPENTIN 300 MG CAP PO SCH (20:42)
--- NOTE | 2018-12-06 23:08 | Hospitalist Progress Note ---
Date of Service December 06, 2018 Assessment & Plan (1) Atrial fibrillation with RVR: - Per cardiology -we have discontinued his diltiazem altogether due to patient's leg swelling - Will continue metoprolol 50 mg PO TID (switched on the evening of 12/05) - continue with patient's home dose Xarelto for anticoagulation. (2) Ogtdc-7-tnlvdwsspvt deficiency: on weekly prolastin infusion therapy has chest port placed recently in November 2018 for IV access for infusions. Patient continues to require high flow oxygen: was able to decrease from 50 liters to 45 liters. Will continue to monitor. Discharge is difficult as patient is on high flow oxygen. Slowly titrating off. D/W pulmonary, may have discussion with tertiary center to see if patient is a candidate for transfer. Unsure what additional treatment can be provided at this time. Patient may be open to a LTAC but will hold off for now, until discussed further with pulmonary. (3) Respiratory failure, acute and chronic: secondary to COPD, interstitial lung disease, MAC infection interstitial lung disease likely playing the biggest role. -Blood cultures, one vial growing gram positive cocci likely representing contaminant we will de-escalate antibiotics to oral doxycycline - titrate oxygen per protocol - chronic wears 4L NC - Continue Solumedrol 40 mg IV q8h - nebs, guafenisin/codeine, tessalon pearls - patient does have a port but has not start MAC treatments - will defer to pulmonology on starting these here vs outpatient - history of positive PPD 1994 with 6 months INH - 2017 negative quantiferon gold negative - consulted pulmonology - consulted palliative care for goals of care discussion 325-Patient currently not interested in hopsice. Concern though is patient continues to require high flow oxygen which makes discharge difficult. Will continue to monitor (4) Dehydration: secondary to diarrhea and poor po intake which has now resolved. discontinue IVF as above (5) Hx-TIA (transient ischemic attack): 2011 (6) Restless leg syndrome: 300 mg hs gabapentin , lorazepam prn (7) DVT prophylaxis: Stephani Spent 35 minute in management of patient. D.W rifle case repairer, field service consultant. Subjective Patient appears to be more calm today. He understands he continues to require high amount of high flow oxygen, he states the nurse may have been able to tirate the oxygen lower (45 liters to 43 liters). Patient reports feeling somewhat better today in regards to his breathing. Physical Exam Vital Signs (Past 24 Hours): Last Vital Signs Temp 36.7 C 12/06/18 16:03 Pulse 59 L 12/06/18 20:13 Resp 20 12/06/18 20:13 BP 107/67 12/06/18 20:13 Pulse Ox 93 12/06/18 20:13 Physical Exam: The patient appeared well nourished and normally developed. Vital signs as documented. Head exam is unremarkable. normocephalic, atraumatic Neck is without jugular venous distension, thyromegaly, or lymphademopathy Lungs are decreased breath sounds bilaterally with rales Cardiac exam reveals Rhythm is regular. First and second heart sounds normal. Abdominal exam reveals normal bowel sounds, no masses, no organomegaly Extremities are nonedematous and both pedal pulses are present marked clubbing of his digits is seen Neurologic exam is A&Ox3, no focal deficits, strength is equal bilateral Psychologically seems depressed Skin is warm Dry without bruises or lesions
[2018-12-07] MEDS: GUAIFENESIN/CODEINE 100MG/10MG 5ML UDC PO PRN (02:54)
[2018-12-07 05:20] LABS: Hematocrit (blood only) 40.8 % (42-52); Mean Corpuscular Hgb Conc 31.9 g/dL (32-36); Mean Corpuscular Volume 96.9 fL (80-100); Mean Platelet Volume 8.7 fL (7.4-10.4); Platelet Count 288 K/uL (130-400); RDW Coefficient of Variation 14.5 % (11.5-14.5); RDW Standard Deviation 51.2 fL (36.4-46.3); Red Blood Count 4.21 M/uL (4.7-6.1); White Blood Count 12.05 K/uL (4.8-10.8)
[2018-12-07 05:44] LABS: BUN Creatinine Ratio 20.6 (10-20); Calcium 8.8 mg/dl (8.5-10.1); Creatinine Clr Calc Pharmacy 100.5 ml/min; Est GFR (African American) 99.3; Est GFR (Non-African American) 85.7; Potassium 3.8 mmol/L (3.5-5.1)
[2018-12-07] MEDS: LEVALBUTEROL HCL 1.25 MG/3 ML NEB NEB SCH ×3 (06:23→19:45)
[2018-12-07] MEDS: predniSONE 20 MG TAB PO SCH (08:47)
[2018-12-07] MEDS: RIVAROXABAN 20 MG TAB PO SCH (08:47)
[2018-12-07] MEDS: METOPROLOL TARTRATE 50 MG TAB PO SCH ×3 (08:47→21:17)
--- NOTE | 2018-12-07 10:11 | Hospitalist Progress Note ---
Date of Service December 07, 2018 Assessment & Plan (1) Atrial fibrillation with RVR: - Per cardiology -we have discontinued his diltiazem altogether due to patient's leg swelling - Will continue metoprolol 50 mg PO TID (switched on the evening of 12/05) Will continue this dose (12/06) - continue with patient's home dose Xarelto for anticoagulation. (2) Ewocs-2-nehrkonsxbf deficiency: on weekly prolastin infusion therapy has chest port placed recently in November 2018 for IV access for infusions. Patient continues to require high flow oxygen: was able to decrease from 50 liters to 45 liters. Will continue to monitor. Discharge is difficult as patient is on high flow oxygen. Slowly titrating off. D/W pulmonary, may have discussion with tertiary center to see if patient is a candidate for transfer. Unsure what additional treatment can be provided at this time. Patient may be open to a LTAC but will hold off for now. Patient appears to be improving slowly as his oxygen requirement has been gradually decreasing. (3) Respiratory failure, acute and chronic: secondary to COPD, interstitial lung disease, MAC infection interstitial lung disease likely playing the biggest role. -Blood cultures, one vial growing gram positive cocci likely representing contaminant we will de-escalate antibiotics to oral doxycycline - titrate oxygen per protocol - chronic wears 4L NC - Continue Solumedrol 40 mg IV q8h - nebs, guafenisin/codeine, tessalon pearls - patient does have a port but has not start MAC treatments - will defer to pulmonology on starting these here vs outpatient - history of positive PPD 1994 with 6 months INH - 2017 negative quantiferon gold negative - consulted pulmonology - consulted palliative care for goals of care discussion 325-Patient currently not interested in hopsice. Concern though is patient continues to require high flow oxygen which makes discharge difficult. Will continue to monitor (4) Dehydration: secondary to diarrhea and poor po intake which has now resolved. discontinue IVF as above (5) Hx-TIA (transient ischemic attack): 2011 (6) Restless leg syndrome: 300 mg hs gabapentin , lorazepam prn (7) DVT prophylaxis: Stephani Spent 25 minute in management of patient. D.W major case detective, actuarial consultant. Subjective Patient appears feeling well. He continues to require high flow. Down to 40 liters. Patient reports no other symptoms. Physical Exam Vital Signs (Past 24 Hours): Last Vital Signs Temp 36.3 C L 12/07/18 02:55 Pulse 108 H 12/07/18 07:49 Resp 18 12/07/18 07:49 BP 104/65 12/07/18 07:49 Pulse Ox 95 12/07/18 07:49 Physical Exam: The patient appeared well nourished and normally developed. Vital signs as documented. Head exam is unremarkable. normocephalic, atraumatic Neck is without jugular venous distension, thyromegaly, or lymphademopathy Lungs are decreased breath sounds bilaterally with rales Cardiac exam reveals Rhythm is regular. First and second heart sounds normal. Abdominal exam reveals normal bowel sounds, no masses, no organomegaly Extremities are nonedematous and both pedal pulses are present marked clubbing of his digits is seen Neurologic exam is A&Ox3, no focal deficits, strength is equal bilateral Psychologically seems depressed Skin is warm Dry without bruises or lesions
--- NOTE | 2018-12-07 11:13 | Palliative Care Consultation ---
Date of Consultation December 07, 2018 Assessment & Plan (1) Goals of care, counseling/discussion: -High-flow nasal cannula weaned down to 40LPM from 50, FiO2 weaned to 45% from 65%. Tolerating well so far. -Uncertain of discharge plan at this time. High flow nasal cannula can only be done in the hospital or possibly at LTACH. Patient states that his physicians were going to see about contacting [facility] or [facility] in [place] regarding possible transplant. (2) Respiratory failure, acute and chronic: (3) Hnvcq-8-gbogzbggbfb deficiency: (4) Atrial fibrillation with RVR: (5) IPF (idiopathic pulmonary fibrosis): History of Present Illness Attending Physician: Richardson Anne Allergies Allergy/AdvReac Type Severity Reaction Status Date / Time amoxicillin Allergy Intermediate itchy Verified 11/30/18 06:05 trazodone Allergy Mild RASH Verified 11/30/18 06:05 Home Medications Home Medications Medication Instructions Recorded Confirmed Type Breo Ellipta 1 inh INHALATION DAILY 06/01/18 11/30/18 History Esbriet 267 mg PO TID 06/01/18 11/30/18 History Prolastin-C 1 dose IV WK 06/01/18 11/30/18 History Xarelto 20 mg PO DAILY 06/01/18 11/30/18 History albuterol sulfate [Ventolin HFA] 2 puff INHALATION QID PRN 06/01/18 11/30/18 History Spiriva Respimat 1 puff INHALATION DAILY 10/14/18 11/30/18 History loperamide [Imodium A-D] 2 mg PO UD PRN 10/14/18 11/30/18 History diltiazem HCl [Cardizem CD] 360 mg PO HS 11/20/18 11/30/18 History fluticasone propionate [Flonase 1 spray INTRANASAL BID 11/20/18 11/30/18 History Allergy Relief] prednisone 10 mg PO QAM 11/20/18 11/30/18 History hydrocodone-acetaminophen [Depauw] 1 - 2 tab PO Q4H PRN #7 tab 11/22/18 11/30/18 Rx albuterol sulfate 2.5 mg INHALATION QID PRN 11/30/18 11/30/18 History Restful Legs 3 tab PO DAILY 12/06/18 12/06/18 History Patient History Medical History Atawq-8-rpskuinxmal deficiency Anxiety Asthma Atrial fibrillation ON XARELTO Atrial flutter COPD (chronic obstructive pulmonary disease) Chronic back pain Chronic neck pain Depression History of pneumothorax VATS WITH BLEB RESECTION S/P SPONTANEOUS PNEUMOTHORAX (2010) IPF (idiopathic pulmonary fibrosis) ON CHRONIC STEROIDS 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 6LPM VIA N/C WITH ACTIVITY AND PRN Transient ischemic attack (TIA) 6 YEARS AGO Surgical History History of cardiac radiofrequency ablation History of colonoscopy History of discectomy LUMBAR History of herniorrhaphy BILATERAL INGUINAL HERNIA REPAIRS History of lung surgery VATS WITH BLEB RESECTION S/P SPONTANEOUS PNEUMOTHORAX (2010) History of total hip arthroplasty LEFT Family History Mother Diabetes Grandmother (Maternal) Diabetes Grandfather (Maternal) Diabetes Aunt Diabetes Uncle Diabetes Other Heart disease Social History Communication Ability: Effective Beliefs That Will Affect Care: None Current Living Situation: Alone current occupational status: employed Other Information That Helps Us Care for You: No Feels Safe at Home: Yes Safety Concerns: Feels Safe At This Time Smoking Status: Former smoker Hx Alcohol Use: Yes Hx Substance Use: No Physical Exam Vital Signs (Past 24 Hours): Last Vital Signs Temp 36.3 C L 12/07/18 02:55 Pulse 108 H 12/07/18 07:49 Resp 18 12/07/18 07:49 BP 104/65 12/07/18 07:49 Pulse Ox 95 12/07/18 07:49 Constitutional: well developed; no acute distress ENMT: external ear and nose normal, oropharynx normal Neck: normal visual inspection Respiratory: + labored breathing (mildly labored breathing) Auscultation: + diminished lung sounds and + crackles (bases) Cardiovascular: RRR, no murmur, no edema Gastrointestinal (Abdomen): Inspection/Auscultation: abdomen normal to inspection and normal bowel sounds; abdomen not distended Percussion/Palpation: abdomen soft Musculoskeletal: Extremities: + clubbing (fingers) Skin: no rashes, warm and dry Neurologic: awake; not confused Psychiatric: A+Ox3, euthymic affect
--- NOTE | 2018-12-07 11:27 | Palliative Care Progress Note ---
Date of Service December 07, 2018 Assessment & Plan (1) Goals of care, counseling/discussion: -High-flow nasal cannula weaned down to 40LPM from 50, FiO2 weaned to 45% from 65%. Tolerating well so far. -Uncertain of discharge plan at this time. High flow nasal cannula can only be done in the hospital or possibly at LTACH. Patient states that his physicians were going to see about contacting [facility] or [facility] in [place] regarding possible transplant. -For now, it seems as though the plan is to continue wean oxygen down and continue current plan. -Patient did complete a living will which states that his sister Darleen Alanis is POA and in end-stage medical condition with little hope of recovery, he would not want any life-prolonging measures. -For now, patient will be a full code per his wishes. -We will continue to follow and provide support. (2) Respiratory failure, acute and chronic: (3) Iyhlu-5-xupozdljvst deficiency: (4) Atrial fibrillation with RVR: (5) IPF (idiopathic pulmonary fibrosis): Subjective Patient feeling okay today. No new complaints. His sister Darleen was in to see him yesterday. Constitutional: no weakness Respiratory: + cough, + dyspnea and + dyspnea on exertion; no sputum production Cardiovascular: no chest pain Gastrointestinal: no abdominal pain and no nausea Psychiatric: + anxiety (at times, related to situational stressors) Physical Exam Vital Signs (Past 24 Hours): Last Vital Signs Temp 36.3 C L 12/07/18 02:55 Pulse 108 H 12/07/18 07:49 Resp 18 12/07/18 07:49 BP 104/65 12/07/18 07:49 Pulse Ox 95 12/07/18 07:49 Constitutional: well developed; no acute distress ENMT: external ear and nose normal, oropharynx normal Neck: normal visual inspection Respiratory: + labored breathing (mildly labored breathing) Auscultation: + diminished lung sounds Cardiovascular: RRR, no murmur, no edema Gastrointestinal (Abdomen): Inspection/Auscultation: abdomen normal to inspection and normal bowel sounds; abdomen not distended Percussion/Palpation: abdomen soft Musculoskeletal: Extremities: + clubbing (fingers) Skin: no rashes, warm and dry Neurologic: awake; not confused Psychiatric: A+Ox3, euthymic affect Time Spent Midlevel 35 minutes with >50% of time spent at bedside with patient discusing condition and GOC.
[2018-12-07] MEDS: HEPARIN 100 UNIT/ML 5ML FLUSH FLUSH PRN (14:30)
[2018-12-07] MEDS: GABAPENTIN 300 MG CAP PO SCH (21:17)
[2018-12-08] MEDS: LEVALBUTEROL HCL 1.25 MG/3 ML NEB NEB SCH ×4 (01:33→19:25)
[2018-12-08] MEDS: BENZONATATE 100 MG CAPSULE PO PRN ×3 (03:27→21:20)
[2018-12-08] MEDS: METOPROLOL TARTRATE 50 MG TAB PO SCH ×3 (09:34→19:35)
[2018-12-08] MEDS: RIVAROXABAN 20 MG TAB PO SCH (09:34)
[2018-12-08] MEDS: predniSONE 20 MG TAB PO SCH (09:34)
--- NOTE | 2018-12-08 14:48 | Progress Note ---
DATE: 12/08/2018 PULMONARY PROGRESS NOTE TIME: 1:40 p.m. SUBJECTIVE: The patient is making slow progress. He is finding that when he goes to the bathroom, he recovers a little quicker. In the past day, they have been able to decrease his FIO2 on the high flow down to 43%. Even on the high flow, however, he desaturates just going to the restroom. There has been no new symptom. OBJECTIVE: GENERAL: The patient appears comfortable at rest. VITAL SIGNS: Temperature is 36.9. He has been afebrile. CARDIAC: Heart rate 105. Rhythm was irregular. Blood pressure 101/67. LUNGS: Lung leonard reveal diffuse rales bilaterally. These are Velcro type. Respiratory rate 16. EXTREMITIES: Reveal +2 edema bilaterally. It appears no labs were done today. IMPRESSION: 1. Ynkpn-do-cvbxwtv respiratory failure with hypoxia. 2. Usual interstitial pneumonitis. 3. Hemoptysis -- improved. 4. Alpha 1 antitrypsin deficiency. 5. Sputum-positive Mycobacterium avium complex. COMMENTS AND RECOMMENDATIONS: The patient is making very slow progress. He did have an AFB done from 12/04 that showed no AFB, but of course cultures are still pending. I believe the major reason why he is so poor is due to his UIP most likely. 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 The patient tells me that he believes there is an LTAC in [place], and if feasible, he would be interested in going there. This could be explored perhaps by the care managers. That LTAC is associated with [facility] according to the patient. That might be an avenue for him to get evaluation for transplant if feasible. It should be noted that the one culture from 10/17 that was positive for M. avium may not be the only one. There was a second specimen from 10/15 that showed acid fast present but unable to quantitate. Thus, it is difficult to determine if this is a pathogen or not. Consideration could be given to an ID consult if desired. For now, I am going to repeat a chest x-ray, which has not been done since admission.
--- NOTE | 2018-12-08 16:00 | XRay Report ---
XR chest 1V portable HISTORY: 58 years-old Male uip chronic interstitial lung disease with repeated respiratory distress COMPARISON: Chest radiograph 11/30/2018 TECHNIQUE: Portable AP view the chest FINDINGS: Cardiomediastinal and hilar silhouettes are unchanged with persistent bilateral mediastinal prominenc e. Surgical clips project over the right mediastinal distribution. Stable positioning of the right soto bclavian Eqtqgi-f-Ajvp catheter. No pneumothorax, pleural effusion or new focal airspace consolidatio n. Chronic interstitial lung disease redemonstrated. Degenerative changes of the shoulders and spine. IMPRESSION: Chronic interstitial lung disease without acute process identified The above report was generated using voice recognition software. It may contain grammatical, syntax o r spelling errors. Electronically signed by: Macho Anne M.D. 12/08/2018 3:59 PM
[2018-12-08] MEDS: GABAPENTIN 300 MG CAP PO SCH (19:35)
[2018-12-08] MEDS: METOPROLOL TARTRATE 1 MG/ML VIAL IV PRN (19:41)
[2018-12-09] MEDS: LEVALBUTEROL HCL 1.25 MG/3 ML NEB NEB SCH ×4 (02:51→18:54)
[2018-12-09] MEDS: predniSONE 20 MG TAB PO SCH (09:41)
[2018-12-09] MEDS: RIVAROXABAN 20 MG TAB PO SCH (09:41)
[2018-12-09] MEDS: METOPROLOL TARTRATE 50 MG TAB PO SCH ×3 (09:42→20:25)
--- NOTE | 2018-12-09 13:18 | Hospitalist Progress Note ---
Date of Service December 08, 2018 Assessment & Plan (1) Atrial fibrillation with RVR: - Per cardiology -we have discontinued his diltiazem altogether due to patient's leg swelling - Will continue metoprolol 50 mg PO TID (switched on the evening of 12/05) Will continue this dose (12/08) - continue with patient's home dose Xarelto for anticoagulation. (2) Eipjq-0-jjfwcjqbwas deficiency: on weekly prolastin infusion therapy has chest port placed recently in November 2018 for IV access for infusions. Patient continues to require high flow oxygen: was able to decrease from 50 liters to 45 liters. Will continue to monitor. Discharge is difficult as patient is on high flow oxygen. Slowly titrating off. D/W pulmonary, may have discussion with tertiary center to see if patient is a candidate for transfer. Unsure what additional treatment can be provided at this time. Patient may be open to a LTAC but will hold off for now. Patient appears to be improving slowly as his oxygen requirement has been gradually decreasing. FIO2 is down to 43% (12/08) (3) Respiratory failure, acute and chronic: secondary to COPD, interstitial lung disease, MAC infection interstitial lung disease likely playing the biggest role. -Blood cultures, one vial growing gram positive cocci likely representing contaminant we will de-escalate antibiotics to oral doxycycline - titrate oxygen per protocol - chronic wears 4L NC - Continue Solumedrol 40 mg IV q8h - nebs, guafenisin/codeine, tessalon pearls - patient does have a port but has not start MAC treatments - will defer to pulmonology on starting these here vs outpatient - history of positive PPD 1994 with 6 months INH - 2017 negative quantiferon gold negative - consulted pulmonology - consulted palliative care for goals of care discussion 325-Patient currently not interested in hospice. -Concern though is patient continues to require high flow oxygen which makes discharge difficult. -Will continue to monitor (4) Dehydration: secondary to diarrhea and poor po intake which has now resolved. discontinue IVF as above (5) Hx-TIA (transient ischemic attack): 2011 (6) Restless leg syndrome: 300 mg hs gabapentin , lorazepam prn (7) DVT prophylaxis: Stephani Spent 25 minute in management of patient. D.W caseworker protective services, foreign law consultant. Subjective Patient denies any new complaints today. Continues to require high flow. Physical Exam Vital Signs (Past 24 Hours): Last Vital Signs Temp 36.4 C 12/08/18 16:01 Pulse 106 H 12/08/18 16:01 Resp 20 12/08/18 16:01 BP 118/81 12/08/18 16:01 Pulse Ox 97 12/08/18 16:01 Physical Exam: The patient appeared well nourished and normally developed. Vital signs as documented. Head exam is unremarkable. normocephalic, atraumatic Neck is without jugular venous distension, thyromegaly, or lymphademopathy Lungs are decreased breath sounds bilaterally with rales Cardiac exam reveals Rhythm is regular. First and second heart sounds normal. Abdominal exam reveals normal bowel sounds, no masses, no organomegaly Extremities are nonedematous and both pedal pulses are present marked clubbing of his digits is seen Neurologic exam is A&Ox3, no focal deficits, strength is equal bilateral Psychologically seems depressed Skin is warm Dry without bruises or lesions
--- NOTE | 2018-12-09 15:12 | Progress Note ---
DATE: 12/09/2018 PULMONARY PROGRESS NOTE TIME: 2:00 p.m. SUBJECTIVE: The patient is feeling less short of breath. He has noticed considerable improvement in the past day. He has been able to get off of the high-flow oxygen. He has been on OxyMask since last evening. He has been tolerating it well with no significant desaturations. OBJECTIVE: GENERAL: The patient is comfortable at rest. VITAL SIGNS: Temperature is 36.8. No fever is noted in the past 24 hours. HEART: Heart rate 100. Rhythm regular. Blood pressure 105/72. LUNGS: Respiratory rate 20. Rales which are dry are heard posteriorly bilaterally. Saturation 96% on OxyMask with 6 liters. EXTREMITIES: Show marked clubbing. DATA: Chest x-ray done shows pulmonary fibrosis and it is essentially unchanged. IMPRESSION: 1. Sagvk-vo-tkbscpc respiratory failure with hypoxia. 2. Usual interstitial pneumonitis. 3. Alpha 1 antitrypsin deficiency. 4. Sputum positive for Mycobacterium avium complex. COMMENTS AND RECOMMENDATIONS: The patient is better from the perspective of oxygen needs. If his oxygen continues to improve, he may be able to be discharged soon. He does not need to have his oxygen maintained at 96% where he is currently, but anything 90% or higher would be adequate. The issue was getting his oxygen needs are such that he can do this at home. It appears that he likely will not need to go to an tachycardia based upon his improvement in the past 24-36 hours. When he goes home, he should resume his medication for the idiopathic pulmonary fibrosis, which is the Esbriet. He will be following up with the pulmonary office and should see them relatively soon after discharge. We will sign off for now. Please reconsult if the pulmonary service is needed.
[2018-12-09] MEDS: GABAPENTIN 300 MG CAP PO SCH (20:25)
[2018-12-09] MEDS: LORazepam 0.5 MG TAB PO PRN (22:39)
[2018-12-09] MEDS: GUAIFENESIN/CODEINE 100MG/10MG 5ML UDC PO PRN (22:42)
--- NOTE | 2018-12-09 23:14 | Hospitalist Progress Note ---
Date of Service December 09, 2018 Assessment & Plan (1) Atrial fibrillation with RVR: - Per cardiology -we have discontinued his diltiazem altogether due to patient's leg swelling - Increased metoprolol 75 mg PO TID - continue with patient's home dose Xarelto for anticoagulation. -may need to add dig. (2) Lddbf-0-aeiklnuofqe deficiency: on weekly prolastin infusion therapy has chest port placed recently in November 2018 for IV access for infusions. Patient continues to require high flow oxygen: was able to decrease from 50 liters to 45 liters. Will continue to monitor. Discharge is difficult as patient is on high flow oxygen. Slowly titrating off. D/W pulmonary, may have discussion with tertiary center to see if patient is a candidate for transfer. Unsure what additional treatment can be provided at this time. Patient may be open to a LTAC but will hold off for now. Patient appears to be improving slowly as his oxygen requirement has been gradually decreasing. Titrated down to oxymask overnight (PM of 12/08). Appears to be tolerating this. Patient is on 6 liters oxymask. (3) Respiratory failure, acute and chronic: secondary to COPD, interstitial lung disease, MAC infection interstitial lung disease likely playing the biggest role. -Blood cultures, one vial growing gram positive cocci likely representing contaminant we will de-escalate antibiotics to oral doxycycline - titrate oxygen per protocol - chronic wears 4L NC - Continue Solumedrol 40 mg IV q8h - nebs, guafenisin/codeine, tessalon pearls - patient does have a port but has not start MAC treatments - will defer to pulmonology on starting these here vs outpatient - history of positive PPD 1994 with 6 months INH - 2017 negative quantiferon gold negative - consulted pulmonology - consulted palliative care for goals of care discussion 325-Patient currently not interested in hospice. -Previously concerned that patient required high flow oxygen which made discharge difficult. Now on oxymask, will continue to titrate down. Saturating above 88% -Will continue to monitor (4) Dehydration: secondary to diarrhea and poor po intake which has now resolved. discontinue IVF as above (5) Hx-TIA (transient ischemic attack): 2011 (6) Restless leg syndrome: 300 mg hs gabapentin , lorazepam prn (7) DVT prophylaxis: Stephani Spent 25 minute in management of patient. D.W correctional case manager, business analyst consultant. Subjective Patient denies any new complaints today. Patient is now tolerating oxymask. Patient reports feeling comfortable. Physical Exam Vital Signs (Past 24 Hours): Last Vital Signs Temp 36.4 C L 12/09/18 20:00 Pulse 115 H 12/09/18 20:00 Resp 20 12/09/18 20:00 BP 120/71 12/09/18 20:00 Pulse Ox 92 12/09/18 20:00 Physical Exam: The patient appeared well nourished and normally developed. Vital signs as documented. Head exam is unremarkable. normocephalic, atraumatic Neck is without jugular venous distension, thyromegaly, or lymphademopathy Lungs are decreased breath sounds bilaterally with rales Cardiac exam reveals Rhythm is regular. First and second heart sounds normal. Abdominal exam reveals normal bowel sounds, no masses, no organomegaly Extremities are nonedematous and both pedal pulses are present marked clubbing of his digits is seen Neurologic exam is A&Ox3, no focal deficits, strength is equal bilateral Psychologically seems depressed Skin is warm Dry without bruises or lesions
[2018-12-10] MEDS: LEVALBUTEROL HCL 1.25 MG/3 ML NEB NEB SCH ×4 (01:19→19:15)
[2018-12-10 07:05] LABS: BUN Creatinine Ratio 17.8 (10-20); Calcium 9.6 mg/dl (8.5-10.1); Creatinine Clr Calc Pharmacy 95.6 ml/min; Est GFR (African American) 92.4; Est GFR (Non-African American) 79.7; Potassium 3.9 mmol/L (3.5-5.1)
[2018-12-10] MEDS: METOPROLOL TARTRATE 50 MG TAB PO SCH ×2 (08:18→21:14)
[2018-12-10] MEDS: RIVAROXABAN 20 MG TAB PO SCH (08:20)
[2018-12-10] MEDS: predniSONE 20 MG TAB PO SCH (08:20)
[2018-12-10] MEDS ORDERED: METOPROLOL TARTRATE 25 MG TAB PO ONE (10:28)
--- NOTE | 2018-12-10 10:36 | Hospitalist Progress Note ---
Date of Service December 10, 2018 Assessment & Plan (1) Atrial fibrillation with RVR: - Per cardiology -we have discontinued his diltiazem altogether due to patient's leg swelling - continue with patient's home dose Xarelto for anticoagulation. -may need to add dig on 12/11 Patient switched to toprol 100 mg PO BID. (12/10) (2) [id number] deficiency: on weekly prolastin infusion therapy has chest port placed recently in November 2018 for IV access for infusions. Patient continues to require high flow oxygen: was able to decrease from 50 liters to 45 liters. Will continue to monitor. Discharge is difficult as patient is on high flow oxygen. Slowly titrating off. D/W pulmonary, may have discussion with tertiary center to see if patient is a candidate for transfer. Unsure what additional treatment can be provided at this time. Patient may be open to a LTAC but will hold off for now. Patient appears to be improving slowly as his oxygen requirement has been gradually decreasing. Titrated down to oxymask overnight (PM of 12/08). Appears to be tolerating this. Patient is on 6 liters oxymask. (3) Respiratory failure, acute and chronic: secondary to COPD, interstitial lung disease, MAC infection interstitial lung disease likely playing the biggest role. 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 -Previously concerned that patient required high flow oxygen which made discharge difficult. Now on oxymask, will continue to titrate down. Saturating above 88% -Will continue to monitor (4) Dehydration: secondary to diarrhea and poor po intake which has now resolved. discontinue IVF as above (5) Hx-TIA (transient ischemic attack): 2011 (6) Restless leg syndrome: 300 mg hs gabapentin , lorazepam prn (7) DVT prophylaxis: Stephani Spent 25 minute in management of patient. 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 Subjective Patient denies any new complaints today. Patient continues to be tolerating oxymask. Patient reports feeling comfortable. Physical Exam Vital Signs (Past 24 Hours): Last Vital Signs Temp 36.3 C L 12/10/18 07:31 Pulse 122 H 12/10/18 07:31 Resp 18 12/10/18 07:31 BP 131/86 12/10/18 07:31 Pulse Ox 92 12/10/18 07:31 Physical Exam: The patient appeared well nourished and normally developed. Vital signs as documented. Head exam is unremarkable. normocephalic, atraumatic Neck is without jugular venous distension, thyromegaly, or lymphademopathy Lungs are decreased breath sounds bilaterally with rales Cardiac exam reveals Rhythm is regular. First and second heart sounds normal. Abdominal exam reveals normal bowel sounds, no masses, no organomegaly Extremities are nonedematous and both pedal pulses are present marked clubbing of his digits is seen Neurologic exam is A&Ox3, no focal deficits, strength is equal bilateral Psychologically seems depressed Skin is warm Dry without bruises or lesions
--- NOTE | 2018-12-10 14:54 | Palliative Care Progress Note ---
Date of Service December 10, 2018 Assessment & Plan (1) Goals of care, counseling/discussion: -Now on oxymask and tolerating okay. -Uncertain of discharge plan at this time. Is open with [facility] home health. -Patient stated previously that he thought his physicians were going to contact tertiary care center about possibility of transplant list. Uncertain if patient is transplant candidate. This may need to be as an outpatient? Will defer to pulmonology and hospitalist teams. -Patient is now full code. Is interested in aggressive care. -Palliative care will follow peripherally for now. Please contact us with any further palliative care needs. (2) Respiratory failure, acute and chronic: Was on oxymask for the first 3 days of this admission , now on HFNC - just starting to wean flow rate (3) [id number] deficiency: On Prolostin -C (4) Atrial fibrillation with RVR: rate controlled on Metoprolol, cont Xarelto for AC (5) IPF (idiopathic pulmonary fibrosis): Plans per Pulm Subjective Patient is off HFNC. Is on oxymask and tolerating okay. Was on phone and speak ing in complete sentences when I entered the room. Review of Systems Denies chest pain, fever/chills, N/V/D. Respiratory: + cough, + dyspnea and + dyspnea on exertion; no sputum production Psychiatric: + anxiety (at times, related to situational stressors) Physical Exam Vital Signs (Past 24 Hours): Last Vital Signs Temp 36.3 C L 12/10/18 11:39 Pulse 79 12/10/18 14:10 Resp 16 12/10/18 14:10 BP 123/88 12/10/18 11:39 Pulse Ox 96 12/10/18 14:10 Constitutional: well developed; no acute distress ENMT: external ear and nose normal, oropharynx normal Neck: normal visual inspection Respiratory: + labored breathing (mildly labored breathing) Auscultation: + diminished lung sounds Cardiovascular: RRR, no murmur, no edema Musculoskeletal: Extremities: + clubbing (fingers) Skin: no rashes, warm and dry Neurologic: awake; not confused Psychiatric: A+Ox3, euthymic affect Time Spent Midlevel 25 minutes with >50% of time spent at bedside with patient discussing plan of care.
--- NOTE | 2018-12-10 16:34 | Cardiology Progress Note ---
Date of Service December 10, 2018 Assessment & Plan (1) Atrial fibrillation with RVR: He continues to have some higher ventricular rates. I will increase his metoprolol. Can add digoxin in a couple of days if we are still seeing some high rates. Obviously his heart rates are driven by his high adrenergic state secondary to his severe lung disease. Continue on anticoagulation. We stopped his diltiazem because of leg edema. This does not appear to have improved much. He likely has some right-sided failure ass well. Subjective Feeling slightly better. He reportedly ambulated in the wright yesterday. He did have some desaturations as a result. Physical Exam Vital Signs (Past 24 Hours): Last Vital Signs Temp 36.9 C 12/10/18 16:16 Pulse 110 H 12/10/18 16:16 Resp 20 12/10/18 16:16 BP 126/89 12/10/18 16:16 Pulse Ox 96 12/10/18 16:16 Physical Exam: Comfortable. Lungs with occasional crackles, but improved Cardiac: Irregular Edema in the legs bilaterally Results & Data Laboratory Results Abnormal Lab Results 12/10/18 05:19 Sodium 142 Potassium 3.9 Chloride 104 Carbon Dioxide 32 Anion Gap 6.0 BUN 18 Creatinine 1.03 Est Cr Clr Drug Dosing 95.6 Est GFR ( Amer) 92.4 Est GFR (Non-Af Amer) 79.7 BUN/Creatinine Ratio 17.8 Glucose 81 Calcium 9.6
[2018-12-10] MEDS: GABAPENTIN 300 MG CAP PO SCH (21:15)
[2018-12-11] MEDS: LEVALBUTEROL HCL 1.25 MG/3 ML NEB NEB SCH ×4 (02:01→19:17)
[2018-12-11] MEDS: LORazepam 0.5 MG TAB PO PRN ×2 (03:17→03:25)
[2018-12-11] MEDS: RIVAROXABAN 20 MG TAB PO SCH (07:47)
[2018-12-11] MEDS: METOPROLOL TARTRATE 50 MG TAB PO SCH ×2 (07:48→20:40)
[2018-12-11] MEDS: predniSONE 20 MG TAB PO SCH (07:48)
--- NOTE | 2018-12-11 08:45 | Hospitalist Progress Note ---
Date of Service December 11, 2018 Assessment & Plan (1) Atrial fibrillation with RVR: - Per cardiology -we have discontinued his diltiazem altogether due to patient's leg swelling - continue with patient's home dose Xarelto for anticoagulation. Patient switched to toprol 100 mg PO BID. (12/10) (2) [id number] deficiency: on weekly prolastin infusion therapy has chest port placed recently in November 2018 for IV access for infusions. Patient continues to require significant oxygen: He is tolerating oxygen mask between 4 and 6 L/min supplementation D/W pulmonary, tertiary center referral may be done as an outpatient were considering going to long-term acute care facility for administration of the high levels of oxygen required for this patient (3) Respiratory failure, acute and chronic: secondary to COPD, interstitial lung disease, MAC infection interstitial lung disease likely playing the biggest role. -Blood cultures, one vial growing gram positive cocci likely representing contaminant we will de-escalate antibiotics to oral doxycycline - titrate oxygen per protocol - chronic wears 4L NC - Continue Solumedrol 40 mg IV q8h - nebs, guafenisin/codeine, tessalon pearls - patient does have a port but has not start MAC treatments -neurology does not recommend initiation of co-bacterium colonization at this time therefore believe this is likely not an acute infection but more of a colonization. Will curbside pulmonology for further clarity on this issue - history of positive PPD 1993 with 6 months INH - 2017 negative quantiferon gold negative - consulted palliative care for goals of care discussion 325-Patient currently not interested in hospice. (4) Dehydration: secondary to diarrhea and poor po intake which has now resolved. discontinue IVF as above (5) Hx-TIA (transient ischemic attack): 2011 (6) Restless leg syndrome: 300 mg hs gabapentin , lorazepam prn (7) DVT prophylaxis: Xarelto Subjective Patient is persistently short of breath even dyspneic with short movements he is on oxygen mask hovering between 4 and 6 L supplementation. He is having some bright red blood per rectum and has known hemorrhoids. Review of Systems ROS: well nourished well developed. Patient is in moderate distress No double vision blurry vision No problems with speech or swallowing No palpitations, chest pain or pressure Marked dyspnea on exertion and fatigue with some dizziness No abdominal pain nausea vomiting diarrhea having some bright red blood per rectum from his hemorrhoids No burning urine urine frequency or changes in color No focal joint pain or muscle pain No skin rashes or oral lesions No unusual bruising or bleeding No focused back pain or numbness or loss of strength No changes in memory or confusion Physical Exam Vital Signs (Past 24 Hours): Last Vital Signs Temp 36.4 C L 12/11/18 07:23 Pulse 118 H 12/11/18 07:23 Resp 30 H 12/11/18 07:23 BP 106/67 12/11/18 07:23 90 12/11/18 07:23 The patient appeared dyspneic even at rest Vital signs as documented noticing tachypnea. Head exam is unremarkable. normocephalic, atraumatic Neck is without jugular venous distension, thyromegaly, or lymphademopathy Lungs are bilateral rales with poor air movement. Cardiac exam reveals Rhythm is regular. First and second heart sounds normal. Abdominal exam reveals normal bowel sounds, no masses, no organomegaly Extremities are nonedematous and marked clubbing to all digits of his hands Neurologic exam is A&Ox3, no focal deficits, strength is equal bilateral Psychologically seems neither anxious or depressed Skin is warm Dry without bruises or lesions
[2018-12-11] MEDS: GABAPENTIN 300 MG CAP PO SCH (20:40)
[2018-12-11] MEDS: GUAIFENESIN/CODEINE 100MG/10MG 5ML UDC PO PRN (23:29)
[2018-12-12] MEDS: LEVALBUTEROL HCL 1.25 MG/3 ML NEB NEB SCH ×4 (01:46→19:06)
[2018-12-12] MEDS: predniSONE 20 MG TAB PO SCH (08:16)
[2018-12-12] MEDS: RIVAROXABAN 20 MG TAB PO SCH (08:16)
[2018-12-12] MEDS: METOPROLOL TARTRATE 50 MG TAB PO SCH ×2 (08:16→21:30)
[2018-12-12] MEDS ORDERED: ZINC OXIDE 16% 45 APPLN, HYDROCORTISONE 1% 45 APPLN, ALUMINUM/MAGNESIUM SUSP 15 ML, BAR... TOP PRN (16:45)
[2018-12-12] MEDS ORDERED: ANUSOL SUPP 1 EA PR PRN (16:45)
--- NOTE | 2018-12-12 16:45 | Hospitalist Progress Note ---
Date of Service December 12, 2018 Assessment & Plan (1) Respiratory failure, acute and chronic: secondary to COPD, interstitial lung disease, MAC infection interstitial lung disease likely playing the biggest role. -Blood cultures, one vial growing gram positive cocci likely representing contaminant we will de-escalate antibiotics to oral doxycycline - titrate oxygen per protocol -is still on 4.5 L of oxygen - has been tolerant of oral steroids - nebs, guafenisin/codeine, tessalon pearls - patient does have a port but has not start MAC treatments -pulmonary does not recommend initiation of treatment until his formal send away cultures have come back. 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 (2) Atrial fibrillation with RVR: - Per cardiology -we have discontinued his diltiazem altogether due to patient's leg swelling - Xarelto for anticoagulation will be on hold due to hemorrhoidal bleeding. Patient switched to toprol 100 mg PO BID. (12/10) (3) Rjuuo-0-[id number] deficiency: on weekly prolastin infusion therapy as an out pt, on pirfenadine for pulmonary fibrosis has chest port placed recently in November 2018 for IV access for infusions. Patient continues to require significant oxygen: He is tolerating oxygen mask between 4 and 6 L/min supplementation D/W pulmonary, tertiary center referral may be done as an outpatient were considering going to long-term acute care facility for administration of the high levels of oxygen required for this patient considering select specialty (4) Dehydration: secondary to diarrhea and poor po intake which has now resolved. (5) Hx-TIA (transient ischemic attack): 2011, not on any antiplatelet medicines (6) Restless leg syndrome: 300 mg hs gabapentin , lorazepam prn (7) DVT prophylaxis: Xarelto Subjective Patient is chronically ill but stable at this point time his biggest issue continues to be dyspnea on exertion and some bright red blood per rectum Review of Systems ROS: well nourished well developed. Moderate distress No double vision blurry vision No problems with speech or swallowing No palpitations, chest pain or pressure Coughing paroxysms and dyspnea on exertion No abdominal pain nausea vomiting diarrhea has had hemorrhoidal bleeding No burning urine urine frequency or changes in color No focal joint pain or muscle pain No skin rashes or oral lesions No unusual bruising or bleeding No focused back pain or numbness or loss of strength No changes in memory or confusion Physical Exam Vital Signs (Past 24 Hours): Last Vital Signs Temp 36.3 C L 12/12/18 15:55 Pulse 93 H 12/12/18 15:55 Resp 26 H 12/12/18 15:55 BP 102/58 L 12/12/18 15:55 Pulse Ox 89 L 12/12/18 15:55 The patient appeared in mild to moderate distress Vital signs as documented. Tachypnea requiring significant oxygen supplementation Head exam is unremarkable. normocephalic, atraumatic Neck is with jugular venous distension, thyromegaly, or lymphademopathy Lungs are bilateral rales Cardiac exam reveals Rhythm is regular. First and second heart sounds normal. Abdominal exam reveals normal bowel sounds, no masses, no organomegaly Extremities are mildly edematous and both pedal pulses are present Neurologic exam is A&Ox3, no focal deficits, strength is equal bilateral Psychologically seems both anxious and depressed Skin is warm Dry without bruises or lesions
[2018-12-12] MEDS: GABAPENTIN 300 MG CAP PO SCH (21:31)
[2018-12-13] MEDS: LEVALBUTEROL HCL 1.25 MG/3 ML NEB NEB SCH ×3 (01:36→14:03)
[2018-12-13] MEDS: METOPROLOL TARTRATE 50 MG TAB PO SCH ×2 (08:20→21:30)
[2018-12-13] MEDS: predniSONE 20 MG TAB PO SCH (08:20)
--- NOTE | 2018-12-13 10:27 | Cardiology Progress Note ---
Date of Service December 13, 2018 Assessment & Plan (1) Atrial fibrillation with RVR: He continues to have some high rates at times. I think we can add digoxin at this point. Overall edema may have improved slightly without diltiazem. He likely has an element of venous insufficiency as well possibly related to pulmonary hypertension and his intrinsic lung disease. Subjective This morning the patient claims to feel about the same. He continues to have dyspnea primarily with activity. He does feel slightly better than he did when he 1st was admitted to the hospital. He has noticed his lower extremity edema is also mildly improved, especially in the morning after having his legs elevated. Physical Exam Vital Signs (Past 24 Hours): Last Vital Signs Temp 36.3 C L 12/13/18 07:27 Pulse 102 H 12/13/18 07:40 Resp 22 12/13/18 07:27 BP 116/74 12/13/18 07:27 Pulse Ox 99 12/13/18 07:27 Physical Exam: The patient is alert and oriented. Mood and affect appeared normal. He answered all questions appropriately. HEENT: Pupils are equal and reactive to light and accommodation. Extraocular movements are intact. The sclerae are anicteric. Neuro: Cranial nerves intact Lungs: Diffuse dry crackles. Good air movement. No expiratory wheezing. Cardiac: Heart demonstrates anir regular rate and rhythm. Normal S1 and S2. No murmurs on examination. Pulses: The patient has palpable radial pulses bilaterally that are equal in intensity Extremities: There was no evidence of hypoperfusion. There is no cyanosis but he does have marked clubbing on both hands. Mild edema bilaterally. Skin: I did not appreciate any rashes on examination today. Results & Data ECG Additional Comments: Atrial fibrillation with high rates at times.
[2018-12-13] MEDS ORDERED: DIGOXIN 0.25 MG TAB PO ONE (10:45)
--- NOTE | 2018-12-13 12:26 | Medical Student H&P ---
Date of Service December 13, 2018 Impression / Recommendations (1) Respiratory distress: Acute on Chronic respiratory distress secondary to COPD, fibrotic lung changes, and alpha-1 antitrypsin deficiency Patient is chronically ill but stable on 4.5 L of oxygen through cannula; He will need intensive respiratory rehabilitation in order to get him back to perform his task of daily living; will do [facility] pending insurance approval. Also considering palliative care, or/and lung transplantation. Plan: * Continue Oxygen 4.5 L and 6.0 liters with ambulation * Patient needs respiratory therapy and will be sent to [facility] on discharge for thorough respiratory rehabilitation * COPD: patient is former smoker with 30 pack year history and alpha-1 antitrypsin deficiency. COPD is managed with bronchodilators (levalbuterol), and prednisone. Recieves weekly infusions of prolastin for Alpha-1 antitrypsin deficiency. * Fibrotic Lung disease: Patient has never had a lung biopsy. We could consider this as it is possible he has idiopathic fibrotic lung disease and biopsy could confirm this and then make him a candidate for drugs such as perfenidone and entednab. However, patient has had exposure to industrial toxins such as silica and sand fumes which could be the underlying etiology of these fibrotic changes. If irritant exposure were reason for fibrotic changes, it would increase my push for lung transplantation as patient is no longer exposed to these substances and thus would hav decreased chance of fibrotic changes. Would need biopsy to confirm. (2) IPF (idiopathic pulmonary fibrosis): Fibrotic Lung disease: Patient has never had a lung biopsy. We could consider this as it is possible he has idiopathic fibrotic lung disease and biopsy could confirm this and then make him a candidate for drugs such as perfe nidone and entednab. However, patient has had exposure to industrial toxins such as silica and sand fumes which could be the underlying etiology of these fibrotic changes. If irritant exposure were reason for fibrotic changes, it would increase my push for lung transplantation as patient is no longer exposed to these substances and thus would hav decreased chance of fibrotic changes. Would need biopsy to confirm. Plan: * Pulmonary Rehabilitation * 6 weeks of pulmonary rehab at least 3 days/week * evidence shows that patients who are the most limited actually get the most benefit from these programs * Maintenance exercise post-rehab * Home Oxygen 4.5 L; order m6 cylinder with oxygen conserving pulse delivery device to aid in ambulation * Proton pump inhbitor Pantoprazole 40 mg * For unknown reasons, GERD is correlated with worsening idiopathic fibrotic changes and PPI is recommended for patients with reflux symptoms Thoughts: steroids has not been shown to help idiopathic fibrotic lung changes, but he should remain on them due to COPD--important to know that is is not aiding this pathology however. Latest recommendations for idiopathic pulmonary fibrosis include slowing of progression with perfenidone or entednab. No studies showed any increased efficacy of taking both medications. Important to determine whether or not, patient's fibrosis is truly idiopathic because it could change treatment plan. Gold standard of diagnosis is surgical lung biopsy. I would recommend getting this biopsy in the near future, however it is reasonable to hold off until [facility]. (3) Atrial fibrillation: Patient had one episode of atrial fibrillation in the last 24 hours. Plan: Patient is on first line treatment metoprolol. Patient had been on diltiazam as well, however due to severe peripheral edema medication was stopped. Patient's CHADS2 score of 2 puts him at a 4% risk of stroke per year without an ticoagulants. Patient is on Xarelto, which has been stopped this AM due to rectal bleeding but will be restarted this evening. (4) Lung transplant candidate: Patient's prognosis is limited without lung transplantation. Patient is young (<65), has history of compliance and is no longer smoking. Would need to be clear of infections. Lung transplantation is not without difficulty and patient would need thorough work-up at a transplant center. Plan: -Contact transplant centers for transfer post time at [facility] -Patient has supporters and potential care-takers in the [place] area. I would recommend the [facility] [place]. [email or web address] -Patient would need to undergo through physiological testing (6 minute walk test, etc), psychiatric evaluation, heart cath. to determine status of pulmonary hypertension, etc. Patient has been open about being aware of the arduous process of lung transplant but views that he has nothing to lose and limited options otherwise. (5) Yvdeg-[id number]-lweynoiegvc deficiency: * Follow general COPD treatment * Continue AAT augmentation treatment: weekly prolastin infusions. * limit ethanol intake, exposure to liver toxins and respiratory irritants. * confirm vaccinations are up to hima * prevnar 13 Sources: "Alpha1- Antritrypsin deficiency" Edgar Storey MD. [place] Journal [employer]. 2009 "Alpha 1 antritrypson deficiency as a common treatable mechanism is chronic respiratory disorders and for condition different from pulmonary emphysema?" Tinmona Dexter. Multidisciplinary Respiratory Medicine. 2018 (6) Mycobacterium avium complex: * Initial positive culture was in XXX; waiting for second culture confirmation to begin treatment as per recommendations from pulmonology consult (7) Depression: Patient is admittedly anxious and depressed about health circumstances and limited support system locally. He has never been through psychological or p sychiatry therapy and I recommend initial psych consult to connect him with local mental health network and resources Plan: * psychiatry consult (8) Peripheral edema: Echocardiogram did not show evidence of pulmonary hypertension, however given severity of respiratory distress and lung pathology, pulmonary hypertension is still very likely. Diltiazam could certainly have been contributing to edema (vasodilation); will continue to hold until there is significant improvement. Albumin is within normal limits. Plan: * Continue diuretic * Salt restricted diet * Elevate lower extremities * Hold Diltiazem * Heart catheterization Heart catheterization to determine presence and degree of pulmonary hypertension. If consider transplantation, this would be a part of the work-up anyways and could only help with current treatment of edema. CPT Code Initial Hospital Care: 33317 History & Physical Identifying Data Subjective: 58 yo chronically ill male admitted on 11/30/2018 for acute on chronic respirato ry distress secondary to COPD, intertistitial lung disease, pulmonary fibrosis and alpha-1 antitrypsin deficiency. This morning the patient states to feel about the same without any concerns or questions. He continues to have dyspnea primarily with activity, but states that he thinks [facility] will help with this. Additionally, he states his lower extremity edema has improved. Patient had an episode of atrial fibrillation at 07:40 this morning, 100s- 110she states he didnt even realize it was happening until the nurse came in. In hindsight, he thinks his breathing became more labored, but he denies chest pain. . Xarelto was held this morning and patient reports hemorrhaids have improved with only tiny spots of blood. He denies constipation or diarrhea. Allergies Allergy/AdvReac Type Severity Reaction Status Date / Time amoxicillin Allergy Intermediate itchy Verified 11/30/18 06:05 trazodone Allergy Mild RASH Verified 11/30/18 06:05 Home Medications Home Medications Medication Instructions Recorded Confirmed Type Breo Ellipta 1 inh INHALATION DAILY 06/01/18 11/30/18 History Esbriet 267 mg PO TID 06/01/18 11/30/18 History Prolastin-C 1 dose IV WK 06/01/18 11/30/18 History Xarelto 20 mg PO DAILY 06/01/18 11/30/18 History albuterol sulfate [Ventolin HFA] 2 puff INHALATION QID PRN 06/01/18 11/30/18 History Spiriva Respimat 1 puff INHALATION DAILY 10/14/18 11/30/18 History loperamide [Imodium A-D] 2 mg PO UD PRN 10/14/18 11/30/18 History diltiazem HCl [Cardizem CD] 360 mg PO HS 11/20/18 11/30/18 History fluticasone propionate [Flonase 1 spray INTRANASAL BID 11/20/18 11/30/18 History Allergy Relief] prednisone 10 mg PO QAM 11/20/18 11/30/18 History hydrocodone-acetaminophen [[place]] 1 - 2 tab PO Q4H PRN #7 tab 11/22/18 11/30/18 Rx albuterol sulfate 2.5 mg INHALATION QID PRN 11/30/18 11/30/18 History Restful Legs 3 tab PO DAILY 12/06/18 12/06/18 History Patient History Medical History Exposure to dust fume (Chronic) Exposure to silica (Chronic) Occupational exposure to industrial toxins (Chronic) [place]-7-lylnkzthwes deficiency Anxiety Asthma Atrial fibrillation ON XARELTO Atrial flutter COPD (chronic obstructive pulmonary disease) Chronic back pain Chronic neck pain Depression History of pneumothorax VATS WITH BLEB RESECTION S/P SPONTANEOUS PNEUMOTHORAX (2010) IPF (idiopathic pulmonary fibrosis) ON CHRONIC STEROIDS 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 6LPM VIA N/C WITH ACTIVITY AND PRN Transient ischemic attack (TIA) 6 YEARS AGO Surgical History History of cardiac radiofrequency ablation History of colonoscopy History of discectomy LUMBAR History of herniorrhaphy BILATERAL INGUINAL HERNIA REPAIRS History of lung surgery VATS WITH BLEB RESECTION S/P SPONTANEOUS PNEUMOTHORAX (2010) History of total hip arthroplasty LEFT Family History Mother Diabetes Grandmother (Maternal) Diabetes Grandfather (Maternal) Diabetes Aunt Diabetes Uncle Diabetes Other Heart disease Social History Communication Ability: Effective Beliefs That Will Affect Care: None marital status: Current Living Situation: Alone current occupational status: unemployed and disabled Other Information That Helps Us Care for You: No Feels Safe at Home: Yes Safety Concerns: Feels Safe At This Time Smoking Status: Former smoker Hx Alcohol Use: Yes Hx Substance Use: No Review of Systems Constitutional: as per Subjective / HPI difficulty sleeping/getting rest in hospital Eyes: as per Subjective / HPI Ear, Nose, Mouth, Throat: as per Subjective / HPI Respiratory: as per Subjective / HPI, + dyspnea and + dyspnea on exertion Cardiovascular: as per Subjective / HPI and + edema; no chest pain Gastrointestinal: as per Subjective / HPI; no abdominal pain, no nausea and no vomiting Hemorrhoids are bleeding less. Neurologic: as per Subjective / HPI Psychiatric: as per Subjective / HPI, + depression and + anxiety Physical Exam Vital Signs (Past 24 Hours) Last Vital Signs Temp 36.3 C L 12/13/18 11:25 Pulse 89 12/13/18 11:25 Resp 22 12/13/18 11:25 BP 105/76 12/13/18 11:25 Pulse Ox 89 L 12/13/18 11:25 Constitutional well developed, + acute distress, + ill appearing and + diaphoretic Eyes PERRL, conjunctivae normal, anicteric sclerae EOM intact bilaterally ENMT external ear and nose normal, oropharynx normal Neck trachea midline, no thyromegaly Respiratory + respiratory distress, + labored breathing (mildly labored breathing) and + cough Auscultation: + diminished lung sounds and + crackles (bases) Cardiovascular Rate/Rhythm: regular rhythm and + tachycardic (atrial fibrillation) Palpation: normal PMI Extremities: normal capillary refill and + edema Gastrointestinal (Abdomen) normal bowel sounds, soft, nontender, no hepatosplenomegaly Inspection/Auscultation: abdomen normal to inspection Musculoskeletal Extremities: strength 5/5 throughout and + clubbing (fingers) Skin no rashes, warm and dry Neurologic PERRL, EOMI, accommodation nl, no face palsy, no dysarthria CN's II-XI intact bilaterally, deep tendon reflexes 2+ bilaterally and awake Psychiatric A+Ox3, euthymic affect Apperance: appropriately groomed Affect: euthymic affect and + anxious affect (at times) Mood: + depressed mood Thought Process: goal directed thought process and clear/coherent thought process Insight: good insight Results & Data Laboratory Results Laboratory Last Values WBC 12.05 K/uL (4.8-10.8) H 12/07/18 05:05 RBC 4.21 M/uL (4.7-6.1) L 12/07/18 05:05 Hgb 13.0 g/dL (14.0-18.0) L 12/07/18 05:05 Hct 40.8 % (42-52) L 12/07/18 05:05 MCV 96.9 fL (80-100) 12/07/18 05:05 MCH 30.9 pg (25-34) 12/07/18 05:05 MCHC 31.9 g/dL (32-36) L 12/07/18 05:05 RDW Std Deviation 51.2 fL (36.4-46.3) H 12/07/18 05:05 RDW Coeff of Melinda 14.5 % (11.5-14.5) 12/07/18 05:05 Plt Count 288 K/uL (130-400) 12/07/18 05:05 MPV 8.7 fL (7.4-10.4) 12/07/18 05:05 Immature Gran % (Auto) 0.3 % 12/01/18 08:55 Neut % (Auto) 89.4 % 12/01/18 08:55 Lymph % (Auto) 5.3 % 12/01/18 08:55 [place] % (Auto) 5.0 % 12/01/18 08:55 Eos % (Auto) 0.0 % 12/01/18 08:55 Baso % (Auto) 0.0 % 12/01/18 08:55 Immature Gran # (Auto) 0.02 K/uL (0.00-0.02) 12/01/18 08:55 Neut # (Auto) 5.88 K/uL (1.4-6.5) 12/01/18 08:55 Lymph # (Auto) 0.35 K/uL (1.2-3.4) L 12/01/18 08:55 [place] # (Auto) 0.33 K/uL (0.11-0.59) 12/01/18 08:55 Eos # (Auto) 0.00 K/uL (0-0.5) 12/01/18 08:55 Baso # (Auto) 0.00 K/uL (0-0.2) 12/01/18 08:55 PT 12.2 Seconds (9.0-12.0) H 11/30/18 05:58 INR 1.2 (0.9-1.1) H 11/30/18 05:58 APTT 27.6 Seconds (21.0-31.0) 11/30/18 05:58 PTT Ratio 1.0 11/30/18 05:58 ABG pH 7.44 (7.35-7.45) 11/30/18 17:36 ABG pCO2 31 mmHg (35-46) L 11/30/18 17:36 ABG pO2 84 mm/Hg (80-95) 11/30/18 17:36 ABG HCO3 21 mmol/L (19-24) 11/30/18 17:36 ABG O2 Saturation 96.6 % (90-95) H 11/30/18 17:36 ABG Base Excess -2.5 mEq/L (-9-1.8) 11/30/18 17:36 Ricco Test Pos (Pos) 11/30/18 17:36 Barometric Pressure 722.2 mm/Hg 11/30/18 17:36 Oxygen Given 15L 11/30/18 17:36 Sodium 142 mmol/L (136-145) 12/10/18 05:19 Potassium 3.9 mmol/L (3.5-5.1) 12/10/18 05:19 Chloride 104 mmol/L (98-107) 12/10/18 05:19 Carbon Dioxide 32 mmol/L (21-32) 04/01/19 05:19 Anion Gap 6.0 (3-11) 12/10/18 05:19 BUN 18 mg/dl (7-18) 12/10/18 05:19 Creatinine 1.03 mg/dl (0.6-1.4) 12/10/18 05:19 Est Cr Clr Drug Dosing 95.6 ml/min 12/10/18 05:19 Est GFR ( Amer) 92.4 12/10/18 05:19 Est GFR (Non-Af Amer) 79.7 12/10/18 05:19 BUN/Creatinine Ratio 17.8 (10-20) 12/10/18 05:19 Glucose 81 mg/dl (70-99) 12/10/18 05:19 Calcium 9.6 mg/dl (8.5-10.1) 12/10/18 05:19 Magnesium 2.0 mg/dl (1.8-2.4) 11/30/18 05:58 Total Bilirubin 0.8 mg/dl (0.2-1) D 12/02/18 08:20 AST 34 U/L (15-37) 12/02/18 08:20 ALT 34 U/L (12-78) 12/02/18 08:20 Alkaline Phosphatase 130 U/L (45-117) H 12/02/18 08:20 Total Protein 6.2 gm/dl (6.4-8.2) L 12/02/18 08:20 Albumin 2.9 gm/dl (3.4-5.0) L 12/02/18 08:20 Globulin 3.3 gm/dl (2.5-4.0) 12/02/18 08:20 Albumin/Globulin Ratio 0.9 (0.9-2) 12/02/18 08:20 Procalcitonin 0.36 ng/ml (0-0.5) 11/30/18 05:58 TSH 1.400 uIu/ml (0.300-4.500) 11/30/18 05:58 Urine Color [place] 11/30/18 14:05 Urine Appearance Clear (Clear) 11/30/18 14:05 Urine pH 5.0 (4.5-7.5) 11/30/18 14:05 Ur Specific [place] 1.028 (1.000-1.030) 11/30/18 14:05 Urine Protein Negative (Negative) 11/30/18 14:05 Urine Glucose (UA) Negative (Negative) 11/30/18 14:05 Urine Ketones Trace (Negative) H 11/30/18 14:05 Urine Blood Negative (Negative) 11/30/18 14:05 Urine Nitrite Positive (Negative) H 11/30/18 14:05 Urine Bilirubin Negative (Negative) 11/30/18 14:05 Urine Urobilinogen Negative (Negative) 11/30/18 14:05 Ur Leukocyte Esterase Negative (Negative) 11/30/18 14:05 Urine WBC (Auto) 1-5 /hpf (0-5) 11/30/18 14:05 Urine RBC (Auto) 0-4 /hpf (0-4) 11/30/18 14:05 U Hyaline Cast (Auto) 0 /lpf (0-5) 11/30/18 14:05 U Epithel Cells (Auto) 0-5 /lpf (0-5) 11/30/18 14:05 Urine Bacteria (Auto) Negative (Negative) 11/30/18 14:05 Stl C. diff Tox B Gene (Neg) 12/02/18 08:05 Influenza Type A (PCR) Neg for Influ A (Neg) 11/30/18 06:37 Influenza Type B (PCR) Neg for Influ B (Neg) 11/30/18 06:37 Bld Cult Staph aureus PCR Negative (Negative) 11/30/18 05:58 Blood Culture MRSA PCR Negative (Negative) 11/30/18 05:58 Intake and Output 12/12/18 12/13/18 12/13/18 22:59 06:59 14:59 Intake Total 300 / 360 Output Total 1000 / 1800 400 / 1800 Balance -700 / -1440 -400 / -1440 Intake: Oral 300 / 360 Output: Urine 1000 / 1800 400 / 1800 Other: Other Intake Source ice chips # Unmeasured Voids 2 Weight 109.7 kg Diagnostic Findings Pulmonology Spirometry 03/10/2017: Spirometry: Within normal limits Lung volumes: Within normal limits Diffusion: Moderately decreased DLCO with DLCO/VA ratio 69% Interpretation: Airflow capacity within normal limits but moderately decreased oxygen diffusing capacity Chest X-ray 12/08/2018 Impression: chronic interstitial lung disease without acute process identified; mixed interstitial and alveolar opacities Cardiac Echocardiogram on 10/15/2018 Impression: Left ventricular systolid function is normal Right ventricle is mildly dilated Left atrium is moderately dilated Right atrium is mildly dilated Right ventricular systolic pressure is normal EKG 11/30/2018 Impression: Atrial fibrillation with rapid ventricular response Microbiology/Infectious Sputum Culture 10/15/2018 Mycobacterium avium complex Sputum culture 12/04/2018 No acid fast bacilli seen Blood culture 11/30/2018-12/01/2018 Blood culture negative Medications Administered Benzonatate (Tessalon Perle) 100 mg PO TID PRN Gabapentin (Neurontin) 300 mg PO QPM [facility] Guaifenesin/Codeine Phosphate (Robitussin-Ac Sugar Free) 5 ml PO Q6H PRN PRN Reason: Cough Stop: 12/30/18 12:05 Heparin Sodium (Porcine) (Heparin Sod 100 Unit/Ml Flush) 5 ml FLUSH PRN PRN PRN Reason: Flush Stop: 12/31/18 02:59 Last Admin: 12/07/18 14:30 Dose: 5 ml Levalbuterol HCl (Xopenex 1.25mg/3ml Neb) 1.25 mg NEB Q6R [facility] Stop: 12/30/18 09:29 Last Admin: 12/13/18 07:21 Dose: 1.25 mg Lorazepam (Ativan) 0.5 mg PO Q6H PRN PRN Reason: Anxiety Stop: 12/31/18 17:00 Last Admin: 12/11/18 03:25 Dose: 0.5 mg Metoprolol Tartrate (Lopressor) 5 mg IV Q6 PRN PRN Reason: heart rate above 110 bpm Stop: 12/30/18 11:59 Metoprolol Tartrate (Lopressor) 100 mg PO BID [facility] Stop: 01/09/19 20:59 Last Admin: 12/13/18 08:20 Dose: 100 mg "Restful Legs Nutraceutical" Non- Formulary Patient's Own Med 3 ea PO DAILY [facility]; Protocol Stop: 01/06/19 08:59 Last Admin: 12/13/18 08:21 Dose: Not Given Prednisone (Prednisone) 60 mg PO DAILY [facility] Stop: 01/02/19 08:59 Last Admin: 12/13/18 08:20 Dose: 60 mg Rivaroxaban (Xarelto) 20 mg PO DAILY [facility] Stop: 12/30/18 09:29 Last Admin: 12/12/18 08:16 Dose: 20 mg
[2018-12-13] MEDS: DIGOXIN 0.25 MG TAB PO SCH (16:46)
--- NOTE | 2018-12-13 17:29 | Hospitalist Progress Note ---
Date of Service December 13, 2018 Assessment & Plan (1) Respiratory failure, acute and chronic: secondary to COPD, interstitial lung disease, MAC infection interstitial lung disease likely playing the biggest role. -Blood cultures, one vial growing gram positive cocci likely representing contaminant we will de-escalate antibiotics to oral doxycycline - titrate oxygen per protocol -is still on 4.5 L of oxygen - has been tolerant of oral steroids tapering steroids down to 50 - nebs, guafenisin/codeine, tessalon pearls - patient does have a port but has not start MAC treatments -pulmonary does not recommend initiation of treatment until his formal send away cultures have come back. 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 (2) Atrial fibrillation with RVR: - Per cardiology -we have discontinued his diltiazem altogether due to patient's leg swelling - Xarelto for anticoagulation was held due to hemorrhoidal bleeding will be restarted 12/14. Patient switched to toprol 100 mg PO BID. (12/10) Cardiology started digoxin 0.25 daily on 12/13 (3) [id number] deficiency: on weekly prolastin infusion therapy as an out pt, will attempt to get his Prolastin. on pirfenadine for pulmonary fibrosis we asked his sister to bring his perphenazine in has chest port placed recently in November 2018 for IV access for infusions. Patient continues to require significant oxygen: He is tolerating oxygen mask between 4 and 6 L/min supplementation D/W pulmonary, tertiary center referral may be done as an outpatient were considering going to long-term acute care facility for administration of the high levels of oxygen required for this patient [facility] (4) Dehydration: Resolved (5) Hx-TIA (transient ischemic attack): 2011, not on any antiplatelet medicines, it is unclear whether this TIA was thought to be embolic or not. It was surrounding emotionally distressed situation (6) Restless leg syndrome: 300 mg hs gabapentin , lorazepam prn Secondary concern for situational depression will discuss use of antidepressants with this patient (7) DVT prophylaxis: Xarelto will be resumed on 12/14 Subjective Patient seems slightly better today was able to tolerate a shower yesterday. He is been instituted on digoxin by cardiology because he has had some episodes of more rapid atrial fibrillation. The patient had his Xarelto held due to his fairly robust hemorrhoidal bleeding but this is now stopped. Patient is now warming up to the thought of going to rehabilitation Review of Systems ROS: well nourished well developed. Appears chronically ill No double vision blurry vision No problems with speech or swallowing No palpitations, chest pain or pressure he cannot sense his atrial fibrillation Dyspnea on exertion which is substantial No abdominal pain nausea vomiting diarrhea changes in appetite or weight No burning urine urine frequency or changes in color No focal joint pain or muscle pain does have lower extremity swelling No skin rashes or oral lesions No unusual bruising or bleeding is mention of hemorrhoids which is now stopped No focused back pain or numbness or loss of strength No changes in memory or confusion Physical Exam Vital Signs (Past 24 Hours): Last Vital Signs Temp 36.3 C L 12/13/18 15:13 Pulse 124 H 12/13/18 16:46 Resp 20 12/13/18 15:13 BP 116/79 12/13/18 15:13 Pulse Ox 93 12/13/18 15:13 the patient appeared well nourished and normally developed. He is chronically ill Vital signs as documented. Remains significantly hypoxic Head exam is unremarkable. normocephalic, atraumatic Neck is without jugular venous distension, thyromegaly, or lymphademopathy Lungs rales bilaterally Cardiac exam reveals Rhythm is regular but does have paroxysmal A. fib and was seen and out of sinus rhythm. First and second heart sounds normal. Abdominal exam reveals normal bowel sounds, no masses, no organomegaly Extremities are mildly edematous and both pedal pulses are present Neurologic exam is A&Ox3, no focal deficits, strength is equal bilateral Psychologically seems neither anxious or depressed Skin is warm Dry without bruises or lesions
[2018-12-13] MEDS: IPRATROPIUM BROMIDE NEB SOLN 0.02% 2.5 ML VIAL INH SCH ×2 (18:22→19:23)
[2018-12-13] MEDS: LEVALBUTEROL 1.25MG/0.5ML NEB INH SCH (19:23)
[2018-12-13] MEDS ORDERED: XOPENEX/ATROVENT 1.25mg/0.5MG NEB COMBO NEB SCH (20:00)
[2018-12-13] MEDS: GABAPENTIN 300 MG CAP PO SCH (21:31)
[2018-12-13] MEDS: LORazepam 0.5 MG TAB PO PRN (21:33)
[2018-12-14] MEDS: IPRATROPIUM BROMIDE NEB SOLN 0.02% 2.5 ML VIAL INH SCH ×4 (01:45→19:16)
[2018-12-14] MEDS: LEVALBUTEROL 1.25MG/0.5ML NEB INH SCH ×4 (01:45→19:16)
[2018-12-14] MEDS: GUAIFENESIN/CODEINE 100MG/10MG 5ML UDC PO PRN ×2 (04:38→16:28)
[2018-12-14 06:02] LABS: Hematocrit (blood only) 43.8 % (42-52); Hemoglobin 14.2 g/dL (14.0-18.0); Mean Corpuscular Hgb Conc 32.4 g/dL (32-36); Mean Corpuscular Volume 98.4 fL (80-100); Mean Platelet Volume 8.6 fL (7.4-10.4); Platelet Count 262 K/uL (130-400); RDW Coefficient of Variation 15.4 % (11.5-14.5); RDW Standard Deviation 55.6 fL (36.4-46.3); Red Blood Count 4.45 M/uL (4.7-6.1); White Blood Count 16.94 K/uL (4.8-10.8)
[2018-12-14 06:30] LABS: BUN Creatinine Ratio 16.7 (10-20); Calcium 9.2 mg/dl (8.5-10.1); Creatinine Clr Calc Pharmacy 77.4 ml/min; Est GFR (African American) 71.7; Est GFR (Non-African American) 61.9; Potassium 3.8 mmol/L (3.5-5.1)
[2018-12-14] MEDS: METOPROLOL TARTRATE 1 MG/ML VIAL IV PRN (08:22)
[2018-12-14] MEDS: METOPROLOL TARTRATE 50 MG TAB PO SCH ×2 (11:11→20:37)
[2018-12-14] MEDS: RIVAROXABAN 20 MG TAB PO SCH (11:11)
[2018-12-14] MEDS: HEPARIN 100 UNIT/ML 5ML FLUSH FLUSH PRN (11:13)
[2018-12-14] MEDS: predniSONE 50 MG TAB PO SCH (12:39)
[2018-12-14] MEDS: DIGOXIN 0.25 MG TAB PO SCH (16:25)
--- NOTE | 2018-12-14 17:15 | Hospitalist Progress Note ---
Date of Service December 14, 2018 Assessment & Plan (1) Respiratory failure, acute and chronic: Patient's respiratory failure has been significant and profound. He is requiring 4-4-1/2 L at rest escalating the 6 or more liters with minor exertion. Majority of his hospital stay has been somewhat unremarkable of late his lung disease has been severe but stable secondary to COPD, interstitial lung disease, MAC infection interstitial lung disease likely playing the biggest role. -Blood cultures, one vial growing gram positive cocci likely representing contaminant we will de-escalate antibiotics to oral doxycycline - titrate oxygen per protocol -is still on 4.5 L of oxygen - has been tolerant of oral steroids tapering steroids down to 50 we will continue to taper as we see fit - nebs, guafenisin/codeine, tessalluis griffiths - patient does have a port but has not start MAC treatments -pulmonary does not recommend initiation of treatment until his formal send away cultures have come back. 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 (2) Atrial fibrillation with RVR: - Per cardiology -we have discontinued his diltiazem altogether due to patient's leg swelling - Xarelto for anticoagulation was held due to hemorrhoidal bleeding will be restarted 12/14. His chads vascular score is 2 points which is 2.2% annually for stroke Patient switched to toprol 100 mg PO BID. (12/10) Cardiology started digoxin 0.25 daily on 12/13 (3) [id number]-[id number] deficiency: on weekly prolastin infusion therapy as an out pt, will attempt to get his Prolastin. on pirfenadine for pulmonary fibrosis we asked his sister to bring his perphenazine in, his family is not yet been able to bring this in has chest port placed recently in November 2018 for IV access for infusions. Patient continues to require significant oxygen: He is tolerating oxygen mask between 4 and 6 L/min supplementation D/W pulmonary, tertiary center referral may be done as an outpatient were considering going to long-term acute care facility for administration of the high levels of oxygen required for this patient considering select specialty (4) Dehydration: Resolved patient is able to eat and drink reasonably well (5) Hx-TIA (transient ischemic attack): 2011, not on any antiplatelet medicines, given his hemorrhoidal bleeding will continue Xarelto and not initiate antiplatelet therapy at this time (6) Restless leg syndrome: 300 mg hs gabapentin , lorazepam prn Secondary concern for situational depression, I did discuss use of antidepressants with this patient he states that he is been a different low points in his life and is at this point time coping well (7) DVT prophylaxis: Xarelto will be resumed on 12/14 Subjective Patient remains fairly depressed dyspneic today. His hemorrhoidal bleeding is not recurred significantly we did restart his Xarelto today. He is awaiting determination whether he can proceed to rehabilitation no new changes or problems but remains markedly dyspneic with exertion Review of Systems ROS: well nourished well developed. No double vision blurry vision No problems with speech or swallowing Patient has marked dyspnea with exertion but no chest pain associated with it. Takes a prolonged time to recover No abdominal pain nausea vomiting diarrhea changes in appetite or weight No burning urine urine frequency or changes in color No focal joint pain or muscle pain No skin rashes or oral lesions No unusual bruising or bleeding No focused back pain or numbness or loss of strength No changes in memory or confusion Physical Exam Vital Signs (Past 24 Hours): Last Vital Signs Temp 36.5 C 12/14/18 15:17 Pulse 99 H 12/14/18 15:17 Resp 21 12/14/18 15:17 BP 102/70 12/14/18 15:17 pulse Ox 90 12/14/18 15:17 the patient appeared well nourished and normally developed. He is easily fatigued Vital signs as documented. Head exam is unremarkable. normocephalic, atraumatic Neck is without jugular venous distension, thyromegaly, or lymphademopathy Lungs are rales bilaterally with poor air movement Cardiac exam reveals irregularly irregular tachycardic at times. First and second heart sounds normal. Abdominal exam reveals normal bowel sounds, no masses, no organomegaly Extremities are mildly edematous and both pedal pulses are present Neurologic exam is A&Ox3, no focal deficits, strength is equal bilateral Psychologically seems neither anxious or depressed Skin is warm Dry without bruises or lesions
[2018-12-14] MEDS: GABAPENTIN 300 MG CAP PO SCH (20:37)
[2018-12-14] MEDS: LORazepam 0.5 MG TAB PO PRN (20:37)
[2018-12-15] MEDS: LEVALBUTEROL 1.25MG/0.5ML NEB INH SCH ×4 (01:56→19:16)
[2018-12-15] MEDS: IPRATROPIUM BROMIDE NEB SOLN 0.02% 2.5 ML VIAL INH SCH ×4 (01:56→19:16)
[2018-12-15] MEDS: GUAIFENESIN/CODEINE 100MG/10MG 5ML UDC PO PRN (03:05)
--- NOTE | 2018-12-15 07:32 | Hospitalist Progress Note ---
Date of Service December 15, 2018 Assessment & Plan (1) Respiratory failure, acute and chronic: Patient's respiratory failure has been significant and profound. He is requiring 4-4-1/2 L at rest escalating the 6 or more liters with minor exertion. Majority of his hospital stay has stabilized outside of adjusting meds for his atrial fibrillation rapid response and his lung disease has been severe but stable no new changes in 12/15 secondary to COPD, interstitial lung disease, MAC infection interstitial lung disease likely playing the biggest role. -Blood cultures, one vial growing gram positive cocci likely representing contaminant we will de-escalate antibiotics to oral doxycycline - titrate oxygen per protocol -is still on 4.5 L of oxygen - has been tolerant of oral steroids tapering steroids down to 40 12/15 - nebs, guafenisin/codeine, tessalon pearls - patient does have a port but has not start MAC treatments -pulmonary does not recommend initiation of treatment until his formal send away cultures have come back. 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 (2) Atrial fibrillation with RVR: - Per cardiology -we have discontinued his diltiazem altogether due to patient's leg swelling - Xarelto for anticoagulation was held due to hemorrhoidal bleeding will be restarted 12/14. His chads vascular score is 2 points which is 2.2% annually for stroke Patient switched to toprol 100 mg PO BID. (12/10) Cardiology started digoxin 0.25 daily on 12/13 (3) [id number]-0-[id number] deficiency: on weekly prolastin infusion therapy as an out pt, will attempt to get his Prolastin. on pirfenadine for pulmonary fibrosis we asked his sister to bring his perphenazine in, his family is not yet been able to bring this in has chest port placed recently in November 2018 for IV access for infusions. Patient continues to require significant oxygen: He is tolerating oxygen mask between 4 and 6 L/min supplementation D/W pulmonary, tertiary center referral may be done as an outpatient were considering going to long-term acute care facility for administration of the high levels of oxygen required for this patient and to proceed to some pulmonary rehab to improve pts exercise tolerance to look toward lung transplant evaluation considering select specialty (4) Dehydration: Resolved patient is able to eat and drink reasonably well (5) Hx-TIA (transient ischemic attack): 2012, not on any antiplatelet medicines, given his hemorrhoidal bleeding will continue Xarelto and not initiate antiplatelet therapy at this time (6) Restless leg syndrome: 300 mg hs gabapentin , lorazepam prn Secondary concern for situational depression, team did discuss use of antidepressants with this patient he states that he is been a different low points in his life and is at this point time coping well (7) DVT prophylaxis: Xarelto will be resumed on 12/14 Subjective Patient is in usual state today fairly dyspneic even with minor movement we are waiting for insurance approval for select specialties. He has no new complaints Review of Systems ROS: well nourished well developed. No double vision blurry vision No problems with speech or swallowing No palpitations, chest pain or pressure Marked breathlessness and dyspnea on exertion No abdominal pain nausea vomiting diarrhea changes in appetite or weight No burning urine urine frequency or changes in color No focal joint pain or muscle pain has lower extremity swelling clubbing of fingers No skin rashes or oral lesions No unusual bruising or bleeding No focused back pain or numbness or loss of strength No changes in memory or confusion Physical Exam Vital Signs (Past 24 Hours): Last Vital Signs Temp 36.3 C L 12/15/18 03:23 Pulse 100 H 12/15/18 06:57 Resp 18 12/15/18 06:57 BP 108/73 12/15/18 03:23 Pulse Ox 91 12/15/18 06:57 The patient appeared well nourished and normally developed. Vital signs as documented. Head exam is unremarkable. normocephalic, atraumatic Neck is with jugular venous distension, thyromegaly, or lymphademopathy Lungs are tachypneic increased work of breathing rales bilaterally from base to apex Cardiac exam reveals Rhythm is regular. First and second heart sounds normal. Abdominal exam reveals normal bowel sounds, no masses, no organomegaly Extremities are mildly edematous and both pedal pulses are present Neurologic exam is A&Ox3, no focal deficits, strength is equal bilateral Psychologically seems neither anxious or depressed Skin is warm Dry without bruises or lesions
[2018-12-15] MEDS: predniSONE 50 MG TAB PO SCH (07:42)
[2018-12-15] MEDS: METOPROLOL TARTRATE 50 MG TAB PO SCH ×2 (07:42→20:10)
[2018-12-15] MEDS: RIVAROXABAN 20 MG TAB PO SCH (07:43)
[2018-12-15] MEDS: DIGOXIN 0.25 MG TAB PO SCH (16:57)
[2018-12-15] MEDS: GABAPENTIN 300 MG CAP PO SCH (20:10)
[2018-12-15] MEDS: LORazepam 0.5 MG TAB PO PRN (20:10)
[2018-12-16] MEDS: LEVALBUTEROL 1.25MG/0.5ML NEB INH SCH ×4 (02:01→19:29)
[2018-12-16] MEDS: IPRATROPIUM BROMIDE NEB SOLN 0.02% 2.5 ML VIAL INH SCH ×4 (02:01→19:29)
[2018-12-16] MEDS: GUAIFENESIN/CODEINE 100MG/10MG 5ML UDC PO PRN ×2 (02:14→23:20)
[2018-12-16] MEDS: LORazepam 0.5 MG TAB PO PRN ×2 (02:16→23:20)
[2018-12-16 05:56] LABS: Hematocrit (blood only) 43.7 % (42-52); Hemoglobin 14.1 g/dL (14.0-18.0); Mean Corpuscular Hgb Conc 32.3 g/dL (32-36); Mean Corpuscular Volume 97.5 fL (80-100); Mean Platelet Volume 8.9 fL (7.4-10.4); Platelet Count 209 K/uL (130-400); RDW Coefficient of Variation 15.6 % (11.5-14.5); RDW Standard Deviation 55.1 fL (36.4-46.3); Red Blood Count 4.48 M/uL (4.7-6.1); White Blood Count 16.17 K/uL (4.8-10.8)
[2018-12-16 06:13] LABS: BUN Creatinine Ratio 15.4 (10-20); Calcium 9.6 mg/dl (8.5-10.1); Creatinine Clr Calc Pharmacy 72.6 ml/min; Est GFR (African American) 66.6; Est GFR (Non-African American) 57.5; Potassium 3.7 mmol/L (3.5-5.1)
[2018-12-16] MEDS: RIVAROXABAN 20 MG TAB PO SCH (07:57)
[2018-12-16] MEDS: predniSONE 50 MG TAB PO SCH (07:57)
[2018-12-16] MEDS: METOPROLOL TARTRATE 50 MG TAB PO SCH ×2 (07:57→20:15)
--- NOTE | 2018-12-16 08:10 | Hospitalist Progress Note ---
Date of Service December 16, 2018 Assessment & Plan (1) Respiratory failure, acute and chronic: Patient's respiratory failure has been significant and profound. He is requiring 4-4-1/2 L at rest escalating the 6 or more liters with minor exertion. Majority of his hospital stay has stabilized outside of adjusting meds for his atrial fibrillation rapid response and his lung disease has been severe but stable no new changes on 12/16 secondary to COPD, interstitial lung disease, MAC infection interstitial lung disease likely playing the biggest role. -Blood cultures, one vial growing gram positive cocci likely representing contaminant we will de-escalate antibiotics to oral doxycycline - titrate oxygen per protocol -is still on 4.5 L of oxygen - has been tolerant of oral steroids tapering steroids down to 40 12/15 - nebs, guafenisin/codeine, tessalon pearls - patient does have a port but has not start MAC treatments -pulmonary does not recommend initiation of treatment until his formal send away cultures have come back. 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 (2) Atrial fibrillation with RVR: - Per cardiology -we have discontinued his diltiazem altogether due to patient's leg swelling - has occasional tachycardia but is usually associated with exertion and dyspnea - Xarelto for anticoagulation was held due to hemorrhoidal bleeding will be restarted 12/14. His chads vascular score is 2 points which is 2.2% annually for stroke Patient switched to toprol 100 mg PO BID. (12/10) Cardiology started digoxin 0.25 daily on 12/13 (3) Xwqhn-4-aeespwbcenq deficiency: on weekly prolastin infusion therapy as an out pt, will attempt to get his Prolastin. on pirfenadine for pulmonary fibrosis we asked his sister to bring his perphenazine in, his family is not yet been able to bring this in has chest port placed recently in November 2018 for IV access for infusions. Patient continues to require significant oxygen: He is tolerating oxygen mask between 4 and 6 L/min supplementation D/W pulmonary, tertiary center referral may be done as an outpatient were considering going to long-term acute care facility for administration of the high levels of oxygen required for this patient and to proceed to some pulmonary rehab to improve pts exercise tolerance to look toward lung transplant evaluation considering select specialty (4) Dehydration: Resolved patient is able to eat and drink reasonably well (5) Hx-TIA (transient ischemic attack): 2012, not on any antiplatelet medicines, given his hemorrhoidal bleeding will continue Xarelto and not initiate antiplatelet therapy at this time (6) Restless leg syndrome: 300 mg hs gabapentin , lorazepam prn Secondary concern for situational depression, team did discuss use of antidepressants with this patient he states that he is been a different low points in his life and is at this point time coping well (7) DVT prophylaxis: Xarelto will be resumed on 12/14 Subjective this pt is about the same, he has no new issues still fairly dyspneic. awaiting placement and pulmonary evaluation Review of Systems ROS: well nourished well developed. No double vision blurry vision No problems with speech or swallowing No palpitations, chest pain or pressure Severely dyspneic and short of breath with nonproductive cough No abdominal pain nausea vomiting diarrhea changes in appetite or weight No burning urine urine frequency or changes in color No focal joint pain or muscle pain No skin rashes or oral lesions No unusual bruising or bleeding No focused back pain or numbness or loss of strength No changes in memory or confusion Physical Exam Vital Signs (Past 24 Hours): Last Vital Signs Temp 36.3 C L 12/16/18 07:36 Pulse 111 H 12/16/18 07:36 Resp 22 12/16/18 07:36 BP 99/65 L 12/16/18 07:36 Pulse Ox 91 12/16/18 07:36 The patient appeared well nourished and normally developed. Vital signs as documented. Head exam is unremarkable. normocephalic, atraumatic Neck is without jugular venous distension, thyromegaly, or lymphademopathy Lungs are bilateral rales and significantly decreased air movement Cardiac exam reveals irregular rhythm with occasional tachycardia usually associated with exertion. Abdominal exam reveals normal bowel sounds, no masses, no organomegaly Extremities are nonedematous and both hands have significant clubbing Neurologic exam is A&Ox3, no focal deficits, strength is equal bilateral Psychologically seems neither anxious or depressed Skin is warm Dry without bruises or lesions
[2018-12-16] MEDS ORDERED: ALPHA IV SCH (17:00)
[2018-12-16] MEDS ORDERED: PROTEINASE INHIBITOR IV SCH (17:00)
[2018-12-16] MEDS: DIGOXIN 0.25 MG TAB PO SCH (17:24)
[2018-12-16] MEDS: GABAPENTIN 300 MG CAP PO SCH (20:15)
[2018-12-17] MEDS: LEVALBUTEROL 1.25MG/0.5ML NEB INH SCH ×4 (01:54→19:19)
[2018-12-17] MEDS: IPRATROPIUM BROMIDE NEB SOLN 0.02% 2.5 ML VIAL INH SCH ×4 (01:54→19:19)
[2018-12-17] MEDS: METOPROLOL TARTRATE 50 MG TAB PO SCH ×2 (07:50→21:20)
[2018-12-17] MEDS: RIVAROXABAN 20 MG TAB PO SCH (07:51)
[2018-12-17] MEDS: predniSONE 50 MG TAB PO SCH (07:51)
--- NOTE | 2018-12-17 14:29 | Consultation Report ---
DATE OF CONSULTATION: 12/17/2018 PULMONARY MEDICINE CONSULTATION REASON FOR CONSULTATION: Second opinion/patient previously known to me with a history of progressive pulmonary fibrosis and alpha-1 antitrypsin deficiency. HISTORY OF PRESENT ILLNESS: A 58-year-old white male well known to my pulmonary service had to be admitted, was discharged on 10/19/[address] Eloy Lucas. The patient has had a history of recurrent bouts of atrial fibrillation with rapid ventricular response requiring cardioversion and ablation therapy. He has had a history of TIA, dyslipidemia, TB exposure, previously on rifampin and marked tobacco usage. He has also had a history of chronic respiratory failure secondary to COPD and interstitial lung disease along with alpha-1 antitrypsin deficiency, on weekly IV Prolastin infusion therapy. The patient was admitted apparently with tahmina hemoptysis during the October admission, found to be in atrial fibrillation and had to be treated with IV Lopressor and his Xarelto was stopped 3 days prior to the admission due to the hemoptysis. He was readmitted and required a right subclavian A-port insertion with Dr. Kumari. He was then seen in the Emergency Room by Dr. Carvajal on 11/30/2018 with progressive symptoms. During that hospitalization, he was seen by Dr. Tammie Hernández. He notes that the patient is a 58-year-old white male with a history of pulmonary fibrosis, diagnosed 18 months prior, treated with pirfenidone as an outpatient whether the dose had to be adjusted for tolerance and then he had to stop the medication due to loss of insurance for 1 month, but continued with IV Prolastin therapy for alpha-1 antitrypsin therapy. He has been on that for 17 months with weekly infusion. He also has had a history of atrial fibrillation with rapid ventricular response. He was admitted and seen by Dr. Hernández. He has also had elevated liver enzymes including bilirubin consistent with alpha-1 antitrypsin. He states he has shown some improvement since his admission with less dyspnea with exertion and he is trying to walk the hallways. 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 He is receiving the aerosolized bronchodilator around the clock. He has received the palliative care consultation with Sharla Richardson and I was asked to see the patient by Dr. Zarate knowing him from outpatient medicine for a second evaluation. He has been in the hospital on 5 liters of oxygen by [employer]. His IV Prolastin infusion has been held until his sister can bring in the infusion that was shipped, but left on his door step by [employer] for an unspecified period of time. He is checking with the pharmacy to see if he can be administered a non-refrigerated sample. He is currently on Xarelto daily, gabapentin for restless leg, Lopressor 100 mg p.o. b.i.d., digoxin 0.25 mg daily and prednisone 50 mg daily. His antibiotics have been discontinued. PHYSICAL EXAMINATION: VITAL SIGNS: Blood pressure 113/82, pulse 103 and regular, respiratory rate 20, temperature 36.8, O2 sat 94% on 5 liters. SKIN: Without lesion. HEENT: Atraumatic, normocephalic, PERRLA, EOMI. Conjunctivae pink. Sclerae nonicteric. Fundi poorly visualized. NECK: Neck veins are not distended at 45 degrees. No evidence of adenopathy in the supra or infraclavicular areas. LUNGS: Distant P and A with marked prolongation of the expiratory phase, marked Velcro rales at the bases. CARDIAC: Regular rate and rhythm. I do not appreciate a gallop. ABDOMEN: Soft, protuberant. EXTREMITIES: Trace to +1 pitting edema. No marked clubbing noted. No peripheral cyanosis. NEUROLOGIC: Intact. DIAGNOSTIC DATA: CT scan last performed on 10/14/2018 shows no evidence of pulmonary thromboembolic disease, severe emphysema is noted and is also superimposed interstitial lung disease. There has been interval development of ground-glass opacities within the lung and no change in mediastinal and hilar lymphadenopathy. Chest x-ray on 12/08/2018 showed no acute changes. OTHER LABORATORY DATA: White count 16,000, H and H 14 and 43.7. Renal profile acceptable. Blood cultures showed a contaminant MAC grown from the sputum of 10/15/2018. OVERALL ASSESSMENT: A 58-year-old with severe emphysema, probable alpha-1 antitrypsin,and a smoking history as contributing factors in addition to a progressive idiopathic pulmonary fibrosis with some atypical features for UIP/IPF, but not a candidate for lung biopsy. The new ground-glass opacities may be secondary to MAC infection or even a hypersensitivity pneumonitis from MAC infection triggering HP or other etiology. This is a well-reported entity. It may be worthwhile to consider treatment for MAC despite lack of additional evidence for active infection. I doubt we will be able to get specimens either from a bronchoscopic evaluation or open lung biopsy to secure the diagnosis of an MAC infection, but may very well benefit from empiric therapy. The patient will need to be evaluated for lung transplantation at one of the major [facility] and apparently his transfer to [facility] at [place] has not been approved by insurance. JERARDOD
[2018-12-17] MEDS: DIGOXIN 0.25 MG TAB PO SCH (16:13)
[2018-12-17] MEDS: GABAPENTIN 300 MG CAP PO SCH (21:20)
--- NOTE | 2018-12-17 23:07 | Hospitalist Progress Note ---
Date of Service December 17, 2018 Assessment & Plan (1) Respiratory failure, acute and chronic: Patient's respiratory failure has been significant and profound. He is requiring 4-4-1/2 L at rest escalating the 6 or more liters with minor exertion. Majority of his hospital stay has stabilized outside of adjusting meds for his atrial fibrillation rapid response and his lung disease has been severe but stable no new changes on 12/16 secondary to COPD, interstitial lung disease, MAC infection interstitial lung disease likely playing the biggest role. -Blood cultures, one vial growing gram positive cocci likely representing contaminant we will de-escalate antibiotics to oral doxycycline - titrate oxygen per protocol -is still on 4.5 L of oxygen - has been tolerant of oral steroids tapering steroids down to 40 12/15 - nebs, guafenisin/codeine, tessalon pearls - patient does have a port but has not start MAC treatments -pulmonary does not recommend initiation of treatment until his formal send away cultures have come back. 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 (2) Atrial fibrillation with RVR: - Per cardiology -we have discontinued his diltiazem altogether due to patient's leg swelling - has occasional tachycardia but is usually associated with exertion and dyspnea - Xarelto for anticoagulation was held due to hemorrhoidal bleeding will be restarted 12/14. His chads vascular score is 2 points which is 2.2% annually for stroke Patient switched to toprol 100 mg PO BID. (12/10) Cardiology started digoxin 0.25 daily on 12/13. will continue to monitor. HR remains elevated. (3) Nfphy-4-[id number] deficiency: on weekly prolastin infusion therapy as an out pt, will attempt to get his Prolastin. on pirfenadine for pulmonary fibrosis we asked his sister to bring his perphenazine in, his family is not yet been able to bring this in has chest port placed recently in November 2018 for IV access for infusions. Patient continues to require significant oxygen: He is tolerating oxygen mask between 4 and 6 L/min supplementation D/W pulmonary, tertiary center referral may be done as an outpatient were considering going to long-term acute care facility for administration of the high levels of oxygen required for this patient and to proceed to some pulmonary rehab to improve pts exercise tolerance to look toward lung transplant evaluation considering select specialty (4) Dehydration: Resolved patient is able to eat and drink reasonably well (5) Hx-TIA (transient ischemic attack): 2011, not on any antiplatelet medicines, given his hemorrhoidal bleeding will continue Xarelto and not initiate antiplatelet therapy at this time (6) Restless leg syndrome: 300 mg hs gabapentin , lorazepam prn Secondary concern for situational depression, team did discuss use of antidepressants with this patient he states that he is been a different low points in his life and is at this point time coping well (7) DVT prophylaxis: Xarelto will be resumed on 12/14 Spent 35 minutes in management of patient. This included chart review. Subjective The patient reports not having any significant improvement FROM YESTERDAY. Patient though reports no worsening either. Patient informed that insurance denied LTACH. Physical Exam Vital Signs (Past 24 Hours): Last Vital Signs Temp 36.5 C 12/17/18 19:35 Pulse 101 H 12/17/18 19:35 Resp 18 12/17/18 19:35 BP 107/72 12/17/18 19:35 Pulse Ox 95 12/17/18 19:35 Physical Exam: The patient appeared well nourished and normally developed. Vital signs as documented. Head exam is unremarkable. normocephalic, atraumatic Neck is without jugular venous distension, thyromegaly, or lymphademopathy Lungs are clear but have significantly decreased air movement Cardiac exam reveals irregular rhythm with occasional tachycardia usually associated with exertion. Abdominal exam reveals normal bowel sounds, no masses, no organomegaly Extremities are nonedematous and both hands have significant clubbing Neurologic exam is A&Ox3, no focal deficits, strength is equal bilateral Psychologically seems neither anxious or depressed Skin is warm Dry without bruises or lesions
[2018-12-18] MEDS: IPRATROPIUM BROMIDE NEB SOLN 0.02% 2.5 ML VIAL INH SCH ×3 (02:07→14:09)
[2018-12-18] MEDS: LEVALBUTEROL 1.25MG/0.5ML NEB INH SCH ×3 (02:07→14:09)
[2018-12-18] MEDS: GUAIFENESIN/CODEINE 100MG/10MG 5ML UDC PO PRN (04:58)
[2018-12-18] MEDS: LORazepam 0.5 MG TAB PO PRN (04:58)
[2018-12-18 05:20] LABS: Hematocrit (blood only) 45.5 % (42-52); Hemoglobin 14.8 g/dL (14.0-18.0); Mean Corpuscular Hgb Conc 32.5 g/dL (32-36); Mean Corpuscular Volume 97.6 fL (80-100); Mean Platelet Volume 9.2 fL (7.4-10.4); Platelet Count 203 K/uL (130-400); RDW Coefficient of Variation 15.8 % (11.5-14.5); RDW Standard Deviation 55.8 fL (36.4-46.3); Red Blood Count 4.66 M/uL (4.7-6.1)
[2018-12-18 05:37] LABS: BUN Creatinine Ratio 18.5 (10-20); Calcium 9.2 mg/dl (8.5-10.1); Creatinine Clr Calc Pharmacy 97.5 ml/min; Est GFR (African American) 94.6; Est GFR (Non-African American) 81.6
[2018-12-18] MEDS: predniSONE 50 MG TAB PO SCH (07:43)
[2018-12-18] MEDS: METOPROLOL TARTRATE 50 MG TAB PO SCH ×2 (07:43→20:54)
[2018-12-18] MEDS: RIVAROXABAN 20 MG TAB PO SCH (07:44)
--- NOTE | 2018-12-18 11:12 | Hospitalist Progress Note ---
Date of Service December 18, 2018 Assessment & Plan (1) Respiratory failure, acute and chronic: Patient's respiratory failure has been significant and profound. He is requiring 4-4-1/2 L at rest escalating the 6 or more liters with minor exertion. Majority of his hospital stay has stabilized outside of adjusting meds for his atrial fibrillation rapid response and his lung disease has been severe but stable no new changes on 12/16 secondary to COPD, interstitial lung disease, MAC infection interstitial lung disease likely playing the biggest role. -Blood cultures, one vial growing gram positive cocci likely representing contaminant we will de-escalate antibiotics to oral doxycycline - titrate oxygen per protocol -is still on 4.5 L of oxygen - has been tolerant of oral steroids tapering steroids down to 40 12/15 - nebs, guafenisin/codeine, tessalon pearls - patient does have a port but has not start MAC treatments -pulmonary does not recommend initiation of treatment until his formal send away cultures have come back. 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 On 12/18, PATIENT HAS BEEN A DIFFICULT WHEN AND HAS BEEN REQUIRING HIGHER AMOUNTS OF OXYGEN. Patient is currently on 9 liters nasal cannula and only saturating between 88- 91%. (2) Atrial fibrillation with RVR: - Per cardiology -we have discontinued his diltiazem altogether due to patient's leg swelling - has occasional tachycardia but is usually associated with exertion and dyspnea - Xarelto for anticoagulation was held due to hemorrhoidal bleeding will be restarted 12/14. His chads vascular score is 2 points which is 2.2% annually for stroke Patient switched to toprol 100 mg PO BID. (12/10) Cardiology started digoxin 0.25 daily on 12/13. will continue to monitor. HR remains elevated, may be related to his hypoxia. (3) Xytvp-6-bksojwrwltw deficiency: on weekly prolastin infusion therapy as an out pt, will attempt to get his Prolastin. on pirfenadine for pulmonary fibrosis we asked his sister to bring his perphenazine in, his family is not yet been able to bring this in has chest port placed recently in November 2018 for IV access for infusions. Patient continues to require significant oxygen: He is tolerating oxygen mask between 4 and 6 L/min supplementation D/W pulmonary, tertiary center referral may be done as an outpatient were considering going to long-term acute care facility for administration of the high levels of oxygen required for this patient and to proceed to some pulmonary rehab to improve pts exercise tolerance to look toward lung transplant evaluation considering select specialty (4) Dehydration: Resolved patient is able to eat and drink reasonably well (5) Hx-TIA (transient ischemic attack): 2012, not on any antiplatelet medicines, given his hemorrhoidal bleeding will continue Xarelto and not initiate antiplatelet therapy at this time (6) Restless leg syndrome: 300 mg hs gabapentin , lorazepam prn Secondary concern for situational depression, team did discuss use of antidepressants with this patient he states that he is been a different low points in his life and is at this point time coping well (7) DVT prophylaxis: Xarelto will be resumed on 12/14 Spent 37 minutes in management of patient Subjective Patient reports no change from yesterday. Patient though has been requiring more oxygen as per nurse. Physical Exam Vital Signs (Past 24 Hours): Last Vital Signs Temp 36.4 C L 12/18/18 07:14 Pulse 91 H 12/18/18 07:14 Resp 24 12/18/18 07:14 BP 127/86 12/18/18 07:41 Pulse Ox 91 12/18/18 07:14 Physical Exam: The patient appeared well nourished and normally developed. Vital signs as documented. Head exam is unremarkable. normocephalic, atraumatic Neck is without jugular venous distension, thyromegaly, or lymphademopathy Lungs are clear but have significantly decreased air movement Cardiac exam reveals irregular rhythm with occasional tachycardia usually associated with exertion. Abdominal exam reveals normal bowel sounds, no masses, no organomegaly Extremities are nonedematous and both hands have significant clubbing Neurologic exam is A&Ox3, no focal deficits, strength is equal bilateral Psychologically seems neither anxious or depressed Skin is warm Dry without bruises or lesions
--- NOTE | 2018-12-18 15:42 | Progress Note ---
DATE: 12/18/2018 PULMONARY MEDICINE PROGRESS NOTE Chart reviewed, and the patient examined. SUBJECTIVE: The patient was awoken from sleep. He states his breathing is about the same. He denies cough, pleuritic pain, still has a fairly significant O2 requirements. We discussed the fact that in mid October, a sputum sample grew out MAC organism. It was unclear whether this represented an infectious agent versus colonization. Second sputum apparently has been sent for cultures pending for acid fast bacilli. I told him that in order to treat this empirically, one would have to go with a 2-3 drug regimen 2-3 times a week as tolerated for clearly 12-24 months. There would be little downside except the annoyance of taking this much medication and the potential for drug-drug interaction, but certainly one cannot promise or state with certainty that this would help his respiratory status currently. We will discuss further with him. Unfortunately, apparently the LTAC facility at [place] has not approved his transfer and he is now considering being discharged to home. He does live by himself and his sister apparently will be having shoulder replacement within the next several weeks and will not be available for him. He does get home health visits once weekly when they infuse his IV Prolastin, but did not think that would suffice. We will need to discuss further with Dr. Anne.
[2018-12-18] MEDS: DIGOXIN 0.25 MG TAB PO SCH (17:01)
[2018-12-18] MEDS: GABAPENTIN 300 MG CAP PO SCH (20:55)
--- NOTE | 2018-12-18 23:32 | Hospitalist Progress Note ---
Date of Service December 18, 2018 Assessment & Plan (1) Respiratory failure, acute and chronic: Patient's respiratory failure has been significant and profound. He is requiring 4-4-1/2 L at rest escalating the 6 or more liters with minor exertion. Majority of his hospital stay has stabilized outside of adjusting meds for his atrial fibrillation rapid response and his lung disease has been severe but stable no new changes on 12/16 secondary to COPD, interstitial lung disease, MAC infection interstitial lung disease likely playing the biggest role. -Blood cultures, one vial growing gram positive cocci likely representing contaminant we will de-escalate antibiotics to oral doxycycline - titrate oxygen per protocol -is still on 4.5 L of oxygen - has been tolerant of oral steroids tapering steroids down to 40 12/15 - nebs, guafenisin/codeine, tessalon pearls - patient does have a port but has not start MAC treatments -pulmonary does not recommend initiation of treatment until his formal send away cultures have come back. 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 On 12/18, PATIENT HAS BEEN A DIFFICULT WHEN AND HAS BEEN REQUIRING HIGHER AMOUNTS OF OXYGEN. Patient is currently on 9 liters nasal cannula and only saturating between 88- 91%. (2) Atrial fibrillation with RVR: - Per cardiology -we have discontinued his diltiazem altogether due to patient's leg swelling - has occasional tachycardia but is usually associated with exertion and dyspnea - Xarelto for anticoagulation was held due to hemorrhoidal bleeding will be restarted 12/14. His chads vascular score is 2 points which is 2.2% annually for stroke Patient switched to toprol 100 mg PO BID. (12/10) Cardiology started digoxin 0.25 daily on 12/13. will continue to monitor. HR remains elevated, may be related to his hypoxia. (3) Scnwu-8-xikgtvwlktp deficiency: on weekly prolastin infusion therapy as an out pt, will attempt to get his Prolastin. on pirfenadine for pulmonary fibrosis we asked his sister to bring his perphenazine in, his family is not yet been able to bring this in has chest port placed recently in November 2018 for IV access for infusions. Patient continues to require significant oxygen: He is tolerating oxygen mask between 4 and 6 L/min supplementation D/W pulmonary, tertiary center referral may be done as an outpatient were considering going to long-term acute care facility for administration of the high levels of oxygen required for this patient and to proceed to some pulmonary rehab to improve pts exercise tolerance to look toward lung transplant evaluation considering select specialty (4) Dehydration: Resolved patient is able to eat and drink reasonably well (5) Hx-TIA (transient ischemic attack): 2011, not on any antiplatelet medicines, given his hemorrhoidal bleeding will continue Xarelto and not initiate antiplatelet therapy at this time (6) Restless leg syndrome: 300 mg hs gabapentin , lorazepam prn Secondary concern for situational depression, team did discuss use of antidepressants with this patient he states that he is been a different low points in his life and is at this point time coping well (7) DVT prophylaxis: Xarelto will be resumed on 12/14 Spent 37 minutes in management of patient Physical Exam Vital Signs (Past 24 Hours): Last Vital Signs Temp 36.4 C L 12/18/18 23:18 Pulse 90 12/18/18 23:18 Resp 19 12/18/18 23:18 BP 117/79 12/18/18 23:18 Pulse Ox 92 12/18/18 23:18
[2018-12-19] MEDS: IPRATROPIUM BROMIDE NEB SOLN 0.02% 2.5 ML VIAL INH SCH ×4 (00:14→14:37)
[2018-12-19] MEDS: LEVALBUTEROL 1.25MG/0.5ML NEB INH SCH ×4 (00:15→14:37)
[2018-12-19] MEDS: LORazepam 0.5 MG TAB PO PRN (01:39)
[2018-12-19] MEDS: GUAIFENESIN/CODEINE 100MG/10MG 5ML UDC PO PRN (01:39)
[2018-12-19] MEDS: METOPROLOL TARTRATE 50 MG TAB PO SCH (09:56)
[2018-12-19] MEDS: predniSONE 50 MG TAB PO SCH (09:57)
[2018-12-19] MEDS: RIVAROXABAN 20 MG TAB PO SCH (09:57)
[2018-12-19 10:00] VITALS: TEMP 97.3
[2018-12-19 11:27] VITALS: BP 122/83
[2018-12-19 14:39] VITALS: PULSE 104; O2SAT 94
--- NOTE | 2018-12-25 07:51 | Discharge Summary ---
Date of Service December 19, 2018 Admission HPI Per Admitting Provider Mr Douglas's main complaint is worsening sob. He arrived on 11/30/18 having had to increase his chronic O2 from 4L to 5L. He has a history of COPD/interstitial lungs disease and Jgyaa-5-yxqocjvwuiq deficiency on prolastin, , who called ambulance on 11/30/18 presentation to emergency room for worsening shortness of breath and had increased home oxygen from 4 liter/min to 5 liters/min at home. Patient was found to be in atrial fibrillation with rapid ventricular response at that time but did not have any palpitations or chest pain though he says normally he can feel it if he goes into A. fib . He had been off diltiazem for 3 days. Also noted in the past 2 to 3 days or poor oral intake and multiple episodes of diarrhea which have resolved at this point. Patient also reported subjective fevers at home. He requests to change service from [facility] to [facility] and gave me permission to take over his care. Other Pmhx: chronic respiratory failure with hypoxia, atrial fibrillation on anticaogulation with Xarelto, restless leg, Family history: patient reports mother and father had history of heart failure Principal Diagnosis Acute on chronic respiratory failure (hypoxic) from alpha 1- antitrypsin deficiency Discharge Exam The patient appeared well nourished and normally developed. Vital signs as documented. Head exam is unremarkable. normocephalic, atraumatic Neck is without jugular venous distension, thyromegaly, or lymphademopathy Lungs are clear but have significantly decreased air movement Cardiac exam reveals irregular rhythm with occasional tachycardia usually associated with exertion. Abdominal exam reveals normal bowel sounds, no masses, no organomegaly Extremities are nonedematous and both hands have significant clubbing Neurologic exam is A&Ox3, no focal deficits, strength is equal bilateral Psychologically seems neither anxious or depressed Skin is warm Dry without bruises or lesions Discharge Data Allergies Allergy/AdvReac Type Severity Reaction Status Date / Time amoxicillin Allergy Intermediate itchy Verified 11/30/18 06:05 trazodone Allergy Mild RASH Verified 11/30/18 06:05 Consultations 11/30/18 07:09 ED Decision to Admit Stat 11/30/18 08:04 Consult Cardiology Routine 12/01/18 16:28 Consult Pulmonology Routine 12/02/18 09:26 Consult Palliative Care Routine 12/03/18 15:22 Consult Patient Services Routine Hospital Course (1) Respiratory failure, acute and chronic: Patient's respiratory failure has been significant and profound. He is requiring 4-4-1/2 L at rest escalating the 6 or more liters with minor exertion. Majority of his hospital stay has stabilized outside of adjusting meds for his atrial fibrillation rapid response and his lung disease has been severe but stable no new changes on 12/16 secondary to COPD, interstitial lung disease, MAC infection interstitial lung disease likely playing the biggest role. - titrate oxygen per protocol -is still on 4.5 L of oxygen - has been tolerant of oral steroids tapering steroids down to 40 12/15 - nebs, guafenisin/codeine, tessalon pearls - patient does have a port but has not start MAC treatments -pulmonary does not recommend initiation of treatment until his formal send away cultures have come back. - history of positive PPD 1993 with 6 months INH - 2016 negative quantiferon gold negative - consulted palliative care for goals of care discussion, Patient currently not interested in hospice. On 12/18, PATIENT HAS BEEN A DIFFICULT WHEN AND HAS BEEN REQUIRING HIGHER AMOUNTS OF OXYGEN. Patient is currently on 9 liters nasal cannula and only saturating between 88- 91%. On 12/19 was able to get approval for terminologist care facility. Patient will continue to require oxygen and will need to be slowly titrated off his prednisone 5mg weekly. (2) Atrial fibrillation with RVR: - Per cardiology -we have discontinued his diltiazem altogether due to patient's leg swelling - has occasional tachycardia but is usually associated with exertion and dyspnea - Xarelto for anticoagulation was held due to hemorrhoidal bleeding will be restarted 12/14. His chads vascular score is 2 points which is 2.2% annually for stroke Patient switched to toprol 100 mg PO BID. (12/10) Cardiology started digoxin 0.25 daily on 12/13. will continue to monitor. HR remains elevated, may be related to his hypoxia. D/W cardio, ok with HR. (3) Eykfk-9-grufdebhzsf deficiency: on weekly prolastin infusion therapy as an out pt, will attempt to get his Prolastin. on pirfenadine for pulmonary fibrosis we asked his sister to bring his perphenazine in, his family is not yet been able to bring this in has chest port placed recently in November 2018 for IV access for infusions. Patient continues to require significant oxygen: He is tolerating oxygen mask between 4 and 6 L/min supplementation D/W pulmonary, tertiary center referral may be done as an outpatient were considering going to long-term acute care facility for administration of the high levels of oxygen required for this patient and to proceed to some pulmonary rehab to improve pts exercise tolerance to look toward lung transplant evaluation considering select specialty (4) Dehydration: Resolved patient is able to eat and drink reasonably well (5) Hx-TIA (transient ischemic attack): 2011, not on any antiplatelet medicines, given his hemorrhoidal bleeding will continue Xarelto and not initiate antiplatelet therapy at this time (6) Restless leg syndrome: 300 mg hs gabapentin , lorazepam prn Secondary concern for situational depression, team did discuss use of antidepressants with this patient he states that he is been a different low points in his life and is at this point time coping well (7) DVT prophylaxis: Xarelto will be resumed on 4/ Total Time Total Time Spent Total Time Spent (In Minutes): 32 Total Time Includes: Examination of the Patient, Discharge Planning and Medication Reconciliation Discharge Plan Discharge Items Patient Disposition: Trans Resident Long-Term Care Reason For Visit: ATRIAL FIBRILLATION WITH RVR Discharge Diagnosis: Atrial Fib/ hypoxia/ pulmonary fibrosis Discharge Goals: Decrease discomfort and Improve disease control Activity: Resume your previous activity Non-emergency contact: Primary Care Provider Call non-emergency contact if: you have any medication questions Follow-up/Referrals: Daly Brasher MD [Primary Care Provider] - Diet: Heart Healthy Addtl Provider Instructions: Recommend followup with Cardiology and Pulmonary in 1-2 weeks. Prescriptions: New levalbuterol HCl 1.25 mg/0.5 mL Solution For Nebulization 1.25 mg inhalation Q6R Qty: 90 RF: 0 digoxin 250 mcg Tablet 0.25 mg PO DAILY@1600 Qty: 30 RF: 0 lorazepam 0.5 mg Tablet 0.5 mg PO Q6H PRN (Reason: anxiety) Qty: 10 RF: 0 metoprolol tartrate 50 mg Tablet 100 mg PO BID Qty: 60 RF: 0 gabapentin 300 mg Capsule 300 mg PO QPM Qty: 30 RF: 0 ipratropium bromide 0.02 % Solution 0.5 mg inhalation Q6R Qty: 90 RF: 0 prednisone 20 mg tablet 40 mg PO DAILY Qty: 60 RF: 0 benzonatate [Tessalon Perles] 100 mg Capsule 100 mg PO TID PRN (Reason: cough) Qty: 90 RF: 0 codeine-guaifenesin [Cheratussin AC] 10-100 mg/5 mL Liquid 5 ml PO Q6H PRN (Reason: cough) Qty: 5 RF: 0 Continued Prolastin-C 1,000 mg Recon Soln 1 dose IV WK RF: 0 Xarelto 20 mg tablet 20 mg PO DAILY RF: 0 Breo Ellipta 200-25 mcg/dose Blister With Device 1 inh INHALATION DAILY RF: 0 loperamide [Imodium A-D] 2 mg Capsule 2 mg PO UD PRN (Reason: Diarrhea) RF: 0 Restful Legs 3 tab PO DAILY RF: 0 Discontinued albuterol sulfate [Ventolin HFA] 90 mcg/actuation HFA aerosol inhaler 2 puff Inhalation QID PRN (Reason: Shortness Of Breath Or Wheezing) RF: 0 Esbriet 267 mg tablet 267 mg PO TID RF: 0 Spiriva Respimat 2.5 mcg/actuation Mist 1 puff INHALATION DAILY RF: 0 diltiazem HCl [Cardizem CD] 360 mg Capsule,Extended Release 24hr 360 mg PO HS RF: 0 fluticasone propionate [Flonase Allergy Relief] 50 mcg/actuation Outing,Suspension 1 spray INTRANASAL BID RF: 0 prednisone 10 mg Tablet 10 mg PO QAM RF: 0 hydrocodone-acetaminophen [Garland] 5-325 mg tablet 1 - 2 tab PO Q4H PRN (Reason: pain) Qty: 7 RF: 0 albuterol sulfate 2.5 mg /3 mL (0.083 %) Solution For Nebulization 2.5 mg INHALATION QID PRN (Reason: sob) RF: 0 Stand-Alone Forms: [facility] Discharge Orders: Discharge Order (Routine); Ordered 12/19/18 Ordered By: Richardson Anne Admission Data Admit Date/Time: 11/30/18 07:59 Attending Provider: Richardson Anne Admit Provider: Eloy Lucas Primary Care Provider: Daly Brasher Other Providers: Hussein Maravilla ; Kulwinder Carranza ; Tammie Hernández,[place] ; Daina Myers ; Richardson Anne Service: Telemetry Other Interventions: Discharge Summary Assessment (RN) Last Done: 12/19/18 13:22 DC Date/Time DO NOT enter until pt leaves facility: 12/19/18 14:50
== END 2018-12-19 14:50 | DRG 177 ==
LOC: ED 05:37 → SUATTDRO 07:59 → 2S 07:59